=== PATIENT | female | born 1955 | race Caucasian/White ===

== ENCOUNTER 2016-07-09 20:23 | Inpatient (IN) | payer MEDICARE, OTHER ==
[2016-07-09] MEDS ORDERED: methylPREDNISolone SOD SUCCI 125 MG/2 ML VIAL IV STA (21:54)
--- NOTE | 2016-07-09 21:56 | ED ---
SOB HPI - General Chief Complaint: Shortness of Breath Stated Complaint: VOMITING Time Seen by Provider: 07/09/16 21:47 Source: patient, family, RN notes reviewed Mode of arrival: wheelchair - History of Present Illness Initial Comments: This is a 61-year-old female with a history of emphysema who presents with complaints of shortness of breath for the past 5 days she had a cough some lightheadedness dizziness decreased oral intake. No overt chest pain or palpitations. No overt fevers chills or sweats. She has had rhinorrhea. No other complaints at this time MD Complaint: shortness of breath, cough - Related Data Allergies Allergy/AdvReac Type Severity Reaction Status Date / Time No Known Allergies Allergy Verified 07/09/16 20:34 Review of Systems ROS Statement: Those systems with pertinent positive or pertinent negative responses have been documented in the HPI. ROS Other: All systems not noted in ROS Statement are negative. Past Medical History Past Medical History: Cancer, COPD, Diabetes Mellitus Additional Past Medical History / Comment(s): mental retardation, aneurysm, lung CA, lung removed History of Any Multi-Drug Resistant Organisms: None Reported Additional Past Surgical History / Comment(s): lung removed Past Psychological History: No Psychological Hx Reported Smoking Status: Current every day smoker Past Alcohol Use History: None Reported Past Drug Use History: None Reported General Exam - General Exam Comments Initial Comments: This is a well-developed asthenic awake alert oriented 3 female General appearance: alert, anxious, in distress Head exam: Present: atraumatic, normocephalic, normal inspection Eye exam: Present: normal appearance, PERRL, EOMI. Absent: scleral icterus, conjunctival injection, periorbital swelling ENT exam: Present: mucous membranes dry Neck exam: Present: normal inspection. Absent: tenderness, meningismus, lymphadenopathy Respiratory exam: Present: wheezes, accessory muscle use, decreased breath sounds Cardiovascular Exam: Present: regular rate, normal rhythm, normal heart sounds. Absent: systolic murmur, diastolic murmur, rubs, gallop, clicks GI/Abdominal exam: Present: soft, normal bowel sounds. Absent: distended, tenderness, guarding, rebound, rigid Extremities exam: Present: normal inspection, full ROM, normal capillary refill. Absent: tenderness, pedal edema, joint swelling, calf tenderness Back exam: Present: normal inspection Neurological exam: Present: alert, oriented X3, CN II-XII intact Psychiatric exam: Present: normal affect, normal mood Skin exam: Present: warm, dry, intact, normal color. Absent: rash Course Vital Signs 07/09/16 07/09/16 07/10/16 20:34 22:21 00:05 Temperature 98.7 F 99.4 F 98.9 F Pulse Rate 91 86 79 Respiratory 17 18 18 Rate Blood Pressure 142/80 149/72 146/67 O2 Sat by Pulse 93 L 96 96 Oximetry - Reevaluation(s) Reevaluation #1: 07/10/16 00:14I I did reevaluate patient she is feeling somewhat improved so short of breath however. Medical Decision Making - Medical Decision Making I did discuss findings with the patient family patient be admitted I did discuss case with Dr. Tong - Lab Data Result diagrams: 07/09/16 21:53 07/09/16 21:53 Lab Results 07/09/16 07/09/16 07/09/16 Range/Units 21:53 21:53 21:53 WBC 10.1 (3.8-10.6) k/uL RBC 3.98 (3.80-5.40) m/uL Hgb 11.6 (11.4-16.0) gm/dL Hct 33.7 L (34.0-46.0) % MCV 84.6 (80.0-100.0) fL MCH 29.0 (25.0-35.0) pg MCHC 34.3 (31.0-37.0) g/dL RDW 13.5 (11.5-15.5) % Plt Count 378 (150-450) k/uL Neutrophils % 76 % Lymphocytes % 15 % Monocytes % 6 % Eosinophils % 1 % Basophils % 0 % Neutrophils # 7.6 (1.3-7.7) k/uL Lymphocytes # 1.5 (1.0-4.8) k/uL Monocytes # 0.6 (0-1.0) k/uL Eosinophils # 0.1 (0-0.7) k/uL Basophils # 0.0 (0-0.2) k/uL PT (9.0-12.0) sec INR (<1.1) APTT (22.0-30.0) sec Sodium 139 (137-145) mmol/L Potassium 3.8 (3.5-5.1) mmol/L Chloride 99 (98-107) mmol/L Carbon Dioxide 29 (22-30) mmol/L Anion Gap 11 mmol/L BUN 12 (7-17) mg/dL Creatinine 0.50 L (0.52-1.04) mg/dL Est GFR (MDRD) Af Amer >60 (>60 ml/min/1.73 sqM) Est GFR (MDRD) Non-Af >60 (>60 ml/min/1.73 sqM) Glucose 164 H (74-99) mg/dL Calcium 9.1 (8.4-10.2) mg/dL Magnesium 1.6 (1.6-2.3) mg/dL Total Bilirubin 0.3 (0.2-1.3) mg/dL AST 17 (14-36) U/L ALT 28 (9-52) U/L Alkaline Phosphatase 76 (38-126) U/L Total Creatine Kinase 33 (30-135) U/L CK-MB (CK-2) 0.6 (0.0-2.4) ng/mL CK-MB (CK-2) Rel Index 1.8 Troponin I <0.012 (0.000-0.034) ng/mL NT-Pro-B Natriuret Pep pg/mL Total Protein 6.7 (6.3-8.2) g/dL Albumin 3.7 (3.5-5.0) g/dL Influenza Type A RNA (Not Detectd) Influenza Type B (PCR) (Not Detectd) 07/09/16 07/09/16 07/09/16 Range/Units 21:53 21:53 22:20 WBC (3.8-10.6) k/uL RBC (3.80-5.40) m/uL Hgb (11.4-16.0) gm/dL Hct (34.0-46.0) % MCV (80.0-100.0) fL MCH (25.0-35.0) pg MCHC (31.0-37.0) g/dL RDW (11.5-15.5) % Plt Count (150-450) k/uL Neutrophils % % Lymphocytes % % Monocytes % % Eosinophils % % Basophils % % Neutrophils # (1.3-7.7) k/uL Lymphocytes # (1.0-4.8) k/uL Monocytes # (0-1.0) k/uL Eosinophils # (0-0.7) k/uL Basophils # (0-0.2) k/uL PT 9.9 (9.0-12.0) sec INR 1.0 (<1.1) APTT 23.5 (22.0-30.0) sec Sodium (137-145) mmol/L Potassium (3.5-5.1) mmol/L Chloride (98-107) mmol/L Carbon Dioxide (22-30) mmol/L Anion Gap mmol/L BUN (7-17) mg/dL Creatinine (0.52-1.04) mg/dL Est GFR (MDRD) Af Amer (>60 ml/min/1.73 sqM) Est GFR (MDRD) Non-Af (>60 ml/min/1.73 sqM) Glucose (74-99) mg/dL Calcium (8.4-10.2) mg/dL Magnesium (1.6-2.3) mg/dL Total Bilirubin (0.2-1.3) mg/dL AST (14-36) U/L ALT (9-52) U/L Alkaline Phosphatase (38-126) U/L Total Creatine Kinase (30-135) U/L CK-MB (CK-2) (0.0-2.4) ng/mL CK-MB (CK-2) Rel Index Troponin I (0.000-0.034) ng/mL NT-Pro-B Natriuret Pep 312 pg/mL Total Protein (6.3-8.2) g/dL Albumin (3.5-5.0) g/dL Influenza Type A RNA Not Detected (Not Detectd) Influenza Type B (PCR) Not Detected (Not Detectd) - Radiology Data Radiology results: report reviewed, image reviewed Critical Care Time Critical Care Time: Yes Critical Care Time: 31 minutes of critical care time which includes initial presentation with history physical lab and x-rays reevaluation the patient discussed with family members on several occasions discussion with the admitting physician admission orders and documentation the above. Disposition Clinical Impression: Acute exacerbation of chronic obstructive airways disease, Adult respiratory distress syndrome, Pneumonia Disposition: ADMITTED IP TO THIS [facility] Condition: Stable
[2016-07-09 22:14] LABS: Basophils % (A) 0 %; CH 29.6; CHCM 35.1; Eosinophils # (A) 0.1 k/uL (0-0.7); Eosinophils % (A) 1 %; HCT 33.7 % (34.0-46.0); HDW 3.13; HGB 11.6 gm/dL (11.4-16.0); Luc % (Auto) 2; Lymphocytes # (A) 1.5 k/uL (1.0-4.8); Lymphocytes % (A) 15 %; MCHC 34.3 g/dL (31.0-37.0); MCV 84.6 fL (80.0-100.0); Mean Platelet Volume 7.1; Monocytes # (A) 0.6 k/uL (0-1.0); Monocytes % (A) 6 %; Neutrophils # (A) 7.6 k/uL (1.3-7.7); Neutrophils % (A) 76 %; RBC 3.98 m/uL (3.80-5.40); RDW 13.5 % (11.5-15.5); WBC 10.1 k/uL (3.8-10.6)
[2016-07-09 22:23] LABS: ALT 28 U/L (9-52); AST 17 U/L (14-36); Alkaline Phosphatase 76 U/L (38-126); Anion Gap 11 mmol/L; Blood Urea Nitrogen 12 mg/dL (7-17); Calcium 9.1 mg/dL (8.4-10.2); Carbon Dioxide 29 mmol/L (22-30); Chloride 99 mmol/L (98-107); Glucose 164 mg/dL (74-99); Magnesium 1.6 mg/dL (1.6-2.3); Non-African American GFR(MDRD) >60 (>60 ml/min/1.73 sqM); Potassium 3.8 mmol/L (3.5-5.1); Sodium 139 mmol/L (137-145); Total Bilirubin 0.3 mg/dL (0.2-1.3); Total Protein 6.7 g/dL (6.3-8.2)
[2016-07-09 22:27] LABS: Partial Thromboplastin Time 23.5 sec (22.0-30.0); Prothrombin Time 9.9 sec (9.0-12.0)
[2016-07-09 22:35] LABS: Creatine Kinase 33 U/L (30-135)
[2016-07-09 22:49] LABS: Creatine Kinase MB 0.6 ng/mL (0.0-2.4); Troponin I <0.012 ng/mL (0.000-0.034)
--- NOTE | 2016-07-09 22:59 | XR ---
EXAM: XR Chest, 2 Views. CLINICAL HISTORY: Reason: difficulty breathing TECHNIQUE: Frontal and lateral views of the chest. COMPARISON: No relevant prior studies available. FINDINGS: Lungs: Overall increased interstitial markings, nonspecific. Ill- defined opacity in the right lung base with partial obscuration of the lateral wall costophrenic angle on the frontal view. Pleural space: Unremarkable. No pneumothorax. Heart: Cardiovascular silhouette within normal limits. Mediastinum: Unremarkable. Slight prominence of the right hilum which may represent vasculature. Follow-up recommended to exclude underlying lymphadenopathy or mass. Bones/joints: Degenerative changes are seen in the spine. Mild compression deformity of the lower thoracic spine, likely chronic. Vasculature: Mildly tortuous thoracic aorta Upper abdomen: Mild elevation of the right hemidiaphragm. Surgical clips in the visualized right upper quadrant IMPRESSION: 1. Right basilar infiltrate. Follow-up to clearing recommended. 2. Prominent right hilum which may partly reflect vasculature. Follow- up chest x-ray or CT to exclude underlying mass/lymphadenopathy. 3. Mild interstitial edema versus pneumonitis. Recommend clinical correlation.
[2016-07-10] MEDS ORDERED: LEVOFLOXACIN 750MG-D5W PMX 750 MG in DEXTROSE/WATER 1 150ML.BAG IVPB STA (00:16)
[2016-07-10] MEDS ORDERED: PNEUMONIA PROTOCOL UTILIZED 1 EACH MISC PO PRN (00:16)
[2016-07-10] MEDS: SODIUM CHLORIDE 0.9% 1,000 ML IV SCH ×4 (00:32→23:36)
[2016-07-10] MEDS: PIPERACILLIN-TAZOBACTAM 3.375 GM in DEXTROSE/WATER 1 50ML.BAG IVPB SCH ×4 (01:40→23:36)
[2016-07-10] MEDS: IPRATROPIUM-ALBUTEROL 3 ML NEB INHALATION SCH ×6 (04:28→23:31)
[2016-07-10] MEDS: methylPREDNISolone SOD SUCCI 125 MG/2 ML VIAL IV SCH ×4 (06:32→23:36)
[2016-07-10 12:27] LABS: Glucose,Whole Blood 296 mg/dL (75-99)
[2016-07-10] MEDS ORDERED: HYDROcodone/APAP 7.5-325MG 1 EACH TAB PO PRN (12:33)
[2016-07-10] MEDS ORDERED: DIPHENOX-ATROP 2.5-0.025 MG 1 EACH TAB PO PRN (12:33)
[2016-07-10] MEDS ORDERED: ALPRAZolam 0.5 MG TAB PO PRN (12:33)
[2016-07-10] MEDS: INSULIN LISPRO (humaLOG) 300 UNIT/3 ML VIAL SQ SCH ×4 (12:43→21:50)
[2016-07-10 13:23] LABS: Hemoglobin A1C 6.4 % (4.2-6.1)
[2016-07-10] MEDS ORDERED: RX INFO: IV CONTRAST WAS GIVEN 1 EACH MISC MISCELLANE PRN (13:34)
--- NOTE | 2016-07-10 13:45 | P.HPIM ---
History of Present Illness H&P Date: 07/10/16 Chief Complaint: Cough and shortness of breath Patient is a 61-year-old female with known history of COPD, and prolonged history of smoking, poor presented to [facility] due to worsening cough and shortness of breath Chest x-ray revealed evidence of pneumonia also revealed accentuated right hilar area She was started on IV antibiotic and was admitted to medical floor Pulmonary consultation was requested and computed tomography scan of the chest was ordered Past Medical History Past Medical History: Cancer, COPD, Diabetes Mellitus Additional Past Medical History / Comment(s): mental retardation, aneurysm, lung CA, lung removed History of Any Multi-Drug Resistant Organisms: None Reported Past Surgical History: Breast Surgery Additional Past Surgical History / Comment(s): lung removed, left masectomy Past Psychological History: No Psychological Hx Reported Smoking Status: Current every day smoker Past Alcohol Use History: None Reported Past Drug Use History: None Reported - Past Family History Mother Family Medical History: Cancer, Diabetes Mellitus, Liver Disease Additional Family Medical History / Comment(s): liver ca Medications and Allergies Home Medications Medication Instructions Recorded Confirmed Type ALPRAZolam [Xanax] 0.5 mg PO TID PRN 07/10/16 07/10/16 History Albuterol Nebulized [Ventolin 2.5 mg INHALATION RT-TID PRN 07/10/16 07/10/16 History Nebulized] Albuterol Sulfate [Proair Hfa] 2 puff INHALATION RT-Q4H PRN 07/10/16 07/10/16 History Atenolol [Tenormin] 25 mg PO BID 07/10/16 07/10/16 History Captopril [Capoten] 12.5 mg PO AC-BID 07/10/16 07/10/16 History Diphenoxylate HCl/Atropine 1 tab PO QAM PRN 07/10/16 07/10/16 History [Lomotil] FLUoxetine HCL [PROzac] 20 mg PO BID 07/10/16 07/10/16 History Fluticasone/Salmeterol [Advair Hfa 2 puff INHALATION RT-DAILY 07/10/16 07/10/16 History 115-21 Mcg Inhaler] HYDROcodone/APAP 7.5-325MG [[place] 1 tab PO Q6HR PRN 07/10/16 07/10/16 History 7.5-325] Mirtazapine [Remeron] 15 mg PO HS 07/10/16 07/10/16 History Pravastatin Sodium [Pravachol] 40 mg PO DAILY 07/10/16 07/10/16 History Ranitidine HCl [Zantac] 150 mg PO BID 07/10/16 07/10/16 History metFORMIN HCL [Glucophage] 500 mg PO BID 07/10/16 07/10/16 History Allergies Allergy/AdvReac Type Severity Reaction Status Date / Time No Known Allergies Allergy Verified 07/10/16 08:12 Physical Exam Vitals: Vital Signs Temp Pulse Pulse Resp BP Pulse Ox 07/10/16 11:48 88 07/10/16 11:32 84 07/10/16 08:00 16 07/10/16 07:43 80 07/10/16 07:33 80 07/10/16 07:00 97.1 F L 86 16 152/77 91 L 07/10/16 01:30 98.8 F 85 16 111/79 95 Intake and Output 07/09/16 07/10/16 07/10/16 22:59 06:59 14:59 Other: Voiding Method Toilet Toilet Diaper Diaper Incontinent Incontinent # Voids 2 1 In general patient is alert and oriented 3 in no apparent distress HEENT head normocephalic and traumatic patient is very hard of hearing and uses hearing aid Neck is supple no JVD no goiter no lymphadenopathy Chest exam reveals a few scattered crackles no wheezing Cardiac exam reveals regular heart sounds no murmurs Abdomen is soft nontender no organomegaly Extremity exam reveals no edema no cyanosis or clubbing Results CBC & Chem 7: 07/09/16 21:53 07/09/16 21:53 Labs: Abnormal Lab Results - Last 24 Hours (Table) 07/10/16 Range/Units 12:25 POC Glucose (mg/dL) 296 H (75-99) mg/dL Thrombosis Risk Factor Assmnt - Choose All That Apply Any of the Below Risk Factors Present?: Yes Each Factor Represents 1 point: Abnormal pulmonary function (COPD), Age 41-60 years Other Risk Factors: No Other congenital or acquired thrombophilia - If yes, enter type in comment: No Thrombosis Risk Factor Assessment Total Risk Factor Score: 2 Thrombosis Risk Factor Assessment Level: Low Risk Assessment and Plan Plan: #1 right lower lobe pneumonia #2 prominent right hilar area, will check computed tomography scan #3 underlying history of COPD #4 chronic tobacco abuse #5 poor compliance with medical treatment At this time continue was current IV antibiotic continue was current management Await computed tomography scan of the chest with input from pulmonary will follow closely
[2016-07-10] MEDS: ENOXAPARIN 40 MG/0.4 ML SYRINGE SQ SCH (14:12)
[2016-07-10] MEDS: PRAVASTATIN SODIUM 40 MG TAB PO SCH (14:12)
[2016-07-10] MEDS: ATENOLOL 25 MG TAB PO SCH ×2 (14:12→20:40)
--- NOTE | 2016-07-10 17:06 | CT ---
EXAMINATION TYPE: CT chest w con DATE OF EXAM: 07/10/2016 4:57 PM COMPARISON: CT chest December 12, 2012. Chest x-ray from yesterday. HISTORY: Prominent right hilum. History of lung cancer. Abnormal chest x-ray. CT DLP: 132.40 mGycm. Automated Exposure Control for Dose Reduction was Utilized. TECHNIQUE: CT scan of the thorax is performed following with IV Contrast, patient injected with 100 mL of Omnipaque 300. FINDINGS: LUNGS: Mild to moderate underlying emphysematous change is present. There is diffuse groundglass opac ity in the right lower lobe with slightly more suspicious nodular consolidation at 3 levels the poste rior medial right lung base. For reference most medial area measures 1.6 x 1.3 cm on axial image 38. Some patchy areas of groundglass opacity centrally in the left lower lobe are present. No pleural eff usion or pneumothorax is seen bilaterally. MEDIASTINUM: Corresponding to chest x-ray abnormality there is confluent abnormal right hilar lymph n odes difficult to accurately measure. There is prominent subcarinal lymph node measuring 2.3 x 0.7 cm on axial image 23. Surgical clips right hilar level are identified. No cardiomegaly or pericardial e ffusion is seen. Coronary artery calcification is present. OTHER: Left breast is surgically absent. There is new nonspecific fullness to the left adrenal gland. Cholecystectomy clips are noted. There is moderate atherosclerotic change of the thoracic aorta. The re is partial visualization of aneurysm in the mid abdominal aorta on last axial image measuring 4.2 x 3.9 cm transversely with mural thrombus along the anterior and right lateral aspect noted. Moderate multilevel spurring in the spine is seen. There is disc space narrowing with sclerosis involving the anterior T11 and T12 vertebra. IMPRESSION: 1. Prominent suspicious confluent right hilar lymph nodes correlate with recent x-ray. Suspicious are as of nodular consolidation medial right lung base are noted. Recurrent neoplasm cannot be excluded. Consider PET/CT follow-up or bronchoscopy to further evaluate. New fullness to left adrenal gland is seen. 2. Edema and/or infiltrates in bilateral lower lobes, right greater than left suggestive of acute inf ectious process, clinical correlation advised. 3. Partial visualization of aneurysms mid abdominal aorta measuring up to 4.2 cm on this study. Advis e ultrasound of the abdominal aorta to further evaluate.
[2016-07-10 17:18] LABS: Glucose,Whole Blood 268 mg/dL (75-99)
[2016-07-10] MEDS: metFORMIN 500 MG TAB PO SCH ×2 (17:19→18:30)
[2016-07-10] MEDS: CAPTOPRIL 12.5 MG TAB PO SCH (18:30)
[2016-07-10] MEDS: NICOTINE 21MG/24HR PATCH TRANSDERM SCH (20:01)
[2016-07-10] MEDS: FLUoxetine HCL 20 MG CAP PO SCH (20:40)
[2016-07-10] MEDS: MIRTAZAPINE 15 MG TAB PO SCH (20:40)
[2016-07-10] MEDS: FAMOTIDINE 20 MG TAB PO SCH (20:40)
[2016-07-10 20:54] LABS: Glucose,Whole Blood 304 mg/dL (75-99)
[2016-07-10 21:32] LABS: Glucose,Whole Blood 274 mg/dL (75-99)
[2016-07-10] MEDS ORDERED: INSULIN LISPRO (humaLOG) 300 UNIT/3 ML VIAL SQ ONE (21:49)
[2016-07-10] MEDS: LEVOFLOXACIN 750 MG TAB PO SCH (21:50)
[2016-07-11] MEDS: IPRATROPIUM-ALBUTEROL 3 ML NEB INHALATION SCH ×6 (03:17→23:23)
[2016-07-11] MEDS: methylPREDNISolone SOD SUCCI 125 MG/2 ML VIAL IV SCH ×4 (06:00→23:19)
[2016-07-11] MEDS: SYMBICORT 80-4.5 MCG INHALER INHALATION SCH (07:01)
[2016-07-11 07:11] LABS: Glucose,Whole Blood 190 mg/dL (75-99)
[2016-07-11] MEDS: PIPERACILLIN-TAZOBACTAM 3.375 GM in DEXTROSE/WATER 1 50ML.BAG IVPB SCH ×3 (08:21→23:19)
[2016-07-11] MEDS: ENOXAPARIN 40 MG/0.4 ML SYRINGE SQ SCH (08:21)
[2016-07-11] MEDS: FLUoxetine HCL 20 MG CAP PO SCH ×2 (08:21→20:47)
[2016-07-11] MEDS: NICOTINE 21MG/24HR PATCH TRANSDERM SCH (08:21)
[2016-07-11] MEDS: metFORMIN 500 MG TAB PO SCH ×2 (08:22→18:13)
[2016-07-11] MEDS: CAPTOPRIL 12.5 MG TAB PO SCH ×2 (08:22→18:13)
[2016-07-11] MEDS: INSULIN LISPRO (humaLOG) 300 UNIT/3 ML VIAL SQ SCH ×4 (08:23→20:55)
[2016-07-11] MEDS: ATENOLOL 25 MG TAB PO SCH ×2 (08:23→20:47)
[2016-07-11] MEDS: PRAVASTATIN SODIUM 40 MG TAB PO SCH (08:23)
[2016-07-11] MEDS: FAMOTIDINE 20 MG TAB PO SCH ×2 (08:23→20:47)
[2016-07-11 09:58] LABS: Basophils % (A) 0 %; CH 29.6; CHCM 34.7; Eosinophils % (A) 0 %; HCT 33.7 % (34.0-46.0); HDW 3.22; HGB 11.5 gm/dL (11.4-16.0); Luc # (Auto) 0.06; Luc % (Auto) 0; Lymphocytes # (A) 0.8 k/uL (1.0-4.8); Lymphocytes % (A) 6 %; MCH 29.1 pg (25.0-35.0); MCV 85.7 fL (80.0-100.0); Mean Platelet Volume 6.9; Monocytes # (A) 0.4 k/uL (0-1.0); Monocytes % (A) 3 %; Neutrophils # (A) 12.7 k/uL (1.3-7.7); Neutrophils % (A) 91 %; RBC 3.94 m/uL (3.80-5.40); RDW 13.6 % (11.5-15.5); WBC (Perox) 15.08
[2016-07-11 10:15] LABS: ALT 54 U/L (9-52); AST 42 U/L (14-36); Alkaline Phosphatase 77 U/L (38-126); Anion Gap 14 mmol/L; Blood Urea Nitrogen 19 mg/dL (7-17); Calcium 9.2 mg/dL (8.4-10.2); Carbon Dioxide 24 mmol/L (22-30); Chloride 102 mmol/L (98-107); Glucose 249 mg/dL (74-99); Non-African American GFR(MDRD) >60 (>60 ml/min/1.73 sqM); Potassium 4.3 mmol/L (3.5-5.1); Sodium 140 mmol/L (137-145); Total Bilirubin 0.4 mg/dL (0.2-1.3); Total Protein 6.4 g/dL (6.3-8.2)
--- NOTE | 2016-07-11 10:18 | XR ---
EXAMINATION TYPE: XR chest 2V DATE OF EXAM: 07/11/2016 10:13 AM COMPARISON: 07/09/2006 TECHNIQUE: PA and lateral views submitted. HISTORY: Pneumonia FINDINGS: Hyperinflation seen. There is right lower lobe subsegmental consolidation. Heart size stable. Arthrop athy of the shoulders. No pneumothorax or overt failure. Heart size stable. Atherosclerotic change ao rta. Surgical clips right upper quadrant. IMPRESSION: 1. Stable right lower lobe infiltrate
[2016-07-11 12:14] LABS: Glucose,Whole Blood 148 mg/dL (75-99)
--- NOTE | 2016-07-11 13:30 | P.PN ---
Subjective Principal diagnosis: COPD exacerbation Since yesterday patient had some improvement in her cough and her shortness of breath Objective - Vital Signs Vital signs: Vital Signs Temp 97.4 F L 07/11/16 07:00 Pulse 72 07/11/16 11:03 Resp 16 07/11/16 08:00 BP 153/75 07/11/16 07:00 Pulse Ox 95 07/11/16 07:02 Intake & Output 07/10/16 07/11/16 07/11/16 18:59 06:59 18:59 Intake Total 600 250 Balance 600 250 Intake: Oral 600 250 Other: Voiding Method Toilet Toilet Toilet Diaper Diaper Diaper Incontinent Incontinent Incontinent # Voids 3 1 2 - Exam HEENT head normocephalic and atraumatic Neck is supple no JVD no goiter no lymphadenopathy Chest exam reveals a scattered crackles bilaterally no wheezing Cardiac exam reveals regular heart sounds no murmurs Abdomen is soft nontender no organomegaly Extremity exam reveals no edema - Labs CBC & Chem 7: 07/11/16 08:32 07/11/16 08:32 Labs: Abnormal Lab Results - Last 24 Hours (Table) 07/10/16 07/10/16 07/10/16 Range/Units 17:12 20:50 21:31 WBC (3.8-10.6) k/uL Hct (34.0-46.0) % Neutrophils # (1.3-7.7) k/uL Lymphocytes # (1.0-4.8) k/uL BUN (7-17) mg/dL Glucose (74-99) mg/dL POC Glucose (mg/dL) 268 H 304 H 274 H (75-99) mg/dL AST (14-36) U/L ALT (9-52) U/L Albumin (3.5-5.0) g/dL 07/11/16 07/11/16 07/11/16 Range/Units 06:54 08:32 08:32 WBC 14.0 H (3.8-10.6) k/uL Hct 33.7 L (34.0-46.0) % Neutrophils # 12.7 H (1.3-7.7) k/uL Lymphocytes # 0.8 L (1.0-4.8) k/uL BUN 19 H (7-17) mg/dL Glucose 249 H (74-99) mg/dL POC Glucose (mg/dL) 190 H (75-99) mg/dL AST 42 H (14-36) U/L ALT 54 H (9-52) U/L Albumin 3.4 L (3.5-5.0) g/dL 07/11/16 Range/Units 11:49 WBC (3.8-10.6) k/uL Hct (34.0-46.0) % Neutrophils # (1.3-7.7) k/uL Lymphocytes # (1.0-4.8) k/uL BUN (7-17) mg/dL Glucose (74-99) mg/dL POC Glucose (mg/dL) 148 H (75-99) mg/dL AST (14-36) U/L ALT (9-52) U/L Albumin (3.5-5.0) g/dL Microbiology - Last 24 Hours (Table) 07/10/16 11:35 Gram Stain - Preliminary Sputum Assessment and Plan Plan: #1 right lower lobe pneumonia #2 prominent right hilar area, will check computed tomography scan #3 underlying history of COPD #4 chronic tobacco abuse #5 poor compliance with medical treatment At this time continue with current IV antibiotic continue was current management Computed tomography scan of some chest reveals nodular consolidation in the medial right lung base Await further input from pulmonary Patient counseled in length in regards to smoking cessation
--- NOTE | 2016-07-11 14:25 | P.CNPUL ---
History of Present Illness Consult date: 07/11/16 Requesting physician: Alicia Tong Reason for consult: abnormal CXR/CT Chief complaint: Shortness of breath History of present illness: This is a very pleasant 61-year-old female patient who follows with Dr. Tong as her primary care physician. She has a history of diabetes mellitus, mentally challenged, history of noncompliance, left breast cancer status post mastectomy. She also follows with Dr. Kimble in our office for chronic obstructive pulmonary disease and previous history of lung cancer status post lobectomy. Unfortunately, the patient does have chronic and ongoing tobacco dependence. She presented here on 07/09/2016 with complaints of increasing shortness of breath, cough and congestion. Her influenza screen was negative. Her initial chest x-ray revealed evidence of pneumonia with accentuated right hilar area. Subsequently she had undergone a computed tomography scan of the chest which revealed diffuse groundglass opacity in the right lower lobe with slightly more suspicious nodular consolidation in the medial right lung base. There is also noted prominent subcarinal lymph nodes. There is also new fullness in the left adrenal gland. There is also some noted edema/infiltrates of the bilateral lower lobes right greater than left. She's been initiated on Zosyn and Levaquin, bronchodilators, Symbicort, and IV Solu-Medrol. She is seen today 07/11/2016 in consultation on the regular medical floor. She is awake and alert in no acute distress. She is sitting up in the chair at the bedside. She states she is breathing easier today as compared to 2 days ago. She has been afebrile. Minimal leukocytosis. She is maintaining good O2 saturations in the 90s on room air. She's been hemodynamically stable. Sputum culture and blood cultures are pending. Review of Systems 14 point review of systems was conducted. All negative other than as mentioned in HPI. Past Medical History Past Medical History: Cancer, COPD, Diabetes Mellitus Additional Past Medical History / Comment(s): mental retardation, aneurysm, lung CA, lung removed History of Any Multi-Drug Resistant Organisms: None Reported Past Surgical History: Breast Surgery Additional Past Surgical History / Comment(s): lung removed, left masectomy Past Psychological History: No Psychological Hx Reported Smoking Status: Current every day smoker Past Alcohol Use History: None Reported Past Drug Use History: None Reported - Past Family History Mother Family Medical History: Cancer, Diabetes Mellitus, Liver Disease Additional Family Medical History / Comment(s): liver ca Medications and Allergies Home Medications Medication Instructions Recorded Confirmed Type ALPRAZolam [Xanax] 0.5 mg PO TID PRN 07/10/16 07/10/16 History Albuterol Nebulized [Ventolin 2.5 mg INHALATION RT-TID PRN 07/10/16 07/10/16 History Nebulized] Albuterol Sulfate [Proair Hfa] 2 puff INHALATION RT-Q4H PRN 07/10/16 07/10/16 History Atenolol [Tenormin] 25 mg PO BID 07/10/16 07/10/16 History Captopril [Capoten] 12.5 mg PO AC-BID 07/10/16 07/10/16 History Diphenoxylate HCl/Atropine 1 tab PO QAM PRN 07/10/16 07/10/16 History [Lomotil] FLUoxetine HCL [PROzac] 20 mg PO BID 07/10/16 07/10/16 History Fluticasone/Salmeterol [Advair Hfa 2 puff INHALATION RT-DAILY 07/10/16 07/10/16 History 115-21 Mcg Inhaler] HYDROcodone/APAP 7.5-325MG [[place] 1 tab PO Q6HR PRN 07/10/16 07/10/16 History 7.5-325] Mirtazapine [Remeron] 15 mg PO HS 07/10/16 07/10/16 History Pravastatin Sodium [Pravachol] 40 mg PO DAILY 07/10/16 07/10/16 History Ranitidine HCl [Zantac] 150 mg PO BID 07/10/16 07/10/16 History metFORMIN HCL [Glucophage] 500 mg PO BID 07/10/16 07/10/16 History Allergies Allergy/AdvReac Type Severity Reaction Status Date / Time No Known Allergies Allergy Verified 07/10/16 08:12 Physical Exam Vitals: Vital Signs Temp Pulse Pulse Resp BP BP Pulse Ox 07/11/16 11:03 72 07/11/16 10:51 71 07/11/16 08:00 84 16 07/11/16 07:12 68 07/11/16 07:02 68 95 07/11/16 07:00 97.4 F L 84 16 153/75 91 L 07/10/16 23:00 97.5 F L 83 16 159/85 92 L 07/10/16 20:39 94 150/75 07/10/16 20:00 84 07/10/16 19:48 90 07/10/16 16:00 16 07/10/16 15:00 97.6 F 104 H 16 135/68 91 L Intake and Output 07/10/16 07/11/16 07/11/16 22:59 06:59 14:59 Intake Total 250 Balance 250 Intake: Oral 250 Other: Voiding Method Toilet Toilet Diaper Diaper Incontinent Incontinent # Voids 2 1 2 GENERAL EXAM: Alert, active, comfortable in no apparent distress. HEAD: Normocephalic. EYES: Normal reaction of pupils, equal size. NOSE: Clear with pink turbinates. THROAT: No erythema or exudates. NECK: No masses, no JVD. CHEST: No chest wall deformity. LUNGS: Equal air entry with few scattered rhonchi, faint end expiratory wheeze. Diminished.. CVS: S1 and S2 normal with no audible murmurs, regular rhythm. ABDOMEN: No hepatosplenomegaly, normal bowel sounds, no guarding or rigidity. SPINE: No scoliosis or deformity SKIN: No rashes CENTRAL NERVOUS SYSTEM: No focal deficits, tone is normal in all 4 extremities. Extremities: There is no significant peripheral edema. No clubbing, no cyanosis. Peripheral pulses are intact. Results - Laboratory Findings CBC and BMP: 07/11/16 08:32 07/11/16 08:32 PT/INR, D-dimer PT 9.9 sec (9.0-12.0) 07/09/16 21:53 INR 1.0 (<1.1) 07/09/16 21:53 Abnormal lab findings: Abnormal Labs 07/10/16 07/10/16 07/10/16 12:25 17:12 20:50 WBC Hct Neutrophils # Lymphocytes # BUN Glucose POC Glucose (mg/dL) 296 H 268 H 304 H AST ALT Albumin 07/10/16 07/11/16 07/11/16 21:31 06:54 08:32 WBC 14.0 H Hct 33.7 L Neutrophils # 12.7 H Lymphocytes # 0.8 L BUN Glucose POC Glucose (mg/dL) 274 H 190 H AST ALT Albumin 07/11/16 07/11/16 08:32 11:49 WBC Hct Neutrophils # Lymphocytes # BUN 19 H Glucose 249 H POC Glucose (mg/dL) 148 H AST 42 H ALT 54 H Albumin 3.4 L - Diagnostic Findings Chest x-ray: image reviewed CT scan - chest: image reviewed Assessment and Plan Plan: Impression: #1 Acute exacerbation of chronic obstructive pulmonary disease complicated by suspected bibasilar pneumonia, sputum cultures pending. Suspect community- acquired. #2 Chronic and ongoing tobacco dependence. #3 Acute on chronic hypoxic respiratory failure secondary to above. #4 History of lung cancer status post resection. #5 Prominent suspicious confluent right hilar lymph nodes along with suspicious areas of nodular consolidation in the medial right lung base. Recurrent neoplasm is not excluded. #6 Left adrenal gland fullness. #7 Diabetes mellitus. #8 History of breast cancer status post left mastectomy. #9 Mentally challenged. Plan: The patient was seen and evaluated by Dr. Kimble. Her chest x-ray and computed tomography scan were reviewed. There is some suspicious right hilar lymph nodes along with areas of nodular consolidation in the right medial lung base concerning for recurrent/new cancer. She may benefit from a PET scan versus bronchoscopy with biopsy in the outpatient setting. In the interim we' ll continue with her bronchodilators, IV Solu-Medrol, Symbicort, and antibiotics in the form of Zosyn and Levaquin. She remains on Lovenox for DVT prophylaxis and Pepcid for GI prophylaxis. She is again educated regarding the importance of complete smoking cessation. NicoDerm patches in place. We will increase her activity as tolerated. We'll continue to follow. Time with Patient: Greater than 30
[2016-07-11 16:46] LABS: Glucose,Whole Blood 192 mg/dL (75-99)
[2016-07-11] MEDS: SODIUM CHLORIDE 0.9% 1,000 ML IV SCH (18:14)
[2016-07-11] MEDS: MIRTAZAPINE 15 MG TAB PO SCH (20:47)
[2016-07-11] MEDS: LEVOFLOXACIN 750 MG TAB PO SCH (20:47)
[2016-07-11 20:57] LABS: Glucose,Whole Blood 265 mg/dL (75-99)
[2016-07-12] MEDS ORDERED: IPRATROPIUM-ALBUTEROL 3 ML NEB INHALATION PRN (00:59)
[2016-07-12] MEDS: SODIUM CHLORIDE 0.9% 1,000 ML IV SCH ×3 (05:00→21:17)
[2016-07-12] MEDS: methylPREDNISolone SOD SUCCI 125 MG/2 ML VIAL IV SCH ×4 (05:00→23:32)
[2016-07-12] MEDS: INSULIN LISPRO (humaLOG) 300 UNIT/3 ML VIAL SQ SCH ×4 (07:35→21:14)
[2016-07-12] MEDS: metFORMIN 500 MG TAB PO SCH ×2 (07:36→17:00)
[2016-07-12] MEDS: ENOXAPARIN 40 MG/0.4 ML SYRINGE SQ SCH (07:36)
[2016-07-12] MEDS: CAPTOPRIL 12.5 MG TAB PO SCH ×2 (07:36→17:00)
[2016-07-12] MEDS: ATENOLOL 25 MG TAB PO SCH ×2 (07:36→21:15)
[2016-07-12] MEDS: PIPERACILLIN-TAZOBACTAM 3.375 GM in DEXTROSE/WATER 1 50ML.BAG IVPB SCH ×3 (07:36→23:31)
[2016-07-12] MEDS: FAMOTIDINE 20 MG TAB PO SCH ×2 (07:36→21:15)
[2016-07-12] MEDS: PRAVASTATIN SODIUM 40 MG TAB PO SCH (07:36)
[2016-07-12] MEDS: NICOTINE 21MG/24HR PATCH TRANSDERM SCH (07:36)
[2016-07-12] MEDS: FLUoxetine HCL 20 MG CAP PO SCH ×2 (07:36→21:15)
[2016-07-12 07:38] LABS: Glucose,Whole Blood 237 mg/dL (75-99)
[2016-07-12] MEDS: IPRATROPIUM-ALBUTEROL 3 ML NEB INHALATION SCH ×4 (07:53→19:27)
[2016-07-12] MEDS: SYMBICORT 80-4.5 MCG INHALER INHALATION SCH (07:53)
[2016-07-12 09:38] LABS: Basophils % (A) 0 %; CH 28.6; CHCM 32.8; Eosinophils % (A) 0 %; HCT 36.4 % (34.0-46.0); HDW 3.19; Luc # (Auto) 0.09; Luc % (Auto) 1; Lymphocytes # (A) 0.7 k/uL (1.0-4.8); Lymphocytes % (A) 5 %; MCHC 33.1 g/dL (31.0-37.0); MCV 87.7 fL (80.0-100.0); Mean Platelet Volume 6.7; Monocytes # (A) 0.5 k/uL (0-1.0); Monocytes % (A) 3 %; Neutrophils # (A) 13.8 k/uL (1.3-7.7); Neutrophils % (A) 91 %; RBC 4.15 m/uL (3.80-5.40); RDW 13.4 % (11.5-15.5); WBC 15.1 k/uL (3.8-10.6); WBC (Perox) 15.14
[2016-07-12 10:07] LABS: ALT 39 U/L (9-52); AST 25 U/L (14-36); Alkaline Phosphatase 68 U/L (38-126); Anion Gap 18 mmol/L; Blood Urea Nitrogen 22 mg/dL (7-17); Calcium 9.3 mg/dL (8.4-10.2); Carbon Dioxide 17 mmol/L (22-30); Chloride 102 mmol/L (98-107); Glucose 248 mg/dL (74-99); Non-African American GFR(MDRD) >60 (>60 ml/min/1.73 sqM); Sodium 137 mmol/L (137-145); Total Bilirubin 0.4 mg/dL (0.2-1.3); Total Protein 6.5 g/dL (6.3-8.2)
[2016-07-12 12:24] LABS: Glucose,Whole Blood 325 mg/dL (75-99)
[2016-07-12 17:01] LABS: Glucose,Whole Blood 316 mg/dL (75-99)
--- NOTE | 2016-07-12 17:01 | P.PN ---
Subjective Principal diagnosis: COPD exacerbation Since yesterday patient had some improvement in her cough and her shortness of breath Objective - Vital Signs Vital signs: Vital Signs Temp 97.4 F L 07/12/16 15:00 Pulse 74 07/12/16 15:48 Resp 16 07/12/16 15:00 BP 157/75 07/12/16 15:00 Pulse Ox 91 L 07/12/16 15:00 Intake & Output 07/11/16 07/12/16 07/12/16 18:59 06:59 18:59 Intake Total 600 770 Balance 600 770 Weight 55 kg Intake: Oral 600 770 Other: Voiding Method Toilet Toilet Toilet Diaper Diaper Diaper Incontinent Incontinent Incontinent # Voids 2 2 2 # Bowel Movements 1 - Exam HEENT head normocephalic and atraumatic Neck is supple no JVD no goiter no lymphadenopathy Chest exam reveals a scattered crackles bilaterally no wheezing Cardiac exam reveals regular heart sounds no murmurs Abdomen is soft nontender no organomegaly Extremity exam reveals no edema - Labs CBC & Chem 7: 07/12/16 08:59 07/12/16 08:59 Labs: Abnormal Lab Results - Last 24 Hours (Table) 07/11/16 07/12/16 07/12/16 Range/Units 20:51 07:33 08:59 WBC 15.1 H (3.8-10.6) k/uL Neutrophils # 13.8 H (1.3-7.7) k/uL Lymphocytes # 0.7 L (1.0-4.8) k/uL Carbon Dioxide (22-30) mmol/L BUN (7-17) mg/dL Glucose (74-99) mg/dL POC Glucose (mg/dL) 265 H 237 H (75-99) mg/dL Albumin (3.5-5.0) g/dL 07/12/16 07/12/16 Range/Units 08:59 12:22 WBC (3.8-10.6) k/uL Neutrophils # (1.3-7.7) k/uL Lymphocytes # (1.0-4.8) k/uL Carbon Dioxide 17 L (22-30) mmol/L BUN 22 H (7-17) mg/dL Glucose 248 H (74-99) mg/dL POC Glucose (mg/dL) 325 H (75-99) mg/dL Albumin 3.4 L (3.5-5.0) g/dL Microbiology - Last 24 Hours (Table) 07/10/16 11:35 Gram Stain - Preliminary Sputum Sputum Culture - Preliminary Assessment and Plan Plan: #1 right lower lobe pneumonia #2 prominent right hilar area, computed tomography scan of the chest results reviewed #3 underlying history of COPD #4 chronic tobacco abuse #5 poor compliance with medical treatment At this time continue with current IV antibiotic continue was current management Computed tomography scan of some chest reveals nodular consolidation in the medial right lung base Pulmonary following Patient counseled in length in regards to smoking cessation
--- NOTE | 2016-07-12 19:16 | P.PN ---
Subjective This is a very pleasant 61-year-old female patient who follows with Dr. Tong as her primary care physician. She has a history of diabetes mellitus, mentally challenged, history of noncompliance, left breast cancer status post mastectomy. She also follows with Dr. Kimble in our office for chronic obstructive pulmonary disease and previous history of lung cancer status post lobectomy. Unfortunately, the patient does have chronic and ongoing tobacco dependence. She presented here on 07/09/2016 with complaints of increasing shortness of breath, cough and congestion. Her influenza screen was negative. Her initial chest x-ray revealed evidence of pneumonia with accentuated right hilar area. Subsequently she had undergone a computed tomography scan of the chest which revealed diffuse groundglass opacity in the right lower lobe with slightly more suspicious nodular consolidation in the medial right lung base. There is also noted prominent subcarinal lymph nodes. There is also new fullness in the left adrenal gland. There is also some noted edema/infiltrates of the bilateral lower lobes right greater than left. She's been initiated on Zosyn and Levaquin, bronchodilators, Symbicort, and IV Solu-Medrol. She is seen today 07/11/2016 in consultation on the regular medical floor. She is awake and alert in no acute distress. She is sitting up in the chair at the bedside. She states she is breathing easier today as compared to 2 days ago. She has been afebrile. Minimal leukocytosis. She is maintaining good O2 saturations in the 90s on room air. She's been hemodynamically stable. Sputum culture and blood cultures are pending. The patient is seen again today 07/12/2016 on the regular medical floor. She is sitting up in a chair at the bedside. She is awake and alert in no acute distress. She denies any worsening shortness of breath, cough or congestion. Sputum culture and blood cultures are negative thus far. She's been hemodynamically stable. Afebrile. Maintaining O2 saturations in the 90s on room air. Objective - Vital Signs Vital signs: Vital Signs Temp 97.4 F L 07/12/16 15:00 Pulse 74 07/12/16 15:48 Resp 16 07/12/16 15:00 BP 157/75 07/12/16 15:00 Pulse Ox 91 L 07/12/16 15:00 Intake & Output 07/12/16 07/12/16 07/13/16 06:59 18:59 06:59 Intake Total 770 Balance 770 Weight 55 kg Intake: Oral 770 Other: Voiding Method Toilet Toilet Diaper Diaper Incontinent Incontinent # Voids 2 5 # Bowel Movements 1 - Exam GENERAL EXAM: Alert, active, comfortable in no apparent distress. HEAD: Normocephalic. EYES: Normal reaction of pupils, equal size. NOSE: Clear with pink turbinates. THROAT: No erythema or exudates. NECK: No masses, no JVD. CHEST: No chest wall deformity. LUNGS: Equal air entry with few scattered rhonchi, faint end expiratory wheeze. Diminished.. CVS: S1 and S2 normal with no audible murmurs, regular rhythm. ABDOMEN: No hepatosplenomegaly, normal bowel sounds, no guarding or rigidity. SPINE: No scoliosis or deformity SKIN: No rashes CENTRAL NERVOUS SYSTEM: No focal deficits, tone is normal in all 4 extremities. Extremities: There is no significant peripheral edema. No clubbing, no cyanosis. Peripheral pulses are intact. - Labs CBC & Chem 7: 07/12/16 08:59 07/12/16 08:59 Labs: Abnormal Lab Results - Last 24 Hours (Table) 07/11/16 07/12/16 07/12/16 Range/Units 20:51 07:33 08:59 WBC 15.1 H (3.8-10.6) k/uL Neutrophils # 13.8 H (1.3-7.7) k/uL Lymphocytes # 0.7 L (1.0-4.8) k/uL Carbon Dioxide (22-30) mmol/L BUN (7-17) mg/dL Glucose (74-99) mg/dL POC Glucose (mg/dL) 265 H 237 H (75-99) mg/dL Albumin (3.5-5.0) g/dL 07/12/16 07/12/16 07/12/16 Range/Units 08:59 12:22 16:59 WBC (3.8-10.6) k/uL Neutrophils # (1.3-7.7) k/uL Lymphocytes # (1.0-4.8) k/uL Carbon Dioxide 17 L (22-30) mmol/L BUN 22 H (7-17) mg/dL Glucose 248 H (74-99) mg/dL POC Glucose (mg/dL) 325 H 316 H (75-99) mg/dL Albumin 3.4 L (3.5-5.0) g/dL Microbiology - Last 24 Hours (Table) 07/10/16 11:35 Gram Stain - Preliminary Sputum Sputum Culture - Preliminary Assessment and Plan Plan: Impression: #1 Acute exacerbation of chronic obstructive pulmonary disease complicated by suspected right lower lobe pneumonia, sputum cultures pending. Suspect community-acquired. #2 Chronic and ongoing tobacco dependence. #3 Acute on chronic hypoxic respiratory failure secondary to above. #4 History of lung cancer status post resection. #5 Prominent suspicious confluent right hilar lymph nodes along with suspicious areas of nodular consolidation in the medial right lung base. Recurrent neoplasm is not excluded. #6 Left adrenal gland fullness. #7 Diabetes mellitus. #8 History of breast cancer status post left mastectomy. #9 Mentally challenged. Plan: The patient was seen and evaluated by Dr. Kimble. She is stable from the pulmonary standpoint. We'll continue with her current medications. We'll repeat a chest x-ray PA and lateral in the a.m. We'll increase her activity as tolerated. Again, the plan is for possible PET scan versus bronchoscopy with biopsy in the outpatient setting in regards to the prominent suspicious confluent right hilar lymph node. We'll continue to follow.
[2016-07-12 21:15] LABS: Glucose,Whole Blood 358 mg/dL (75-99)
[2016-07-12] MEDS: LEVOFLOXACIN 750 MG TAB PO SCH (21:15)
[2016-07-12] MEDS: MIRTAZAPINE 15 MG TAB PO SCH (21:15)
[2016-07-13] MEDS: methylPREDNISolone SOD SUCCI 125 MG/2 ML VIAL IV SCH ×4 (05:57→23:36)
[2016-07-13 07:23] LABS: Glucose,Whole Blood 222 mg/dL (75-99)
[2016-07-13 08:44] LABS: Basophils % (A) 0 %; CH 29.2; CHCM 34.4; Eosinophils % (A) 0 %; HCT 35.8 % (34.0-46.0); HDW 3.26; HGB 12.1 gm/dL (11.4-16.0); Luc # (Auto) 0.07; Luc % (Auto) 1; Lymphocytes # (A) 0.9 k/uL (1.0-4.8); Lymphocytes % (A) 8 %; MCH 28.8 pg (25.0-35.0); MCHC 33.9 g/dL (31.0-37.0); MCV 85.2 fL (80.0-100.0); Mean Platelet Volume 6.6; Monocytes # (A) 0.5 k/uL (0-1.0); Monocytes % (A) 4 %; Neutrophils # (A) 10.2 k/uL (1.3-7.7); Neutrophils % (A) 87 %; RDW 13.3 % (11.5-15.5); WBC 11.7 k/uL (3.8-10.6); WBC (Perox) 12.04
[2016-07-13] MEDS: PRAVASTATIN SODIUM 40 MG TAB PO SCH (09:04)
[2016-07-13] MEDS: NICOTINE 21MG/24HR PATCH TRANSDERM SCH (09:04)
[2016-07-13] MEDS: INSULIN LISPRO (humaLOG) 300 UNIT/3 ML VIAL SQ SCH ×4 (09:04→21:54)
[2016-07-13] MEDS: ATENOLOL 25 MG TAB PO SCH ×2 (09:04→21:54)
[2016-07-13] MEDS: metFORMIN 500 MG TAB PO SCH ×2 (09:04→17:13)
[2016-07-13] MEDS: ENOXAPARIN 40 MG/0.4 ML SYRINGE SQ SCH (09:04)
[2016-07-13] MEDS: FAMOTIDINE 20 MG TAB PO SCH ×2 (09:04→21:54)
[2016-07-13] MEDS: FLUoxetine HCL 20 MG CAP PO SCH ×2 (09:04→21:54)
[2016-07-13] MEDS: PIPERACILLIN-TAZOBACTAM 3.375 GM in DEXTROSE/WATER 1 50ML.BAG IVPB SCH ×3 (09:05→23:35)
[2016-07-13] MEDS: SODIUM CHLORIDE 0.9% 1,000 ML IV SCH ×2 (09:05→17:09)
[2016-07-13] MEDS: CAPTOPRIL 12.5 MG TAB PO SCH ×2 (09:05→17:09)
[2016-07-13] MEDS: IPRATROPIUM-ALBUTEROL 3 ML NEB INHALATION SCH ×4 (09:08→19:57)
[2016-07-13] MEDS: SYMBICORT 80-4.5 MCG INHALER INHALATION SCH (09:08)
[2016-07-13 09:16] LABS: ALT 41 U/L (9-52); AST 16 U/L (14-36); Alkaline Phosphatase 59 U/L (38-126); Anion Gap 9 mmol/L; Blood Urea Nitrogen 27 mg/dL (7-17); Calcium 9.4 mg/dL (8.4-10.2); Carbon Dioxide 26 mmol/L (22-30); Chloride 102 mmol/L (98-107); Glucose 210 mg/dL (74-99); Non-African American GFR(MDRD) >60 (>60 ml/min/1.73 sqM); Potassium 4.6 mmol/L (3.5-5.1); Sodium 137 mmol/L (137-145); Total Bilirubin 0.4 mg/dL (0.2-1.3)
[2016-07-13 12:10] LABS: Glucose,Whole Blood 320 mg/dL (75-99)
--- NOTE | 2016-07-13 16:18 | P.PN ---
Subjective Principal diagnosis: COPD exacerbation Since yesterday patient had some improvement in her cough and her shortness of breath Objective - Vital Signs Vital signs: Vital Signs Temp 97.1 F L 07/13/16 14:44 Pulse 74 07/13/16 16:01 Resp 20 07/13/16 14:44 BP 182/81 07/13/16 14:44 Pulse Ox 91 L 07/13/16 15:46 Intake & Output 07/12/16 07/13/16 07/13/16 18:59 06:59 18:59 Intake Total 450 Balance 450 Intake: Intake, IV Titration 450 Amount Piperacillin-Tazobactam 3 50 .375 gm In Dextrose/Water 1 50ml.bag @ 12.5 mls/hr IVPB Q8HR [facility] Rx#: [id number] Sodium Chloride 0.9% 1, 400 000 ml @ 100 mls/hr IV . Q10H JENN[facility] Rx#:[id number] Other: Voiding Method Toilet Toilet Toilet Diaper Diaper Diaper Incontinent Incontinent Incontinent # Voids 5 3 2 - Exam HEENT head normocephalic and atraumatic Neck is supple no JVD no goiter no lymphadenopathy Chest exam reveals a scattered crackles bilaterally no wheezing Cardiac exam reveals regular heart sounds no murmurs Abdomen is soft nontender no organomegaly Extremity exam reveals no edema - Labs CBC & Chem 7: 07/13/16 07:48 07/13/16 07:48 Labs: Abnormal Lab Results - Last 24 Hours (Table) 07/12/16 07/12/16 07/13/16 Range/Units 16:59 21:14 07:09 WBC (3.8-10.6) k/uL Neutrophils # (1.3-7.7) k/uL Lymphocytes # (1.0-4.8) k/uL BUN (7-17) mg/dL Glucose (74-99) mg/dL POC Glucose (mg/dL) 316 H 358 H 222 H (75-99) mg/dL Total Protein (6.3-8.2) g/dL Albumin (3.5-5.0) g/dL 07/13/16 07/13/16 07/13/16 Range/Units 07:48 07:48 12:08 WBC 11.7 H (3.8-10.6) k/uL Neutrophils # 10.2 H (1.3-7.7) k/uL Lymphocytes # 0.9 L (1.0-4.8) k/uL BUN 27 H (7-17) mg/dL Glucose 210 H (74-99) mg/dL POC Glucose (mg/dL) 320 H (75-99) mg/dL Total Protein 6.0 L (6.3-8.2) g/dL Albumin 3.3 L (3.5-5.0) g/dL Microbiology - Last 24 Hours (Table) 07/10/16 11:35 Gram Stain - Final Sputum Sputum Culture - Final Assessment and Plan Plan: #1 right lower lobe pneumonia #2 prominent right hilar area, computed tomography scan of the chest results reviewed #3 underlying history of COPD #4 chronic tobacco abuse #5 poor compliance with medical treatment At this time continue with current IV antibiotic continue was current management Computed tomography scan of some chest reveals nodular consolidation in the medial right lung base Pulmonary following Patient counseled in length in regards to smoking cessation Recheck CXR plan for discharge tomorrow
[2016-07-13 16:52] LABS: Glucose,Whole Blood 190 mg/dL (75-99)
--- NOTE | 2016-07-13 17:00 | P.PN ---
Subjective This is a very pleasant 61-year-old female patient who follows with Dr. Tong as her primary care physician. She has a history of diabetes mellitus, mentally challenged, history of noncompliance, left breast cancer status post mastectomy. She also follows with Dr. Kimble in our office for chronic obstructive pulmonary disease and previous history of lung cancer status post lobectomy. Unfortunately, the patient does have chronic and ongoing tobacco dependence. She presented here on 07/09/2016 with complaints of increasing shortness of breath, cough and congestion. Her influenza screen was negative. Her initial chest x-ray revealed evidence of pneumonia with accentuated right hilar area. Subsequently she had undergone a computed tomography scan of the chest which revealed diffuse groundglass opacity in the right lower lobe with slightly more suspicious nodular consolidation in the medial right lung base. There is also noted prominent subcarinal lymph nodes. There is also new fullness in the left adrenal gland. There is also some noted edema/infiltrates of the bilateral lower lobes right greater than left. She's been initiated on Zosyn and Levaquin, bronchodilators, Symbicort, and IV Solu-Medrol. She is seen today 07/11/2016 in consultation on the regular medical floor. She is awake and alert in no acute distress. She is sitting up in the chair at the bedside. She states she is breathing easier today as compared to 2 days ago. She has been afebrile. Minimal leukocytosis. She is maintaining good O2 saturations in the 90s on room air. She's been hemodynamically stable. Sputum culture and blood cultures are pending. The patient is seen again today 07/12/2016 on the regular medical floor. She is sitting up in a chair at the bedside. She is awake and alert in no acute distress. She denies any worsening shortness of breath, cough or congestion. Sputum culture and blood cultures are negative thus far. She's been hemodynamically stable. Afebrile. Maintaining O2 saturations in the 90s on room air. She is seen again today for 2016. She is awake and alert in no acute distress. She is sitting up in the chair at the bedside. She denies any worsening shortness of breath, cough or congestion. She continues to maintain good O2 saturations in the low 90s on room air. She is afebrile. A chest x- ray is pending. Objective - Vital Signs Vital signs: Vital Signs Temp 97.1 F L 07/13/16 14:44 Pulse 74 07/13/16 16:01 Resp 20 07/13/16 14:44 BP 182/81 07/13/16 14:44 Pulse Ox 91 L 07/13/16 15:46 Intake & Output 07/12/16 07/13/16 07/13/16 18:59 06:59 18:59 Intake Total 450 Balance 450 Intake: Intake, IV Titration 450 Amount Piperacillin-Tazobactam 3 50 .375 gm In Dextrose/Water 1 50ml.bag @ 12.5 mls/hr IVPB Q8HR [facility] Rx#: [id number] Sodium Chloride 0.9% 1, 400 000 ml @ 100 mls/hr IV . Q10H [facility] Rx#:[id number] Other: Voiding Method Toilet Toilet Toilet Diaper Diaper Diaper Incontinent Incontinent Incontinent # Voids 5 3 2 - Exam GENERAL EXAM: Alert, active, comfortable in no apparent distress. HEAD: Normocephalic. EYES: Normal reaction of pupils, equal size. NOSE: Clear with pink turbinates. THROAT: No erythema or exudates. NECK: No masses, no JVD. CHEST: No chest wall deformity. LUNGS: Equal air entry with few scattered rhonchi, faint end expiratory wheeze. Diminished.. CVS: S1 and S2 normal with no audible murmurs, regular rhythm. ABDOMEN: No hepatosplenomegaly, normal bowel sounds, no guarding or rigidity. SPINE: No scoliosis or deformity SKIN: No rashes CENTRAL NERVOUS SYSTEM: No focal deficits, tone is normal in all 4 extremities. Extremities: There is no significant peripheral edema. No clubbing, no cyanosis. Peripheral pulses are intact. - Labs CBC & Chem 7: 07/13/16 07:48 07/13/16 07:48 Labs: Abnormal Lab Results - Last 24 Hours (Table) 07/12/16 07/12/16 07/13/16 Range/Units 16:59 21:14 07:09 WBC (3.8-10.6) k/uL Neutrophils # (1.3-7.7) k/uL Lymphocytes # (1.0-4.8) k/uL BUN (7-17) mg/dL Glucose (74-99) mg/dL POC Glucose (mg/dL) 316 H 358 H 222 H (75-99) mg/dL Total Protein (6.3-8.2) g/dL Albumin (3.5-5.0) g/dL 07/13/16 07/13/16 07/13/16 Range/Units 07:48 07:48 12:08 WBC 11.7 H (3.8-10.6) k/uL Neutrophils # 10.2 H (1.3-7.7) k/uL Lymphocytes # 0.9 L (1.0-4.8) k/uL BUN 27 H (7-17) mg/dL Glucose 210 H (74-99) mg/dL POC Glucose (mg/dL) 320 H (75-99) mg/dL Total Protein 6.0 L (6.3-8.2) g/dL Albumin 3.3 L (3.5-5.0) g/dL 07/13/16 Range/Units 16:42 WBC (3.8-10.6) k/uL Neutrophils # (1.3-7.7) k/uL Lymphocytes # (1.0-4.8) k/uL BUN (7-17) mg/dL Glucose (74-99) mg/dL POC Glucose (mg/dL) 190 H (75-99) mg/dL Total Protein (6.3-8.2) g/dL Albumin (3.5-5.0) g/dL Microbiology - Last 24 Hours (Table) 07/10/16 11:35 Gram Stain - Final Sputum Sputum Culture - Final Assessment and Plan Plan: Impression: #1 Acute exacerbation of chronic obstructive pulmonary disease complicated by suspected right lower lobe pneumonia. Suspect community-acquired. #2 Chronic and ongoing tobacco dependence. #3 Acute on chronic hypoxic respiratory failure secondary to above. #4 History of lung cancer status post resection. #5 Prominent suspicious confluent right hilar lymph nodes along with suspicious areas of nodular consolidation in the medial right lung base. Recurrent neoplasm is not excluded. #6 Left adrenal gland fullness. #7 Diabetes mellitus. #8 History of breast cancer status post left mastectomy. #9 Mentally challenged. Plan: The patient was seen and evaluated by Dr. Kimble. She is stable from the pulmonary standpoint. We'll continue with her current medications. We'll repeat a chest x-ray PA and lateral and if no worsening she is cleared for discharge in the a.m. We'll increase her activity as tolerated. Again, the plan is for possible PET scan versus bronchoscopy with biopsy in the outpatient setting in regards to the prominent suspicious confluent right hilar lymph node. We'll continue to follow.
--- NOTE | 2016-07-13 17:26 | XR ---
EXAMINATION TYPE: XR chest 2V DATE OF EXAM: 07/13/2016 5:03 PM COMPARISON: 07/11/2016 HISTORY: Pneumonia. Chest pain. TECHNIQUE: Frontal and lateral views of the chest are obtained. FINDINGS: Heart and mediastinum are normal. There is a mild infiltrate in the right lower lobe. The left lung is clear. There is no heart failure. There are no hilar masses. Bony thorax is intact. IMPRESSION: There is mild diffuse right lower lobe pneumonia that is unchanged compared to last exam . Normal heart.
[2016-07-13 20:59] LABS: Glucose,Whole Blood 420 mg/dL (75-99)
[2016-07-13] MEDS: LEVOFLOXACIN 750 MG TAB PO SCH (21:53)
[2016-07-13] MEDS: MIRTAZAPINE 15 MG TAB PO SCH (21:54)
[2016-07-14] MEDS: SODIUM CHLORIDE 0.9% 1,000 ML IV SCH ×2 (05:20→13:32)
[2016-07-14] MEDS: methylPREDNISolone SOD SUCCI 125 MG/2 ML VIAL IV SCH ×2 (05:38→13:32)
[2016-07-14] MEDS: SYMBICORT 80-4.5 MCG INHALER INHALATION SCH ×2 (07:17→11:02)
[2016-07-14] MEDS: IPRATROPIUM-ALBUTEROL 3 ML NEB INHALATION SCH ×2 (07:17→11:00)
[2016-07-14 07:21] LABS: Glucose,Whole Blood 260 mg/dL (75-99)
[2016-07-14 07:34] VITALS: RESP 16
[2016-07-14] MEDS: NICOTINE 21MG/24HR PATCH TRANSDERM SCH (08:49)
[2016-07-14] MEDS: ENOXAPARIN 40 MG/0.4 ML SYRINGE SQ SCH (08:49)
[2016-07-14] MEDS: PRAVASTATIN SODIUM 40 MG TAB PO SCH (08:50)
[2016-07-14] MEDS: ATENOLOL 25 MG TAB PO SCH (08:50)
[2016-07-14] MEDS: FLUoxetine HCL 20 MG CAP PO SCH (08:50)
[2016-07-14] MEDS: PIPERACILLIN-TAZOBACTAM 3.375 GM in DEXTROSE/WATER 1 50ML.BAG IVPB SCH (08:50)
[2016-07-14] MEDS: CAPTOPRIL 12.5 MG TAB PO SCH (08:50)
[2016-07-14] MEDS: metFORMIN 500 MG TAB PO SCH (08:50)
[2016-07-14] MEDS: INSULIN LISPRO (humaLOG) 300 UNIT/3 ML VIAL SQ SCH ×2 (08:50→13:32)
[2016-07-14] MEDS: FAMOTIDINE 20 MG TAB PO SCH (08:50)
[2016-07-14 12:26] LABS: Glucose,Whole Blood 359 mg/dL (75-99)
--- NOTE | 2016-07-14 13:22 | P.PN ---
Subjective This is a very pleasant 61-year-old female patient who follows with Dr. Tong as her primary care physician. She has a history of diabetes mellitus, mentally challenged, history of noncompliance, left breast cancer status post mastectomy. She also follows with Dr. Kimble in our office for chronic obstructive pulmonary disease and previous history of lung cancer status post lobectomy. Unfortunately, the patient does have chronic and ongoing tobacco dependence. She presented here on 07/09/2016 with complaints of increasing shortness of breath, cough and congestion. Her influenza screen was negative. Her initial chest x-ray revealed evidence of pneumonia with accentuated right hilar area. Subsequently she had undergone a computed tomography scan of the chest which revealed diffuse groundglass opacity in the right lower lobe with slightly more suspicious nodular consolidation in the medial right lung base. There is also noted prominent subcarinal lymph nodes. There is also new fullness in the left adrenal gland. There is also some noted edema/infiltrates of the bilateral lower lobes right greater than left. She's been initiated on Zosyn and Levaquin, bronchodilators, Symbicort, and IV Solu-Medrol. She is seen today 07/11/2016 in consultation on the regular medical floor. She is awake and alert in no acute distress. She is sitting up in the chair at the bedside. She states she is breathing easier today as compared to 2 days ago. She has been afebrile. Minimal leukocytosis. She is maintaining good O2 saturations in the 90s on room air. She's been hemodynamically stable. Sputum culture and blood cultures are pending. The patient is seen again today 07/12/2016 on the regular medical floor. She is sitting up in a chair at the bedside. She is awake and alert in no acute distress. She denies any worsening shortness of breath, cough or congestion. Sputum culture and blood cultures are negative thus far. She's been hemodynamically stable. Afebrile. Maintaining O2 saturations in the 90s on room air. She is seen again today 07/13/2016. She is awake and alert in no acute distress. She is sitting up in the chair at the bedside. She denies any worsening shortness of breath, cough or congestion. She continues to maintain good O2 saturations in the low 90s on room air. She is afebrile. A chest x-ray is pending. The patient is seen again today 07/14/2016 in follow-up on the regular medical floor. She is currently sitting up in a chair at the bedside. She is awake and alert in no acute distress. He is maintaining good O2 saturations in the low 90s on room air. She's been afebrile. She denies any worsening shortness of breath, cough or congestion. Sputum and blood cultures revealed no growth. Her chest x-ray reveals mild diffuse right lower lobe pneumonia that is unchanged compared to previous. Objective - Vital Signs Vital signs: Vital Signs Temp 96.9 F L 07/14/16 07:00 Pulse 72 07/14/16 11:17 Resp 16 07/14/16 08:00 BP 177/81 07/14/16 07:00 Pulse Ox 93 L 07/14/16 07:00 Intake & Output 07/13/16 07/14/16 07/14/16 18:59 06:59 18:59 Intake Total 450 1100 Balance 450 1100 Intake: Intake, IV Titration 450 1100 Amount Piperacillin-Tazobactam 3 50 .375 gm In Dextrose/Water 1 50ml.bag @ 12.5 mls/hr IVPB Q8HR JENNIFER Rx#: [id number] Sodium Chloride 0.9% 1, 400 1100 000 ml @ 100 mls/hr IV . Q10H JENNIFER Rx#:[id number] Other: Voiding Method Toilet Toilet Diaper Diaper Incontinent Incontinent # Voids 2 1 - Exam GENERAL EXAM: Alert, active, comfortable in no apparent distress. HEAD: Normocephalic. EYES: Normal reaction of pupils, equal size. NOSE: Clear with pink turbinates. THROAT: No erythema or exudates. NECK: No masses, no JVD. CHEST: No chest wall deformity. LUNGS: Equal air entry with few scattered rhonchi, faint end expiratory wheeze. Diminished.. CVS: S1 and S2 normal with no audible murmurs, regular rhythm. ABDOMEN: No hepatosplenomegaly, normal bowel sounds, no guarding or rigidity. SPINE: No scoliosis or deformity SKIN: No rashes CENTRAL NERVOUS SYSTEM: No focal deficits, tone is normal in all 4 extremities. Extremities: There is no significant peripheral edema. No clubbing, no cyanosis. Peripheral pulses are intact. - Labs CBC & Chem 7: 07/13/16 07:48 07/13/16 07:48 Labs: Abnormal Lab Results - Last 24 Hours (Table) 07/13/16 07/13/16 07/14/16 Range/Units 16:42 20:55 07:19 POC Glucose (mg/dL) 190 H 420 H 260 H (75-99) mg/dL 07/14/16 Range/Units 12:24 POC Glucose (mg/dL) 359 H (75-99) mg/dL Assessment and Plan Plan: Impression: #1 Acute exacerbation of chronic obstructive pulmonary disease complicated by suspected right lower lobe pneumonia. Suspect community-acquired. #2 Chronic and ongoing tobacco dependence. #3 Acute on chronic hypoxic respiratory failure secondary to above. #4 History of lung cancer status post resection. #5 Prominent suspicious confluent right hilar lymph nodes along with suspicious areas of nodular consolidation in the medial right lung base. Recurrent neoplasm is not excluded. #6 Left adrenal gland fullness. #7 Diabetes mellitus. #8 History of breast cancer status post left mastectomy. #9 Mentally challenged. Plan: The patient was seen and evaluated by Dr. Kimble. Her chest x-ray was reviewed. She is cleared for discharge from the pulmonary standpoint. She could complete her course of antibiotics and a prednisone taper. She is again encouraged regarding the importance of complete smoking cessation. Again, the plan is for possible PET scan versus bronchoscopy with biopsy in the outpatient setting in regards to the prominent suspicious confluent right hilar lymph node. She'll follow-up with Dr. Kimble in our office in 1-2 weeks' time.
--- NOTE | 2016-07-14 13:52 | P.DS ---
Providers Date of admission: 07/10/16 00:19 Expected date of discharge: 07/14/16 Attending physician: Alicia Tong Consults: 07/10/16 13:47 Consult Physician Routine Consulting Provider: Shira Kimble Consult Reason/Comments: copd Do you want consulting provider notified?: Yes Primary care physician: Alicia Tong [facility] Course: Patient is being seen today as uncovered for Dr. Tong. Patient is doing fairly well today. She's been in the hospital and being treated for an underlying pneumonia and COPD exacerbation. She denies any shortness of breath today. Her lungs are clear on auscultation. No cough. Below is a distal for medical problems addressed during this hospitalization. Patient would be discharged with 5 days course prednisone and Levaquin. She will follow-up with her primary care physician next week. #1 Acute exacerbation of chronic obstructive pulmonary disease complicated by suspected right lower lobe pneumonia. Suspect community-acquired. #2 Chronic and ongoing tobacco dependence. #3 Acute on chronic hypoxic respiratory failure secondary to above. #4 History of lung cancer status post resection. #5 Prominent suspicious confluent right hilar lymph nodes along with suspicious areas of nodular consolidation in the medial right lung base. Recurrent neoplasm is not excluded. #6 Left adrenal gland fullness. #7 Diabetes mellitus. #8 History of breast cancer status post left mastectomy. #9 Mentally challenged. Patient Condition at Discharge: Stable Plan - Discharge Summary New Discharge Prescriptions: Levofloxacin [Levaquin] 500 mg PO DAILY #5 tab Nicotine 21Mg/24Hr Patch [Habitrol] 1 patch TRANSDERM DAILY #15 patch predniSONE 40 mg PO DAILY #10 tab Discharge Medication List ALPRAZolam [Xanax] 0.5 mg PO TID PRN 07/10/16 [History] Albuterol Nebulized [Ventolin Nebulized] 2.5 mg INHALATION RT-TID PRN 07/10/16 [ History] Albuterol Sulfate [Proair Hfa] 2 puff INHALATION RT-Q4H PRN 07/10/16 [History] Atenolol [Tenormin] 25 mg PO BID 07/10/16 [History] Captopril [Capoten] 12.5 mg PO AC-BID 07/10/16 [History] Diphenoxylate HCl/Atropine [Lomotil] 1 tab PO QAM PRN 07/10/16 [History] FLUoxetine HCL [PROzac] 20 mg PO BID 07/10/16 [History] Fluticasone/Salmeterol [Advair Hfa 115-21 Mcg Inhaler] 2 puff INHALATION RT- DAILY 07/10/16 [History] HYDROcodone/APAP 7.5-325MG [Sterling 7.5-325] 1 tab PO Q6HR PRN 07/10/16 [History] Mirtazapine [Remeron] 15 mg PO HS 07/10/16 [History] Pravastatin Sodium [Pravachol] 40 mg PO DAILY 07/10/16 [History] Ranitidine HCl [Zantac] 150 mg PO BID 07/10/16 [History] metFORMIN HCL [Glucophage] 500 mg PO BID 07/10/16 [History] Levofloxacin [Levaquin] 500 mg PO DAILY #5 tab 07/14/16 [Rx] Nicotine 21Mg/24Hr Patch [Habitrol] 1 patch TRANSDERM DAILY #15 patch 07/14/16 [ Rx] predniSONE 40 mg PO DAILY #10 tab 07/14/16 [Rx] Follow up Appointment(s)/Referral(s): [facility], [NON-STAFF] - Alicia Tong MD [Primary Care Provider] - 1-2 days Patient Instructions/Handouts: Type 2 Diabetes in Adults (DC) Discharge Disposition: HOME SELF-CARE
[2016-07-14 15:02] VITALS: BP 154/87; PULSE 78; TEMP 97.2
== END 2016-07-14 16:16 | disposition home health service (06) | DRG 190 ==
LOC: EC 20:23 → 4MS4W 07-10 00:19
PROVIDERS: ADMIT Internal Medicine; ATTEND Internal Medicine
DX: J44.0 Chronic obstructive pulmonary disease with (acute) lower respiratory infection (principal); J96.21 Acute and chronic respiratory failure with hypoxia; J18.9 Pneumonia, unspecified organism; E11.9 Type 2 diabetes mellitus without complications; Z90.2 Acquired absence of lung [part of]; D72.829 Elevated white blood cell count, unspecified; J44.1 Chronic obstructive pulmonary disease with (acute) exacerbation; F79 Unspecified intellectual disabilities; R32 Unspecified urinary incontinence; F17.200 Nicotine dependence, unspecified, uncomplicated; R93.8 Abnormal findings on diagnostic imaging of other specified body structures; R91.8 Other nonspecific abnormal finding of lung field; Z90.12 Acquired absence of left breast and nipple; Z80.0 Family history of malignant neoplasm of digestive organs; Z83.3 Family history of diabetes mellitus; Z79.899 Other long term (current) drug therapy; Z91.19 Patient's noncompliance with other medical treatment and regimen; Z85.3 Personal history of malignant neoplasm of breast; Z79.84 Long term (current) use of oral hypoglycemic drugs; Z79.891 Long term (current) use of opiate analgesic; Z79.51 Long term (current) use of inhaled steroids; Z71.6 Tobacco abuse counseling; Z85.118 Personal history of other malignant neoplasm of bronchus and lung; Z86.79 Personal history of other diseases of the circulatory system
CPT/HCPCS: 36415; 71020; 71260; 80053; 82550; 82553; 83036; 83735; 83880; 84484; 85025; 85610; 85730; 87040; 87070; 87205; 87502; 94640; 94760; 96374; 99291

== ENCOUNTER → 2016-08-08 | Outpatient (CLI) | payer MEDICARE, OTHER ==
[2016-08-08 08:22] LABS: Blood Urea Nitrogen 17 mg/dL (7-17); Non-African American GFR(MDRD) >60 (>60 ml/min/1.73 sqM)
--- NOTE | 2016-08-08 11:41 | CT ---
EXAMINATION TYPE: CT chest w con DATE OF EXAM: 08/08/2016 8:45 AM COMPARISON: CT chest July 10, 2016 HISTORY: Enlarged lymph nodes, history of lung cancer. CT DLP: 136.80 mGycm. Automated Exposure Control for Dose Reduction was Utilized. TECHNIQUE: CT scan of the thorax is performed following with IV Contrast, patient injected with 100 ml mL of Omnipaque 300. FINDINGS: LUNGS: Moderate underlying emphysematous change is redemonstrated. Diffuse groundglass opacity right lower lobe is improved versus prior. More nodular consolidation is also improved but not completely r esolved as there is more regular areas of consolidation seen posteriorly and medially still present. There is new irregular consolidation laterally in lung base identified. Patchy groundglass opacity ce ntrally left lung base is resolved. No pleural effusion or pneumothorax is present bilaterally. No ne w concerning parenchymal nodule or mass is identified. Tracheobronchial tree is patent. Surgical clip s right hilar region are redemonstrated. MEDIASTINUM: Somewhat confluent prominent right hilar lymph nodes are felt slightly diminished in siz e. No greater than 1 cm lymph nodes are identified currently. Largest right hilar lymph node measures 1.1 x 0.6 cm on axial image 24 diminished from prior. Subcarinal lymph node measures 1.2 x 0.6 cm on axial image 25 stable from prior. No new greater than 1 cm thoracic lymph nodes are seen.. No card iomegaly or pericardial effusion is seen. Fairly moderate mixed plaque in the thoracic aorta is pres ent. Coronary artery calcification is seen which is noted marker for coronary artery disease. OTHER: Cholecystectomy clips are redemonstrated. Left-sided mastectomy redemonstrated. Slight thicken ing nodularity to left adrenal gland is stable and nonspecific. Ectatic course to the visualized abdo cristian aorta is redemonstrated. Aneurysm with outside field of view. Multilevel disc space narrowing a nd vacuum disc phenomenon in mid to lower thoracic spine is redemonstrated. Sclerosis and spurring an terior T11-T12 level is again seen. IMPRESSION: 1. Predominantly improving and resolving right greater than left bibasilar groundglass opacity and no dular infiltrates. New area of ill-defined consolidation laterally right lung is present, presumed in fectious. No suspicious persistent or new mass or adenopathy is seen to suggest recurrent neoplasm. N onspecific fullness left adrenal gland is stable.
== END | disposition home or self-care (01) ==
LOC: RADCTMAIN 07:45
PROVIDERS: ATTEND Internal Medicine Critical Care Medicine
DX: R91.8 Other nonspecific abnormal finding of lung field (principal); R59.0 Localized enlarged lymph nodes; J98.4 Other disorders of lung
CPT/HCPCS: 82565; 84520; 71260; 36415; Q9967

== ENCOUNTER → 2016-12-26 | Outpatient (CLI) | payer MEDICARE, OTHER ==
[2016-12-26 18:13] LABS: Blood Urea Nitrogen 17 mg/dL (7-17); Non-African American GFR(MDRD) >60 (>60 ml/min/1.73 sqM)
--- NOTE | 2016-12-26 19:57 | CT ---
EXAMINATION TYPE: CT angio abdomen DATE OF EXAM: 12/26/2016 COMPARISON: NONE HISTORY: abdominal aortic aneurysm. Abdominal pain. CT DLP: 1012.00 mGycm CONTRAST: CTA abdominal aorta with 3-D reconstruction is performed and without and with IV Contrast, patient i njected with 100 mL of Omnipaque 350. Contrast CTA of the thoracic and abdominal aorta was performed from the lung apex through the base of the pelvis. 3-D reconstruction imaging obtained at a separate workstation. CONTRAST CT ABDOMEN AND PELVIS ABDOMENAL AORTA: Infrarenal abdominal aortic aneurysm measuring 4.8 cm in AP dimension and approximat rao 9.3 cm in length. Proximal neck is approximately 2.5 cm. Aneurysm extends to the level of the bif urcation. Branch vessels are patent. Suspect at least partially thrombosed right common iliac artery. LIVER/GB-fatty hepatic infiltration. Cholecystectomy clips are in place. PANCREAS- No significant ab normality is seen. SPLEEN- No significant abnormality is seen. ADRENALS- No significant abnormality is seen. KIDNEYS/BLADDER- No significant abnormality is seen. BOWEL- No Significant abnormality GENITAL ORGANS: No gross abnormality seen. LYMPH NODES- No greater than 1cm abdominal or pelvic lymph nodes are appreciated. OSSEOUS STRUCTURES- No significant abnormality is seen. OTHER- No significant abnormality is seen. IMPRESSION- Infrarenal abdominal aortic aneurysm as discussed above. At least partially thrombosed right common iliac artery.
== END | disposition home or self-care (01) ==
LOC: RADCTMAIN 17:29 → EEVIPCON 18:40
PROVIDERS: ATTEND Thoracic Surgery (Cardiothoracic Vascular Surgery)
DX: I71.4 Abdominal aortic aneurysm, without rupture (principal); I74.5 Embolism and thrombosis of iliac artery; E04.2 Nontoxic multinodular goiter
CPT/HCPCS: 82565; 84520; 74175; 36415; Q9967

== ENCOUNTER → 2018-04-29 | Outpatient (CLI) | payer MEDICARE, OTHER ==
--- NOTE | 2018-04-29 08:46 | US ---
EXAMINATION TYPE: US carotid duplex BILAT DATE OF EXAM: 04/29/2018 COMPARISON: NONE CLINICAL HISTORY: 63-year-old female I71.4 Abdominal aortic aneurysm, without rupture. Stenosis, hist ory of right endarterectomy. TECHNIQUE: Carotid duplex ultrasound examination. Indirect Doppler criteria was utilized. FINDINGS: EXAM MEASUREMENTS: RIGHT: Peak Systolic Velocity (PSV) cm/sec ----- Right CCA: 44.2 ----- Right ICA: 111.6 ----- Right ECA: 60.1 ICA/CCA ratio: 2.5 RIGHT: End Diastole cm/sec ----- Right CCA: 11.6 ----- Right ICA: 19.4 ----- Right ECA: 11.7 LEFT: Peak Systolic Velocity (PSV) cm/sec ----- Left CCA: 108.3 ----- Left ICA: 141.8 ----- Left ECA: 111.6 ICA/CCA ratio: 1.3 LEFT: End Diastole cm/sec ----- Left CCA: 27.8 ----- Left ICA: 41.2 ----- Left ECA: 11.1 VERTEBRALS (direction of flow): Right Vertebral: Antegrade Left Vertebral: Antegrade Rhythm: Normal Investigator Claims notes: Bilateral intimal thickening, large amount of plaque bilateral CCA, bulb, proximal ICA and proximal ECA, elevated velocity: left proximal ICA, right ICA/CCA ratio 2.5 IMPRESSION: Prominent atherosclerotic calcifications at the bifurcations with measurements suggesting a moderat e (50-69%) stenosis at the proximal left ICA. Criteria for Assigning % of Stenosis / Diameter reduction (Estimation based on the indirect measurements of the internal carotid artery velocities (ICA PSV). 1. Normal (no stenosis)=ICA PSV < 125 cm/s: ratio < 2.0: ICA EDV<40 cm/s. 2. Less than 50% stenosis=ICA PSV < 125 cm/s: ratio < 2.0: ICA EDV<40 cm/s. 3. 50 to 69% stenosis=ICA PSV of 125 to 230 cm/s: ration 2.0 ? 4.0: ICA EDV 40-100 cm/s. 4. Greater than 70% stenosis to near occlusion= ICA PSV > 230 cm/s: ratio > 4.0: ICA EDV > 100 cm/s. 5. Near occlusion= ICA PSV velocities may be low or undetectable: variable ratio and ICA EDV. 6. Total occlusion=unable to detect flow.
--- NOTE | 2018-04-29 10:53 | US ---
EXAMINATION TYPE: US duplex aorta DATE OF EXAM: 04/29/2018 COMPARISON: 12/26/2016 CT CLINICAL HISTORY: 63-year-old female I71.4 Abdominal aortic aneurysm, without rupture. Infrarenal AAA TECHNIQUE: Multiple sonographic images of the abdominal aorta are obtained. FINDINGS: EXAM MEASUREMENTS: Abdominal Aorta: Proximal: 2.4 x 2.3cm Mid: 2.1 x 2.1cm Distal: 4.9 x 4.8cm, 9.3cm in length Right Iliac: 0.9 x 1.1cm Left Iliac: 1.0 x 1.1cm Infrarenal AAA. IMPRESSION: Infrarenal AAA spanning 9 cm long with a diameter measuring up to 4.9 cm. Overall stable dimensions a s compared to patient's 12/26/2016 CT.
--- NOTE | 2018-04-29 17:00 | ECHOF ---
Referral Reason:I71.4 MEASUREMENTS -------- HEIGHT: 170.2 cm WEIGHT: 63.5 kg BP: IVSd: 1.0 cm (0.6 - 1.1) LVIDd: 3.6 cm (3.9 - 5.3) LVPWd: 1.0 cm (0.6 - 1.1) IVSs: 1.1 cm LVIDs: 2.6 cm LVPWs: 1.1 cm RVIDd: 2.2 cm (< 3.3) LAESV Index (A-L): 8.94 ml/m Ao Diam: 2.6 cm (2.0 - 3.7) LA Diam: 1.9 cm (2.7 - 3.8) AV Cusp: 1.5 cm (1.5 - 2.6) MV E Dung: 0.54 m/s MV DecT: 278 ms MV A Dung: 0.93 m/s MV E/A Ratio: 0.58 RAP: 5.00 mmHg RVSP: 8.64 mmHg FINDINGS -------- Sinus rhythm. This was a technically good study. The left ventricular size is normal. Left ventricular wall thickness is normal. Overall left vent ricular systolic function is low-normal with, an EF between 50 - 55 %. The right ventricle is normal in size and function. Normal LA size by volume 22+/-6 ml/m2. The right atrium is normal in size. Aortic valve is trileaflet and is mildly thickened. There is no evidence of aortic regurgitation. There is no evidence of aortic stenosis. The mitral valve leaflets are mildly thickened. Mild mitral annular calcification present. There is trace to mild mitral regurgitation. Trace tricuspid regurgitation present. Right ventricular systolic pressure is normal at < 35 mmHg. There is no evidence of pulmonary hypertension. The pulmonic valve was not well visualized. The aortic root size is normal. Normal inferior vena cava with normal inspiratory collapse consistent with estimated right atrial pre ssure of 5 mmHg. There is no pericardial effusion. CONCLUSIONS -------- 1. Sinus rhythm. 2. This was a technically good study. 3. The left ventricular size is normal. 4. Left ventricular wall thickness is normal. 5. Overall left ventricular systolic function is low-normal with, an EF between 50 - 55 %. 6. Normal LA size by volume 22+/-6 ml/m2. 7. Aortic valve is trileaflet and is mildly thickened. 8. The mitral valve leaflets are mildly thickened. 9. Mild mitral annular calcification present. 10. There is trace to mild mitral regurgitation. 11. Trace tricuspid regurgitation present. 12. Right ventricular systolic pressure is normal at < 35 mmHg. 13. There is no evidence of pulmonary hypertension. 14. The pulmonic valve was not well visualized. 15. The aortic root size is normal. 16. There is no pericardial effusion. AIR QUALITY INSTRUMENT SPECIALIST: Alban Waters RDCS
== END | disposition home or self-care (01) ==
LOC: RADUSWWP 06:55
PROVIDERS: ATTEND Internal Medicine
DX: I71.4 Abdominal aortic aneurysm, without rupture (principal); I65.23 Occlusion and stenosis of bilateral carotid arteries; I34.0 Nonrheumatic mitral (valve) insufficiency; I10 Essential (primary) hypertension
CPT/HCPCS: 93306; 93880; 93979

== ENCOUNTER → 2018-12-23 | Outpatient (CLI) | payer MEDICARE ==
--- NOTE | 2018-12-23 12:34 | XR ---
EXAMINATION TYPE: XR chest 2V DATE OF EXAM: 12/23/2018 COMPARISON: Prior chest x-ray 07/13/2016 and 07/24/2016 HISTORY: Cough TECHNIQUE: Frontal and lateral views of the chest are obtained. FINDINGS: Postop changes are noted to the right mid lung, right hilar region. Surgical clips are pres ent right upper quadrant. There is persistent elevation of right hemidiaphragm. There is no pleural e ffusion or pneumothorax seen. The cardiac silhouette size is within normal limits. The osseous str uctures are intact. There are dense coronary artery calcifications. IMPRESSION: Postop changes. No acute cardiopulmonary disease is evident. Coronary artery disease.
== END ==
LOC: RADXRMAIN 09:57
PROVIDERS: ATTEND Internal Medicine
DX: I25.10 Atherosclerotic heart disease of native coronary artery without angina pectoris (principal); Z98.890 Other specified postprocedural states
CPT/HCPCS: 71046

== ENCOUNTER 2019-02-04 19:16 | Emergency (ER) | payer MEDICARE ==
[2019-02-04 19:25] VITALS: TEMP 97.8
[2019-02-04] MEDS ORDERED: SODIUM CHLORIDE 0.9% 1,000 ML IV STA (19:36)
[2019-02-04 19:54] LABS: Basophils # (A) 0.1 k/uL (0-0.2); Basophils % (A) 2 %; Eosinophils # (A) 0.2 k/uL (0-0.7); Eosinophils % (A) 3 %; HCT 36.7 % (34.0-46.0); HGB 12.7 gm/dL (11.4-16.0); Lymphocytes # (A) 2.3 k/uL (1.0-4.8); Lymphocytes % (A) 28 %; MCH 28.8 pg (25.0-35.0); MCHC 34.5 g/dL (31.0-37.0); MCV 83.5 fL (80.0-100.0); Mean Platelet Volume 6.5; Monocytes # (A) 0.4 k/uL (0-1.0); Monocytes % (A) 5 %; Neutrophils # (A) 5.1 k/uL (1.3-7.7); Neutrophils % (A) 61 %; Platelet Count 287 k/uL (150-450); RBC 4.39 m/uL (3.80-5.40); RDW 14.1 % (11.5-15.5); WBC 8.5 k/uL (3.8-10.6)
[2019-02-04 20:00] LABS: ALT 18 U/L (9-52); AST 32 U/L (14-36); African American GFR (CKD) >90 (>60 ml/min/1.73 sqM); Albumin 4.7 g/dL (3.5-5.0); Alkaline Phosphatase 58 U/L (38-126); Amylase 79 U/L (30-110); Anion Gap 9 mmol/L; Blood Urea Nitrogen 16 mg/dL (7-17); Calcium 9.7 mg/dL (8.4-10.2); Carbon Dioxide 26 mmol/L (22-30); Chloride 103 mmol/L (98-107); Glucose 104 mg/dL (74-99); Potassium 4.2 mmol/L (3.5-5.1); Sodium 138 mmol/L (137-145); Total Bilirubin 0.3 mg/dL (0.2-1.3); Total Protein 7.7 g/dL (6.3-8.2)
--- NOTE | 2019-02-04 20:40 | ED ---
Abdominal Pain HPI - General Chief Complaint: Abdominal Pain Stated Complaint: Abd issues Time Seen by Provider: 02/04/19 19:31 Source: patient, RN notes reviewed, old records reviewed Mode of arrival: wheelchair Limitations: no limitations - History of Present Illness Initial Comments: His is a 64-year-old female the ER for evaluation. Patient unable to give history but per family was planning of abdominal pain. Patient has occasional abdominal pain. Family states patient has history of AAA that it is a surgical issue or has been nearing surgical issue. Patient is complaining of abdominal pain per family today and brain patient for evaluation of cause of pain MD Complaint: abdominal pain -: days(s) Location: diffuse, epigastric Radiation: epigastric Severity: moderate Severity scale (1-10): 7 Quality: stabbing, aching Consistency: constant Improves With: nothing Worsens With: nothing Associated Symptoms: nausea - Related Data Home Medications Medication Instructions Recorded Confirmed ALPRAZolam [Xanax] 0.5 mg PO TID PRN 07/10/16 02/04/19 Albuterol Sulfate [Proair Hfa] 2 puff INHALATION RT-Q4H PRN 07/10/16 02/04/19 Captopril [Capoten] 12.5 mg PO AC-BID 07/10/16 02/04/19 Diphenoxylate HCl/Atropine 1 tab PO QAM PRN 07/10/16 02/04/19 [Lomotil] FLUoxetine HCL [PROzac] 20 mg PO BID 07/10/16 02/04/19 Fluticasone/Salmeterol [Advair Hfa 2 puff INHALATION RT-DAILY 07/10/16 02/04/19 115-21 Mcg Inhaler] Mirtazapine [Remeron] 15 mg PO HS 07/10/16 02/04/19 Pravastatin Sodium [Pravachol] 40 mg PO DAILY 07/10/16 02/04/19 metFORMIN HCL [Glucophage] 500 mg PO BID 07/10/16 02/04/19 Clopidogrel [Plavix] 75 mg PO DAILY 02/04/19 02/04/19 Isosorbide Mononitrate ER [Imdur] 60 mg PO DAILY 02/04/19 02/04/19 Metoprolol Tartrate 25 mg PO BID 02/04/19 02/04/19 Pantoprazole [Protonix] 40 mg PO DAILY 02/04/19 02/04/19 Zolpidem [Ambien] 10 mg PO HS PRN 02/04/19 02/04/19 Allergies Allergy/AdvReac Type Severity Reaction Status Date / Time No Known Allergies Allergy Verified 02/04/19 21:19 Review of Systems ROS Statement: Those systems with pertinent positive or pertinent negative responses have been documented in the HPI. ROS Other: All systems not noted in ROS Statement are negative. Past Medical History Past Medical History: Cancer, COPD, Diabetes Mellitus Additional Past Medical History / Comment(s): "mental retardation", aneurysm, lung CA, lung removed, History of Any Multi-Drug Resistant Organisms: None Reported Past Surgical History: Breast Surgery Additional Past Surgical History / Comment(s): lung removed, left masectomy Past Psychological History: No Psychological Hx Reported Smoking Status: Current every day smoker Past Alcohol Use History: None Reported Past Drug Use History: None Reported - Past Family History Mother Family Medical History: Cancer, Diabetes Mellitus, Liver Disease Additional Family Medical History / Comment(s): liver ca General Exam Limitations: no limitations General appearance: alert, in no apparent distress Head exam: Present: atraumatic, normocephalic, normal inspection Eye exam: Present: normal appearance, PERRL, EOMI. Absent: scleral icterus, conjunctival injection, periorbital swelling ENT exam: Present: normal exam, mucous membranes moist Neck exam: Present: normal inspection. Absent: tenderness, meningismus, lymphadenopathy Respiratory exam: Present: normal lung sounds bilaterally. Absent: respiratory distress, wheezes, rales, rhonchi, stridor Cardiovascular Exam: Present: regular rate, normal rhythm, normal heart sounds. Absent: systolic murmur, diastolic murmur, rubs, gallop, clicks GI/Abdominal exam: Present: soft, normal bowel sounds. Absent: distended, tend erness, guarding, rebound, rigid Extremities exam: Present: normal inspection, full ROM, normal capillary refill. Absent: tenderness, pedal edema, joint swelling, calf tenderness Back exam: Present: normal inspection Neurological exam: Present: alert, oriented X3, CN II-XII intact Psychiatric exam: Present: normal affect, normal mood Skin exam: Present: warm, dry, intact, normal color. Absent: rash Course Vital Signs 02/04/19 02/04/19 02/04/19 19:18 20:18 21:32 Temperature 97.8 F Pulse Rate 67 69 73 Respiratory 18 16 18 Rate Blood Pressure 130/74 109/90 116/71 O2 Sat by Pulse 95 93 L 93 L Oximetry - Reevaluation(s) Reevaluation #1: 02/04/19 21:24 Medical records reviewed Reevaluation #2: 02/04/19 22:22 Patient's in no acute distress family spoken with regarding results and questions are answered Medical Decision Making - Medical Decision Making 44 female nonspecific abdominal pain CT shows non-change or unchanged abdominal aortic aneurysm. Patient showing no sign of rupture pain is controlled patient can be discharged home - Lab Data Result diagrams: 02/04/19 19:46 02/04/19 19:46 Lab Results 02/04/19 02/04/19 02/04/19 Range/Units 19:46 19:46 19:46 WBC 8.5 (3.8-10.6) k/uL RBC 4.39 (3.80-5.40) m/uL Hgb 12.7 (11.4-16.0) gm/dL Hct 36.7 (34.0-46.0) % MCV 83.5 (80.0-100.0) fL MCH 28.8 (25.0-35.0) pg MCHC 34.5 (31.0-37.0) g/dL RDW 14.1 (11.5-15.5) % Plt Count 287 (150-450) k/uL Neutrophils % 61 % Lymphocytes % 28 % Monocytes % 5 % Eosinophils % 3 % Basophils % 2 % Neutrophils # 5.1 (1.3-7.7) k/uL Lymphocytes # 2.3 (1.0-4.8) k/uL Monocytes # 0.4 (0-1.0) k/uL Eosinophils # 0.2 (0-0.7) k/uL Basophils # 0.1 (0-0.2) k/uL Sodium 138 (137-145) mmol/L Potassium 4.2 (3.5-5.1) mmol/L Chloride 103 (98-107) mmol/L Carbon Dioxide 26 (22-30) mmol/L Anion Gap 9 mmol/L BUN 16 (7-17) mg/dL Creatinine 0.64 (0.52-1.04) mg/dL Est GFR (CKD-EPI)AfAm >90 (>60 ml/min/1.73 sqM) Est GFR (CKD-EPI)NonAf >90 (>60 ml/min/1.73 sqM) Glucose 104 H (74-99) mg/dL Plasma Lactic Acid Rony 1.5 (0.7-2.0) mmol/L Calcium 9.7 (8.4-10.2) mg/dL Total Bilirubin 0.3 (0.2-1.3) mg/dL AST 32 (14-36) U/L ALT 18 (9-52) U/L Alkaline Phosphatase 58 (38-126) U/L Total Protein 7.7 (6.3-8.2) g/dL Albumin 4.7 (3.5-5.0) g/dL Amylase 79 (30-110) U/L Lipase 296 (23-300) U/L - Radiology Data Radiology results: report reviewed (CT abdomen pelvis shows large abdominal aortic aneurysm although no significant changes and no bleeding. Patient will continue to follow-up on outpatient basis for management), image reviewed Disposition Clinical Impression: Abdominal pain, AAA (abdominal aortic aneurysm) Disposition: HOME SELF-CARE Condition: Fair Instructions (If sedation given, give patient instructions): Abdominal Pain (ED), Nonruptured Abdominal Aortic Aneurysm (DC) Is patient prescribed a controlled substance at d/c from ED?: No Referrals: Alicia Tong MD [Primary Care Provider] - 1-2 days
[2019-02-04 21:37] VITALS: PULSE 73; RESP 18
--- NOTE | 2019-02-04 22:02 | CT ---
EXAMINATION TYPE: CT abdomen pelvis w con DATE OF EXAM: 02/04/2019 COMPARISON: 12/26/2016 CT HISTORY: Abdominal pain, hx of aneurysm CT DLP: 824.5 mGycm Automated exposure control for dose reduction was used. TECHNIQUE: Helical acquisition of images was performed from the lung bases through the pelvis. CONTRAST: Performed without Oral Contrast and with IV Contrast, patient injected with 100 mL of Isovu e 300. FINDINGS: LUNG BASES: No acute findings. Left mastectomy change appreciated. LIVER/GB: No significant abnormality is appreciated. PANCREAS: No significant abnormality is seen. SPLEEN: No significant abnormality is seen. ADRENALS: No significant abnormality is seen. KIDNEYS: No significant abnormality is seen. FREE AIR: No free air is visualized. No peritoneal fluid. RETROPERITONEAL ADENOPATHY: None visualized REPRODUCTIVE ORGANS: No significant abnormality is seen URINARY BLADDER: No significant abnormality is seen. Mild urinary bladder distention noted. PELVIC ADENOPATHY: None visualized. OSSEOUS STRUCTURES: No significant abnormality is seen. BOWEL: No significant abnormality is seen. VASCULATURE: No acute vascular process. The abdominal aortic aneurysm measured 5.0 cm AP x 5.5 cm transverse in axial cross section on the pr ior study, and it currently measures 5.5 x 5.5 cm in axial cross section. There is no evidence of ext raluminal aneurysmal leak. IMPRESSION: ABDOMINAL AORTIC ANEURYSM CURRENTLY MEASURES 5.5 X 5.5 CM.
[2019-02-04 22:27] VITALS: BP 109/70
== END 2019-02-04 22:36 | disposition home or self-care (01) ==
LOC: EC 19:16
DX: I71.4 Abdominal aortic aneurysm, without rupture (principal); F79 Unspecified intellectual disabilities; J44.9 Chronic obstructive pulmonary disease, unspecified; E11.9 Type 2 diabetes mellitus without complications; F17.200 Nicotine dependence, unspecified, uncomplicated; Z79.02 Long term (current) use of antithrombotics/antiplatelets; Z79.899 Other long term (current) drug therapy; Z85.118 Personal history of other malignant neoplasm of bronchus and lung; Z90.2 Acquired absence of lung [part of]; Z79.51 Long term (current) use of inhaled steroids; Z79.84 Long term (current) use of oral hypoglycemic drugs
CPT/HCPCS: 36415; 80053; 82150; 83605; 83690; 85025; 74177; 99284; 96360; Q9967

== ENCOUNTER 2019-04-03 15:48 | Inpatient (IN) | payer MEDICARE, OTHER ==
[2019-04-03] MEDS ORDERED: MORPHINE SULFATE 4 MG/ML SYRINGE IV STA (17:12)
[2019-04-03] MEDS ORDERED: SODIUM CHLORIDE 0.9% 1,000 ML IV STA (17:12)
--- NOTE | 2019-04-03 17:22 | ED ---
Abdominal Pain HPI - General Chief Complaint: Abdominal Pain Stated Complaint: aneurysm in stomach Time Seen by Provider: 04/03/19 17:12 Source: family, RN notes reviewed, old records reviewed Mode of arrival: ambulatory Limitations: no limitations, altered mental status, physical limitation - History of Present Illness Initial Comments: This is a [id number] presents today for evaluation of abdominal pain and abdominal bloating increasing abdominal pain. Patient is has history of known AAA pain is just been increasing slowly with decreased bowel movements mold no nausea no vomiting. No fevers. Members concerned regarding her aneurysm and the treatment plan for this aneurysm. Patient has not a follow-up recently for evaluation. Patient presents today for recurrent evaluation regarding AAA scented by family doctor MD Complaint: abdominal pain -: month(s), year(s) Location: periumbilical Radiation: epigastric, suprapubic, bilateral flank Migration to: no migration Severity: mild Severity scale (1-10): 2 Quality: cramping, aching Consistency: constant Improves With: nothing Worsens With: nothing Associated Symptoms: nausea, diarrhea - Related Data Home Medications Medication Instructions Recorded Confirmed ALPRAZolam [Xanax] 0.5 mg PO TID PRN 07/10/16 02/04/19 Albuterol Sulfate [Proair Hfa] 2 puff INHALATION RT-Q4H PRN 07/10/16 02/04/19 Captopril [Capoten] 12.5 mg PO AC-BID 07/10/16 02/04/19 Diphenoxylate HCl/Atropine 1 tab PO QAM PRN 07/10/16 02/04/19 [Lomotil] FLUoxetine HCL [PROzac] 20 mg PO BID 07/10/16 02/04/19 Fluticasone/Salmeterol [Advair Hfa 2 puff INHALATION RT-DAILY 07/10/16 02/04/19 115-21 Mcg Inhaler] Mirtazapine [Remeron] 15 mg PO HS 07/10/16 02/04/19 Pravastatin Sodium [Pravachol] 40 mg PO DAILY 07/10/16 02/04/19 metFORMIN HCL [Glucophage] 500 mg PO BID 07/10/16 02/04/19 Clopidogrel [Plavix] 75 mg PO DAILY 02/04/19 02/04/19 Isosorbide Mononitrate ER [Imdur] 60 mg PO DAILY 02/04/19 02/04/19 Metoprolol Tartrate 25 mg PO BID 02/04/19 02/04/19 Pantoprazole [Protonix] 40 mg PO DAILY 02/04/19 02/04/19 Zolpidem [Ambien] 10 mg PO HS PRN 02/04/19 02/04/19 Allergies Allergy/AdvReac Type Severity Reaction Status Date / Time No Known Allergies Allergy Verified 02/04/19 21:19 Review of Systems ROS Statement: Those systems with pertinent positive or pertinent negative responses have been documented in the HPI. ROS Other: All systems not noted in ROS Statement are negative. Past Medical History Past Medical History: Cancer, COPD, Diabetes Mellitus Additional Past Medical History / Comment(s): "mental retardation", aneurysm, lung CA, lung removed, History of Any Multi-Drug Resistant Organisms: None Reported Past Surgical History: Breast Surgery Additional Past Surgical History / Comment(s): lung removed, left masectomy Past Psychological History: No Psychological Hx Reported Smoking Status: Current every day smoker Past Alcohol Use History: None Reported Past Drug Use History: None Reported - Past Family History Mother Family Medical History: Cancer, Diabetes Mellitus, Liver Disease Additional Family Medical History / Comment(s): liver ca General Exam General appearance: alert, in no apparent distress Head exam: Present: atraumatic, normocephalic, normal inspection Eye exam: Present: normal appearance, PERRL, EOMI. Absent: scleral icterus, conjunctival injection, periorbital swelling ENT exam: Present: normal exam, mucous membranes moist Neck exam: Present: normal inspection. Absent: tenderness, meningismus, lymphadenopathy Respiratory exam: Present: normal lung sounds bilaterally. Absent: respiratory distress, wheezes, rales, rhonchi, stridor Cardiovascular Exam: Present: regular rate, normal rhythm, normal heart sounds. Absent: systolic murmur, diastolic murmur, rubs, gallop, clicks GI/Abdominal exam: Present: soft, normal bowel sounds. Absent: distended, ten derness, guarding, rebound, rigid Extremities exam: Present: normal inspection, full ROM, normal capillary refill. Absent: tenderness, pedal edema, joint swelling, calf tenderness Back exam: Present: normal inspection Neurological exam: Present: alert, oriented X3, CN II-XII intact Psychiatric exam: Present: normal affect, normal mood Skin exam: Present: warm, dry, intact, normal color. Absent: rash Course Vital Signs 04/03/19 04/03/19 04/03/19 16:58 19:18 20:46 Temperature 99.0 F 99.0 F Pulse Rate 95 85 89 Respiratory 17 18 18 Rate Blood Pressure 191/93 157/90 194/84 O2 Sat by Pulse 95 99 99 Oximetry - Reevaluation(s) Reevaluation #1: 04/03/19 20:53 Medical history reviewed Reevaluation #2: 04/03/19 20:54 Patient given pain control as well as blood pressure control here in the ER - Consultations Consultation #1: Spoke with Dr. arana to agreeable for admission with vascular surgery consult Medical Decision Making - Medical Decision Making 64 female ER. A history of AAA coming in for increased abdominal pain. Patient be admitted for aggressive surgical Related to Size of AAA - Lab Data Result diagrams: 04/03/19 17:30 04/03/19 17:30 Lab Results 04/03/19 04/03/19 04/03/19 Range/Units 17:30 17:30 17:30 WBC 8.6 (3.8-10.6) k/uL RBC 4.59 (3.80-5.40) m/uL Hgb 12.7 (11.4-16.0) gm/dL Hct 37.4 (34.0-46.0) % MCV 81.5 (80.0-100.0) fL MCH 27.7 (25.0-35.0) pg MCHC 33.9 (31.0-37.0) g/dL RDW 13.8 (11.5-15.5) % Plt Count 303 (150-450) k/uL Neutrophils % 71 % Lymphocytes % 19 % Monocytes % 6 % Eosinophils % 1 % Basophils % 1 % Neutrophils # 6.1 (1.3-7.7) k/uL Lymphocytes # 1.6 (1.0-4.8) k/uL Monocytes # 0.5 (0-1.0) k/uL Eosinophils # 0.1 (0-0.7) k/uL Basophils # 0.1 (0-0.2) k/uL Sodium 138 (137-145) mmol/L Potassium 4.4 (3.5-5.1) mmol/L Chloride 101 (98-107) mmol/L Carbon Dioxide 28 (22-30) mmol/L Anion Gap 9 mmol/L BUN 14 (7-17) mg/dL Creatinine 0.59 (0.52-1.04) mg/dL Est GFR (CKD-EPI)AfAm >90 (>60 ml/min/1.73 sqM) Est GFR (CKD-EPI)NonAf >90 (>60 ml/min/1.73 sqM) Glucose 121 H (74-99) mg/dL Plasma Lactic Acid Rony 2.1 H* (0.7-2.0) mmol/L Calcium 10.2 (8.4-10.2) mg/dL Total Bilirubin 0.4 (0.2-1.3) mg/dL AST 24 (14-36) U/L ALT 15 (4-34) U/L Alkaline Phosphatase 64 (38-126) U/L Total Protein 7.5 (6.3-8.2) g/dL Albumin 4.6 (3.5-5.0) g/dL Amylase 57 (30-110) U/L Lipase 175 (23-300) U/L Urine Color Urine Appearance (Clear) Urine pH (5.0-8.0) Ur Specific [place] (1.001-1.035) Urine Protein (Negative) Urine Glucose (UA) (Negative) Urine Ketones (Negative) Urine Blood (Negative) Urine Nitrite (Negative) Urine Bilirubin (Negative) Urine Urobilinogen (<2.0) mg/dL Ur Leukocyte Esterase (Negative) 04/03/19 Range/Units 17:30 WBC (3.8-10.6) k/uL RBC (3.80-5.40) m/uL Hgb (11.4-16.0) gm/dL Hct (34.0-46.0) % MCV (80.0-100.0) fL MCH (25.0-35.0) pg MCHC (31.0-37.0) g/dL RDW (11.5-15.5) % Plt Count (150-450) k/uL Neutrophils % % Lymphocytes % % Monocytes % % Eosinophils % % Basophils % % Neutrophils # (1.3-7.7) k/uL Lymphocytes # (1.0-4.8) k/uL Monocytes # (0-1.0) k/uL Eosinophils # (0-0.7) k/uL Basophils # (0-0.2) k/uL Sodium (137-145) mmol/L Potassium (3.5-5.1) mmol/L Chloride (98-107) mmol/L Carbon Dioxide (22-30) mmol/L Anion Gap mmol/L BUN (7-17) mg/dL Creatinine (0.52-1.04) mg/dL Est GFR (CKD-EPI)AfAm (>60 ml/min/1.73 sqM) Est GFR (CKD-EPI)NonAf (>60 ml/min/1.73 sqM) Glucose (74-99) mg/dL Plasma Lactic Acid Rony (0.7-2.0) mmol/L Calcium (8.4-10.2) mg/dL Total Bilirubin (0.2-1.3) mg/dL AST (14-36) U/L ALT (4-34) U/L Alkaline Phosphatase (38-126) U/L Total Protein (6.3-8.2) g/dL Albumin (3.5-5.0) g/dL Amylase (30-110) U/L Lipase (23-300) U/L Urine Color Light Yellow Urine Appearance Clear (Clear) Urine pH 5.5 (5.0-8.0) Ur Specific [place] 1.005 (1.001-1.035) Urine Protein Negative (Negative) Urine Glucose (UA) Negative (Negative) Urine Ketones Negative (Negative) Urine Blood Negative (Negative) Urine Nitrite Negative (Negative) Urine Bilirubin Negative (Negative) Urine Urobilinogen <2.0 (<2.0) mg/dL Ur Leukocyte Esterase Negative (Negative) - Radiology Data Radiology results: report reviewed (CT abdPelvis is positive for AAA), image reviewed Disposition Clinical Impression: AAA (abdominal aortic aneurysm), Abdominal pain Disposition: ADMITTED IP TO THIS [facility] Condition: Serious Is patient prescribed a controlled substance at d/c from ED?: No Referrals: Alicia Tong MD [Primary Care Provider] - 1-2 days
[2019-04-03 17:46] LABS: Appearance,Urine Clear (Clear); Bilirubin,Urine Negative (Negative); Blood,Urine Negative (Negative); Color,Urine Light Yellow; Glucose,Urine (UA) Negative (Negative); Ketones,Urine Negative (Negative); Leukocyte Esterase,Urine Negative (Negative); Nitrite,Urine Negative (Negative); PH, Urine 5.5 (5.0-8.0); Protein,Urine Negative (Negative); Specific Gravity,Urine 1.005 (1.001-1.035); Urobilinogen,Urine <2.0 mg/dL (<2.0)
[2019-04-03 17:49] LABS: Basophils # (A) 0.1 k/uL (0-0.2); Basophils % (A) 1 %; Eosinophils # (A) 0.1 k/uL (0-0.7); Eosinophils % (A) 1 %; HCT 37.4 % (34.0-46.0); HGB 12.7 gm/dL (11.4-16.0); Lymphocytes # (A) 1.6 k/uL (1.0-4.8); Lymphocytes % (A) 19 %; MCH 27.7 pg (25.0-35.0); MCHC 33.9 g/dL (31.0-37.0); MCV 81.5 fL (80.0-100.0); Mean Platelet Volume 6.9; Monocytes # (A) 0.5 k/uL (0-1.0); Monocytes % (A) 6 %; Neutrophils # (A) 6.1 k/uL (1.3-7.7); Neutrophils % (A) 71 %; Platelet Count 303 k/uL (150-450); RBC 4.59 m/uL (3.80-5.40); RDW 13.8 % (11.5-15.5); WBC 8.6 k/uL (3.8-10.6)
[2019-04-03 17:55] LABS: ALT 15 U/L (4-34); AST 24 U/L (14-36); African American GFR (CKD) >90 (>60 ml/min/1.73 sqM); Albumin 4.6 g/dL (3.5-5.0); Alkaline Phosphatase 64 U/L (38-126); Amylase 57 U/L (30-110); Anion Gap 9 mmol/L; Blood Urea Nitrogen 14 mg/dL (7-17); Calcium 10.2 mg/dL (8.4-10.2); Carbon Dioxide 28 mmol/L (22-30); Chloride 101 mmol/L (98-107); Glucose 121 mg/dL (74-99); Non-African American GFR(CKD) >90 (>60 ml/min/1.73 sqM); Potassium 4.4 mmol/L (3.5-5.1); Sodium 138 mmol/L (137-145); Total Bilirubin 0.4 mg/dL (0.2-1.3); Total Protein 7.5 g/dL (6.3-8.2)
--- NOTE | 2019-04-03 18:54 | CT ---
EXAMINATION TYPE: CT abdomen pelvis w con DATE OF EXAM: 04/03/2019 COMPARISON: 02/04/2019 HISTORY: ABDOMINAL PAIN AND DIARRHEA CT DLP: 757.8 mGycm Automated exposure control for dose reduction was used. CONTRAST: Performed with IV Contrast, patient injected with 100 mL of Isovue 300. Lung bases are clear. There is no pleural effusion. There are clips from cholecystectomy. spleen stom ach pancreas appear normal. Bile ducts are not dilated. Liver is borderline enlarged and measures 20 cm. There is no adrenal mass. Kidneys show satisfactory contrast opacification. There is no hydronephrosi s. Ureters are not dilated. Bladder distends smoothly. There is no inguinal hernia. There is no free fluid in the pelvis. There is hysterectomy. There is no mesenteric edema. There is no ascites or free air. There is no retroperitoneal adenopathy . There is 5.2 cm aneurysm of the lower abdominal aorta. This extends from the renal arteries to the ao rtic bifurcation. There is thrombus on the anterior wall that measures up to almost 3 cm. There is no evidence of leakage. There is no sign of a bowel obstruction. There is some spurring in the lumbar spine. There is no sign ificant compression deformity. There is a few millimeter subluxation of L5 anterior to S1. The bony p luda is intact. There is some subcutaneous edema inferior to the left and right ischium. Unchanged. IMPRESSION: 5.2 cm aneurysm of the lower abdominal aorta unchanged. Hepatomegaly unchanged.
[2019-04-03] MEDS ORDERED: SODIUM CHLORIDE 0.9% 1,000 ML IV ONE (20:41)
[2019-04-03] MEDS ORDERED: MORPHINE SULFATE 4 MG/ML SYRINGE IVP PRN (20:42)
[2019-04-03] MEDS: METOPROLOL TARTRATE 25 MG TAB PO SCH (23:57)
[2019-04-03] MEDS: MIRTAZAPINE 15 MG TAB PO SCH (23:57)
[2019-04-03] MEDS: metFORMIN 500 MG TAB PO SCH (23:58)
[2019-04-03] MEDS: ALPRAZolam 0.5 MG TAB PO PRN (23:58)
[2019-04-03] MEDS: FLUoxetine HCL 20 MG CAP PO SCH (23:58)
[2019-04-04] MEDS ORDERED: ZOLPIDEM 5 MG TAB PO PRN
[2019-04-04] MEDS: SYMBICORT 160-4.5 MCG INHALER INHALATION SCH ×2 (07:27→20:24)
[2019-04-04] MEDS: ALBUTEROL NEBULIZED 2.5 MG/3 ML INHALATION PRN ×3 (07:27→20:23)
[2019-04-04 07:36] LABS: Glucose,Whole Blood 117 mg/dL (75-99)
[2019-04-04] MEDS: ISOSORBIDE MONONITRATE ER 60 MG TAB.ER.24H PO SCH (08:41)
[2019-04-04] MEDS: PANTOPRAZOLE 40 MG TABLET PO SCH (08:41)
[2019-04-04] MEDS: metFORMIN 500 MG TAB PO SCH ×2 (08:41→20:41)
[2019-04-04] MEDS: METOPROLOL TARTRATE 25 MG TAB PO SCH ×2 (08:41→20:41)
[2019-04-04] MEDS: FLUoxetine HCL 20 MG CAP PO SCH ×2 (08:41→20:41)
[2019-04-04] MEDS: INSULIN ASPART (NovoLOG) 100 UNIT/ML VIAL SQ SCH ×4 (08:43→20:44)
[2019-04-04] MEDS ORDERED: DIPHENOX-ATROP 2.5-0.025 MG 1 EACH TAB PO PRN (09:00)
[2019-04-04 10:03] LABS: ALT 15 U/L (4-34); AST 23 U/L (14-36); African American GFR (CKD) >90 (>60 ml/min/1.73 sqM); Albumin 3.9 g/dL (3.5-5.0); Alkaline Phosphatase 53 U/L (38-126); Anion Gap 11 mmol/L; Blood Urea Nitrogen 12 mg/dL (7-17); Calcium 9.4 mg/dL (8.4-10.2); Carbon Dioxide 26 mmol/L (22-30); Chloride 103 mmol/L (98-107); Glucose 195 mg/dL (74-99); Non-African American GFR(CKD) >90 (>60 ml/min/1.73 sqM); Potassium 3.7 mmol/L (3.5-5.1); Sodium 140 mmol/L (137-145); Total Bilirubin 0.4 mg/dL (0.2-1.3); Total Protein 6.6 g/dL (6.3-8.2)
--- NOTE | 2019-04-04 10:52 | P.HPIM ---
History of Present Illness H&P Date: 04/04/19 Chief Complaint: Abdominal pain This is a 64-year-old female patient who presented to the hospital with complaints of abdominal pain with nausea and diarrhea. Patient has a known past medical history of AAA, lung cancer, COPD, mentally challenged and diabetes mellitus. CT of abdomen and pelvis completed showing a 5.2 cm aneurysm of the lower abdominal aorta unchanged. Patient did have elevated lactic acid 2.1. Repeat lactic 1.4. Patient also smokes 2 pack per day. Does have increased cough. Will order chest x-ray to rule out pneumonia. In regards to diarrhea, Will order C. diff stool culture to rule out infection etiology. Amylase and lipase within normal limits. At this time patient reports that her abdominal pain is improved. Patient denies any chest pain or shortness breath. Patient denies nausea vomiting or diarrhea. Patient denies any urinary burning or frequency Review of Systems Please refer to HPI otherwise unremarkable Past Medical History Past Medical History: Cancer, COPD, Diabetes Mellitus Additional Past Medical History / Comment(s): "mental retardation", aneurysm, lung CA, lung removed, History of Any Multi-Drug Resistant Organisms: None Reported Past Surgical History: Breast Surgery Additional Past Surgical History / Comment(s): lung removed, left masectomy Past Psychological History: No Psychological Hx Reported Smoking Status: Current every day smoker Past Alcohol Use History: None Reported Past Drug Use History: None Reported - Past Family History Mother Family Medical History: Cancer, Diabetes Mellitus, Liver Disease Additional Family Medical History / Comment(s): liver ca Medications and Allergies Home Medications Medication Instructions Recorded Confirmed Type ALPRAZolam [Xanax] 0.5 mg PO Q8H PRN 07/10/16 04/03/19 History Albuterol Sulfate [Proair Hfa] 2 puff INHALATION RT-Q4H PRN 07/10/16 04/03/19 History Captopril [Capoten] 12.5 mg PO AC-BID 07/10/16 04/03/19 History Diphenoxylate HCl/Atropine 1 tab PO QAM PRN 07/10/16 04/03/19 History [Lomotil] FLUoxetine HCL [PROzac] 20 mg PO BID 07/10/16 04/03/19 History Fluticasone/Salmeterol [Advair Hfa 1 puff INHALATION RT-BID 07/10/16 04/03/19 H istory 115-21 Mcg Inhaler] Mirtazapine [Remeron] 15 mg PO HS 07/10/16 04/03/19 History Pravastatin Sodium [Pravachol] 40 mg PO AC-SUPPER 07/10/16 04/03/19 History metFORMIN HCL [Glucophage] 500 mg PO BID 07/10/16 04/03/19 History Clopidogrel [Plavix] 75 mg PO DAILY 02/04/19 04/03/19 History Isosorbide Mononitrate ER [Imdur] 60 mg PO DAILY 02/04/19 04/03/19 History Metoprolol Tartrate 25 mg PO BID 02/04/19 04/03/19 History Pantoprazole [Protonix] 40 mg PO DAILY 02/04/19 04/03/19 History Zolpidem [Ambien] 10 mg PO HS PRN 02/04/19 04/03/19 History Allergies Allergy/AdvReac Type Severity Reaction Status Date / Time No Known Allergies Allergy Verified 04/03/19 21:30 Physical Exam Vitals: Vital Signs Temp Pulse Pulse Resp BP BP Pulse Ox 04/04/19 07:48 98.0 F 68 18 167/85 94 L 04/04/19 07:39 88 04/04/19 07:28 88 04/03/19 23:45 98.7 F 89 20 181/77 91 L 04/03/19 21:29 98.1 F 80 18 179/87 100 04/03/19 21:09 83 18 183/92 100 04/03/19 20:46 99.0 F 89 18 194/84 99 04/03/19 19:18 85 18 157/90 99 04/03/19 16:58 99.0 F 95 17 191/93 95 Intake and Output 04/03/19 04/04/19 04/04/19 22:59 06:59 14:59 Other: Voiding Method Bedside Commode # Voids 1 1 Weight 59.92 kg Head normocephalic Neck supple Lungs increased cough diminished breath sounds Heart regular rate and rhythm S1-S2, no rub or gallop Abdomen is soft nontender nondistended positive bowel sounds no hepatosplenomegaly Extremities no edema Neuro alert and orientated to 3 Results CBC & Chem 7: 04/03/19 17:30 04/04/19 09:30 Labs: Abnormal Lab Results - Last 24 Hours (Table) 04/03/19 04/03/19 04/04/19 Range/Units 17:30 17:30 07:33 Glucose 121 H (74-99) mg/dL POC Glucose (mg/dL) 117 H (75-99) mg/dL Plasma Lactic Acid Rony 2.1 H* (0.7-2.0) mmol/L 04/04/19 Range/Units 09:30 Glucose 195 H (74-99) mg/dL POC Glucose (mg/dL) (75-99) mg/dL Plasma Lactic Acid Rony (0.7-2.0) mmol/L Thrombosis Risk Factor Assmnt - Choose All That Apply Any of the Below Risk Factors Present?: Yes Each Factor Represents 1 point: Abnormal pulmonary function (COPD) Other Risk Factors: Yes Each Risk Factor Represents 2 Points: Age 61-74 years Other congenital or acquired thrombophilia - If yes, enter type in comment: No Thrombosis Risk Factor Assessment Total Risk Factor Score: 3 Thrombosis Risk Factor Assessment Level: Moderate Risk Assessment and Plan Assessment: 1. Abdominal pain with nausea and diarrhea. Amylase and lipase within normal limits. CT of abdomen and pelvis completed showing a 5.2 cm aneurysm of the lower abdominal aorta unchanged. Dr. Noriega has been consulted for vascular surgery Plavix currently on hold. 2. Elevated lactic acid at 2.1. Will order chest x-ray to rule out pneumonia due to increased cough. Stool for C. diff and stool culture ordered for diarrhea. Repeat lactic acid 1.4 3. History of COPD 4. Nicotine dependence. Patient educated greater than 3 minutes on smoking cessation. Nicotine patch has been ordered 5. History of lung cancer status post resection 6. History of diabetes mellitus type 2. Home meds resumed sliding scale insulin ordered 7. Mentally challenged 8. History of breast cancer status post left mastectomy DVT prophylaxis SCDs until evaluated by vascular surgery. GI prophylaxis Pepcid Dr. Kunz has been consulted for vascular surgery Chest x-ray, stool for C. diff and stool culture ordered Time with Patient: Greater than 30 (Greater than 60% of the total time spent in counseling and coordination of care. I performed an examination of the patient and discussed their management with the Nurse Practitioner. I have reviewed the Nurse Practitioner's notes and agree with the documented findings and plan of care)
[2019-04-04 12:21] LABS: Glucose,Whole Blood 108 mg/dL (75-99)
--- NOTE | 2019-04-04 15:04 | XR ---
EXAMINATION TYPE: XR chest 2V DATE OF EXAM: 04/04/2019 COMPARISON: Chest x-ray 12/23/2018 HISTORY: Cough TECHNIQUE: Frontal and lateral views of the chest are obtained. FINDINGS: Postop changes again noted to the prominent right hilum, patient is rotated. There is volu me loss in the right hemithorax. No evident pneumothorax or pleural effusion. Right hemidiaphragm is elevated. Surgical clips present in the right upper quadrant. Heart size is stable and within normal limits. There is bronchial wall thickening. IMPRESSION: Correlate for bronchitis. Increased prominence in the appearance of the right hilum like ly to be due to rotation, consider chest CT as indicated.
[2019-04-04] MEDS: CAPTOPRIL 25 MG TAB PO SCH ×2 (16:01→17:25)
[2019-04-04 17:09] LABS: Glucose,Whole Blood 126 mg/dL (75-99)
[2019-04-04] MEDS: PRAVASTATIN SODIUM 40 MG TAB PO SCH (17:25)
--- NOTE | 2019-04-04 18:46 | P.CON ---
Consult Note - . Consult date: 04/04/19 Assessment/Plan:: Patient is a 64-year-old female who was evaluated today with in reference to a known abdominal aortic aneurysm with a history of intermittent abdominal pain. The patient and her family indicate the pain has been ongoing intermittently for the past 3-4 weeks or maybe longer. Occasionally the patient's pain will be socially with nausea and 1 episode of emesis did occur. There is no history of back pain. She has a known 5.2 cm abdominal aortic aneurysm as being evaluated in this regard by Dr. Willson. My evaluation revealed the patient be afebrile vital signs are stable. Heart was regular. Lungs clear. Abdomen is soft and otherwise benign. Aneurysm is palpable and nontender to palpation. I did review the CT films. There is no evidence of rupture or periaortic inflammatory changes suggesting impending rupture. Allograft thank you very much for allowing me to pedis pain in the care of your patient. I trust this consultation is useful to you.
[2019-04-04 20:23] LABS: Glucose,Whole Blood 256 mg/dL (75-99)
[2019-04-04] MEDS: MIRTAZAPINE 15 MG TAB PO SCH (20:41)
[2019-04-04] MEDS: ALPRAZolam 0.5 MG TAB PO PRN (22:03)
[2019-04-05 06:59] LABS: Glucose,Whole Blood 121 mg/dL (75-99)
[2019-04-05] MEDS: INSULIN ASPART (NovoLOG) 100 UNIT/ML VIAL SQ SCH ×3 (07:11→17:42)
[2019-04-05] MEDS: ISOSORBIDE MONONITRATE ER 60 MG TAB.ER.24H PO SCH (07:58)
[2019-04-05] MEDS: FLUoxetine HCL 20 MG CAP PO SCH (07:58)
[2019-04-05] MEDS: METOPROLOL TARTRATE 25 MG TAB PO SCH (07:58)
[2019-04-05] MEDS: metFORMIN 500 MG TAB PO SCH (07:58)
[2019-04-05] MEDS: PANTOPRAZOLE 40 MG TABLET PO SCH (07:59)
[2019-04-05] MEDS: CAPTOPRIL 25 MG TAB PO SCH ×2 (07:59→17:04)
[2019-04-05 08:04] LABS: Basophils # (A) 0.1 k/uL (0-0.2); Basophils % (A) 1 %; Eosinophils # (A) 0.2 k/uL (0-0.7); Eosinophils % (A) 3 %; HCT 34.8 % (34.0-46.0); HGB 11.8 gm/dL (11.4-16.0); Lymphocytes # (A) 1.8 k/uL (1.0-4.8); Lymphocytes % (A) 28 %; MCH 28.3 pg (25.0-35.0); MCHC 33.8 g/dL (31.0-37.0); MCV 83.5 fL (80.0-100.0); Monocytes # (A) 0.4 k/uL (0-1.0); Monocytes % (A) 7 %; Neutrophils # (A) 3.8 k/uL (1.3-7.7); Neutrophils % (A) 60 %; Platelet Count 289 k/uL (150-450); RBC 4.17 m/uL (3.80-5.40); RDW 13.9 % (11.5-15.5); WBC 6.4 k/uL (3.8-10.6)
[2019-04-05] MEDS: SYMBICORT 160-4.5 MCG INHALER INHALATION SCH (08:22)
[2019-04-05 08:24] LABS: ALT 16 U/L (4-34); AST 23 U/L (14-36); African American GFR (CKD) >90 (>60 ml/min/1.73 sqM); Albumin 3.9 g/dL (3.5-5.0); Alkaline Phosphatase 50 U/L (38-126); Anion Gap 8 mmol/L; Blood Urea Nitrogen 14 mg/dL (7-17); Calcium 9.5 mg/dL (8.4-10.2); Carbon Dioxide 28 mmol/L (22-30); Chloride 104 mmol/L (98-107); Glucose 116 mg/dL (74-99); Non-African American GFR(CKD) >90 (>60 ml/min/1.73 sqM); Potassium 3.9 mmol/L (3.5-5.1); Sodium 140 mmol/L (137-145); Total Bilirubin 0.6 mg/dL (0.2-1.3); Total Protein 6.5 g/dL (6.3-8.2)
[2019-04-05 08:47] LABS: Basophils % (A) 0 %; Eosinophils # (A) 0.2 k/uL (0-0.7); Eosinophils % (A) 2 %; HCT 36.2 % (34.0-46.0); HGB 12.2 gm/dL (11.4-16.0); Lymphocytes # (A) 1.8 k/uL (1.0-4.8); Lymphocytes % (A) 25 %; MCH 28.5 pg (25.0-35.0); MCHC 33.7 g/dL (31.0-37.0); MCV 84.4 fL (80.0-100.0); Monocytes # (A) 0.5 k/uL (0-1.0); Monocytes % (A) 7 %; Neutrophils # (A) 4.6 k/uL (1.3-7.7); Neutrophils % (A) 64 %; Platelet Count 268 k/uL (150-450); RBC 4.29 m/uL (3.80-5.40); RDW 13.8 % (11.5-15.5); WBC 7.3 k/uL (3.8-10.6)
[2019-04-05] MEDS ORDERED: NICOTINE 14MG/24HR PATCH TRANSDERM SCH (09:00)
[2019-04-05] MEDS ORDERED: FAMOTIDINE 20 MG TAB PO SCH (09:00)
[2019-04-05] MEDS: ALBUTEROL NEBULIZED 2.5 MG/3 ML INHALATION PRN (11:20)
[2019-04-05 11:42] LABS: Glucose,Whole Blood 269 mg/dL (75-99)
[2019-04-05 12:48] VITALS: BP 153/75; PULSE 62; TEMP 97
--- NOTE | 2019-04-05 16:18 | P.DS ---
Providers Date of admission: 04/05/19 12:01 Attending physician: Alicia Tong Consults: 04/03/19 20:41 Consult Physician Routine Consulting Provider: Nicolás Kunz Consult Reason/Comments: aaa Do you want consulting provider notified?: Yes 04/04/19 13:55 Consult Physician Routine Consulting Provider: Liudmila Lopez Consult Reason/Comments: AAA Do you want consulting provider notified?: Yes Primary care physician: Alicia Alycia [place] [facility] Course: Diagnoses on discharge: 1. Abdominal pain with nausea and diarrhea. Amylase and lipase within normal limits. CT of abdomen and pelvis completed showing a 5.2 cm aneurysm of the lower abdominal aorta unchanged. Dr. Noriega has been consulted for vascular surgery Plavix currently on hold. 2. Elevated lactic acid at 2.1. Will order chest x-ray to rule out pneumonia due to increased cough. Stool for C. diff and stool culture ordered for diarrhea. Repeat lactic acid 1.4 3. History of COPD 4. Nicotine dependence. Patient educated greater than 3 minutes on smoking cessation. Nicotine patch has been ordered 5. History of lung cancer status post resection 6. History of diabetes mellitus type 2. Home meds resumed sliding scale insulin ordered 7. Mentally challenged 8. History of breast cancer status post left mastectomy Hospital course: This is a 64-year-old female patient who presented to the hospital with complaints of abdominal pain with nausea and diarrhea. Patient has a known past medical history of AAA, lung cancer, COPD, mentally challenged and diabetes mellitus. CT of abdomen and pelvis completed showing a 5.2 cm aneurysm of the lower abdominal aorta unchanged. Patient did have elevated lactic acid 2.1. Repeat lactic 1.4. Patient also smokes 2 pack per day. Does have increased cough. Will order chest x-ray to rule out pneumonia. In regards to diarrhea, Will order C. diff stool culture to rule out infection etiology. Amylase and lipase within normal limits. At this time patient reports that her abdominal pain is improved. Patient denies any chest pain or shortness breath. Patient denies nausea vomiting or diarrhea. Patient denies any urinary burning or frequency. On 04/05/2019 patient was seen and examined on the medical floor she is alert and oriented 3 in no apparent distress abdominal pain has resolved and diarrhea has resolved, computed tomography scan results reviewed input from vascular surgery reviewed and discussed was patient. At this time no need for any further intervention at this time patient was counseled in length in regard to smoking cessation and she seems to understand counseling, counseling more than 5 minutes today, at this time patient will be discharged home she would follow up with her vascular surgeon Dr. Kunz. She will follow-up in our office in one week or as needed. Patient Condition at Discharge: Serious Plan - Discharge Summary Discharge Rx Participant: No New Discharge Prescriptions: Continue Fluticasone/Salmeterol [Advair Hfa 115-21 Mcg Inhaler] 1 puff INHALATION RT- BID Diphenoxylate HCl/Atropine [Lomotil] 1 tab PO QAM PRN PRN Reason: Loose Stool Pravastatin Sodium [Pravachol] 40 mg PO AC-SUPPER Captopril [Capoten] 12.5 mg PO AC-BID ALPRAZolam [Xanax] 0.5 mg PO Q8H PRN PRN Reason: Anxiety metFORMIN HCL [Glucophage] 500 mg PO BID Mirtazapine [Remeron] 15 mg PO HS FLUoxetine HCL [PROzac] 20 mg PO BID Albuterol Sulfate [Proair Hfa] 2 puff INHALATION RT-Q4H PRN PRN Reason: Shortness Of Breath Metoprolol Tartrate 25 mg PO BID Isosorbide Mononitrate ER [Imdur] 60 mg PO DAILY Zolpidem [Ambien] 10 mg PO HS PRN PRN Reason: Insomnia Clopidogrel [Plavix] 75 mg PO DAILY Pantoprazole [Protonix] 40 mg PO DAILY Discharge Medication List ALPRAZolam [Xanax] 0.5 mg PO Q8H PRN 07/10/16 [History] Albuterol Sulfate [Proair Hfa] 2 puff INHALATION RT-Q4H PRN 07/10/16 [History] Captopril [Capoten] 12.5 mg PO AC-BID 07/10/16 [History] Diphenoxylate HCl/Atropine [Lomotil] 1 tab PO QAM PRN 07/10/16 [History] FLUoxetine HCL [PROzac] 20 mg PO BID 07/10/16 [History] Fluticasone/Salmeterol [Advair Hfa 115-21 Mcg Inhaler] 1 puff INHALATION RT-BID 07/10/16 [History] Mirtazapine [Remeron] 15 mg PO HS 07/10/16 [History] Pravastatin Sodium [Pravachol] 40 mg PO AC-SUPPER 07/10/16 [History] metFORMIN HCL [Glucophage] 500 mg PO BID 07/10/16 [History] Clopidogrel [Plavix] 75 mg PO DAILY 02/04/19 [History] Isosorbide Mononitrate ER [Imdur] 60 mg PO DAILY 02/04/19 [History] Metoprolol Tartrate 25 mg PO BID 02/04/19 [History] Pantoprazole [Protonix] 40 mg PO DAILY 02/04/19 [History] Zolpidem [Ambien] 10 mg PO HS PRN 02/04/19 [History] Follow up Appointment(s)/Referral(s): Alicia Tong MD [Primary Care Provider] - 1-2 days
[2019-04-05 16:31] VITALS: RESP 16
[2019-04-05] MEDS: PRAVASTATIN SODIUM 40 MG TAB PO SCH (17:04)
[2019-04-05 17:17] LABS: Glucose,Whole Blood 147 mg/dL (75-99)
== END 2019-04-05 18:31 | disposition home or self-care (01) | DRG 392 ==
LOC: EC 15:48 → 6NMEDSUR 20:41 → OBSVTOIN 04-05 12:01
PROVIDERS: ADMIT Internal Medicine; ATTEND Internal Medicine
DX: R10.9 Unspecified abdominal pain (principal); R19.7 Diarrhea, unspecified; E11.9 Type 2 diabetes mellitus without complications; F17.210 Nicotine dependence, cigarettes, uncomplicated; F79 Unspecified intellectual disabilities; I71.4 Abdominal aortic aneurysm, without rupture; J44.9 Chronic obstructive pulmonary disease, unspecified; R11.2 Nausea with vomiting, unspecified; R79.89 Other specified abnormal findings of blood chemistry; Z79.02 Long term (current) use of antithrombotics/antiplatelets; Z79.51 Long term (current) use of inhaled steroids; Z79.84 Long term (current) use of oral hypoglycemic drugs; Z79.899 Other long term (current) drug therapy; Z90.12 Acquired absence of left breast and nipple; Z85.3 Personal history of malignant neoplasm of breast; Z85.118 Personal history of other malignant neoplasm of bronchus and lung; Z71.6 Tobacco abuse counseling; Z90.2 Acquired absence of lung [part of]; Z80.0 Family history of malignant neoplasm of digestive organs; Z83.3 Family history of diabetes mellitus
CPT/HCPCS: 36415; 71046; 74177; 80053; 81003; 82150; 83605; 83690; 85025; 87045; 87046; 94640; 96361; 96374; 99285

== ENCOUNTER 2020-08-30 18:31 | Emergency (ER) | payer MEDICARE, OTHER ==
[2020-08-30 18:56] VITALS: RESP 18; TEMP 98
--- NOTE | 2020-08-30 19:37 | ED ---
General Adult HPI - General Chief complaint: Fall Stated complaint: fall Time Seen by Provider: 08/30/20 19:12 Source: patient, family, RN notes reviewed Mode of arrival: wheelchair Limitations: no limitations - History of Present Illness Initial comments: Patient is a pleasant 6 he 5-year-old female presenting to the emergency department family following fall. Patient does have unsteady gait and does fall occasionally. Patient tripped. A powers did strike her head on a cabinet. No loss of consciousness. Patient has only mild discomfort in this area. No other area of injury or concern. Patient does take Plavix. - Related Data Home Medications Medication Instructions Recorded Confirmed ALPRAZolam [Xanax] 0.5 mg PO Q8H PRN 07/10/16 04/03/19 Albuterol Sulfate [Proair Hfa] 2 puff INHALATION RT-Q4H PRN 07/10/16 04/03/19 Diphenoxylate HCl/Atropine 1 tab PO QAM PRN 07/10/16 04/03/19 [Lomotil] FLUoxetine HCL [PROzac] 20 mg PO BID 07/10/16 04/03/19 Fluticasone/Salmeterol [Advair Hfa 1 puff INHALATION RT-BID 07/10/16 04/03/19 115-21 Mcg Inhaler] Mirtazapine [Remeron] 15 mg PO HS 07/10/16 04/03/19 Pravastatin Sodium [Pravachol] 40 mg PO AC-SUPPER 07/10/16 04/03/19 captopriL [Capoten] 12.5 mg PO AC-BID 07/10/16 04/03/19 metFORMIN HCL [Glucophage] 500 mg PO BID 07/10/16 04/03/19 Clopidogrel [Plavix] 75 mg PO DAILY 02/04/19 04/03/19 Isosorbide Mononitrate ER [Imdur] 60 mg PO DAILY 02/04/19 04/03/19 Metoprolol Tartrate 25 mg PO BID 02/04/19 04/03/19 Pantoprazole [Protonix] 40 mg PO DAILY 02/04/19 04/03/19 Zolpidem [Ambien] 10 mg PO HS PRN 02/04/19 04/03/19 Allergies Allergy/AdvReac Type Severity Reaction Status Date / Time No Known Allergies Allergy Verified 08/30/20 18:55 Review of Systems ROS Statement: Those systems with pertinent positive or pertinent negative responses have been documented in the HPI. ROS Other: All systems not noted in ROS Statement are negative. Constitutional: Denies: fever Eyes: Denies: eye pain ENT: Denies: ear pain Respiratory: Denies: cough Cardiovascular: Denies: chest pain Endocrine: Denies: fatigue Genitourinary: Denies: dysuria Musculoskeletal: Denies: back pain Skin: Denies: rash Neurological: Denies: weakness, confusion Past Medical History Past Medical History: Cancer, COPD, Diabetes Mellitus Additional Past Medical History / Comment(s): "mental retardation", aneurysm, lung CA, lung removed, History of Any Multi-Drug Resistant Organisms: None Reported Past Surgical History: Breast Surgery Additional Past Surgical History / Comment(s): lung removed, left masectomy Past Psychological History: Anxiety, Bipolar, Depression Smoking Status: Former smoker Past Alcohol Use History: None Reported Past Drug Use History: None Reported - Past Family History Mother Family Medical History: Cancer, Diabetes Mellitus, Liver Disease Additional Family Medical History / Comment(s): liver ca General Exam Limitations: no limitations General appearance: alert, in no apparent distress Head exam: Present: other (Right posterior parietal soft tissue swelling with laceration/abrasion) Eye exam: Present: normal appearance, PERRL ENT exam: Present: normal oropharynx Neck exam: Present: normal inspection. Absent: tenderness Respiratory exam: Present: normal lung sounds bilaterally Cardiovascular Exam: Present: regular rate, normal rhythm GI/Abdominal exam: Present: soft. Absent: tenderness Extremities exam: Present: normal inspection Neurological exam: Present: alert, CN II-XII intact. Absent: motor sensory deficit Expanded Neurological exam: Present: protecting the airway Speech: Present: fluid speech Cranial nerves: EOM's Intact: Normal Motor strength exam: RUE: 5, LUE: 5, RLE: 5, LLE: 5 Eye Response: (4) open spontaneously Motor Response: (6) obeys commands Verbal Response: (5) oriented Psychiatric exam: Present: normal affect, normal mood Skin exam: Present: normal color Course Vital Signs 08/30/20 18:51 Temperature 98.0 F Pulse Rate 81 Respiratory 18 Rate Blood Pressure 125/79 O2 Sat by Pulse 93 L Oximetry Procedures - Laceration Laceration #1 Consent Obtained: verbal consent Indication: laceration Site: scalp Size (cm): 4 Description: linear Depth: simple, single layer Pre-repair: wound explored, irrigated extensively Type of Sutures: other (Staple) Number of Sutures: 6 Technique: simple, interrupted Patient Tolerated Procedure: well, no complications Medical Decision Making - Medical Decision Making Patient family updated on results and need for follow-up. Family states unclear last tetanus immunization and is okay to give her. Disposition Clinical Impression: Laceration of scalp Disposition: HOME SELF-CARE Condition: Stable Instructions (If sedation given, give patient instructions): Fall Prevention for Older Adults (ED), Head Injury (ED), Laceration (ED) Additional Instructions: Please follow-up with primary care physician in the next day or 2 for recheck. Hold Plavix for the next 2 days. Staple removal in 8-10 days. Return for weakness, change in mental status, persistent vomiting, worsening symptoms or other concerns. Is patient prescribed a controlled substance at d/c from ED?: No Referrals: Alicia Tong MD [Primary Care Provider] - 1-2 days Time of Disposition: 20:40
--- NOTE | 2020-08-30 19:50 | CT ---
EXAMINATION TYPE: CT brain wo con DATE OF EXAM: 08/30/2020 COMPARISON: 01/14/2010 HISTORY: Trauma, fall, bleeding back side head CT DLP: 1158.4 mGycm Automated exposure control for dose reduction was used. Ventricles have normal size. There is no mass effect nor midline shift. There is no sign of intracran ial hemorrhage. The calvarium is intact. There is mild right frontal scalp soft tissue swelling. Ther e is very little pneumatization of the mastoid sinuses. Occipital bone is intact. IMPRESSION: Negative CT scan of the brain. No adverse change.
[2020-08-30] MEDS ORDERED: DIPH,PERTUS(ACELL)TETVAC-LF 0.5 ML VIAL IM ONE (20:21)
[2020-08-30 20:53] VITALS: BP 129/77; PULSE 80
== END 2020-08-30 20:52 | disposition home or self-care (01) ==
LOC: EC 18:31
DX: S01.01XA Laceration without foreign body of scalp, initial encounter (principal); R26.81 Unsteadiness on feet; E11.9 Type 2 diabetes mellitus without complications; F41.9 Anxiety disorder, unspecified; F79 Unspecified intellectual disabilities; F32.9 Major depressive disorder, single episode, unspecified; J44.9 Chronic obstructive pulmonary disease, unspecified; Z79.02 Long term (current) use of antithrombotics/antiplatelets; Z79.51 Long term (current) use of inhaled steroids; Z79.84 Long term (current) use of oral hypoglycemic drugs; Z87.891 Personal history of nicotine dependence; Z85.118 Personal history of other malignant neoplasm of bronchus and lung; W01.190A Fall on same level from slipping, tripping and stumbling with subsequent striking against furniture, initial encounter
CPT/HCPCS: 12002; 70450; 90471; 90715; 99284

== ENCOUNTER → 2021-03-08 | Outpatient (CLI) | payer MEDICARE, OTHER ==
--- NOTE | 2021-03-08 23:19 | BD ---
EXAMINATION TYPE: Axial Bone Density DATE OF EXAM: 03/08/2021 COMPARISON: NONE CLINICAL HISTORY: Height: 62 Weight: 139.0 FRAX RISK QUESTIONS: Alcohol (3 or more units per day): no Family History (Parent hip fracture): no Glucocorticoids (More than 3mos): no (Ex: prednisone, prednisolone, methylprednisolone, dexamethasone, and hydrocortisone). History of Fracture in Adulthood: no Secondary Osteoporosis: 1. Type 1 Diabetes: no 2. Hyperthyroidism: no 3. Menopause before 45: no 4. Malnutrition: no 5. Chronic liver disease: no Rheumatoid Arthritis: no Current Tobacco Use: no RISK FACTORS HISTORY OF: Surgery to Spine/Hip(right/left)/Wrist (right/left): no Active: no Diet low in dairy products/other sources of calcium: no Postmenopausal woman: no Poor Health: yes MEDICATIONS: diabetic meds Additional History: pt is a poor historian EXAM MEASUREMENTS: Bone mineral densitometry was performed using the [employer] System. Bone mineral density as measured about the Lumbar spine is: ----- L1-L4(G/cm2): 1.316 T Score Values are as follows: ----- L2: 0.3 ----- L3: 2.1 ----- L4: 1.6 ----- L1-L4: 1.1 Bone mineral density has: increased 1.1 % since study of: 01.14.2014 Bone mineral density about the R hip (g/cm2): 0.935 Bone mineral density about the L hip (g/cm2): 0.904 T Score values are as follows: -----R Neck: -0.7 -----L Neck: -1.0 -----R Total: 0.2 -----L Total: -0.1 Bone mineral density has: decreased -2.3 % since study of: 01.14.2014 IMPRESSION: Normal (Values between +1 and -1 indicate normal bone mass). Consider repeating this study in 5 year s or sooner if there is some new clinical indication. NOTE: T-SCORE=SD OF THE YOUNG ADULT MEAN.
--- NOTE | 2021-03-10 11:44 | MM ---
Reason for exam: screening (asymptomatic). Last mammogram was performed 6 years and 8 months ago. History: Patient has history of breast cancer at age 40, history of endometrial cancer, and history of other cancer. Mastectomy of the left breast, 1995. Physical Findings: A clinical breast exam by your physician is recommended on an annual basis and results should be correlated with mammographic findings. MG Screen Bruce Unilateral W/Cad CC and MLO view(s) were taken of the right breast. Prior study comparison: July 20, 2014, right breast MG diagnostic mammo RT w CAD. January 14, 2014, right breast MG diagnostic mammo RT w CAD. There are scattered fibroglandular densities. No significant changes when compared with prior studies. ASSESSMENT: Benign, BI-RAD 2 RECOMMENDATION: Routine screening mammogram of the right breast in 1 year.
== END | disposition home or self-care (01) ==
LOC: RADBDWWP 14:23
PROVIDERS: ATTEND Internal Medicine
DX: Z12.31 Encounter for screening mammogram for malignant neoplasm of breast (principal); N95.1 Menopausal and female climacteric states
CPT/HCPCS: 77067; 77080

== ENCOUNTER → 2021-05-19 | Outpatient (CLI) | payer MEDICARE, OTHER ==
[2021-05-19 11:40] LABS: African American GFR (CKD) >90 (>60 ml/min/1.73 sqM); Blood Urea Nitrogen 12 mg/dL (7-17); Non-African American GFR(CKD) 86 (>60 ml/min/1.73 sqM)
--- NOTE | 2021-05-19 13:35 | CT ---
EXAMINATION TYPE: CT angio abdomen pelvis DATE OF EXAM: 05/19/2021 HISTORY: AAA. CT DLP: 1515mGycm Automated Exposure Control for Dose Reduction was Utilized. CONTRAST: CTA scan of the abdomen and pelvis is performed without and with IV Contrast, patient injected with 1 00 mL of Isovue 370. Three-D reconstructed images were created on an independent workstation and revi ewed COMPARISON: Prior CT April 03, 2019 FINDINGS: VASCULAR: Reflux of contrast into IVC and hepatic veins consistent with right heart failure incidenta lly noted. There is a patent celiac artery and SMA without significant stenosis. There is moderate to severe peripheral rim calcified plaque in the abdominal aorta redemonstrated. Long segment aneurysm extending just below renal arteries up to the iliac bifurcation measuring approximately 10 to 11 cm i n length is redemonstrated. Aneurysm measures up to 5.7 x 6.2 cm transversely axial image 41. There i s significant intramural noncalcified plaque with hyperdense component probable calcified plaque. Ane urysm increased in size from 5.2 x 5.7 cm prior study axial image 43. There are bilateral common carla c stent graft redemonstrated with complete occlusion on the right again seen. There is some reconstit ution on the right near the iliac bifurcation presumably from collateral vessel. No significant steno sis distal to this into the femoral branches. Mild to moderate bilateral peripheral calcified plaque is present. LUNG BASES: No significant abnormality is appreciated. LIVER/GB: Hepatomegaly redemonstrated. Liver is heterogeneously hypodense consistent with diffuse fat ty infiltration. Cholecystectomy clips are redemonstrated. No new biliary dilatation. PANCREAS: No significant abnormality is seen. SPLEEN: No significant abnormality is seen. ADRENALS: No significant abnormality is seen. KIDNEYS: Persistent cortical volume loss posterior aspect right kidney midpole level axial image 44. BOWEL: No significant abnormality is seen. UTERUS/ADNEXA: Uterus surgically absent. LYMPH NODES: No greater than 1cm abdominal or pelvic lymph nodes are appreciated. OSSEOUS STRUCTURES: Grade 1 anterolisthesis L5 on S1 redemonstrated. Persistent severe disc space raj rowing with endplate sclerosis and anterior T11-T12 level. OTHER: No significant additional abnormality is seen. IMPRESSION: 1. Further enlargement of long segment AAA up to 6.2 cm on current study. Persistent stent grafts in the bilateral common iliac arteries with complete occlusion on the right redemonstrated. Advise endov ascular surgical referral.
== END | disposition home or self-care (01) ==
LOC: RADCTMAIN 10:54
PROVIDERS: ATTEND Internal Medicine
DX: I71.4 Abdominal aortic aneurysm, without rupture (principal); I70.203 Unspecified atherosclerosis of native arteries of extremities, bilateral legs; T82.856A Stenosis of peripheral vascular stent, initial encounter; Y71.2 Prosthetic and other implants, materials and accessory cardiovascular devices associated with adverse incidents
CPT/HCPCS: 82565; 84520; 36415; 74174; Q9967

== ENCOUNTER → 2021-09-12 | Outpatient (CLI) | payer MEDICARE, OTHER ==
[2021-09-12 17:42] LABS: Basophils # (A) 0.04 X 10*3/uL (0.00-0.10); Basophils % (A) 0.6 %; Eosinophils # (A) 0.28 X 10*3/uL (0.04-0.35); Eosinophils % (A) 4.2 %; HCT 35.9 % (37.2-46.3); HGB 11.5 g/dL (12.0-15.0); Immature Grans, Automated 0.8 %; Lymphocytes # (A) 1.63 X 10*3/uL (0.90-5.00); Lymphocytes % (A) 24.7 %; MCH 28.8 pg (27.0-32.0); MCV 89.8 fL (80.0-97.0); Mean Platelet Volume 9.6 fL (9.5-12.2); Monocytes # (A) 0.55 X 10*3/uL (0.20-1.00); Monocytes % (A) 8.3 %; NRBC Per 100 WBC 0 /100 WBCS (0.0-0.0); Neutrophils # (A) 4.04 X 10*3/uL (1.80-7.70); Neutrophils % (A) 61.4 %; Platelet Count 217 X 10*3/uL (140-440); RDW 13.9 % (11.5-14.5); WBC 6.59 X 10*3/uL (4.50-10.00)
[2021-09-12 18:17] LABS: African American GFR (CKD) 84.8 (60.0-200.0); Anion Gap 9.9 mmol/L (10.00-18.00); Blood Urea Nitrogen 18.1 mg/dL (9.0-27.0); Carbon Dioxide 27.1 mmol/L (20.0-27.5); Non-African American GFR(CKD) 73.2 (60.0-200.0); Potassium 4.9 mmol/L (3.5-5.5)
== END | disposition home or self-care (01) ==
LOC: LABWHC1 12:07
PROVIDERS: ATTEND Surgery
DX: Z01.812 Encounter for preprocedural laboratory examination (principal); I71.4 Abdominal aortic aneurysm, without rupture
CPT/HCPCS: 36415; 80051; 82565; 84520; 85025

== ENCOUNTER 2021-09-19 07:30 | Inpatient (IN) | payer MEDICARE, OTHER ==
[2021-10-03] MEDS ORDERED: ALPRAZolam 0.25 MG TAB PO PRN (05:46)
[2021-10-03] MEDS ORDERED: LIDOCAINE 1% (10MG/ML) FOR IV START INTRADERMA PRN (05:46)
[2021-10-03] MEDS ORDERED: ONDANSETRON 4 MG/2 ML VIAL IVP ONE (05:46)
[2021-10-03] MEDS ORDERED: DEXAMETHASONE SOD PHOSPHATE 4 MG/ML 1 ML VIAL IV ONE (05:46)
[2021-10-03] MEDS ORDERED: SODIUM CHLORIDE 0.9% 1,000 ML in EMPTY BAG 1 BAG IV ONE (05:46)
[2021-10-03] MEDS ORDERED: ceFAZolin 1,000 MG in SODIUM CHLORIDE 0.9% IRRIG BTL 250 ML IRRIGATION PRN (07:00)
[2021-10-03] MEDS ORDERED: SODIUM CHLORIDE 0.9% 1,000 ML IV ONE (10:07)
[2021-10-03] MEDS ORDERED: INSULIN ASPART (NovoLOG) 100 UNIT/ML VIAL SQ ONE (10:23)
[2021-10-03 10:26] LABS: Glucose,Whole Blood 205 mg/dL (70-110)
[2021-10-03] MEDS ORDERED: METOPROLOL TARTRATE 5 MG/5 ML VIAL IVP ONE (12:36)
[2021-10-03] MEDS ORDERED: NITROGLYCERIN-D5W PMX 50 MG/250 ML BOTTLE IV ONE (12:36)
[2021-10-03] MEDS ORDERED: MIDAZOLAM 2 MG/2 ML VIAL ONE (12:36)
[2021-10-03] MEDS ORDERED: ONDANSETRON 4 MG/2 ML VIAL ONE (12:36)
[2021-10-03] MEDS ORDERED: HEPARIN SODIUM,PORCINE 5,000 UNIT/ML 1 ML VIAL ONE (12:36)
[2021-10-03] MEDS ORDERED: GLYCOPYRROLATE 0.2 MG/ML 2 ML VIAL ONE (12:36)
[2021-10-03] MEDS ORDERED: fentaNYL (PF) 50 MCG/ML 2 ML AMP ONE (12:36)
[2021-10-03] MEDS ORDERED: PROPOFOL 10 MG/ML 20 ML VIAL IV ONE (12:36)
[2021-10-03] MEDS ORDERED: DEXAMETHASONE SOD PHOSPHATE 10 MG/ML 1 ML VIAL ONE (12:36)
[2021-10-03] MEDS ORDERED: NEOSTIGMINE 1 MG/ML 10 ML VIAL ONE (12:36)
[2021-10-03] MEDS ORDERED: ROCURONIUM 10 MG/ML (5 ML VIAL) IV ONE (12:36)
[2021-10-03] MEDS ORDERED: SUCCINYLCHOLINE CHLORIDE 100 MG/5 ML SYR IV ONE (12:36)
[2021-10-03] MEDS ORDERED: LIDOCAINE 2% INJ 20 MG/ML (2 ML VIAL) ONE (12:36)
[2021-10-03] MEDS ORDERED: PROTAMINE SULFATE 10 MG/ML 5 ML VIAL IV ONE (12:36)
[2021-10-03] MEDS ORDERED: LACTATED RINGERS 1,000 ML IV ONE (15:00)
[2021-10-03] MEDS ORDERED: NITROGLYCERIN-D5W PMX 50 MG in DEXTROSE/WATER 1 250ML.BAG IV ONE (15:40)
[2021-10-03] MEDS ORDERED: ALBUTEROL NEBULIZED 2.5 MG/3 ML INHALATION PRN (15:53)
--- NOTE | 2021-10-03 16:19 | P.OP ---
Date of Procedure: 10/03/21 Preoperative Diagnosis: #1:6.2 infrarenal abdominal aortic aneurysm. 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 Procedure(s) Performed: #1: Ultrasound-guided cannulation femoral artery bilaterally. #2: Ultrasound-guided cannulation left brachial artery. #3: Percutaneous cannulation and closure left femoral artery. #4: Placement of aorta uni-iliac endograft Implants: Aorta uni-iliac stent graft Anesthesia: GETA Surgeon: Landon Null Estimated Blood Loss (ml): 150 Pathology: none sent Condition: stable Disposition: PACU Indications for Procedure: Patient is a 66-year-old female with a long history of multiple medical problems who presented with a 6.2 cm infrarenal abdominal aortic aneurysm. 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 It was hoped that we could traverse the right common iliac artery occlusion and perform aortobiiliac endograft however understanding that if we are not able to cross this lesion the patient would benefit from an aorto uni-iliac endograft. The procedure, risk and benefits were discussed with the patient and her family. Patient and family wished to proceed. Consent form was signed. Description of Procedure: Patient brought to the cardiac Flour Tester and placed in the supine position. She was administered general endotracheal anesthesia delivered by the department anesthesiology. Lopez catheter is placed to gravity drainage. The patient received intravenously administered prophylactic antibiotics in the perioperative phase. Utilizing ultrasound the right femoral artery was identified. A multipurpose needle was utilized to cannulate the artery and once cannulated Softip guidewire was advanced into the artery. The needle was withdrawn and a 6-Mauritanian sheath was placed. Right iliac angiogram was performed. The occlusion was reidentified and in spite of multiple attempts with multiple catheter and guidewire combinations we were unable to cross this lesion. On the left utilizing ultrasound the femoral artery was identified. Multipurpose needle was utilized to cannulate the artery. Once cannulated Softip guidewire was advanced into the iliac artery. The needle was withdrawn and an 6-Mauritanian sheath was placed. The guidewire was withdrawn. A glide catheter was then selected and advanced into the supra renal aortic segment. 2 Perclose devices were then deployed in the 10/for orientation and 2/8 orientation. An 8-Mauritanian sheath was then placed. It was thought appropriate to place a pigtail from the left brachial artery approach. As such utilizing ultrasound left brachial artery was cannulated and a 5-Mauritanian sheath was placed. Guidewire and catheter were advanced over were not able to be advanced into the descending thoracic aorta. Angiogram demonstrated occlusion of the origin of the left subclavian artery. Glidewire and glide catheter combination were advanced from the left femoral sheath. Once the catheter was advanced into the suprarenal aortic segment the Glidewire was withdrawn and a Lunderquist wire was advanced and positioned at the level of the aortic knob. Utilizing the "kingston system "a Glidewire and pigtail catheter were combination were utilized to position the pigtail at the L1 interspace. The patient was systemically heparinized and ACT is were drawn. An Endurate 2 area of the iliac device was selected measuring 23 x 14 x 102 mm. The left femoral sheath was removed and the stent graft system was advanced over the Lunderquist wire. Angiogram was performed demonstrating location of the renal arteries. The stent graft was then deployed. A Endurate limb measuring 16 x 13 x 156 mm was selected and the sheath for the first stent graft segment was removed and replaced with a 16-Mauritanian sheath. The extension limb was deployed properly. Utilizing a noncompliant balloon the stent graft was dilated proximally, at the bifurcation and distally. It appeared that the stent graft was somewhat narrowed at the aortic bifurcation and a 10 mm x 40 mm balloon/catheter system was utilized to dilate this area. Pigtail catheter was then readvanced to the L1 level and angiogram was performed. This demonstrated both renal arteries to be patent and no endoleak was identified. With the above findings noted the sheath at the right femoral and left brachial positions were removed. The sheath at the left femoral position was removed and the Perclose devices were utilized to attain closure. Pressure was held at the left femoral site to assure hemostasis. The patient did receive 25 mg protamine to reverse the heparin effect. Patient tolerated procedure well, awoke without apparent complication and was transferred to the recovery area satisfactory and stable condition. Total fluoroscopy time: 26.6 minutes. Total contrast volume: 65 ML's of Isovue 250.
--- NOTE | 2021-10-03 16:58 | IR ---
EXAMINATION TYPE: IR endorepair dscnd thor aorta DATE OF EXAM: 10/03/2021 COMPARISON: NONE HISTORY: Fluoroscopy time. Fluoroscopy was provided to the referring clinician.
[2021-10-03] MEDS: HYDROmorphone 0.5 MG/0.5 ML SYRINGE IVP PRN ×3 (17:10→22:18)
[2021-10-03] MEDS: ALPRAZolam 0.5 MG TAB PO SCH ×2 (19:09→23:21)
[2021-10-03] MEDS: CLOPIDOGREL 75 MG TAB PO SCH (19:09)
[2021-10-03] MEDS: LINAGLIPTIN 5 MG TABLET PO SCH (19:09)
[2021-10-03] MEDS: ISOSORBIDE MONONITRATE ER 60 MG TAB.ER.24H PO SCH (19:09)
[2021-10-03] MEDS: PRAVASTATIN SODIUM 40 MG TAB PO SCH (19:09)
[2021-10-03] MEDS: LACTATED RINGERS 1,000 ML IV SCH ×3 (19:14→22:09)
[2021-10-03] MEDS: SYMBICORT 160-4.5 MCG INHALER INHALATION SCH (19:42)
[2021-10-03 20:43] LABS: Glucose,Whole Blood 253 mg/dL (70-110)
[2021-10-03] MEDS: DIPHENOX-ATROP 2.5-0.025 MG 1 EACH TAB PO SCH (22:06)
[2021-10-03] MEDS: METOPROLOL TARTRATE 25 MG TAB PO SCH (22:07)
[2021-10-03] MEDS: FLUoxetine HCL 20 MG CAP PO SCH (22:08)
[2021-10-04] MEDS: HYDROmorphone 0.5 MG/0.5 ML SYRINGE IVP PRN (03:05)
[2021-10-04 06:09] LABS: Glucose,Whole Blood 201 mg/dL (70-110)
[2021-10-04] MEDS: LACTATED RINGERS 1,000 ML IV SCH ×2 (06:21→16:35)
[2021-10-04] MEDS: SYMBICORT 160-4.5 MCG INHALER INHALATION SCH ×2 (07:49→20:23)
[2021-10-04] MEDS: LINAGLIPTIN 5 MG TABLET PO SCH (08:49)
[2021-10-04] MEDS: ISOSORBIDE MONONITRATE ER 60 MG TAB.ER.24H PO SCH (08:49)
[2021-10-04] MEDS: FLUoxetine HCL 20 MG CAP PO SCH ×2 (08:49→20:57)
[2021-10-04] MEDS: CLOPIDOGREL 75 MG TAB PO SCH (08:49)
[2021-10-04] MEDS: METOPROLOL TARTRATE 25 MG TAB PO SCH ×2 (08:50→20:57)
[2021-10-04] MEDS: DIPHENOX-ATROP 2.5-0.025 MG 1 EACH TAB PO SCH ×2 (08:50→20:57)
[2021-10-04] MEDS: PANTOPRAZOLE 40 MG TABLET PO SCH (08:50)
[2021-10-04] MEDS: ALPRAZolam 0.5 MG TAB PO SCH ×3 (08:50→21:55)
[2021-10-04 10:10] LABS: HCT 29.9 % (34.0-46.0); HGB 10.2 gm/dL (11.4-16.0); MCH 30.6 pg (25.0-35.0); MCV 89.9 fL (80.0-100.0); Platelet Count 208 k/uL (150-450); RBC 3.32 m/uL (3.80-5.40); RDW 14.1 % (11.5-15.5); WBC 12.2 k/uL (3.8-10.6)
[2021-10-04] MEDS ORDERED: ARTIFICIAL TEARS-HYPROMELLOSE DROPS 15 ML BTL BOTH EYES PRN (10:11)
[2021-10-04 10:16] LABS: Calcium 8.5 mg/dL (8.4-10.2); Potassium 4.3 mmol/L (3.5-5.1)
--- NOTE | 2021-10-04 11:06 | P.DS ---
Providers Date of admission: 10/03/21 09:34 Attending physician: Landon Null DO Consults: 10/03/21 05:46 Consult to Anesthesia Routine Consulting Provider: Anesthesia,Services Consult Reason/Comments: General anesthesia for Aortic Stent procedure 10/03/21 18:42 Consult Physician Routine Consulting Provider: Alicia Tong Consult Reason/Comments: Medical Management Do you want consulting provider notified?: Already Contacted Primary care physician: Alicia Alycia [facility] Course: Pleasant 66-year-old mentally delayed female with multiple comorbidities with a 6.2 cm infrarenal abdominal aortic aneurysm as well as chronic occlusion of the right common iliac artery. 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 Patient is postop day #1 for ultrasound-guided cannulation of the femoral artery bilaterally, and left brachial artery. Patient also underwent percutaneous cannulation and closure left femoral artery and placement of aorta uni-iliac endograft. Apparently after the procedure the patient had some bleeding at the left groin and a FemoStop was applied and then pressure dressing. She was stable throughout the night. She is seen and examined today with her guardian at the bedside. She did state that she had some pain in the left groin. She has a Lopez catheter present and had not been up yet. She did have a small amount of her breakfast. No complaints of shortness of breath, chest pain, abdominal pain, nausea or vomiting. WBC 12.2 hemoglobin 10.2 platelet count 208,000, sodium 137 potassium 4.3P 116 creatinine 0.95 glucose 183 General appearance: The patient is alert, oriented, appears in no acute distress. HET: Head is normocephalic and atraumatic. Pupils are equal and reactive. Neck: Supple without lymphadenopathy. Trachea midline. No audible carotid bruit. Heart: S1 S2. Regular rate and rhythm. Lungs: Clear to auscultation bilaterally. Abdomen: Soft, nontender, nondistended. Extremities: Left groin access site with ecchymosis, no active bleeding noted, no hematoma noted. Right groin access site with dressing clean dry and intact. Good capillary refill. Neurological: No focal deficits. Strength and sensation are grossly intact. Plan: 1. Discontinue Lopez catheter 2. Encourage ambulation 3. Physical therapy consulted 4. Will add [place] for pain 5. Discharge instructions reviewed with patient and guardian 6. Plan for discharge today or tomorrow depending if patient is able to void, tolerating diet and able to ambulate. The impression and plan of care has been dictated as directed. Dr. Fung I performed a history and examination of this patient, discussed the same with the dictator. I agree with the dictator's note ,documented as a scribe. Any additional findings or plans will be noted. Procedures: #1: Ultrasound-guided cannulation femoral artery bilaterally. #2: Ultrasound-guided cannulation left brachial artery. #3: Percutaneous cannulation and closure left femoral artery. #4: Placement of aorta uni-iliac endograft Patient Condition at Discharge: Stable Plan - Discharge Summary Discharge Rx Participant: Yes New Discharge Prescriptions: Continue Fluticasone Propion/Salmeterol [Advair Hfa 115-21 Mcg Inhaler] 1 puff INHALATION RT-BID Diphenoxylate HCl/Atropine [Lomotil] 1 tab PO BID Pravastatin Sodium [Pravachol] 40 mg PO AC-SUPPER captopriL [Capoten] 12.5 mg PO AC-BID ALPRAZolam [Xanax] 0.5 mg PO TID metFORMIN HCL [Glucophage] 500 mg PO HS Mirtazapine [Remeron] 15 mg PO HS FLUoxetine HCL [PROzac] 20 mg PO BID Albuterol Sulfate [Proair Hfa] 2 puff INHALATION RT-Q4H PRN PRN Reason: Shortness Of Breath Metoprolol Tartrate 25 mg PO BID Isosorbide Mononitrate ER [Imdur] 60 mg PO DAILY Zolpidem [Ambien] 10 mg PO HS PRN PRN Reason: Insomnia Clopidogrel [Plavix] 75 mg PO DAILY Pantoprazole [Protonix] 40 mg PO DAILY Linagliptin [Tradjenta] 5 mg PO DAILY Gnp Vitamin 1 tab PO DAILY Discharge Medication List ALPRAZolam [Xanax] 0.5 mg PO TID 07/10/16 [History] Albuterol Sulfate [Proair Hfa] 2 puff INHALATION RT-Q4H PRN 07/10/16 [History] Diphenoxylate HCl/Atropine [Lomotil] 1 tab PO BID 07/10/16 [History] FLUoxetine HCL [PROzac] 20 mg PO BID 07/10/16 [History] Fluticasone Propion/Salmeterol [Advair Hfa 115-21 Mcg Inhaler] 1 puff INHALATION RT-BID 07/10/16 [History] Mirtazapine [Remeron] 15 mg PO HS 07/10/16 [History] Pravastatin Sodium [Pravachol] 40 mg PO AC-SUPPER 07/10/16 [History] captopriL [Capoten] 12.5 mg PO AC-BID 07/10/16 [History] metFORMIN HCL [Glucophage] 500 mg PO HS 07/10/16 [History] Clopidogrel [Plavix] 75 mg PO DAILY 02/04/19 [History] Isosorbide Mononitrate ER [Imdur] 60 mg PO DAILY 02/04/19 [History] Metoprolol Tartrate 25 mg PO BID 02/04/19 [History] Pantoprazole [Protonix] 40 mg PO DAILY 02/04/19 [History] Zolpidem [Ambien] 10 mg PO HS PRN 02/04/19 [History] Gnp Vitamin 1 tab PO DAILY 09/30/21 [History] Linagliptin [Tradjenta] 5 mg PO DAILY 09/30/21 [History] Follow up Appointment(s)/Referral(s): Landon Null DO [Doctor of Osteopathic Medicine] - 1 Week Alicia Tong MD [Primary Care Provider] - 1 Week Patient Instructions/Handouts: Endovascular Aneurysm Repair of Abdominal Aorta (DC) Activity/Diet/Wound Care/Special Instructions: No strenuous activity or heavy lifting greater than 5-10 pounds until cleared by vascular surgeon May shower starting tomorrow 10/05/21. no soaking or tub baths You may remove dressings prior to showering Do not drive for 24-48 hours
[2021-10-04 11:24] VITALS: BMI 22.9
[2021-10-04 11:49] LABS: Glucose,Whole Blood 188 mg/dL (70-110)
[2021-10-04] MEDS: HYDROcodone/APAP 5-325MG 1 EACH TAB PO PRN ×2 (12:22→20:56)
[2021-10-04] MEDS: NITROGLYCERIN SL TABS 0.4 MG TAB SUBLINGUAL PRN ×3 (13:13→13:24)
--- NOTE | 2021-10-04 13:30 | P.CRDCN ---
History of Present Illness Consult date: 10/04/21 History of present illness: History of Present Illness: The patient is a 66-year-old female with a history of diabetes, hypertension, COPD and prior lung and breast cancer who presented with enlargement of an abdominal aortic aneurysm and underwent stenting yesterday with placement of aorto uni iliac endograft. She has been complaining of abdominal and chest discomfort. She continues to have some discomfort at this time and is complaining of dyspnea. She was seen by Dr. Downing prior to her intervention and according to the family has underwent a stress test that was unremarkable and was stable to proceed with surgery. She has chronic dyspnea on exertion, no significant PND, orthopnea or peripheral edema. She has no recent dizziness or syncope. She has stopped smoking about 3 years ago, she has a history of hypertension, hyperlipidemia and diabetes mellitus. Medications: Plavix 75 mg daily metformin, captopril 12-1/2 mg twice a day, pravastatin 40 mg daily, metoprolol 25 mg twice a day, isosorbide mononitrate 60 mg daily, per tonics Review of Systems: Respiratory: The patient has a history of chronic dyspnea on exertion and chronic obstructive lung disease. GI: No nausea or vomiting . No history of peptic ulcer disease. No recent GI bleed. : No hematuria or dysuria. Nervous System: No stroke or seizure. Physical Examination: 66-year-old female alert, oriented appears older than stated age, status post mastectomy ,Blood pressure 117/65, Heart rate 85 Head: Normocephalic. Eyes: Sclerae nonicteric. Neck: Good carotid upstroke, no bruit, no jugular venous distention. Lungs: Decreased breath sounds bilaterally, no wheezes Heart: Regular rate and rhythm, S1-S2, no S3, no rub. Systolic ejection murmur. Abdomen: Soft nontender, positive bowel sounds no organomegaly, midline scar well-healed. Extremities: No edema, decrease distal pulses. Labs: Hemoglobin 10.2, white blood cells 12.2 EKG: Pending Impression: 1. Chest discomfort of unclear etiology post abdominal aortic aneurysm endovascular repair 2. History of peripheral vascular disease 3. History of hypertension 4. History of diabetes 5. COPD and a prior history of lung cancer 6. Status post mastectomy Plan: 1. Obtain an EKG 2. Obtain serial enzymes 3. Continue medical therapy 4. I will review her recent cardiac workup 5. Depending on the results of the testing further recommendations will be made. Thank you for this consult we will follow with you. Past Medical History Past Medical History: Cancer, COPD, Diabetes Mellitus, GI Bleed Additional Past Medical History / Comment(s): PATIENT IS IMPAIRED CAN NOT READ OR WRITE , AORTIC aneurysm, lung CA, lung removed, History of Any Multi-Drug Resistant Organisms: None Reported Past Surgical History: Breast Surgery, Hysterectomy Additional Past Surgical History / Comment(s): RIGHT lung removed, left masectomy, STENT IN LEG , BILATERAL CATARACT SURGERY, Past Anesthesia/Blood Transfusion Reactions: Previous Problems w/ Anesthesia, Postoperative Nausea & Vomiting (PONV) Additional Past Anesthesia/Blood Transfusion Reaction / Comment(s): POST OP NAUSEA FOR SISTER. SISTER STATES IT TOOK LONGER FOR FÉLIX TO WAKE UP WITH LUNG SURGERY Smoking Status: Former smoker - Past Family History Mother Family Medical History: Cancer, Diabetes Mellitus, Liver Disease Additional Family Medical History / Comment(s): liver ca Father Family Medical History: Cancer Additional Family Medical History / Comment(s): COLON CANCER Medications and Allergies Home Medications Medication Instructions Recorded Confirmed Type ALPRAZolam [Xanax] 0.5 mg PO TID 07/10/16 09/30/21 History Albuterol Sulfate [Proair Hfa] 2 puff INHALATION RT-Q4H PRN 07/10/16 09/30/21 History Diphenoxylate HCl/Atropine 1 tab PO BID 07/10/16 10/03/21 History [Lomotil] FLUoxetine HCL [PROzac] 20 mg PO BID 07/10/16 10/03/21 History Fluticasone Propion/Salmeterol 1 puff INHALATION RT-BID 07/10/16 09/30/21 History [Advair Hfa 115-21 Mcg Inhaler] Mirtazapine [Remeron] 15 mg PO HS 07/10/16 10/03/21 History Pravastatin Sodium [Pravachol] 40 mg PO AC-SUPPER 07/10/16 10/03/21 History captopriL [Capoten] 12.5 mg PO AC-BID 07/10/16 10/03/21 History metFORMIN HCL [Glucophage] 500 mg PO HS 07/10/16 10/03/21 History Clopidogrel [Plavix] 75 mg PO DAILY 02/04/19 10/03/21 History Isosorbide Mononitrate ER [Imdur] 60 mg PO DAILY 02/04/19 10/03/21 History Metoprolol Tartrate 25 mg PO BID 02/04/19 10/03/21 History Pantoprazole [Protonix] 40 mg PO DAILY 02/04/19 10/03/21 History Zolpidem [Ambien] 10 mg PO HS PRN 02/04/19 09/30/21 History Gnp Vitamin 1 tab PO DAILY 09/30/21 History Linagliptin [Tradjenta] 5 mg PO DAILY 09/30/21 10/03/21 History Allergies Allergy/AdvReac Type Severity Reaction Status Date / Time No Known Allergies Allergy Verified 09/30/21 08:40 Physical Exam Vitals: Vital Signs Temp Pulse Resp BP BP BP Pulse Ox 10/04/21 11:45 85 18 117/65 92 L 10/04/21 08:29 98.3 F 75 22 133/73 93 L 10/04/21 08:00 75 10/04/21 03:03 97.9 F 83 16 134/60 95 10/04/21 02:05 68 16 10/03/21 23:02 98.2 F 68 16 136/66 93 L 10/03/21 22:25 72 16 10/03/21 20:35 97.5 F L 68 16 149/71 98 10/03/21 18:38 98.2 F 53 H 126/70 93 L 10/03/21 17:45 59 L 20 121/70 97 10/03/21 17:30 60 18 129/77 94 L 10/03/21 17:10 58 L 20 157/78 98 10/03/21 16:55 62 18 156/72 97 10/03/21 16:40 59 L 20 136/69 96 10/03/21 16:25 62 22 129/73 93 L 10/03/21 16:10 59 L 23 149/72 93 L 10/03/21 15:55 68 22 179/89 163/82 97 10/03/21 15:40 97.6 F 56 L 14 152/60 97 Intake and Output 10/03/21 10/04/21 10/04/21 22:59 06:59 14:59 Intake Total 500 270 Output Total 100 350 Balance 500 -100 -80 Intake: IV 500 Oral 270 Output: Urine 100 350 Other: Voiding Method Bedpan Bedpan Bedpan Weight 67.54 kg 67.54 kg Results 10/04/21 09:38 10/04/21 09:38 CBC 10/04/21 Range/Units 09:38 WBC 12.2 H (3.8-10.6) k/uL RBC 3.32 L (3.80-5.40) m/uL Hgb 10.2 L (11.4-16.0) gm/dL Hct 29.9 L (34.0-46.0) % Plt Count 208 (150-450) k/uL Comprehensive Metabolic Panel 10/04/21 Range/Units 09:38 Sodium 137 (137-145) mmol/L Potassium 4.3 (3.5-5.1) mmol/L Chloride 101 (98-107) mmol/L Carbon Dioxide 28 (22-30) mmol/L BUN 16 (7-17) mg/dL Creatinine 0.95 (0.52-1.04) mg/dL Glucose 183 H (74-99) mg/dL Calcium 8.5 (8.4-10.2) mg/dL Current Medications Generic Name Dose Route Start Last Admin Trade Name Freq PRN Reason Stop Dose Admin Hydrocodone Bitart/Acetaminophen 1 each 10/04/21 12:18 10/04/21 12:22 Hydrocodone/Apap 5-325mg 1 Each Tab PO 1 each Q6HR PRN Administration Pain Albuterol Sulfate 2.5 mg 10/03/21 15:53 Albuterol Nebulized 2.5 Mg/3 Ml INHALATION RT-Q4H PRN Shortness Of Breath Alprazolam 0.5 mg 10/03/21 16:00 10/04/21 08:50 Alprazolam 0.5 Mg Tab PO 0.5 mg TID JENNIFER Administration Artificial Tears 1 drops 10/04/21 10:11 10/04/21 10:30 Artificial Tears-Hypromellose Drops 15 Ml Btl BOTH EYES 1 drops Q1HR PRN Administration Dry Eye(s) Budesonide/Formoterol Fumarate 2 puff 10/03/21 20:00 10/04/21 07:49 Symbicort 160-4.5 Mcg Inhaler INHALATION 2 puff RT-BID JENNIFER Administration Captopril 12.5 mg 10/03/21 17:30 10/04/21 06:43 Captopril 25 Mg Tab PO 12.5 mg AC-BID JENNIFER Administration Clopidogrel Bisulfate 75 mg 10/03/21 16:00 10/04/21 08:49 Clopidogrel 75 Mg Tab PO 75 mg DAILY JENNIFER Administration Diphenoxylate HCl/Atropine 1 each 10/03/21 21:00 10/04/21 08:50 Diphenox-Atrop 2.5-0.025 Mg 1 Each Tab PO 1 each BID JENNIFER Administration Fluoxetine HCl 20 mg 10/03/21 21:00 10/04/21 08:49 Fluoxetine Hcl 20 Mg Cap PO 20 mg BID JENNIFER Administration Lactated Ringer's 1,000 mls @ 20 mls/hr 10/03/21 05:46 10/03/21 22:05 Lactated Ringers IV 20 mls/hr .Q24H JENNIFER Administration Lactated Ringer's 1,000 mls @ 75 mls/hr 10/03/21 16:15 10/04/21 06:21 Lactated Ringers IV Not Given .[id number] JENNIFER Isosorbide Mononitrate 60 mg 10/03/21 16:00 10/04/21 08:49 Isosorbide Mononitrate Er 60 Mg Tab.Er.24h PO 60 mg DAILY JENNIFER Administration Lidocaine HCl 0.1 ml 10/03/21 05:46 Lidocaine 1% (10mg/Ml) For Iv Start INTRADERMA PER PROTOCOL PRN IV Start Linagliptin 5 mg 10/03/21 16:00 10/04/21 08:49 Linagliptin 5 Mg Tablet PO 5 mg DAILY JENNIFER Administration Metoprolol Tartrate 25 mg 10/03/21 21:00 10/04/21 08:50 Metoprolol Tartrate 25 Mg Tab PO 25 mg BID JENNIFER Administration Mirtazapine 15 mg 10/04/21 21:00 Mirtazapine 15 Mg Tab PO HS JENNIFER Nitroglycerin 0.4 mg 10/04/21 12:59 10/04/21 13:18 Nitroglycerin Sl Tabs 0.4 Mg Tab SUBLINGUAL 0.4 mg Q5M PRN Administration Chest Pain Pantoprazole Sodium 40 mg 10/04/21 09:00 10/04/21 08:50 Pantoprazole 40 Mg Tablet PO 40 mg DAILY JENNIFER Administration Pravastatin Sodium 40 mg 10/03/21 17:30 10/03/21 19:09 Pravastatin Sodium 40 Mg Tab PO 40 mg AC-SUPPER JENNIFER Administration Zolpidem Tartrate 10 mg 10/03/21 15:53 Zolpidem 5 Mg Tab PO HS PRN Insomnia Intake and Output 10/03/21 10/04/21 10/04/21 22:59 06:59 14:59 Intake Total 500 270 Output Total 100 350 Balance 500 -100 -80 Intake: IV 500 Oral 270 Output: Urine 100 350 Other: Voiding Method Bedpan Bedpan Bedpan Weight 67.54 kg 67.54 kg Patient Weight 10/05/21 06:59 Weight 67.54 kg 10/04/21 09:38 10/04/21 09:38
--- NOTE | 2021-10-04 14:26 | XR ---
EXAMINATION TYPE: XR KUB DATE OF EXAM: 10/04/2021 COMPARISON: NONE HISTORY: Pain TECHNIQUE: One view abdominal series FINDINGS: The osseous structures are intact. The bowel gas pattern is nonspecific. There appears been aortic s tent graft. Calcifications of the [place] aorta appear to measure 6.8 cm. Stent graft does make a curv e towards the T12 level extends below the expected region of the renal arteries. Stable from previous x-ray of 10/03/2021. Surgical clips in the gallbladder fossa. Hypertrophic changes in the acetabulum. Right upper quadrant not entirely excluded but there are changes of previous cholecystectomy. Report called to the patients nurse 2:23 PM 10/04/2021. IMPRESSION: 1. Nonspecific abdomen. 2. Large abdominal aortic aneurysm measuring approximately 6.8 cm. Correlate with preprocedural measu rement appeared to be 5.8 cm. Not excluded interval increase in size of the [place] sac. Aortic stent graft noted in similar position to the x-ray procedure performed 10/03/2021.
--- NOTE | 2021-10-04 16:09 | CT ---
EXAMINATION TYPE: CT angio thor/abd pel aorta DATE OF EXAM: 10/04/2021 INDICATION: Abdominal aortic aneurysm, chest and back pain, recent repair CT DLP: 1762.5 mGy.cm Automated Exposure Control for Dose Reduction was Utilized. TECHNIQUE AND CONTRAST: CT scan of the chest, abdomen and pelvis is performed without and with IV Contrast, patient injected with 100 mL of Isovue 370. MIP and 3-D reconstruction images were generated on an independent worksta tion and reviewed. COMPARISON: CT dated 05/19/2021 FINDINGS: Status post repair of infrarenal abdominal aortic aneurysm. Please correlate with operative report. E xtensive arterial atherosclerotic calcifications and atherosclerotic plaques. No evidence of thoracic aortic dissection, aneurysm, occlusion or severe stenosis. Almost complete occlusion of the proximal portion of the left subclavian artery yet patent distally. Air is seen within the abdominal aortic aneurysmal sac, possibly related to acute postoperative pearson es, underlying infection cannot be excluded. The aneurysmal sac also contains linear hypodensities, u nchanged between the noncontrast and postcontrast images. No convincing evidence of endovascular leak . The aneurysmal sac measures up to 6.5 cm. The endovascular stent is patent. Stenosis of the origin of the superior mesenteric artery yet patent distally. Stenosis of the origin of the inferior mesenteri c artery. Apparently opacified renal arteries. Newly seen reduced enhancement of the inferior pole an d to a lesser extent the upper pole of the left kidney, suggestive of an acute infarction. Cortical defect is seen at the posterior aspect of the right lower renal pole, stable and likely repr esenting sequela of chronic infarct/infection at that location. Complete occlusion of the right commo n iliac artery. Opacified bilateral internal and external iliac arteries as well as visualized femora l arteries demonstrating atherosclerotic changes. The pulmonary trunk measures 3 cm. No gross cardiomegaly. Coronary and arterial calcifications. Subce ntimeter hilar and mediastinal lymph nodes, nonspecific. COPD changes. 7 mm pleural-based left lower lobe nodule, slightly more prominent compared to the previous CT scan. Precautionary follow up CT sca n in 3 months is advised. No pleural or pericardial effusion. Severe hepatic steatosis with hepatic enlargement. Previous cholecystectomy. Contrast and gas seen wi thin the urinary bladder, please correlate with history of recent catheterization. Bilateral inguinal skin thickening, subcutaneous fat stranding and fluid, possibly related to postoperative changes. Gr merlene 1 anterolisthesis of L5 over S1. Marked degenerative changes at T11-12 level. IMPRESSION: Acute post operative changes as detailed above, please correlate with operative report. Newly seen focal reduced enhancement at the lower pole of the left kidney and to a lesser extent at t he upper pole of the left kidney which may suggest acute infarcts rather than pyelonephritis/infectio n, please correlate clinically. Other findings as detailed above.
[2021-10-04 17:10] LABS: Glucose,Whole Blood 287 mg/dL (70-110)
--- NOTE | 2021-10-04 17:37 | P.CONS ---
History of Present Illness - Reason for Consult Consult date: 10/04/21 - History of Present Illness Félix Perea, he is a 66-year-old female well known to my practice who was admitted to [facility] by Dr. Leon, and underwent a placement of a wart uni-iliac endograft, patient had a known diagnosis of a 6.2 cm infrarenal abdominal aortic aneurysm. She was admitted to telemetry floor postprocedure, medical consultation was requested for management while hospitalized. Patient has a known history of hypertension, diabetes, COPD, lung cancer, breast cancer, study of peripheral vascular disease and abdominal aortic aneurysm she has a prolonged history of smoking she quit 3 years ago. On review of systems patient is alert and oriented 3 in no apparent distress, at this time she is complaining of low back pain otherwise she denies any complaints, there is no fever or chills no headache or dizziness no chest pain no shortness of breath no cough no nausea or vomiting no abdominal pain no diarrhea no burning with urination no frequency or urgency and no hematuria. Past Medical History Past Medical History: Cancer, COPD, Diabetes Mellitus, GI Bleed Additional Past Medical History / Comment(s): PATIENT IS IMPAIRED CAN NOT READ OR WRITE , AORTIC aneurysm, lung CA, lung removed, History of Any Multi-Drug Resistant Organisms: None Reported Past Surgical History: Breast Surgery, Hysterectomy Additional Past Surgical History / Comment(s): RIGHT lung removed, left masectomy, STENT IN LEG , BILATERAL CATARACT SURGERY, Past Anesthesia/Blood Transfusion Reactions: Previous Problems w/ Anesthesia, P ostoperative Nausea & Vomiting (PONV) Additional Past Anesthesia/Blood Transfusion Reaction / Comm: POST OP NAUSEA FOR SISTER. SISTER STATES IT TOOK LONGER FOR FÉLIX TO WAKE UP WITH LUNG SURGERY Smoking Status: Former smoker - Past Family History Mother Family Medical History: Cancer, Diabetes Mellitus, Liver Disease Additional Family Medical History / Comment(s): liver ca Father Family Medical History: Cancer Additional Family Medical History / Comment(s): COLON CANCER Medications and Allergies Home Medications Medication Instructions Recorded Confirmed Type ALPRAZolam [Xanax] 0.5 mg PO TID 07/10/16 09/30/21 History Albuterol Sulfate [Proair Hfa] 2 puff INHALATION RT-Q4H PRN 07/10/16 09/30/21 History Diphenoxylate HCl/Atropine 1 tab PO BID 07/10/16 10/03/21 History [Lomotil] FLUoxetine HCL [PROzac] 20 mg PO BID 07/10/16 10/03/21 History Fluticasone Propion/Salmeterol 1 puff INHALATION RT-BID 07/10/16 09/30/21 History [Advair Hfa 115-21 Mcg Inhaler] Mirtazapine [Remeron] 15 mg PO HS 07/10/16 10/03/21 History Pravastatin Sodium [Pravachol] 40 mg PO AC-SUPPER 07/10/16 10/03/21 History captopriL [Capoten] 12.5 mg PO AC-BID 07/10/16 10/03/21 History metFORMIN HCL [Glucophage] 500 mg PO HS 07/10/16 10/03/21 History Clopidogrel [Plavix] 75 mg PO DAILY 02/04/19 10/03/21 History Isosorbide Mononitrate ER [Imdur] 60 mg PO DAILY 02/04/19 10/03/21 History Metoprolol Tartrate 25 mg PO BID 02/04/19 10/03/21 History Pantoprazole [Protonix] 40 mg PO DAILY 02/04/19 10/03/21 History Zolpidem [Ambien] 10 mg PO HS PRN 02/04/19 09/30/21 History Gnp Vitamin 1 tab PO DAILY 09/30/21 History Linagliptin [Tradjenta] 5 mg PO DAILY 09/30/21 10/03/21 History Allergies Allergy/AdvReac Type Severity Reaction Status Date / Time No Known Allergies Allergy Verified 09/30/21 08:40 Physical Exam Vitals: Vital Signs Temp Pulse Resp BP BP BP Pulse Ox 10/04/21 08:29 98.3 F 75 22 133/73 93 L 10/04/21 08:00 75 10/04/21 03:03 97.9 F 83 16 134/60 95 10/04/21 02:05 68 16 10/03/21 23:02 98.2 F 68 16 136/66 93 L 10/03/21 22:25 72 16 10/03/21 20:35 97.5 F L 68 16 149/71 98 10/03/21 18:38 98.2 F 53 H 126/70 93 L 10/03/21 17:45 59 L 20 121/70 97 10/03/21 17:30 60 18 129/77 94 L 10/03/21 17:10 58 L 20 157/78 98 10/03/21 16:55 62 18 156/72 97 10/03/21 16:40 59 L 20 136/69 96 10/03/21 16:25 62 22 129/73 93 L 10/03/21 16:10 59 L 23 149/72 93 L 10/03/21 15:55 68 22 179/89 163/82 97 10/03/21 15:40 97.6 F 56 L 14 152/60 97 Intake and Output 10/03/21 10/04/21 10/04/21 22:59 06:59 14:59 Intake Total 500 270 Output Total 100 350 Balance 500 -100 -80 Intake: IV 500 Oral 270 Output: Urine 100 350 Other: Voiding Method Bedpan Bedpan Bedpan Weight 67.54 kg In general patient is alert and oriented x 3 in no distress HEENT head normocephalic and atraumatic Neck is supple no JVD no goiter no lymphadenopathy no carotid bruit Chest examination reveals a scattered crackles bilaterally no wheezing Cardiac exam reveals regular heart sounds S1 and S2 no gallops no murmurs Abdomen is soft nontender no organomegaly with normal bowel sounds Extremity exam reveals no edema no cyanosis or clubbing Neurological examination reveals no gross focal deficits Results CBC & Chem 7: 10/04/21 09:38 10/04/21 09:38 Labs: Abnormal Lab Results - Last 24 Hours (Table) 10/03/21 10/04/21 10/04/21 Range/Units 20:41 06:05 09:38 WBC 12.2 H (3.8-10.6) k/uL RBC 3.32 L (3.80-5.40) m/uL Hgb 10.2 L (11.4-16.0) gm/dL Hct 29.9 L (34.0-46.0) % Glucose (74-99) mg/dL POC Glucose (mg/dL) 253 H 201 H (70-110) mg/dL 10/04/21 Range/Units 09:38 WBC (3.8-10.6) k/uL RBC (3.80-5.40) m/uL Hgb (11.4-16.0) gm/dL Hct (34.0-46.0) % Glucose 183 H (74-99) mg/dL POC Glucose (mg/dL) (70-110) mg/dL Assessment and Plan Plan: Abdominal aortic aneurysm status post endovascular graft placement Underlying history of hypertension Underlying history of peripheral vascular disease Underlying history of diabetes mellitus Underlying history of COPD Previous history of breast cancer Previous history of lung cancer Previous history of smoking At this time patient seen and examined on the medical floor Home medications reviewed and reordered. Patient is medically stable at this time Will follow closely during this hospitalization
[2021-10-04] MEDS: PRAVASTATIN SODIUM 40 MG TAB PO SCH (17:38)
[2021-10-04 20:41] LABS: Glucose,Whole Blood 208 mg/dL (70-110)
[2021-10-04] MEDS: MIRTAZAPINE 15 MG TAB PO SCH (20:57)
[2021-10-04] MEDS: ZOLPIDEM 5 MG TAB PO PRN (21:56)
[2021-10-05] MEDS: LACTATED RINGERS 1,000 ML IV SCH ×2 (05:53→10:07)
[2021-10-05 06:26] LABS: Glucose,Whole Blood 221 mg/dL (70-110)
[2021-10-05] MEDS ORDERED: INSULIN ASPART (NovoLOG) 100 UNIT/ML VIAL SQ SCH (07:30)
[2021-10-05] MEDS: SYMBICORT 160-4.5 MCG INHALER INHALATION SCH ×2 (07:51→20:29)
[2021-10-05] MEDS: ALPRAZolam 0.5 MG TAB PO SCH ×3 (09:25→21:04)
[2021-10-05] MEDS: FLUoxetine HCL 20 MG CAP PO SCH ×2 (09:25→21:05)
[2021-10-05] MEDS: ISOSORBIDE MONONITRATE ER 60 MG TAB.ER.24H PO SCH (09:26)
[2021-10-05] MEDS: PANTOPRAZOLE 40 MG TABLET PO SCH (09:26)
[2021-10-05] MEDS: CLOPIDOGREL 75 MG TAB PO SCH (09:26)
[2021-10-05] MEDS: LINAGLIPTIN 5 MG TABLET PO SCH (09:26)
[2021-10-05] MEDS: METOPROLOL TARTRATE 25 MG TAB PO SCH ×2 (09:26→21:04)
[2021-10-05 09:41] LABS: HCT 28.3 % (34.0-46.0); HGB 9.8 gm/dL (11.4-16.0); MCH 30.4 pg (25.0-35.0); MCHC 34.7 g/dL (31.0-37.0); MCV 87.5 fL (80.0-100.0); Mean Platelet Volume 7.4; Platelet Count 167 k/uL (150-450); RBC 3.23 m/uL (3.80-5.40); RDW 14.1 % (11.5-15.5)
[2021-10-05 09:56] LABS: African American GFR (CKD) >90 (>60 ml/min/1.73 sqM); Anion Gap 4 mmol/L; Blood Urea Nitrogen 11 mg/dL (7-17); Calcium 8.8 mg/dL (8.4-10.2); Carbon Dioxide 33 mmol/L (22-30); Chloride 95 mmol/L (98-107); Glucose 210 mg/dL (74-99); Non-African American GFR(CKD) 79 (>60 ml/min/1.73 sqM); Potassium 3.9 mmol/L (3.5-5.1); Sodium 132 mmol/L (137-145)
[2021-10-05 11:12] LABS: ALT 43 U/L (4-34); AST 61 U/L (14-36); Albumin 3.7 g/dL (3.5-5.0); Alkaline Phosphatase 46 U/L (38-126); Total Bilirubin 0.5 mg/dL (0.2-1.3); Total Protein 6.2 g/dL (6.3-8.2)
[2021-10-05] MEDS: DIPHENOX-ATROP 2.5-0.025 MG 1 EACH TAB PO SCH ×2 (12:01→21:04)
[2021-10-05 12:03] LABS: Glucose,Whole Blood 286 mg/dL (70-110)
--- NOTE | 2021-10-05 13:41 | P.PN ---
Subjective This is a 66 year old female with a past medical history of hypertension, diabetes, aortic aneurysm, peripheral vascular disease, COPD, lung and breast cancer. She follows in the office with Dr. Downing. We have been asked to see in consultation for chest pain. Patient underwent recent Lexiscan stress test in the office for cardiac clearance prior to surgery on 08/10/2021, which revealed no evidence of reversible ischemia. She presents to the hospital for planned Surgery. She underwent percutaneous cannulation and closure left femoral artery and placement of aorta uni-iliac endograft on 10/03/2021. Patient had an episode of chest pain yesterday, no further occurrence. She denies any chest pain, shortness of breath, lightheadedness, dizziness, palpitations. She does have some abdominal discomfort/tenderness. EKG obtained which revealed sinus rhythm, heart rate 82, right bundle-branch block, left anterior fasicular block, no acute ST-T wave abnormalities to suggest ischemia. Repeat EKG this morning with similar findings, no acute changes. Troponin negative x 3. GENERAL: Well-appearing, well-nourished and in no acute distress. NECK: Supple without JVD or thyromegaly. LUNGS: Breath sounds clear to auscultation bilaterally. Respiration equal and unlabored. No wheezes, rales or rhonchi. HEART: Regular rate and rhythm systolic ejection murmur noted, no rubs or gallops. S1 and S2 heard. EXTREMITIES: Normal range of motion, no edema. No clubbing or cyanosis. Peripheral pulses intact. ASSESSMENT Chest discomfort of unclear etiology, resolved, acute coronary syndrome has ruled out Status post abdominal aortic aneurysm endovascular repair History of peripheral vascular disease History of hypertension History of diabetes COPD and a prior history of lung cancer Status post mastectomy PLAN No further inpatient workup from a cardiology perspective, please reach out with any further questions or concerns. Rest of management per vascular. Follow up outpatient with Dr. Downing. Nurse Practitioner note has been reviewed, I agree with a documented findings and plan of care. Patient was seen and examined. Objective - Vital Signs Vital signs: Vital Signs Temp 98.3 F 10/04/21 08:29 Pulse 85 10/04/21 11:45 Resp 18 10/04/21 11:45 BP 117/65 10/04/21 11:45 Pulse Ox 92 L 10/04/21 11:45 FiO2 Intake & Output 10/03/21 10/04/21 10/04/21 18:59 06:59 18:59 Intake Total 1500 270 Output Total 100 350 Balance 1500 -100 -80 Weight 67.54 kg 67.54 kg Intake: IV 1500 Oral 270 Output: Urine 100 350 Other: Voiding Method Bedpan Bedpan - Labs CBC & Chem 7: 10/05/21 08:24 10/05/21 08:24 Labs: Abnormal Lab Results - Last 24 Hours (Table) 10/03/21 10/04/21 10/04/21 Range/Units 20:41 06:05 09:38 WBC 12.2 H (3.8-10.6) k/uL RBC 3.32 L (3.80-5.40) m/uL Hgb 10.2 L (11.4-16.0) gm/dL Hct 29.9 L (34.0-46.0) % Glucose (74-99) mg/dL POC Glucose (mg/dL) 253 H 201 H (70-110) mg/dL 10/04/21 10/04/21 Range/Units 09:38 11:48 WBC (3.8-10.6) k/uL RBC (3.80-5.40) m/uL Hgb (11.4-16.0) gm/dL Hct (34.0-46.0) % Glucose 183 H (74-99) mg/dL POC Glucose (mg/dL) 188 H (70-110) mg/dL
[2021-10-05] MEDS: HYDROcodone/APAP 5-325MG 1 EACH TAB PO PRN (14:52)
[2021-10-05 16:44] LABS: Glucose,Whole Blood 247 mg/dL (70-110)
--- NOTE | 2021-10-05 17:13 | P.PN ---
Subjective Progress Note Date: 10/05/21 Meredith Perea, he is a 66-year-old female well known to my practice who was admitted to [facility] by Dr. Leon, and underwent a placement of a wart uni-iliac endograft, patient had a known diagnosis of a 6.2 cm infrarenal abdominal aortic aneurysm. She was admitted to telemetry floor postprocedure, medical consultation was requested for management while hospitalized. Patient has a known history of hypertension, diabetes, COPD, lung cancer, breast cancer, study of peripheral vascular disease and abdominal aortic aneurysm she has a prolonged history of smoking she quit 3 years ago. On review of systems patient is alert and oriented 3 in no apparent distress, at this time she is complaining of low back pain otherwise she denies any complaints, there is no fever or chills no headache or dizziness no chest pain no shortness of breath no cough no nausea or vomiting no abdominal pain no diarrhea no burning with urination no frequency or urgency and no hematuria. On 10/05/2021 patient was seen and examined on the medical floor she is alert and oriented 3 in no apparent distress, she is complaining of back pain otherwise she denies any complaints there is no fever or chills no headache or dizziness no chest pain no shortness of breath no cough no nausea or vomiting no abdominal pain no diarrhea and no urinary symptoms. Yesterday patient had episode of chest pain, EKG and serial troponin were done patient was seen by cardiology no intervention recommended at this time. Objective - Vital Signs Vital signs: Vital Signs Temp 97.7 F 10/05/21 08:00 Pulse 95 10/05/21 08:00 Resp 18 10/05/21 08:00 BP 166/80 10/05/21 08:00 Pulse Ox 97 10/05/21 08:00 FiO2 Intake & Output 10/04/21 10/05/21 10/05/21 18:59 06:59 18:59 Intake Total 370 240 Output Total 350 Balance 20 240 Weight 67.54 kg Intake: Oral 370 240 Output: Urine 350 Other: Voiding Method Bedpan Toilet # Voids 1 1 - Exam In general patient is alert and oriented x 3 in no distress HEENT head normocephalic and atraumatic Neck is supple no JVD no goiter no lymphadenopathy no carotid bruit Chest examination reveals a scattered crackles bilaterally no wheezing Cardiac exam reveals regular heart sounds S1 and S2 no gallops no murmurs Abdomen is soft nontender no organomegaly with normal bowel sounds Extremity exam reveals no edema no cyanosis or clubbing Neurological examination reveals no gross focal deficits - Labs CBC & Chem 7: 10/05/21 08:24 10/05/21 08:24 Labs: Abnormal Lab Results - Last 24 Hours (Table) 10/04/21 10/04/21 10/04/21 Range/Units 09:38 09:38 11:48 WBC 12.2 H (3.8-10.6) k/uL RBC 3.32 L (3.80-5.40) m/uL Hgb 10.2 L (11.4-16.0) gm/dL Hct 29.9 L (34.0-46.0) % Sodium (137-145) mmol/L Chloride (98-107) mmol/L Carbon Dioxide (22-30) mmol/L Glucose 183 H (74-99) mg/dL POC Glucose (mg/dL) 188 H (70-110) mg/dL 10/04/21 10/04/21 10/05/21 Range/Units 17:08 20:39 06:24 WBC (3.8-10.6) k/uL RBC (3.80-5.40) m/uL Hgb (11.4-16.0) gm/dL Hct (34.0-46.0) % Sodium (137-145) mmol/L Chloride (98-107) mmol/L Carbon Dioxide (22-30) mmol/L Glucose (74-99) mg/dL POC Glucose (mg/dL) 287 H 208 H 221 H (70-110) mg/dL 10/05/21 10/05/21 Range/Units 08:24 08:24 WBC 11.0 H (3.8-10.6) k/uL RBC 3.23 L (3.80-5.40) m/uL Hgb 9.8 L (11.4-16.0) gm/dL Hct 28.3 L (34.0-46.0) % Sodium 132 L (137-145) mmol/L Chloride 95 L (98-107) mmol/L Carbon Dioxide 33 H (22-30) mmol/L Glucose 210 H (74-99) mg/dL POC Glucose (mg/dL) (70-110) mg/dL Assessment and Plan Plan: Abdominal aortic aneurysm status post endovascular graft placement Underlying history of hypertension Underlying history of peripheral vascular disease Underlying history of diabetes mellitus Underlying history of COPD Previous history of breast cancer Previous history of lung cancer Previous history of smoking At this time patient seen and examined on the medical floor Home medications reviewed and reordered. Patient is medically stable at this time Will follow closely during this hospitalization
[2021-10-05] MEDS: SODIUM CHLORIDE 0.9% 1,000 ML IV SCH ×2 (17:51→23:44)
[2021-10-05] MEDS: PRAVASTATIN SODIUM 40 MG TAB PO SCH (17:54)
[2021-10-05 20:06] LABS: Glucose,Whole Blood 309 mg/dL (70-110)
[2021-10-05] MEDS: MIRTAZAPINE 15 MG TAB PO SCH (21:04)
[2021-10-05] MEDS: ZOLPIDEM 5 MG TAB PO PRN (21:04)
[2021-10-05] MEDS: INSULIN ASPART (NovoLOG) 100 UNIT/ML VIAL SQ SCH (21:05)
[2021-10-06] MEDS: LACTATED RINGERS 1,000 ML IV SCH (02:43)
[2021-10-06 05:55] LABS: Glucose,Whole Blood 207 mg/dL (70-110)
[2021-10-06] MEDS: INSULIN ASPART (NovoLOG) 100 UNIT/ML VIAL SQ SCH ×2 (06:35→12:43)
[2021-10-06] MEDS: SYMBICORT 160-4.5 MCG INHALER INHALATION SCH (07:32)
[2021-10-06] MEDS: METOPROLOL TARTRATE 25 MG TAB PO SCH (09:50)
[2021-10-06] MEDS: FLUoxetine HCL 20 MG CAP PO SCH (09:50)
[2021-10-06] MEDS: PANTOPRAZOLE 40 MG TABLET PO SCH (09:50)
[2021-10-06] MEDS: CLOPIDOGREL 75 MG TAB PO SCH (09:50)
[2021-10-06] MEDS: DIPHENOX-ATROP 2.5-0.025 MG 1 EACH TAB PO SCH (09:50)
[2021-10-06] MEDS: ISOSORBIDE MONONITRATE ER 60 MG TAB.ER.24H PO SCH (09:50)
[2021-10-06] MEDS: LINAGLIPTIN 5 MG TABLET PO SCH (09:50)
[2021-10-06] MEDS: ALPRAZolam 0.5 MG TAB PO SCH ×2 (12:07→15:57)
[2021-10-06 12:17] LABS: Glucose,Whole Blood 204 mg/dL (70-110)
--- NOTE | 2021-10-06 13:02 | P.PN ---
Subjective Progress Note Date: 10/06/21 Principal diagnosis: Abdominal aortic aneurysm status post endovascular aortic repair Pleasant 66-year-old mentally delayed female with multiple comorbidities with a 6.2 cm infrarenal abdominal aortic aneurysm as well as chronic occlusion of the right common iliac artery. 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 Patient is postop day #1 for ultrasound-guided cannulation of the femoral artery bilaterally, and left brac hial artery. Patient also underwent percutaneous cannulation and closure left femoral artery and placement of aorta uni-iliac endograft. Apparently after the procedure the patient had some bleeding at the left groin and a FemoStop was applied and then pressure dressing. Patient had no further bleeding. During this stay she had complaints of chest pain and was given nitro with improvement as well as cardiology consulted on case. Cardiology was unclear of etiology of chest pain but it has resolved on they have signed off the case. Patient was also complaining of abdominal pain, A thoracic aorta abdomen and pelvis CT angiogram was ordered and reviewed by Dr. Lopez. She states that there is no change in the size of the aneurysm. Possible acute infarct seen to the lower pole of the left kidney which may have been causing the patient some of her pain. This is to be expected. Plan is for discharge yesterday with home care however patient was concerned with inability to care for herself and be home alone. PT and OT evaluated patient and recommended subacute rehab which the patient's guardian was agreeable to. Apparently last night she was up throughout the night she was very restless she was hitting staff and needed a sitter. This morning she was quite sleepy due to being up all night and had been given Xanax. Otherwise she is without any complaints and no acute. Patient is been afebrile. Voiding without difficulty. Objective - Vital Signs Vital signs: Vital Signs Temp 98.2 F 10/06/21 08:00 Pulse 69 10/06/21 08:00 Resp 22 10/06/21 08:00 BP 115/68 10/06/21 08:00 Pulse Ox 98 10/06/21 08:00 FiO2 Intake & Output 10/05/21 10/06/21 10/06/21 18:59 06:59 18:59 Intake Total 600 0 Balance 600 0 Intake: Oral 600 0 Other: Voiding Method Toilet Toilet Toilet # Voids 2 2 - Exam General appearance: The patient is alert, oriented, appears in no acute distress. HET: Head is normocephalic and atraumatic. Pupils are equal and reactive. Neck: Supple without lymphadenopathy. Trachea midline. No audible carotid bruit. Heart: S1 S2. Regular rate and rhythm. Lungs: Clear to auscultation bilaterally. Abdomen: Soft, nontender, nondistended. Extremities: Left groin access site with ecchymosis, no active bleeding noted, no hematoma noted. Right groin access site with dressing clean dry and intact. Good capillary refill. Left brachial site with ecchymosis no hematoma. Neurological: No focal deficits. Strength and sensation are grossly intact. - Labs CBC & Chem 7: 10/05/21 08:24 10/05/21 08:24 Labs: Abnormal Lab Results - Last 24 Hours (Table) 10/05/21 10/05/21 10/05/21 Range/Units 11:43 16:42 20:04 POC Glucose (mg/dL) 286 H 247 H 309 H (70-110) mg/dL 10/06/21 Range/Units 05:54 POC Glucose (mg/dL) 207 H (70-110) mg/dL Assessment and Plan Assessment: 1. Abdominal aortic aneurysm status post aorta uni-iliac endograft 2. Cannulation of left brachial artery, cannulation and closure of left femoral artery 3. Chest pain, resolved 4. Diabetes mellitus 5. Former smoker 6. Mentally delayed Plan: 1. Continue PT/OT 2. Plan is for discharge to subacute rehab today, case management working on placement with [facility] 3. Continue current medication 4. Patient is cleared for discharge from vascular surgery, orders are placed The impression and plan of care has been dictated as directed. I performed a history and examination of this patient, discussed the same with the dictator. I agree with the dictator's note ,documented as a scribe. Any additional findings or plans will be noted.
[2021-10-06 16:09] VITALS: BP 105/53; PULSE 80; RESP 18; TEMP 98.2
== END 2021-10-06 17:00 | DRG 269 ==
LOC: 2ORMAIN 10-03 09:34 → 3SCARD 10-03 17:28
PROVIDERS: ADMIT Surgery; ATTEND Surgery
PROC: 04V03FZ Restriction of Abdominal Aorta with Branched or Fenestrated Intraluminal Device, Three or More Arteries, Percutaneous Approach (ICD-10-PCS; principal; 2021-10-03 12:15)
DX: I71.4 Abdominal aortic aneurysm, without rupture (principal); I74.5 Embolism and thrombosis of iliac artery; I45.2 Bifascicular block; E11.51 Type 2 diabetes mellitus with diabetic peripheral angiopathy without gangrene; J44.9 Chronic obstructive pulmonary disease, unspecified; I77.1 Stricture of artery; Z20.822 Contact with and (suspected) exposure to COVID-19; Z28.310 Unvaccinated for COVID-19; R07.89 Other chest pain; I10 Essential (primary) hypertension; E78.5 Hyperlipidemia, unspecified; K21.9 Gastro-esophageal reflux disease without esophagitis; F32.A Depression, unspecified; E55.9 Vitamin D deficiency, unspecified; F41.1 Generalized anxiety disorder; H91.90 Unspecified hearing loss, unspecified ear; Z79.02 Long term (current) use of antithrombotics/antiplatelets; Z79.51 Long term (current) use of inhaled steroids; Z79.84 Long term (current) use of oral hypoglycemic drugs; Z79.899 Other long term (current) drug therapy; Z87.891 Personal history of nicotine dependence; Z85.118 Personal history of other malignant neoplasm of bronchus and lung; Z85.3 Personal history of malignant neoplasm of breast; Z95.828 Presence of other vascular implants and grafts; Z60.2 Problems related to living alone; Z83.3 Family history of diabetes mellitus
CPT/HCPCS: 34705; 71275; 74018; 74174; 80048; 80053; 84484; 85027; 86850; 86900; 86901; 87635; 94640

== ENCOUNTER 2021-10-17 19:13 | Emergency (ER) | payer MEDICARE, OTHER ==
[2021-10-17] MEDS ORDERED: NITROGLYCERIN OINT 1 INCH/GM PACKET TOPICAL STA (19:20)
[2021-10-17] MEDS ORDERED: ASPIRIN 81 MG PO STA (19:20)
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
[2021-10-17 19:28] VITALS: TEMP 99
[2021-10-17 20:46] LABS: INR 0.9 (<1.2); Partial Thromboplastin Time 22.2 sec (22.0-30.0); Prothrombin Time 10.3 sec (9.0-12.0)
--- NOTE | 2021-10-17 20:57 | XR ---
EXAMINATION TYPE: XR chest 2V DATE OF EXAM: 10/17/2021 8:39 PM COMPARISON: Chest radiographs from TECHNIQUE: XR chest 2V Portable AP radiograph of the chest. CLINICAL INDICATION:Female, 66 years old with history of Chest Pain; FINDINGS: Lungs/Pleura: Persistent postsurgical changes with volume loss within the right lung. This prominent right pulmonary and similar prior. The right diaphragm is elevated. Surgical clips are again seen in the right upper quadrant. There is no evidence of pleural effusion, focal consolidation, or pneumotho rax. Pulmonary vascularity: Unremarkable. Heart/mediastinum: Heart size is not significantly changed Musculoskeletal: No acute osseous pathology. IMPRESSION: No acute cardiopulmonary disease/process.
[2021-10-17 21:09] LABS: Albumin 4.2 g/dL (3.5-5.0); Calcium 9.4 mg/dL (8.4-10.2); Magnesium 1.8 mg/dL (1.6-2.3); Potassium 4.1 mmol/L (3.5-5.1); Total Bilirubin 0.3 mg/dL (0.2-1.3); Total Protein 7.3 g/dL (6.3-8.2)
[2021-10-17 21:42] LABS: Basophils % (A) 0 %; Eosinophils # (A) 0.2 k/uL (0-0.7); Eosinophils % (A) 2 %; HCT 32.7 % (34.0-46.0); HGB 10.8 gm/dL (11.4-16.0); Lymphocytes # (A) 1.4 k/uL (1.0-4.8); Lymphocytes % (A) 15 %; MCH 29.2 pg (25.0-35.0); MCHC 33.1 g/dL (31.0-37.0); MCV 88.3 fL (80.0-100.0); Mean Platelet Volume 6.9; Monocytes # (A) 0.5 k/uL (0-1.0); Monocytes % (A) 5 %; Neutrophils # (A) 6.9 k/uL (1.3-7.7); Neutrophils % (A) 75 %; Poikilocytosis Slight; RBC 3.71 m/uL (3.80-5.40); RDW 14.4 % (11.5-15.5); WBC 9.1 k/uL (3.8-10.6)
[2021-10-17 21:53] LABS: Platelet Count 458 k/uL (150-450)
[2021-10-18 01:38] VITALS: BP 152/87; PULSE 77; RESP 16
== END 2021-10-18 01:38 | disposition home or self-care (01) ==
LOC: EC 19:13
DX: R07.89 Other chest pain (principal); E11.9 Type 2 diabetes mellitus without complications; Z87.891 Personal history of nicotine dependence
CPT/HCPCS: 36415; 71046; 80053; 83735; 84484; 85025; 85610; 85730; 93005; 99285

== ENCOUNTER → 2021-11-07 | Outpatient (CLI) | payer MEDICARE, OTHER | END | disposition home or self-care (01) | LOC: RADCTMAIN 13:35 | PROVIDERS: ATTEND Surgery | DX: I71.4 Abdominal aortic aneurysm, without rupture (principal) | CPT/HCPCS: 82565; 84520 ==

== ENCOUNTER 2021-12-01 09:28 | Emergency (ER) | payer MEDICARE, OTHER ==
[2021-12-01] MEDS ORDERED: hydrALAZINE HCL 20 MG/ML 1 ML VIAL IVP STA (09:38)
[2021-12-01 09:59] LABS: Basophils # (A) 0.1 k/uL (0-0.2); Basophils % (A) 1 %; Eosinophils # (A) 0.3 k/uL (0-0.7); Eosinophils % (A) 5 %; HCT 37.4 % (34.0-46.0); HGB 12.2 gm/dL (11.4-16.0); Lymphocytes # (A) 1.4 k/uL (1.0-4.8); Lymphocytes % (A) 20 %; MCH 27.3 pg (25.0-35.0); MCHC 32.6 g/dL (31.0-37.0); MCV 83.8 fL (80.0-100.0); Monocytes # (A) 0.4 k/uL (0-1.0); Monocytes % (A) 5 %; Neutrophils # (A) 4.7 k/uL (1.3-7.7); Neutrophils % (A) 68 %; Platelet Count 284 k/uL (150-450); RBC 4.47 m/uL (3.80-5.40); RDW 14.4 % (11.5-15.5); WBC 6.9 k/uL (3.8-10.6)
[2021-12-01 10:13] LABS: Albumin 4.3 g/dL (3.5-5.0); Calcium 9.7 mg/dL (8.4-10.2); Magnesium 1.5 mg/dL (1.6-2.3); Potassium 4.6 mmol/L (3.5-5.1); Total Bilirubin 0.1 mg/dL (0.2-1.3); Total Protein 7.3 g/dL (6.3-8.2)
[2021-12-01 10:20] LABS: INR 0.9 (<1.2)
--- NOTE | 2021-12-01 10:27 | ED ---
General Adult HPI - General Chief complaint: Recheck/Abnormal Lab/Rx Stated complaint: Hypertension Time Seen by Provider: 12/01/21 09:40 Source: patient, EMS, RN notes reviewed, old records reviewed Mode of arrival: EMS Limitations: no limitations, altered mental status (Patient at baseline Daryl kang is developmentally delayed she does have a guardian.) - History of Present Illness Initial comments: This is a 66-year-old female presents emergency Department because her blood pressure was elevated. Patient states she's not having any symptoms but has been elevated. Few days so when her nurse came to her house and it was elevated again she decided to send the patient in the emergency department. Patient denies any headache patient denies blurred vision. Patient denies any numbness weakness. Patient denies chest pain palpitations difficulty breathing shortest breath. Patient denies any abdominal pain patient denies nausea vomiting diarrh ea. Patient states she has no complaint whatsoever. - Related Data Home Medications Medication Instructions Recorded Confirmed Albuterol Sulfate [Proair Hfa] 2 puff INHALATION RT-QID 07/10/16 12/01/21 FLUoxetine HCL [PROzac] 20 mg PO BID@0800,2100 07/10/16 12/01/21 Fluticasone Propion/Salmeterol 1 puff INHALATION RT-BID@1000,1400 07/10/16 12/01/21 [Advair Hfa 115-21 Mcg Inhaler] Mirtazapine [Remeron] 15 mg PO HS@2100 07/10/16 12/01/21 Pravastatin Sodium [Pravachol] 40 mg PO DAILY@1700 07/10/16 12/01/21 captopriL [Capoten] 12.5 mg PO BID@0800,1700 07/10/16 12/01/21 metFORMIN HCL [Glucophage] 500 mg PO HS@2100 07/10/16 12/01/21 Clopidogrel [Plavix] 75 mg PO DAILY@0800 02/04/19 12/01/21 Isosorbide Mononitrate ER [Imdur] 60 mg PO DAILY@0800 02/04/19 12/01/21 Metoprolol Tartrate 25 mg PO BID@0800,1700 02/04/19 12/01/21 Pantoprazole [Protonix] 40 mg PO DAILY@0600 02/04/19 12/01/21 Linagliptin [Tradjenta] 5 mg PO DAILY@0800 09/30/21 12/01/21 ALPRAZolam [Xanax] 0.5 mg PO TID@0600,1400,2200 10/17/21 12/01/21 Diphenox-Atrop 2.5-0.025 mg 1 tab PO DAILY 10/17/21 12/01/21 [Lomotil] glipiZIDE [Glucotrol] 5 mg PO TID@0700,1100,1630 10/17/21 12/01/21 Previous Rx's Medication Instructions Recorded Zolpidem [Ambien] 10 mg PO HS PRN #3 tab 10/06/21 Allergies Allergy/AdvReac Type Severity Reaction Status Date / Time No Known Allergies Allergy Verified 12/01/21 10:50 Review of Systems ROS Statement: Those systems with pertinent positive or pertinent negative responses have been documented in the HPI. ROS Other: All systems not noted in ROS Statement are negative. Past Medical History Past Medical History: Cancer, COPD, Diabetes Mellitus, GI Bleed Additional Past Medical History / Comment(s): PATIENT IS IMPAIRED CAN NOT READ OR WRITE , AORTIC aneurysm, lung CA, lung removed, History of Any Multi-Drug Resistant Organisms: None Reported Past Surgical History: Breast Surgery, Hysterectomy Additional Past Surgical History / Comment(s): RIGHT lung removed, left masectomy, STENT IN LEG , BILATERAL CATARACT SURGERY, Past Anesthesia/Blood Transfusion Reactions: Previous Problems w/ Anesthesia, Postoperative Nausea & Vomiting (PONV) Additional Past Anesthesia/Blood Transfusion Reaction / Comment(s): POST OP NAUSEA FOR SISTER. SISTER STATES IT TOOK LONGER FOR FÉLIX TO WAKE UP WITH L CONG SURGERY Past Psychological History: Anxiety, Bipolar, Depression Smoking Status: Former smoker Past Alcohol Use History: None Reported Past Drug Use History: None Reported - Past Family History Mother Family Medical History: Cancer, Diabetes Mellitus, Liver Disease Additional Family Medical History / Comment(s): liver ca Father Family Medical History: Cancer Additional Family Medical History / Comment(s): COLON CANCER General Exam - General Exam Comments Initial Comments: GENERAL: Patient is well-developed and well-nourished. Patient is nontoxic and well- hydrated and is in no acute distress. ENT: Neck is soft and supple. No significant lymphadenopathy is noted. Oropharynx is clear. Moist mucous membranes. Neck has full range of motion without eliciting any pain. There is no thyroid enlargement and no masses were felt. EYES: The sclera were anicteric and conjunctiva were pink and moist. Extraocular movements were intact and pupils were equal round and reactive to light. Eyelids were unremarkable. PULMONARY: Unlabored respirations. Good breath sounds bilaterally. No audible rales rhonchi or wheezing was noted. CARDIOVASCULAR: There is a regular rate and rhythm without any murmurs gallops or rubs. Femoral pulses are equal bilaterally ABDOMEN: Soft and nontender with normal bowel sounds. No palpable organomegaly was noted. There is no palpable pulsatile mass. SKIN: Skin is clear with no lesions or rashes and otherwise unremarkable. NEUROLOGIC: Patient is alert and oriented x3. Cranial nerves II through XII are grossly intact. Motor and sensory are also intact. Normal speech, volume and content. Symmetrical smile. Cerebellar exam grossly intact. MUSCULOSKELETAL: Normal extremities with adequate strength and full range of motion. No lower e xtremity swelling or edema. No calf tenderness. LYMPHATICS: No significant lymphadenopathy is noted PSYCHIATRIC: Normal psychiatric evaluation. Normal interpersonal interactions appears functionally intact in deals appropriately with others. No signs of depression. No signs of anxiety. No delusions. No hallucinations. Limitations: no limitations Course Vital Signs 12/01/21 12/01/21 12/01/21 09:35 09:44 10:45 Temperature 98.6 F 98 F Pulse Rate 82 80 90 Respiratory 18 18 16 Rate Blood Pressure 195/106 195/106 179/87 O2 Sat by Pulse 94 L 94 L 96 Oximetry Medical Decision Making - Medical Decision Making EKG shows sinus rhythm at 74 bpm OH interval 176 dresses on a 35 QT interval 390 QTC is 425. Patient's EKG shows no ST segment elevation or depression Chest x-ray shows no acute abnormality. Patient remained without complaints throughout her ED stay. Patient received hydralazine 20 mg labetalol 10 mg and about her blood pressure down nicely. I spoke with Dr. Tong he wants the patient to increase her metoprolol from 25 twice a day to [address] Tong says he'll follow-up with her tomorrow Patient received 1 g of magnesium sulfate for the hypomagnesemia. Patient be discharged home to follow-up with Dr. Tong tomorrow - Lab Data Result diagrams: 12/01/21 09:52 12/01/21 09:52 Lab Results 12/01/21 12/01/21 12/01/21 Range/Units 09:52 09:52 09:52 WBC 6.9 (3.8-10.6) k/uL RBC 4.47 (3.80-5.40) m/uL Hgb 12.2 (11.4-16.0) gm/dL Hct 37.4 (34.0-46.0) % MCV 83.8 (80.0-100.0) fL MCH 27.3 (25.0-35.0) pg MCHC 32.6 (31.0-37.0) g/dL RDW 14.4 (11.5-15.5) % Plt Count 284 (150-450) k/uL MPV 7.0 Neutrophils % 68 % Lymphocytes % 20 % Monocytes % 5 % Eosinophils % 5 % Basophils % 1 % Neutrophils # 4.7 (1.3-7.7) k/uL Lymphocytes # 1.4 (1.0-4.8) k/uL Monocytes # 0.4 (0-1.0) k/uL Eosinophils # 0.3 (0-0.7) k/uL Basophils # 0.1 (0-0.2) k/uL PT 10.0 (9.0-12.0) sec INR 0.9 (<1.2) APTT 20.7 L (22.0-30.0) sec Sodium 138 (137-145) mmol/L Potassium 4.6 (3.5-5.1) mmol/L Chloride 102 (98-107) mmol/L Carbon Dioxide 24 (22-30) mmol/L Anion Gap 12 mmol/L BUN 19 H (7-17) mg/dL Creatinine 0.91 (0.52-1.04) mg/dL Est GFR (CKD-EPI)AfAm 76 (>60 ml/min/1.73 sqM) Est GFR (CKD-EPI)NonAf 66 (>60 ml/min/1.73 sqM) Glucose 193 H (74-99) mg/dL Calcium 9.7 (8.4-10.2) mg/dL Magnesium 1.5 L (1.6-2.3) mg/dL Total Bilirubin 0.1 L (0.2-1.3) mg/dL AST 22 (14-36) U/L ALT 22 (4-34) U/L Alkaline Phosphatase 56 (38-126) U/L Troponin I (0.000-0.034) ng/mL Total Protein 7.3 (6.3-8.2) g/dL Albumin 4.3 (3.5-5.0) g/dL 12/01/21 Range/Units 09:52 WBC (3.8-10.6) k/uL RBC (3.80-5.40) m/uL Hgb (11.4-16.0) gm/dL Hct (34.0-46.0) % MCV (80.0-100.0) fL MCH (25.0-35.0) pg MCHC (31.0-37.0) g/dL RDW (11.5-15.5) % Plt Count (150-450) k/uL MPV Neutrophils % % Lymphocytes % % Monocytes % % Eosinophils % % Basophils % % Neutrophils # (1.3-7.7) k/uL Lymphocytes # (1.0-4.8) k/uL Monocytes # (0-1.0) k/uL Eosinophils # (0-0.7) k/uL Basophils # (0-0.2) k/uL PT (9.0-12.0) sec INR (<1.2) APTT (22.0-30.0) sec Sodium (137-145) mmol/L Potassium (3.5-5.1) mmol/L Chloride (98-107) mmol/L Carbon Dioxide (22-30) mmol/L Anion Gap mmol/L BUN (7-17) mg/dL Creatinine (0.52-1.04) mg/dL Est GFR (CKD-EPI)AfAm (>60 ml/min/1.73 sqM) Est GFR (CKD-EPI)NonAf (>60 ml/min/1.73 sqM) Glucose (74-99) mg/dL Calcium (8.4-10.2) mg/dL Magnesium (1.6-2.3) mg/dL Total Bilirubin (0.2-1.3) mg/dL AST (14-36) U/L ALT (4-34) U/L Alkaline Phosphatase (38-126) U/L Troponin I <0.012 (0.000-0.034) ng/mL Total Protein (6.3-8.2) g/dL Albumin (3.5-5.0) g/dL Disposition Clinical Impression: Hypertensive urgency, Hypomagnesemia Disposition: HOME SELF-CARE Condition: Good Instructions (If sedation given, give patient instructions): Hypertension (ED) Additional Instructions: Metoprolol take 50 mg twice a day Is patient prescribed a controlled substance at d/c from ED?: No Referrals: Nicole Chaudhry MD [Primary Care Provider] - 1-2 days Time of Disposition: 10:58
[2021-12-01 10:33] LABS: Partial Thromboplastin Time 20.7 sec (22.0-30.0)
--- NOTE | 2021-12-01 10:37 | XR ---
EXAMINATION TYPE: XR chest 2V DATE OF EXAM: 12/01/2021 10:29 AM COMPARISON: Chest radiographs from 10/17/2021 TECHNIQUE: XR chest 2V Frontal and lateral views of the chest. CLINICAL INDICATION:Female, 66 years old with history of Chest Pain; FINDINGS: Lungs/Pleura: There is no evidence of pleural effusion, focal consolidation, or pneumothorax. Stable elevation the right hemidiaphragm. Pulmonary vascularity: Unremarkable. Heart/mediastinum: Cardiomediastinal silhouette is unremarkable. Atherosclerotic calcifications are seen in the aorta. Musculoskeletal: No acute osseous pathology. Other: Partial visualization of aortic stent graft in the upper abdomen with surgical clips. IMPRESSION: No acute cardiopulmonary disease/process. No significant change from prior examination.
[2021-12-01] MEDS ORDERED: MAGNESIUM SULFATE-D5W PMX 1 GM in DEXTROSE/WATER 1 100ML.BAG IVPB ONE (10:41)
[2021-12-01] MEDS ORDERED: LABETALOL SYRINGE 5 MG/ML IVP STA (10:41)
[2021-12-01 10:50] VITALS: RESP 16; TEMP 98
[2021-12-01 12:20] VITALS: BP 163/78; PULSE 88
== END 2021-12-01 12:38 | disposition home or self-care (01) ==
LOC: EC 09:28
DX: I16.0 Hypertensive urgency (principal); E83.42 Hypomagnesemia; E11.9 Type 2 diabetes mellitus without complications; J44.9 Chronic obstructive pulmonary disease, unspecified; Z87.891 Personal history of nicotine dependence
CPT/HCPCS: 36415; 93005; 80053; 83735; 84484; 85025; 85610; 85730; 71046; 99284; 96365; 96375; J0360; J3475

== ENCOUNTER → 2022-05-04 | Outpatient (CLI) | payer MEDICARE, OTHER ==
--- NOTE | 2022-05-04 14:11 | CT ---
EXAMINATION TYPE: CT angio abdomen pelvis DATE OF EXAM: 05/04/2022 COMPARISON: 2421 HISTORY: HX of aorta uit eval stent CT DLP: 2100 mGycm CONTRAST: CTA thoracic and abdominal aorta with 3-D reconstruction is performed without Oral Contrast and witho ut and with IV Contrast, patient injected with 100 ml mL of Isovue 370. Contrast CTA of the abdominal aorta was performed from the lung base through the base of the pelvis. 3-D reconstruction imaging obtained at a separate workstation. CONTRAST CT ABDOMEN AND PELVIS ABDOMINAL AORTA: Aortoiliac stent graft is noted to be in place. [place] aneurysm measures 5.9 cm in t ransverse dimension by 5.1 cm AP dimension by approximately 8.7 cm in length. Previous transverse arjun surement of 5.8 cm. There is evidence of endoleak unchanged from prior study. Right stent component r emains occluded. The left stent component is patent at this time. LIVER/GB-hepatic steatosis. PANCREAS- No significant abnormality is seen. SPLEEN- No significant abnormality is seen. ADRENALS- No significant abnormality is seen. KIDNEYS/BLADDER- the kidneys enhance symmetrically. No significant abnormality is seen. BOWEL- No Significant abnormality GENITAL ORGANS: No gross abnormality seen. LYMPH NODES- No greater than 1cm abdominal or pelvic lymph nodes are appreciated. OSSEOUS STRUCTURES- No significant abnormality is seen. OTHER- No significant abnormality is seen. IMPRESSION- 1. Essentially stable aortic stent graft and chilkat aneurysm without endoleak. Occluded right common iliac artery.
== END | disposition home or self-care (01) ==
LOC: RADCTMAIN 10:28
PROVIDERS: ATTEND Surgery
DX: I74.5 Embolism and thrombosis of iliac artery (principal); E11.9 Type 2 diabetes mellitus without complications; E78.2 Mixed hyperlipidemia; E55.9 Vitamin D deficiency, unspecified; Z92.82 Status post administration of tPA (rtPA) in a different facility within the last 24 hours prior to admission to current facility
CPT/HCPCS: 36415; 74174; Q9967; 80053; 80061; 82306; 83036; 84443; 85027

== ENCOUNTER → 2023-07-02 | Outpatient (CLI) | payer MEDICARE, OTHER ==
--- NOTE | 2023-07-02 11:00 | XR ---
EXAMINATION TYPE: XR chest 2V DATE OF EXAM: 07/02/2023 COMPARISON: 12/01/2021 TECHNIQUE: PA and lateral views submitted. HISTORY: Cough FINDINGS: Interstitial patterns increased. Limited inspiration. Surgical change in the abdomen. Atherosclerotic changes of aorta no pneumothorax. Underlying COPD suspected. Osseous structures demonstrate hypertro phic and degenerative changes of the spine. AC joint arthropathy. IMPRESSION: 1. Interval mild increase in the interstitium correlate for early venous congestion, bronchitis or in terstitial pneumonitis
== END | disposition home or self-care (01) ==
LOC: RADXRMAIN 10:36
PROVIDERS: ATTEND Internal Medicine
DX: J98.4 Other disorders of lung (principal)
CPT/HCPCS: 71046

== ENCOUNTER 2023-09-16 20:11 | Inpatient (IN) | payer MEDICARE, OTHER ==
[2023-09-16 21:09] LABS: Basophils # (A) 0.1 k/uL (0-0.2); Basophils % (A) 1 %; Eosinophils # (A) 0.2 k/uL (0-0.7); Eosinophils % (A) 3 %; HCT 41.2 % (34.0-46.0); HGB 14.6 gm/dL (11.4-16.0); Lymphocytes # (A) 2.5 k/uL (1.0-4.8); Lymphocytes % (A) 31 %; MCH 30.7 pg (25.0-35.0); MCHC 35.3 g/dL (31.0-37.0); Mean Platelet Volume 7.7; Monocytes # (A) 0.5 k/uL (0-1.0); Monocytes % (A) 5 %; Neutrophils # (A) 4.8 k/uL (1.3-7.7); Neutrophils % (A) 59 %; Platelet Count 237 k/uL (150-450); RBC 4.74 m/uL (3.80-5.40); RDW 14.3 % (11.5-15.5); WBC 8.2 k/uL (3.8-10.6)
[2023-09-16 21:24] LABS: Appearance,Urine Clear (Clear); Bacteria,Urine Rare /hpf; Bilirubin,Urine Negative (Negative); Blood,Urine Negative (Negative); Color,Urine Colorless; Glucose,Urine (UA) 4+ (Negative); Ketones,Urine Negative (Negative); Leukocyte Esterase,Urine Small (Negative); Mucus,Urine Rare /hpf; Nitrite,Urine Negative (Negative); Protein,Urine Negative (Negative); RBC,Urine 1 /hpf (0-5); Specific Gravity,Urine 1.004 (1.001-1.035); Squamous Epithelial Cell,Urine 1 /hpf (0-4); Urobilinogen,Urine <2.0 mg/dL (<2.0); WBC,Urine 3 /hpf (0-5)
[2023-09-16] MEDS: METOPROLOL TARTRATE 25 MG TAB PO STA (21:52)
[2023-09-16 21:54] LABS: ALT 17 U/L (4-34); African American GFR (CKD) 84 (>60 ml/min/1.73 sqM); Anion Gap 7 mmol/L; Blood Urea Nitrogen 21 mg/dL (7-17); Calcium 9.6 mg/dL (8.4-10.2); Carbon Dioxide 23 mmol/L (22-30); Chloride 106 mmol/L (98-107); Glucose 108 mg/dL (74-99); Non-African American GFR(CKD) 73 (>60 ml/min/1.73 sqM); Sodium 136 mmol/L (137-145); Total Bilirubin 0.7 mg/dL (0.2-1.3)
--- NOTE | 2023-09-16 22:16 | XR ---
EXAMINATION TYPE: XR humerus LT DATE OF EXAM: 09/16/2023 CLINICAL HISTORY: Fall with pain TECHNIQUE: Two views of the left humerus are obtained. COMPARISON: None. FINDINGS: There is no acute fracture or dislocation seen in the left humerus. The left shoulder and elbow joints appear within normal limits. Overlying clothing or blanket material is present. IMPRESSION: No acute fracture or dislocation is evident in the left humerus.
[2023-09-16 22:17] LABS: AST 32 U/L (14-36); Albumin 4.6 g/dL (3.5-5.0); Alkaline Phosphatase 50 U/L (38-126); Magnesium 1.6 mg/dL (1.6-2.3); Potassium 4.9 mmol/L (3.5-5.1); Total Protein 7.5 g/dL (6.3-8.2)
--- NOTE | 2023-09-16 22:24 | XR ---
EXAMINATION TYPE: XR forearm LT DATE OF EXAM: 09/16/2023 CLINICAL HISTORY: Fall injury with pain TECHNIQUE: Two views of the left forearm are obtained. COMPARISON: None. FINDINGS: There is no acute fracture or dislocation seen in the left radius or ulna. The left elbow and wrist joints appear within normal limits. The overlying soft tissue appears within normal limit s. IMPRESSION: There is no acute fracture or dislocation seen in the left radius or ulna.
--- NOTE | 2023-09-16 22:52 | CT ---
EXAMINATION TYPE: CT brain cspine wo con DATE OF EXAM: 09/16/2023 COMPARISON: Prior CT brain August 30, 2020 HISTORY: pt with dementia c/o left arm pain abdomen pain. pt confused falling at home. Fall CT DLP: 1374.5 mGycm. Automated Exposure Control for Dose Reduction was Utilized. TECHNIQUE: CT scan of the head and cervical spine are performed without contrast. FINDINGS: There is no acute intracranial hemorrhage, mass effect, or midline shift identified. The ventricles and sulci are within normal limits in size. Mild low attenuation in periventricular white matter. Calvarium is intact. The globes are intact and the visualized sinuses are clear. Cervical spine is visualized in its entirety from C1 through upper thoracic levels and demonstrates g rade 1 retrolisthesis C3 on C4 and C4 on C5 without evidence of acute fracture or dislocation. Preve rtebral soft tissue appears within normal limits. The C1-C2 articulation is within normal limits on the coronal images. Vertebral body heights are maintained. [id number]-[id number] disc space narrowing C3- C4 through C5-C6 levels. Moderate to severe calcified plaque left carotid bulb level is seen. Moderat e calcified plaque right carotid bulb level. Lung apices show emphysematous change without pneumothor ax. Heterogeneous normal-sized thyroid gland is seen. IMPRESSION: 1. There is no acute fracture or dislocation evident in the cervical spine. 2. No acute intracranial hemorrhage or midline shift is seen.
--- NOTE | 2023-09-16 23:18 | CT ---
EXAMINATION TYPE: CT angio thor/abd pel aorta DATE OF EXAM: 09/16/2023 COMPARISON: Prior CTA of abdomen and pelvis May 04, 2022 HISTORY: pt with dementia c/o left arm pain abdomen pain. pt confused falling at home. History of AA A with abdominal pain. CT DLP: 1150.1 mGycm. Automated Exposure Control for Dose Reduction was Utilized. CONTRAST: CTA scan of the thorax, abdomen and pelvis is performed without and with IV Contrast, patient injecte d with 100 mL of Isovue 370. Three-D reconstructed images are created on an independent workstation a nd reviewed. FINDINGS: VASCULAR: Noncontrast images show no suspicious hyperdense material to suggest intramural hematoma. P rominent pulmonary arteries raising concern for underlying pulmonary hypertension. Moderate calcified plaque in the thoracic aorta is seen. There is short segment complete occlusion of the left subclavi an artery over a 1.6 cm segment coronal image 59. This was present on CTA chest 06/06/2021. Reconstitu tion distal to this is seen. Persistent [place] infrarenal AAA measuring 5.3 x 4.2 cm axial image 174. Length of the aneurysm 8.5 cm coronal image 59. Aortoiliac stent graft is redemonstrated. There is c omplete occlusion of the right common iliac artery portion similar to prior. Reconstitution has its l evel is seen. Patent celiac artery and SMA with some significant narrowing at their origin is redemon strated. Patent bilateral single renal arteries. Patent bilateral femoral vessels with moderate perip heral plaque redemonstrated. LUNGS: Suboptimal study due to respiratory motion degradation. This limits evaluation particularly fo r subcentimeter nodules. Mild emphysematous change in the upper lungs are seen. No pleural effusion o r pneumothorax.. MEDIASTINUM: There are no greater than 1 cm hilar or mediastinal lymph nodes. No cardiomegaly or pe ricardial effusion is seen. LIVER/GB: Gallbladder is surgically absent. PANCREAS: No significant abnormality is seen. SPLEEN: No significant abnormality is seen. ADRENALS: No significant abnormality is seen. KIDNEYS: Some areas of cortical volume loss in the right kidney as seen. BOWEL: No significant abnormality is seen. GENITAL ORGANS: Uterus is surgically absent. LYMPH NODES: No greater than 1cm abdominal or pelvic lymph nodes are appreciated. OSSEOUS STRUCTURES: Multilevel disc space narrowing and spurring in the thoracic spine. Disc space na rrowing and vacuum disc phenomenon at the lumbosacral junction. Facet arthropathy in the lower lumbar spine redemonstrated. OTHER: No significant additional abnormality is seen. IMPRESSION: Stable infrarenal AAA with stent graft that has completely occluded right common iliac ar terial portion. 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 No suspicious retroperitoneal fluid collection to suggest leak or rupture. No suspicious new or acute findings clearly identified
[2023-09-16] MEDS ORDERED: IPRATROPIUM-ALBUTEROL 3 ML NEB INHALATION PRN (23:46)
[2023-09-16] MEDS ORDERED: ACETAMINOPHEN TAB 325 MG TAB PO PRN (23:55)
[2023-09-16] MEDS ORDERED: NALOXONE 0.4 MG/ML 1 ML VIAL IV PRN (23:55)
--- NOTE | 2023-09-16 23:59 | ED ---
Fall HPI - General Chief Complaint: Fall Stated Complaint: Abdominal Pain, Left arm pain Time Seen by Provider: 09/16/23 20:28 Source: patient, family Mode of arrival: wheelchair - History of Present Illness Initial Comments: 68-year-old female with history of dementia, COPD, diabetes presenting with chief complaint of recurrent falls. The patient is brought in by her sister. Her sister states that she lives in the apartment right next to her and she falls multiple times a day. The patient is complaining of left arm pain. She does have some bruises to the arm. She has also been intermittently complaining of some abdominal pain. She has history of of AAA that was repaired by Dr. Leon. No fevers. No vomiting. No chest pain or difficulty breathing. - Related Data Home Medications Medication Instructions Recorded Confirmed Albuterol Sulfate [Proair Hfa] 2 puff INHALATION RT-QID 07/10/16 12/01/21 FLUoxetine HCL [PROzac] 20 mg PO BID@0800,2100 07/10/16 12/01/21 Fluticasone Propion/Salmeterol 1 puff INHALATION RT-BID@1000,1400 07/10/16 12/01/21 [Advair Hfa 115-21 Mcg Inhaler] Mirtazapine [Remeron] 15 mg PO HS@209907/10/16 12/01/21 Pravastatin Sodium [Pravachol] 40 mg PO DAILY@1700 07/10/16 12/01/21 captopriL [Capoten] 12.5 mg PO BID@0800,1700 07/10/16 12/01/21 metFORMIN HCL [Glucophage] 500 mg PO HS@2100 07/10/16 12/01/21 Clopidogrel [Plavix] 75 mg PO DAILY@0800 02/04/19 12/01/21 Isosorbide Mononitrate ER [Imdur] 60 mg PO DAILY@0800 02/04/19 12/01/21 Metoprolol Tartrate 25 mg PO BID@0800,1700 02/04/19 12/01/21 Pantoprazole [Protonix] 40 mg PO DAILY@0600 02/04/19 12/01/21 Linagliptin [Tradjenta] 5 mg PO DAILY@0800 09/30/21 12/01/21 ALPRAZolam [Xanax] 0.5 mg PO TID@0600,1400,2200 10/17/21 12/01/21 Diphenox-Atrop 2.5-0.025 mg 1 tab PO DAILY 10/17/21 12/01/21 [Lomotil] glipiZIDE [Glucotrol] 5 mg PO TID@0700,1100,1630 10/17/21 12/01/21 Ipratropium-Albuterol Nebulize 3 ml INHALATION RT-QID 12/01/21 12/01/21 [Duoneb 0.5 mg-3 mg/3 ml Soln] Nitroglycerin Sl Tabs [Nitrostat] 0.4 mg SUBLINGUAL Q5M PRN 12/01/21 12/01/21 Previous Rx's Medication Instructions Recorded Zolpidem [Ambien] 10 mg PO HS PRN #3 tab 10/06/21 Allergies Allergy/AdvReac Type Severity Reaction Status Date / Time No Known Allergies Allergy Verified 12/01/21 10:50 Review of Systems ROS Statement: Those systems with pertinent positive or pertinent negative responses have been documented in the HPI. ROS Other: All systems not noted in ROS Statement are negative. Past Medical History Past Medical History: Cancer, COPD, Diabetes Mellitus, GI Bleed, Myocardial Infarction ([place]) Additional Past Medical History / Comment(s): PATIENT IS IMPAIRED CAN NOT READ OR WRITE , AORTIC aneurysm, lung CA, lung removed, History of Any Multi-Drug Resistant Organisms: None Reported Past Surgical History: Breast Surgery, Heart Catheterization With Stent, Hysterectomy Additional Past Surgical History / Comment(s): RIGHT lung removed, left masectomy, STENT IN LEG , BILATERAL CATARACT SURGERY, Past Anesthesia/Blood Transfusion Reactions: Previous Problems w/ Anesthesia, Postoperative Nausea & Vomiting (PONV) Additional Past Anesthesia/Blood Transfusion Reaction / Comment(s): POST OP NAUSEA FOR SISTER. SISTER STATES IT TOOK LONGER FOR FÉLIX TO WAKE UP WITH LUNG SURGERY Past Psychological History: Anxiety, Bipolar, Depression Smoking Status: Former smoker Past Alcohol Use History: None Reported Past Drug Use History: None Reported - Past Family History Mother Family Medical History: Cancer, Diabetes Mellitus, Liver Disease Additional Family Medical History / Comment(s): liver ca Father Family Medical History: Cancer Additional Family Medical History / Comment(s): COLON CANCER General Exam Limitations: no limitations General appearance: alert, in no apparent distress Head exam: Present: atraumatic, normocephalic Eye exam: Present: normal appearance, EOMI Neck exam: Present: normal inspection. Absent: meningismus Respiratory exam: Present: normal lung sounds bilaterally. Absent: respiratory distress, wheezes, rales, rhonchi, stridor Cardiovascular Exam: Present: regular rate, normal rhythm, normal heart sounds. Absent: systolic murmur, diastolic murmur, rubs, gallop, clicks GI/Abdominal exam: Present: soft. Absent: distended, tenderness, guarding, rebound, rigid Neurological exam: Present: alert, altered (Dementia) Skin exam: Present: normal color Course Vital Signs 09/16/23 09/16/23 09/16/23 20:15 20:42 21:51 Temperature 97.5 F L Pulse Rate 79 65 Respiratory 20 18 Rate Blood Pressure 200/92 161/82 167/84 O2 Sat by Pulse 97 94 L Oximetry 09/16/23 09/17/23 23:45 01:14 Temperature Pulse Rate 69 74 Respiratory 18 18 Rate Blood Pressure 190/83 180/73 O2 Sat by Pulse 93 L 95 Oximetry Medical Decision Making - Medical Decision Making Was pt. sent in by a medical professional or institution (, PA, CAREER CONSULTANT, urgent care, hospital, or intermediate...) When possible be specific @ -No Did you speak to anyone other than the patient for history (EMS, parent, family, police, friend...)? What history was obtained from this source @ -History obtained from patient's sister Did you review nursing and triage notes (agree or disagree)? Why? @ -I reviewed and agree with nursing and triage notes Were old charts reviewed (outside hosp., previous admission, EMS record, old EKG, old radiological studies, urgent care reports/EKG's, intermediate records)? Report findings @ -No old charts were reviewed Differential Diagnosis (chest pain, altered mental status, abdominal pain women, abdominal pain men, vaginal bleeding, weakness, fever, dyspnea, syncope, headache, dizziness, GI bleed, back pain, seizure, CVA, palpatations, mental health, musculoskeletal)? @ -MDM Differential Abdominal Pain Women: Appendicitis, Cholecystitis, diverticulosis, ischemic bowel, pancreatitis, hepat itis, UTI, gastroenteritis, AAA, incarcerated hernia, bowel obstruction, constipation, inflammatory bowel, hepatitis, peptic ulcer disease, splenic infarction, perforated viscus, vulvitis, ovarian torsion, PID, kidney stone, placenta abruption... This is not meant to be an all-inclusive list EKG interpreted by me (3pts min.). @ -EKG shows sinus rhythm ventricular rate 74. VT interval 182. QRS 142. QT 411. QTc 438. X-rays interpreted by me (1pt min.). @ -X-ray of the left humerus and forearm show no fracture or dislocation CT interpreted by me (1pt min.). @ -CT of the brain and cervical spine shows no acute fracture or malalignment of the cervical spine and no acute intracranial hemorrhage or midline shift CT shows stable infrarenal AAA with stent graft that has completely occluded right common iliac arterial portion. 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 No suspicious retroperitoneal fluid collection to suggest leak or rupture. No suspicious new or acute findings clearly identified U/S interpreted by me (1pt. min.). @ -None done What testing was considered but not performed or refused? (CT, X-rays, U/S, labs)? Why? @ -None What meds were considered but not given or refused? Why? @ -None Did you discuss the management of the patient with other professionals (professionals i.e. , PA, CAREER CONSULTANT, lab, RT, psych nurse, child protective services social worker, practical nursing instructor, teacher, hospital security officer, case coordinator)? Give summary @ -I spoke with Dr. Tong who accepted admission Was smoking cessation discussed for >3mins.? @ -No Was critical care preformed (if so, how long)? @ -No Were there social determinants of health that impacted care today? How? (Homelessness, low income, unemployed, alcoholism, drug addiction, transportation, low edu. Level, literacy, decrease access to med. care, group home, rehab)? @ -No Was there de-escalation of care discussed even if they declined (Discuss DNR or withdrawal of care, Hospice)? DNR status @ -No What co-morbidities impacted this encounter? (DM, HTN, Smoking, COPD, CAD, Cancer, CVA, ARF, Chemo, Hep., AIDS, mental health diagnosis, sleep apnea, morbid obesity)? @ -None Was patient admitted / discharged? Hospital course, mention meds given and route, prescriptions, significant lab abnormalities, going to OR and other pertinent info. @ -68-year-old female brought in by her sister for chief complaint of recurrent falls. Patient was also complaining of some left arm pain and abdominal pain. History and physical exam are conducted. Negative x-rays and CT of the aorta and brain and cervical spine. Lab work requires no action. Her sister is concerned for her recurrent falls and increased difficulty taking care of the patient. Requesting admission for placement to intermediate. I spoke with the patient's PCP Dr. Tong who accepted admission. Family agreeable. I discussed this case with my attending Dr. Mota Undiagnosed new problem with uncertain prognosis? @ -No Drug Therapy requiring intensive monitoring for toxicity (Heparin, Nitro, Insulin, Cardizem)? @ -No Were any procedures done? @ -No Diagnosis/symptom? @ -Recurrent falls Acute, or Chronic, or Acute on Chronic? @ -Acute Uncomplicated (without systemic symptoms) or Complicated (systemic symptoms)? @ -Complicated Side effects of treatment? @ -No Exacerbation, Progression, or Severe Exacerbation? @ -No Poses a threat to life or bodily function? How? (Chest pain, [place], [place], pneumonia, PE, COPD, DKA, ARF, appy, cholecystitis, CVA, Diverticulitis, Homicidal, Suicidal, threat to staff... and all critical care pts) @ -Yes Diagnosis/symptom? @Dementia Acute, or Chronic, or Acute on Chronic? @Acute on chronic Uncomplicated (without systemic symptoms) or Complicated (systemic symptoms)? @Complicated Side effects of treatment? @None Exacerbation, Progression, or Severe Exacerbation] @No Poses a threat to life or bodily function? @intermodal dispatcher yes - Lab Data Result diagrams: 09/16/23 20:59 09/16/23 21:28 Lab Results 09/16/23 09/16/23 09/16/23 Range/Units 20:59 20:59 20:59 WBC 8.2 (3.8-10.6) k/uL RBC 4.74 (3.80-5.40) m/uL Hgb 14.6 (11.4-16.0) gm/dL Hct 41.2 (34.0-46.0) % MCV 87.0 (80.0-100.0) fL MCH 30.7 (25.0-35.0) pg MCHC 35.3 (31.0-37.0) g/dL RDW 14.3 (11.5-15.5) % Plt Count 237 (150-450) k/uL MPV 7.7 Neutrophils % 59 % Lymphocytes % 31 % Monocytes % 5 % Eosinophils % 3 % Basophils % 1 % Neutrophils # 4.8 (1.3-7.7) k/uL Lymphocytes # 2.5 (1.0-4.8) k/uL Monocytes # 0.5 (0-1.0) k/uL Eosinophils # 0.2 (0-0.7) k/uL Basophils # 0.1 (0-0.2) k/uL Sodium (137-145) mmol/L Potassium (3.5-5.1) mmol/L Chloride (98-107) mmol/L Carbon Dioxide (22-30) mmol/L Anion Gap mmol/L BUN (7-17) mg/dL Creatinine (0.52-1.04) mg/dL Est GFR (CKD-EPI)AfAm (>60 ml/min/1.73 sqM) Est GFR (CKD-EPI)NonAf (>60 ml/min/1.73 sqM) Glucose (74-99) mg/dL Plasma Lactic Acid Rony 1.6 (0.7-2.0) mmol/L Calcium (8.4-10.2) mg/dL Magnesium (1.6-2.3) mg/dL Total Bilirubin (0.2-1.3) mg/dL AST (14-36) U/L ALT (4-34) U/L Alkaline Phosphatase (38-126) U/L Total Protein (6.3-8.2) g/dL Albumin (3.5-5.0) g/dL Urine Color Urine Appearance (Clear) Urine pH (5.0-8.0) Ur Specific [place] (1.001-1.035) Urine Protein (Negative) Urine Glucose (UA) (Negative) Urine Ketones (Negative) Urine Blood (Negative) Urine Nitrite (Negative) Urine Bilirubin (Negative) Urine Urobilinogen (<2.0) mg/dL Ur Leukocyte Esterase (Negative) Urine RBC (0-5) /hpf Urine WBC (0-5) /hpf Ur Squamous Epith Cells (0-4) /hpf Urine Bacteria (None) /hpf Urine Mucus (None) /hpf Influenza Type A (PCR) Not Detected (Not Detectd) Influenza Type B (PCR) Not Detected (Not Detectd) RSV (PCR) Not Detected (Not Detectd) SARS-CoV-2 (PCR) Not Detected (Not Detectd) 09/16/23 09/16/23 Range/Units 21:13 21:28 WBC (3.8-10.6) k/uL RBC (3.80-5.40) m/uL Hgb (11.4-16.0) gm/dL Hct (34.0-46.0) % MCV (80.0-100.0) fL MCH (25.0-35.0) pg MCHC (31.0-37.0) g/dL RDW (11.5-15.5) % Plt Count (150-450) k/uL MPV Neutrophils % % Lymphocytes % % Monocytes % % Eosinophils % % Basophils % % Neutrophils # (1.3-7.7) k/uL Lymphocytes # (1.0-4.8) k/uL Monocytes # (0-1.0) k/uL Eosinophils # (0-0.7) k/uL Basophils # (0-0.2) k/uL Sodium 136 L (137-145) mmol/L Potassium 4.9 (3.5-5.1) mmol/L Chloride 106 (98-107) mmol/L Carbon Dioxide 23 (22-30) mmol/L Anion Gap 7 mmol/L BUN 21 H (7-17) mg/dL Creatinine 0.83 (0.52-1.04) mg/dL Est GFR (CKD-EPI)AfAm 84 (>60 ml/min/1.73 sqM) Est GFR (CKD-EPI)NonAf 73 (>60 ml/min/1.73 sqM) Glucose 108 H (74-99) mg/dL Plasma Lactic Acid Rony (0.7-2.0) mmol/L Calcium 9.6 (8.4-10.2) mg/dL Magnesium 1.6 (1.6-2.3) mg/dL Total Bilirubin 0.7 (0.2-1.3) mg/dL AST 32 (14-36) U/L ALT 17 (4-34) U/L Alkaline Phosphatase 50 (38-126) U/L Total Protein 7.5 (6.3-8.2) g/dL Albumin 4.6 (3.5-5.0) g/dL Urine Color Colorless Urine Appearance Clear (Clear) Urine pH 5.0 (5.0-8.0) Ur Specific [place] 1.004 (1.001-1.035) Urine Protein Negative (Negative) Urine Glucose (UA) 4+ H (Negative) Urine Ketones Negative (Negative) Urine Blood Negative (Negative) Urine Nitrite Negative (Negative) Urine Bilirubin Negative (Negative) Urine Urobilinogen <2.0 (<2.0) mg/dL Ur Leukocyte Esterase Small H (Negative) Urine RBC 1 (0-5) /hpf Urine WBC 3 (0-5) /hpf Ur Squamous Epith Cells 1 (0-4) /hpf Urine Bacteria Rare H (None) /hpf Urine Mucus Rare H (None) /hpf Influenza Type A (PCR) (Not Detectd) Influenza Type B (PCR) (Not Detectd) RSV (PCR) (Not Detectd) SARS-CoV-2 (PCR) (Not Detectd) Disposition Clinical Impression: Recurrent falls Disposition: ADMITTED IP TO THIS [facility] Condition: Fair Time of Disposition: 23:58
[2023-09-17] MEDS: hydrALAZINE HCL 20 MG/ML 1 ML VIAL IVP STA (00:06)
[2023-09-17] MEDS: ALPRAZolam 0.5 MG TAB PO STA (01:15)
[2023-09-17] MEDS: PANTOPRAZOLE 40 MG/10 ML VIAL IVP STA (01:20)
[2023-09-17] MEDS: IPRATROPIUM-ALBUTEROL 3 ML NEB INHALATION SCH (08:35)
[2023-09-17] MEDS ORDERED: DEXTROSE 50% SYRINGE 50 ML IVP PRN ×2 (10:59)
[2023-09-17] MEDS ORDERED: ALBUTEROL HFA INHALER INHALATION SCH (12:00)
[2023-09-17 12:18] LABS: Glucose,Whole Blood 176 mg/dL (70-110)
[2023-09-17] MEDS: INSULIN ASPART (NovoLOG) 100 UNIT/ML VIAL SQ SCH (12:35)
[2023-09-17] MEDS: CLOPIDOGREL 75 MG TAB PO SCH (12:35)
--- NOTE | 2023-09-17 12:48 | P.GSCN ---
History of Present Illness Consult date: 09/17/23 Reason for Consult: Abnormal CT angiogram Requesting physician: Alicia Tong History of present illness: This is a pleasant 68-year-old female who was brought in to the emergency department with complaints of frequent multiple falls and reported abdominal pain. 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 Patient has learning disability and lives in her own apartment across from her sister. Patient states her granddaughter also comes and cares for her but overall she is unable to take care of herself and states has been falling a lot. States that she has lower extremity weakness which is causing her to fall. When asked if she injured herself and hit anything when falling she just laughed and said would deny hip. She is currently getting a breathing treatment, she denies any chest pain,, no lower extremity pain. She does as have some upper abdominal pain, no loss of appetitie, nausea or vomiting. Review of Systems A 14 point review systems was completed all pertinent positives and negatives as stated in the HPI. Past Medical History Past Medical History: Cancer, COPD, Diabetes Mellitus, GI Bleed, Myocardial In farction ([place]) Additional Past Medical History / Comment(s): PATIENT IS IMPAIRED CAN NOT READ OR WRITE , AORTIC aneurysm, lung CA, lung removed, History of Any Multi-Drug Resistant Organisms: None Reported Past Surgical History: Breast Surgery, Heart Catheterization With Stent, Hysterectomy Additional Past Surgical History / Comment(s): RIGHT lung removed, left masectomy, STENT IN LEG , BILATERAL CATARACT SURGERY, Past Anesthesia/Blood Transfusion Reactions: Previous Problems w/ Anesthesia, Postoperative Nausea & Vomiting (PONV) Additional Past Anesthesia/Blood Transfusion Reaction / Comm: POST OP NAUSEA FOR SISTER. SISTER STATES IT TOOK LONGER FOR FÉLIX TO WAKE UP WITH LUNG SURGERY Past Psychological History: Anxiety, Bipolar, Depression Smoking Status: Former smoker Past Alcohol Use History: None Reported Past Drug Use History: None Reported - Past Family History Mother Family Medical History: Cancer, Diabetes Mellitus, Liver Disease Additional Family Medical History / Comment(s): liver ca Father Family Medical History: Cancer Additional Family Medical History / Comment(s): COLON CANCER Medications and Allergies Home Medications Medication Instructions Recorded Confirmed Type Albuterol Sulfate [Proair Hfa] 2 puff INHALATION RT-QID 07/10/16 09/17/23 History FLUoxetine HCL [PROzac] 20 mg PO BID 07/10/16 09/17/23 History Mirtazapine [Remeron] 15 mg PO HS 07/10/16 09/17/23 History Pravastatin Sodium [Pravachol] 40 mg PO HS 07/10/16 09/17/23 History captopriL [Capoten] 12.5 mg PO BID 07/10/16 09/17/23 History Clopidogrel [Plavix] 75 mg PO DAILY 02/04/19 09/17/23 History Isosorbide Mononitrate ER [Imdur] 60 mg PO DAILY 02/04/19 09/17/23 History Metoprolol Tartrate 25 mg PO BID 02/04/19 09/17/23 History Pantoprazole [Protonix] 40 mg PO DAILY 02/04/19 09/17/23 History ALPRAZolam [Xanax] 0.5 mg PO Q8H PRN 10/17/21 09/17/23 History Diphenox-Atrop 2.5-0.025 mg 1 tab PO DAILY 10/17/21 09/17/23 History [Lomotil] Acetaminophen Tab [Tylenol Tab] 500 mg PO Q6H PRN 09/17/23 09/17/23 History Cholecalciferol [Vitamin D3 (25 50 mcg PO DAILY 09/17/23 09/17/23 History Mcg = 1000 Iu)] Ferrous Sulfate [Feosol] 325 mg PO DAILY 09/17/23 09/17/23 History Melatonin 10 mg PO HS 09/17/23 09/17/23 History Synjardy (Unknown Dose) 1 dose PO DAILY 09/17/23 History amLODIPine [Norvasc] 5 mg PO DAILY 09/17/23 09/17/23 History traMADol HCl [Ultram] 50 mg PO Q6H PRN 09/17/23 09/17/23 History Allergies Allergy/AdvReac Type Severity Reaction Status Date / Time No Known Allergies Allergy Verified 09/17/23 10:40 Surgical - Exam Vital Signs Temp Pulse Resp BP Pulse Ox 97.5 F L 79 20 200/92 97 09/16/23 20:15 09/16/23 20:15 09/16/23 20:15 09/16/23 20:15 09/16/23 20:15 General appearance: The patient is alert, oriented, appears in no acute distress. HET: Head is normocephalic and atraumatic. Neck: Supple. Heart: Regular. Lungs: Equal expansion, normal respiratory effort. Abdomen: Soft, upper abdominal tenderness, nondistended. Extremities: Normal skin color and turgor. Bilateral lower extremities warm to the touch, sensorimotor intact and good capillary refill. Palpable left DP pulse. Neurological: No focal deficits. Strength and sensation are grossly intact. Results - Labs 09/16/23 20:59 09/16/23 21:28 Abnormal Lab Results - Last 24 Hours (Table) 09/16/23 09/16/23 Range/Units 21:13 21:28 Sodium 136 L (137-145) mmol/L BUN 21 H (7-17) mg/dL Glucose 108 H (74-99) mg/dL Urine Glucose (UA) 4+ H (Negative) Ur Leukocyte Esterase Small H (Negative) Urine Bacteria Rare H (None) /hpf Urine Mucus Rare H (None) /hpf Diabetes panel 09/16/23 Range/Units 21:28 Sodium 136 L (137-145) mmol/L Potassium 4.9 (3.5-5.1) mmol/L Chloride 106 (98-107) mmol/L Carbon Dioxide 23 (22-30) mmol/L BUN 21 H (7-17) mg/dL Creatinine 0.83 (0.52-1.04) mg/dL Glucose 108 H (74-99) mg/dL Calcium 9.6 (8.4-10.2) mg/dL AST 32 (14-36) U/L ALT 17 (4-34) U/L Alkaline Phosphatase 50 (38-126) U/L Total Protein 7.5 (6.3-8.2) g/dL Albumin 4.6 (3.5-5.0) g/dL Calcium panel 09/16/23 Range/Units 21:28 Calcium 9.6 (8.4-10.2) mg/dL Albumin 4.6 (3.5-5.0) g/dL Pituitary panel 09/16/23 Range/Units 21:28 Sodium 136 L (137-145) mmol/L Potassium 4.9 (3.5-5.1) mmol/L Chloride 106 (98-107) mmol/L Carbon Dioxide 23 (22-30) mmol/L BUN 21 H (7-17) mg/dL Creatinine 0.83 (0.52-1.04) mg/dL Glucose 108 H (74-99) mg/dL Calcium 9.6 (8.4-10.2) mg/dL Adrenal panel 09/16/23 Range/Units 21:28 Sodium 136 L (137-145) mmol/L Potassium 4.9 (3.5-5.1) mmol/L Chloride 106 (98-107) mmol/L Carbon Dioxide 23 (22-30) mmol/L BUN 21 H (7-17) mg/dL Creatinine 0.83 (0.52-1.04) mg/dL Glucose 108 H (74-99) mg/dL Calcium 9.6 (8.4-10.2) mg/dL Total Bilirubin 0.7 (0.2-1.3) mg/dL AST 32 (14-36) U/L ALT 17 (4-34) U/L Alkaline Phosphatase 50 (38-126) U/L Total Protein 7.5 (6.3-8.2) g/dL Albumin 4.6 (3.5-5.0) g/dL - Imaging Comments: CT angiogram thoracic abdomen pelvis and aorta reports stable infrarenal abdominal aortic aneurysm with stent graft that he has completely occluded right common iliac artery arterial portion. 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 No suspicious retrop eritoneal fluid collection to suggest leak or rupture. No suspicious new or acute findings clearly identified. Assessment and Plan Assessment: 1. History of infrarenal abdominal aortic aneurysm status post aorta uni-iliac endograft 2. Known chronic occluded right common iliac artery 3. No chronic occluded left subclavian artery 4. Frequent falls 5. Abdominal pain, chronic Plan: CT angiogram reviewed, findings are all consistent with previous history and known chronic occluded right common iliac artery and occluded left subclavian artery. These findings are not likely the cause of patient's falling or chronic abdominal pain. Will order arterial ultrasound of lower extremities. There is no indication for any vascular surgical intervention at this time. Rest of medical management per primary medical team. Thank you for this consultation, we will continue to follow. The impression and plan of care has been dictated as directed. I performed a history and examination of this patient, discussed the same with the dictator. I agree with the dictator's note ,documented as a scribe. Any additional findings or plans will be noted.
--- NOTE | 2023-09-17 15:49 | US ---
EXAMINATION TYPE: US arterial LE multi level DATE OF EXAM: 09/17/2023 12:20 PM Exam done portable CLINICAL INDICATION: Female, 68 years old with history of hx of occluded right common iliac artery; History of: Smoker: Current Hypertension: Yes Diabetic: No Hyperlipidemia: No Previous Vascular Surgery: Yes - aorta uni-iliac stent graft Doppler Waveforms: Right: Multiphasic Left: Multiphasic Right Brachial Pressure: 151 Left Brachial Pressure: 122 Ankle-Brachial Indices: Right: 0.70 Left: 1.09 (Vessel hardening > 1.4; Normal 0.9 - 1.4, Moderate 0.7 - 0.9, Severe 0.5-0.7) IMPRESSION: 1. Abnormal right ankle-brachial index consistent with moderate peripheral arterial disease. 2. Normal left ankle-brachial index.
--- NOTE | 2023-09-17 17:03 | P.HPIM ---
History of Present Illness H&P Date: 09/17/23 Félix Perea, is a 68-year-old female who presented to [facility] emergency room with a chief complaint of abdominal pain, and generalized weakness with fall She was evaluated in the emergency room vital examination on presentation revealed a temperature of 97.5 pulse 79 respiration 20 blood pressure 200/92 pulse ox 97% on room air Laboratory data revealed a white blood count of 8.2 hemoglobin 14.6 platelet count 237 sodium 136 potassium 4.9 chloride 106 CO2 23 BUN 21 creatinine 0.83 urine analysis was positive for small leukocyte esterase Testing in the emergency room revealed CT scan of the brain and the cervical spine revealed no acute fracture or dislocation in the cervical spine no acute intracranial hemorrhage or midline shift, thoracic CT angiogram revealed stable infrarenal AAA with stent graft that has completely occluded right femoral common iliac arterial portion. X-ray of the left forearm and the left humerus reveals no acute fracture. Patient was admitted to medical floor for further evaluation and treatment Past medical history is significant for history of hypertension, history of hyperlipidemia, history of diabetes mellitus, history of COPD, history of peripheral vascular disease, previous history of breast cancer, previous history of lung cancer, underlying history of abdominal aortic aneurysm with previous stenting On review of systems alert and oriented x 3 in no apparent distress there is no fever or chills no headache or dizziness no chest pain no shortness of breath no cough no nausea or vomiting no abdominal pain no diarrhea no blood in the stools no burning with urination no frequency or urgency and no hematuria Past Medical History Past Medical History: Cancer, COPD, Diabetes Mellitus, GI Bleed, Myocardial Infarction ([place]) Additional Past Medical History / Comment(s): PATIENT IS IMPAIRED CAN NOT READ OR WRITE , AORTIC aneurysm, lung CA, lung removed, History of Any Multi-Drug Resistant Organisms: None Reported Past Surgical History: Breast Surgery, Heart Catheterization With Stent, Hysterectomy Additional Past Surgical History / Comment(s): RIGHT lung removed, left masectomy, STENT IN LEG , BILATERAL CATARACT SURGERY, Past Anesthesia/Blood Transfusion Reactions: Previous Problems w/ Anesthesia, Postoperative Nausea & Vomiting (PONV) Additional Past Anesthesia/Blood Transfusion Reaction / Comment(s): POST OP NAUSEA FOR SISTER. SISTER STATES IT TOOK LONGER FOR FÉLIX TO WAKE UP WITH LUNG SURGERY Past Psychological History: Anxiety, Bipolar, Depression Smoking Status: Former smoker Past Alcohol Use History: None Reported Past Drug Use History: None Reported - Past Family History Mother Family Medical History: Cancer, Diabetes Mellitus, Liver Disease Additional Family Medical History / Comment(s): liver ca Father Family Medical History: Cancer Additional Family Medical History / Comment(s): COLON CANCER Medications and Allergies Home Medications Medication Instructions Recorded Confirmed Type Albuterol Sulfate [Proair Hfa] 2 puff INHALATION RT-QID 07/10/16 09/17/23 History FLUoxetine HCL [PROzac] 20 mg PO BID 07/10/16 09/17/23 History Mirtazapine [Remeron] 15 mg PO HS 07/10/16 09/17/23 History Pravastatin Sodium [Pravachol] 40 mg PO HS 07/10/16 09/17/23 History captopriL [Capoten] 12.5 mg PO BID 07/10/16 09/17/23 History Clopidogrel [Plavix] 75 mg PO DAILY 02/04/19 09/17/23 History Isosorbide Mononitrate ER [Imdur] 60 mg PO DAILY 02/04/19 09/17/23 History Metoprolol Tartrate 25 mg PO BID 02/04/19 09/17/23 History Pantoprazole [Protonix] 40 mg PO DAILY 02/04/19 09/17/23 History ALPRAZolam [Xanax] 0.5 mg PO Q8H PRN 10/17/21 09/17/23 History Diphenox-Atrop 2.5-0.025 mg 1 tab PO DAILY 10/17/21 09/17/23 History [Lomotil] Acetaminophen Tab [Tylenol Tab] 500 mg PO Q6H PRN 09/17/23 09/17/23 History Cholecalciferol [Vitamin D3 (25 50 mcg PO DAILY 09/17/23 09/17/23 History Mcg = 1000 Iu)] Empagliflozin/Metformin HCl 1 tab PO DAILY 09/17/23 09/17/23 History [Synjardy Xr 25-1,000 mg Tablet] Ferrous Sulfate [Feosol] 325 mg PO DAILY 09/17/23 09/17/23 History Melatonin 10 mg PO HS 09/17/23 09/17/23 History amLODIPine [Norvasc] 5 mg PO DAILY 09/17/23 09/17/23 History traMADol HCl [Ultram] 50 mg PO Q6H PRN 09/17/23 09/17/23 History Allergies Allergy/AdvReac Type Severity Reaction Status Date / Time No Known Allergies Allergy Verified 09/17/23 10:40 Physical Exam Vitals: Vital Signs Temp Pulse Pulse Resp BP BP Pulse Ox 09/17/23 09:22 75 16 09/17/23 08:43 77 16 09/17/23 08:35 74 16 09/17/23 08:00 97.9 F 75 18 151/88 90 L 09/17/23 06:14 71 18 138/79 94 L 09/17/23 01:14 74 18 180/73 95 09/16/23 23:45 69 18 190/83 93 L 09/16/23 21:51 65 18 167/84 94 L 09/16/23 20:42 161/82 09/16/23 20:15 97.5 F L 79 20 200/92 97 Intake and Output 09/16/23 09/17/23 09/17/23 22:59 06:59 14:59 Other: Weight 63.503 kg In general patient is alert and oriented x 3 in no distress HEENT head normocephalic and atraumatic Neck is supple no JVD no goiter no lymphadenopathy no carotid bruit Chest examination is clear to auscultation no crackles no wheezing Cardiac exam reveals regular heart sounds S1 and S2 no gallops no murmurs Abdomen is soft nontender no organomegaly with normal bowel sounds Extremity exam reveals no edema no cyanosis or clubbing Neurological examination reveals no gross focal deficits Results CBC & Chem 7: 09/16/23 20:59 09/16/23 21:28 Labs: Abnormal Lab Results - Last 24 Hours (Table) 09/16/23 09/16/23 Range/Units 21:13 21:28 Sodium 136 L (137-145) mmol/L BUN 21 H (7-17) mg/dL Glucose 108 H (74-99) mg/dL Urine Glucose (UA) 4+ H (Negative) Ur Leukocyte Esterase Small H (Negative) Urine Bacteria Rare H (None) /hpf Urine Mucus Rare H (None) /hpf Assessment and Plan Plan: Fall with injury without any evidence of bone fracture Hypertensive emergency on presentation Evidence of urinary tract infection Acute on chronic abdominal pain Underlying history of hypertension Underlying history of hyperlipidemia Underlying history of COPD Underlying history of diabetes mellitus Previous history of lung cancer Previous history of breast cancer At this time patient was seen and examined Home medications reviewed and reordered Will check urine culture cover with IV Rocephin Adjust blood pressure medications Check abdomen ultrasound Consult vascular surgery Physical therapy and Occupational Therapy Will follow closely
[2023-09-17] MEDS ORDERED: hydrALAZINE HCL 20 MG/ML 1 ML VIAL IVP PRN (17:04)
[2023-09-17 17:29] LABS: Glucose,Whole Blood 141 mg/dL (70-110)
[2023-09-17] MEDS: ENOXAPARIN 40 MG/0.4 ML SYRINGE SQ SCH (17:49)
[2023-09-17] MEDS: ALPRAZolam 0.5 MG TAB PO PRN (18:55)
[2023-09-17 20:15] LABS: Glucose,Whole Blood 207 mg/dL (70-110)
[2023-09-17] MEDS: METOPROLOL TARTRATE 25 MG TAB PO SCH (20:34)
[2023-09-17] MEDS: MIRTAZAPINE 15 MG TAB PO SCH (20:34)
[2023-09-17] MEDS: MELATONIN 5 MG TABLET PO SCH (20:35)
[2023-09-17] MEDS: FLUoxetine HCL 20 MG CAP PO SCH (20:35)
[2023-09-17] MEDS: PRAVASTATIN SODIUM 40 MG TAB PO SCH (20:35)
--- NOTE | 2023-09-18 07:35 | US ---
EXAMINATION TYPE: US abdomen complete DATE OF EXAM: 09/18/2023 COMPARISON: CT 09/16/2023 CLINICAL INDICATION: Female, 68 years old with history of Abdominal pain; Unable to obtain proper his tory; Patient is unsure if gallbladder is present - CT report states surgically absent TECHNIQUE: Multiple sonographic images of the abdomen are obtained. FINDINGS: EXAM MEASUREMENTS: Liver Length: 17.0 cm Gallbladder Wall: NA cm CBD: 0.7 cm Spleen: 9.1 cm Right Kidney: 11.7 x 3.9 x 4.0 cm Left Kidney: 8.5 x 4.3 x 4.7 cm PANELBEATER NOTES: Limitations in PACS notes Pancreas: Obscured by bowel gas Liver: Increased attenuation as visualized Gallbladder: Surgically absent; fluid within gallbladder fossa Evidence for sonographic Garcia's sign: ? CBD: wnl Spleen: wnl Right Kidney: wnl Left Kidney: Limited visualization, WNL as visualized Upper IVC: wnl intrahepatically Abd Aorta: Mid/Distal AAA with stent noted. IMPRESSION: 1. Gallbladder is not seen with certainty but there does appear to be small amount of fluid in the ga llbladder fossa which is nonspecific. Correlate with surgical history. Common bile duct slightly prom inent measuring 7 mm. 2. Increased echo pattern of liver nonspecific hepatic steatosis or underlying hepatocellular disease . 3. Abdominal aortic aneurysm partially obscured by the stent. More accurately assessed with CT scan.
--- NOTE | 2023-09-18 07:56 | P.PN ---
Subjective Progress Note Date: 09/18/23 Principal diagnosis: Frequent falls, abdominal pain Patient is seen and examined today as a follow-up. She is resting comfortably in bed. She denies any pain in her lower extremities. She is currently awaiting abdominal ultrasound. No acute changes through the night. No other complaints at this time. Objective - Vital Signs Vital signs: Vital Signs Temp 98 F 09/18/23 02:00 Pulse 70 09/18/23 02:00 Resp 16 09/18/23 02:00 BP 123/79 09/18/23 02:00 Pulse Ox 90 L 09/18/23 02:00 FiO2 Intake & Output 09/17/23 09/18/23 09/18/23 18:59 06:59 18:59 Intake Total 50 Balance 50 Weight 63.503 kg Intake: Intake, IV Titration 50 Amount cefTRIAXone 1 gm In 50 Sodium Chloride 0.9% 50 ml @ 100 mls/hr IVPB Q24HR [facility] Rx#:[id number] Other: # Voids 3 2 # Bowel Movements 1 2 - Exam General appearance: The patient is alert, oriented, appears in no acute distress. HET: Head is normocephalic and atraumatic. Neck: Supple. Heart: Regular. Lungs: Equal expansion, normal respiratory effort. Abdomen: Soft, nondistended. Extremities: Normal skin color and turgor. Warm to the touch, sensorimotor intact. Good capillary refill. Neurological: Alert. Developmental delay. - Labs CBC & Chem 7: 09/16/23 20:59 09/16/23 21:28 Labs: Abnormal Lab Results - Last 24 Hours (Table) 09/17/23 09/17/23 09/17/23 Range/Units 12:17 17:21 20:14 POC Glucose (mg/dL) 176 H 141 H 207 H (70-110) mg/dL Assessment and Plan Assessment: 1. History of infrarenal abdominal aortic aneurysm status post aorta uni-iliac endograft 2. Known chronic occluded right common iliac artery 3. No chronic occluded left subclavian artery 4. Frequent falls 5. Abdominal pain, chronic Plan: CT angiogram reviewed, findings are all consistent with previous history and known chronic occluded right common iliac artery and occluded left subclavian artery. These findings are not likely the cause of patient's falling or chronic abdominal pain. Arterial duplex of the lower extremities reviewed, MISAEL right 0.64 and left 1.09. There is no indication for any vascular surgical intervention at this time. Recommend patient follow-up with vascular surgery on discharge, in 2 to 4 weeks. Rest of medical management per primary medical team. Thank you for this consultation, we will sign off at this time. The impression and plan of care has been dictated as directed. Dr. Fung I performed a history and examination of this patient, discussed the same with the dictator. I agree with the dictator's note ,documented as a scribe. Any additional findings or plans will be noted.
[2023-09-18 07:59] LABS: Glucose,Whole Blood 180 mg/dL (70-110)
[2023-09-18] MEDS: PANTOPRAZOLE 40 MG TABLET PO SCH (08:45)
[2023-09-18] MEDS: FERROUS SULFATE 325 MG TAB PO SCH (08:45)
[2023-09-18] MEDS: amLODIPine 5 MG TAB PO SCH (08:45)
[2023-09-18] MEDS: CHOLECALCIFEROL 25 MCG (1000 IU) TABLET PO SCH (08:45)
[2023-09-18] MEDS: ISOSORBIDE MONONITRATE ER 60 MG TAB.ER.24H PO SCH (08:45)
[2023-09-18] MEDS: DIPHENOX-ATROP 2.5-0.025 MG 1 EACH TAB PO SCH (08:45)
[2023-09-18 09:03] LABS: Basophils # (A) 0.05 X 10*3/uL (0.00-0.10); Basophils % (A) 0.6 %; Eosinophils # (A) 0.12 X 10*3/uL (0.04-0.35); Eosinophils % (A) 1.5 %; HCT 43.2 % (37.2-46.3); HGB 14.7 g/dL (12.0-15.0); Lymphocytes # (A) 2.35 X 10*3/uL (0.90-5.00); Lymphocytes % (A) 28.9 %; MCH 29.8 pg (27.0-32.0); MCV 87.4 FL (80.0-97.0); Mean Platelet Volume 9.1 FL (9.5-12.2); Monocytes # (A) 0.83 X 10*3/uL (0.20-1.00); Monocytes % (A) 10.2 %; NRBC Per 100 WBC 0 X 10*3/uL (0.00-0.01); Neutrophils # (A) 4.73 X 10*3/uL (1.80-7.70); Neutrophils % (A) 58.1 %; Platelet Count 296 X 10*3/uL (140-440); RBC 4.94 X 10*6/uL (4.10-5.20); RDW 13.8 % (11.5-14.5); WBC 8.14 X 10*3/uL (4.50-10.00)
[2023-09-18 09:05] LABS: ALT 14 U/L (8-44); AST 15 U/L (13-35); Albumin 4.4 g/dL (3.8-4.9); Albumin/Globulin Ratio 1.63 Ratio (1.60-3.17); Alkaline Phosphatase 55 U/L (41-126); Blood Urea Nitrogen 23.5 mg/dL (9.0-27.0); Calcium 9.9 mg/dL (8.7-10.3); Carbon Dioxide 27.1 mmol/L (21.6-31.8); Chloride 100 mmol/L (96-109); Globulin 2.7 g/dL (1.6-3.3); Glucose 177 mg/dL (70-110); Potassium 4.1 mmol/L (3.5-5.5); Sodium 141 mmol/L (135-145); Total Bilirubin <0.2 mg/dL (0.3-1.2); Total Protein 7.1 g/dL (6.2-8.2)
[2023-09-18] MEDS: traMADol 50 MG TAB PO PRN (10:25)
--- NOTE | 2023-09-18 10:30 | P.PN ---
Subjective Progress Note Date: 09/18/23 Meredith Perea, is a 68-year-old female who presented to [facility] emergency room with a chief complaint of abdominal pain, and generalized weakness with fall She was evaluated in the emergency room vital examination on presentation revealed a temperature of 97.5 pulse 79 respiration 20 blood pressure 200/92 pulse ox 97% on room air Laboratory data revealed a white blood count of 8.2 hemoglobin 14.6 platelet count 237 sodium 136 potassium 4.9 chloride 106 CO2 23 BUN 21 creatinine 0.83 urine analysis was positive for small leukocyte esterase Testing in the emergency room revealed CT scan of the brain and the cervical spine revealed no acute fracture or dislocation in the cervical spine no acute intracranial hemorrhage or midline shift, thoracic CT angiogram revealed stable infrarenal AAA with stent graft that has completely occluded right femoral common iliac arterial portion. X-ray of the left forearm and the left humerus reveals no acute fracture. Patient was admitted to medical floor for further evaluation and treatment Past medical history is significant for history of hypertension, history of hyperlipidemia, history of diabetes mellitus, history of COPD, history of peripheral vascular disease, previous history of breast cancer, previous history of lung cancer, underlying history of abdominal aortic aneurysm with previous stenting On review of systems alert and oriented x 3 in no apparent distress there is no fever or chills no headache or dizziness no chest pain no shortness of breath no cough no nausea or vomiting no abdominal pain no diarrhea no blood in the stools no burning with urination no frequency or urgency and no hematuria On 09/18/2023 patient is alert and oriented 3. Patient currently sitting up in chair. Patient was evaluated by vascular surgeon no plans for surgical intervention at this time. Patient remains on IV Rocephin for UTI. Patient denies chest pain or shortness of breath. Patient denies nausea vomiting or diarrhea. Patient denies any urinary burning or frequency Objective - Vital Signs Vital signs: Vital Signs Temp 97.9 F 09/18/23 07:55 Pulse 74 09/18/23 08:18 Resp 16 09/18/23 07:55 BP 79/54 09/18/23 07:55 Pulse Ox 92 L 09/18/23 08:41 FiO2 Intake & Output 09/17/23 09/18/23 09/18/23 18:59 06:59 18:59 Intake Total 50 Balance 50 Weight 63.503 kg Intake: Intake, IV Titration 50 Amount cefTRIAXone 1 gm In 50 Sodium Chloride 0.9% 50 ml @ 100 mls/hr IVPB Q24HR [facility] Rx#:[id number] Other: # Voids 3 2 # Bowel Movements 1 2 - Exam In general patient is alert and oriented x 3 in no distress HEENT head normocephalic and atraumatic Neck is supple no JVD no goiter no lymphadenopathy no carotid bruit Chest examination is clear to auscultation no crackles no wheezing Cardiac exam reveals regular heart sounds S1 and S2 no gallops no murmurs Abdomen is soft nontender no organomegaly with normal bowel sounds Extremity exam reveals no edema no cyanosis or clubbing Neurological examination reveals no gross focal deficits - Labs CBC & Chem 7: 09/18/23 05:07 09/18/23 05:07 Labs: Abnormal Lab Results - Last 24 Hours (Table) 09/17/23 09/17/23 09/17/23 Range/Units 12:17 17:21 20:14 MPV (9.5-12.2) FL Immature Gran # (0.00-0.04) X 10*3/uL Anion Gap (4.00-12.00) mmol/L BUN/Creatinine Ratio (12.00-20.00) Ratio Glucose (70-110) mg/dL POC Glucose (mg/dL) 176 H 141 H 207 H (70-110) mg/dL Total Bilirubin (0.3-1.2) mg/dL 09/18/23 09/18/23 09/18/23 Range/Units 05:07 05:07 07:58 MPV 9.1 L (9.5-12.2) FL Immature Gran # 0.06 H (0.00-0.04) X 10*3/uL Anion Gap 13.90 H (4.00-12.00) mmol/L BUN/Creatinine Ratio 23.50 H (12.00-20.00) Ratio Glucose 177 H (70-110) mg/dL POC Glucose (mg/dL) 180 H (70-110) mg/dL Total Bilirubin <0.2 L (0.3-1.2) mg/dL Assessment and Plan Plan: Fall with injury without any evidence of bone fracture Hypertensive emergency on presentation Evidence of urinary tract infection Acute on chronic abdominal pain Underlying history of hypertension Underlying history of hyperlipidemia Underlying history of COPD Underlying history of diabetes mellitus Previous history of lung cancer Previous history of breast cancer At this time patient was seen and examined Home medications reviewed and reordered Will check urine culture cover with IV Rocephin Adjust blood pressure medications Check abdomen ultrasound Consult vascular surgery Physical therapy and Occupational Therapy Will follow closely
[2023-09-18 12:06] LABS: Glucose,Whole Blood 202 mg/dL (70-110)
[2023-09-18 17:14] LABS: Glucose,Whole Blood 237 mg/dL (70-110)
[2023-09-18] MEDS: ONDANSETRON 4 MG/2 ML VIAL IVP PRN (17:18)
[2023-09-18 20:36] LABS: Glucose,Whole Blood 153 mg/dL (70-110)
[2023-09-19 07:37] LABS: Glucose,Whole Blood 159 mg/dL (70-110)
[2023-09-19 08:41] LABS: Basophils # (A) 0.06 X 10*3/uL (0.00-0.10); Basophils % (A) 0.8 %; Eosinophils % (A) 1.3 %; HCT 41.5 % (37.2-46.3); Lymphocytes % (A) 28.4 %; MCH 29.8 pg (27.0-32.0); MCHC 33.7 g/dL (32.0-37.0); MCV 88.3 FL (80.0-97.0); Mean Platelet Volume 9.4 FL (9.5-12.2); Monocytes # (A) 0.62 X 10*3/uL (0.20-1.00); NRBC Per 100 WBC 0 X 10*3/uL (0.00-0.01); Neutrophils # (A) 4.72 X 10*3/uL (1.80-7.70); Platelet Count 258 X 10*3/uL (140-440); RDW 13.7 % (11.5-14.5); WBC 7.74 X 10*3/uL (4.50-10.00)
[2023-09-19 09:14] LABS: ALT 10 U/L (8-44); AST 17 U/L (13-35); Albumin 4.3 g/dL (3.8-4.9); Albumin/Globulin Ratio 1.72 Ratio (1.60-3.17); Alkaline Phosphatase 49 U/L (41-126); Blood Urea Nitrogen 23.6 mg/dL (9.0-27.0); Calcium 9.6 mg/dL (8.7-10.3); Carbon Dioxide 21.7 mmol/L (21.6-31.8); Chloride 100 mmol/L (96-109); Globulin 2.5 g/dL (1.6-3.3); Glucose 138 mg/dL (70-110); Potassium 3.8 mmol/L (3.5-5.5); Sodium 136 mmol/L (135-145); Total Bilirubin 0.3 mg/dL (0.3-1.2); Total Protein 6.8 g/dL (6.2-8.2)
[2023-09-19 12:55] LABS: Glucose,Whole Blood 184 mg/dL (70-110)
--- NOTE | 2023-09-19 14:05 | P.PN ---
Subjective Progress Note Date: 09/19/23 Meredith Perea, is a 68-year-old female who presented to [facility] emergency room with a chief complaint of abdominal pain, and generalized weakness with fall She was evaluated in the emergency room vital examination on presentation revealed a temperature of 97.5 pulse 79 respiration 20 blood pressure 200/92 pulse ox 97% on room air Laboratory data revealed a white blood count of 8.2 hemoglobin 14.6 platelet count 237 sodium 136 potassium 4.9 chloride 106 CO2 23 BUN 21 creatinine 0.83 urine analysis was positive for small leukocyte esterase Testing in the emergency room revealed CT scan of the brain and the cervical spine revealed no acute fracture or dislocation in the cervical spine no acute intracranial hemorrhage or midline shift, thoracic CT angiogram revealed stable infrarenal AAA with stent graft that has completely occluded right femoral common iliac arterial portion. X-ray of the left forearm and the left humerus reveals no acute fracture. Patient was admitted to medical floor for further evaluation and treatment Past medical history is significant for history of hypertension, history of hyperlipidemia, history of diabetes mellitus, history of COPD, history of peripheral vascular disease, previous history of breast cancer, previous history of lung cancer, underlying history of abdominal aortic aneurysm with previous stenting On review of systems alert and oriented x 3 in no apparent distress there is no fever or chills no headache or dizziness no chest pain no shortness of breath no cough no nausea or vomiting no abdominal pain no diarrhea no blood in the stools no burning with urination no frequency or urgency and no hematuria On 09/18/2023 patient is alert and oriented 3. Patient currently sitting up in chair. Patient was evaluated by vascular surgeon no plans for surgical intervention at this time. Patient remains on IV Rocephin for UTI. Patient denies chest pain or shortness of breath. Patient denies nausea vomiting or diarrhea. Patient denies any urinary burning or frequency On 09/18/2024 for patient's alert and oriented 3 currently sitting up in chair. Patient remains onIV Rocephin for UTI urine culture currently growing gram- negative bacilli. Discharge planning to [facility]. Anticipate probable discharge tomorrow 09/20/2023. Patient denies chest pain or shortness of breath. Patient denies nausea vomiting or diarrhea. Patient denies any urinary burning or frequency Objective - Vital Signs Vital signs: Vital Signs Temp 98 F 09/19/23 12:53 Pulse 73 09/19/23 12:53 Resp 16 09/19/23 12:53 BP 124/72 09/19/23 12:53 Pulse Ox 91 L 09/19/23 12:53 FiO2 Intake & Output 09/18/23 09/19/23 09/19/23 18:59 06:59 18:59 Other: # Voids 2 3 # Bowel Movements 1 - Exam In general patient is alert and oriented x 3 in no distress HEENT head normocephalic and atraumatic Neck is supple no JVD no goiter no lymphadenopathy no carotid bruit Chest examination is clear to auscultation no crackles no wheezing Cardiac exam reveals regular heart sounds S1 and S2 no gallops no murmurs Abdomen is soft nontender no organomegaly with normal bowel sounds Extremity exam reveals no edema no cyanosis or clubbing Neurological examination reveals no gross focal deficits - Labs CBC & Chem 7: 09/19/23 04:55 09/19/23 04:55 Labs: Abnormal Lab Results - Last 24 Hours (Table) 09/18/23 09/18/23 09/19/23 Range/Units 17:13 20:34 04:55 MPV 9.4 L (9.5-12.2) FL Anion Gap (4.00-12.00) mmol/L BUN/Creatinine Ratio (12.00-20.00) Ratio Glucose (70-110) mg/dL POC Glucose (mg/dL) 237 H 153 H (70-110) mg/dL 09/19/23 09/19/23 09/19/23 Range/Units 04:55 07:36 12:54 MPV (9.5-12.2) FL Anion Gap 14.30 H (4.00-12.00) mmol/L BUN/Creatinine Ratio 23.60 H (12.00-20.00) Ratio Glucose 138 H (70-110) mg/dL POC Glucose (mg/dL) 159 H 184 H (70-110) mg/dL Microbiology - Last 24 Hours (Table) 09/16/23 21:13 Urine Culture - Preliminary Urine,Voided Gram Neg Bacilli Assessment and Plan Plan: Fall with injury without any evidence of bone fracture Hypertensive emergency on presentation Evidence of urinary tract infection Acute on chronic abdominal pain Underlying history of hypertension Underlying history of hyperlipidemia Underlying history of COPD Underlying history of diabetes mellitus Previous history of lung cancer Previous history of breast cancer At this time patient was seen and examined Home medications reviewed and reordered Will check urine culture cover with IV Rocephin Adjust blood pressure medications Check abdomen ultrasound Consult vascular surgery Physical therapy and Occupational Therapy Will follow closely
[2023-09-19 17:14] LABS: Glucose,Whole Blood 216 mg/dL (70-110)
[2023-09-19 20:29] LABS: Glucose,Whole Blood 173 mg/dL (70-110)
[2023-09-20 07:35] LABS: Glucose,Whole Blood 181 mg/dL (70-110)
[2023-09-20] MEDS: ACETAMINOPHEN TAB 500 MG TAB PO PRN (09:56)
[2023-09-20 11:46] LABS: Glucose,Whole Blood 176 mg/dL (70-110)
--- NOTE | 2023-09-20 12:21 | P.PN ---
Subjective Progress Note Date: 09/20/23 Meredith Perea, is a 68-year-old female who presented to [facility] emergency room with a chief complaint of abdominal pain, and generalized weakness with fall She was evaluated in the emergency room vital examination on presentation revealed a temperature of 97.5 pulse 79 respiration 20 blood pressure 200/92 pulse ox 97% on room air Laboratory data revealed a white blood count of 8.2 hemoglobin 14.6 platelet count 237 sodium 136 potassium 4.9 chloride 106 CO2 23 BUN 21 creatinine 0.83 urine analysis was positive for small leukocyte esterase Testing in the emergency room revealed CT scan of the brain and the cervical spine revealed no acute fracture or dislocation in the cervical spine no acute intracranial hemorrhage or midline shift, thoracic CT angiogram revealed stable infrarenal AAA with stent graft that has completely occluded right femoral common iliac arterial portion. X-ray of the left forearm and the left humerus reveals no acute fracture. Patient was admitted to medical floor for further evaluation and treatment Past medical history is significant for history of hypertension, history of hyperlipidemia, history of diabetes mellitus, history of COPD, history of peripheral vascular disease, previous history of breast cancer, previous history of lung cancer, underlying history of abdominal aortic aneurysm with previous stenting On review of systems alert and oriented x 3 in no apparent distress there is no fever or chills no headache or dizziness no chest pain no shortness of breath no cough no nausea or vomiting no abdominal pain no diarrhea no blood in the stools no burning with urination no frequency or urgency and no hematuria On 09/18/2023 patient is alert and oriented 3. Patient currently sitting up in chair. Patient was evaluated by vascular surgeon no plans for surgical intervention at this time. Patient remains on IV Rocephin for UTI. Patient denies chest pain or shortness of breath. Patient denies nausea vomiting or diarrhea. Patient denies any urinary burning or frequency On 09/18/2024 for patient's alert and oriented 3 currently sitting up in chair. Patient remains onIV Rocephin for UTI urine culture currently growing gram- negative bacilli. Discharge planning to [facility]. Anticipate probable discharge tomorrow 09/20/2023. Patient denies chest pain or shortness of breath. Patient denies nausea vomiting or diarrhea. Patient denies any urinary burning or frequency. On 09/20/2023 patient was seen and examined on the medical floor, she is alert and oriented x 3 in no apparent distress, no fever or chills no headache or dizziness no chest pain no shortness of breath no cough no nausea or vomiting no abdominal pain no diarrhea no urinary symptoms, patient is stable, continue with current management, plan is for transfer to [facility] tomorrow. Objective - Vital Signs Vital signs: Vital Signs Temp 97.8 F 09/20/23 11:41 Pulse 66 09/20/23 11:41 Resp 16 09/20/23 11:41 BP 105/56 09/20/23 11:41 Pulse Ox 92 L 09/20/23 11:41 FiO2 Intake & Output 09/19/23 09/20/23 09/20/23 18:59 06:59 18:59 Other: Voiding Method Diaper Incontinent # Voids 1 1 - Exam In general patient is alert and oriented x 3 in no distress HEENT head normocephalic and atraumatic Neck is supple no JVD no goiter no lymphadenopathy no carotid bruit Chest examination is clear to auscultation no crackles no wheezing Cardiac exam reveals regular heart sounds S1 and S2 no gallops no murmurs Abdomen is soft nontender no organomegaly with normal bowel sounds Extremity exam reveals no edema no cyanosis or clubbing Neurological examination reveals no gross focal deficits - Labs CBC & Chem 7: 09/19/23 04:55 09/19/23 04:55 Labs: Abnormal Lab Results - Last 24 Hours (Table) 09/19/23 09/19/23 09/19/23 Range/Units 12:54 17:13 20:28 POC Glucose (mg/dL) 184 H 216 H 173 H (70-110) mg/dL 09/20/23 09/20/23 Range/Units 07:34 11:45 POC Glucose (mg/dL) 181 H 176 H (70-110) mg/dL Microbiology - Last 24 Hours (Table) 09/16/23 21:13 Urine Culture - Final Urine,Voided Klebsiella oxytoca Assessment and Plan Plan: Fall with injury without any evidence of bone fracture Hypertensive emergency on presentation Evidence of urinary tract infection Acute on chronic abdominal pain Underlying history of hypertension Underlying history of hyperlipidemia Underlying history of COPD Underlying history of diabetes mellitus Previous history of lung cancer Previous history of breast cancer At this time patient was seen and examined Home medications reviewed and reordered Will check urine culture cover with IV Rocephin Adjust blood pressure medications Check abdomen ultrasound Consult vascular surgery Physical therapy and Occupational Therapy Will follow closely
[2023-09-20 16:51] LABS: Glucose,Whole Blood 221 mg/dL (70-110)
[2023-09-20 20:40] LABS: Glucose,Whole Blood 300 mg/dL (70-110)
[2023-09-21 07:10] LABS: Glucose,Whole Blood 193 mg/dL (70-110)
[2023-09-21 08:37] LABS: Basophils # (A) 0.05 X 10*3/uL (0.00-0.10); Basophils % (A) 0.7 %; Eosinophils # (A) 0.22 X 10*3/uL (0.04-0.35); Eosinophils % (A) 3.3 %; HCT 41.8 % (37.2-46.3); Lymphocytes # (A) 2.34 X 10*3/uL (0.90-5.00); Lymphocytes % (A) 34.9 %; MCH 29.5 pg (27.0-32.0); MCHC 33.5 g/dL (32.0-37.0); Mean Platelet Volume 8.9 FL (9.5-12.2); Monocytes # (A) 0.65 X 10*3/uL (0.20-1.00); Monocytes % (A) 9.7 %; NRBC Per 100 WBC 0 X 10*3/uL (0.00-0.01); Neutrophils # (A) 3.41 X 10*3/uL (1.80-7.70); Neutrophils % (A) 50.8 %; Platelet Count 253 X 10*3/uL (140-440); RBC 4.75 X 10*6/uL (4.10-5.20); RDW 13.6 % (11.5-14.5); WBC 6.71 X 10*3/uL (4.50-10.00)
[2023-09-21 09:20] LABS: Blood Urea Nitrogen 20.3 mg/dL (9.0-27.0); Chloride 100 mmol/L (96-109); Glucose 152 mg/dL (70-110); Sodium 138 mmol/L (135-145)
[2023-09-21 09:21] LABS: ALT 14 U/L (8-44); AST 13 U/L (13-35); Albumin 4.3 g/dL (3.8-4.9); Albumin/Globulin Ratio 1.79 Ratio (1.60-3.17); Alkaline Phosphatase 49 U/L (41-126); Calcium 9.7 mg/dL (8.7-10.3); Carbon Dioxide 24.8 mmol/L (21.6-31.8); Globulin 2.4 g/dL (1.6-3.3); Total Bilirubin 0.3 mg/dL (0.3-1.2); Total Protein 6.7 g/dL (6.2-8.2)
--- NOTE | 2023-09-21 11:13 | P.DS ---
Providers Date of admission: 09/18/23 06:42 Expected date of discharge: 09/21/23 Attending physician: Alicia Tong Primary care physician: Alicia Tong [facility] Course: Discharge diagnosis Fall with injury without any evidence of bone fracture Hypertensive emergency on presentation Evidence of urinary tract infection Acute on chronic abdominal pain Underlying history of hypertension Underlying history of hyperlipidemia Underlying history of COPD Underlying history of diabetes mellitus Previous history of lung cancer Previous history of breast cancer Hospital course Meredith Perea, is a 68-year-old female who presented to [facility] emergency room with a chief complaint of abdominal pain, and generalized weakness with fall She was evaluated in the emergency room vital examination on presentation revealed a temperature of 97.5 pulse 79 respiration 20 blood pressure 200/92 pulse ox 97% on room air Laboratory data revealed a white blood count of 8.2 hemoglobin 14.6 platelet count 237 sodium 136 potassium 4.9 chloride 106 CO2 23 BUN 21 creatinine 0.83 urine analysis was positive for small leukocyte esterase Testing in the emergency room revealed CT scan of the brain and the cervical spine revealed no acute fracture or dislocation in the cervical spine no acute intracranial hemorrhage or midline shift, thoracic CT angiogram revealed stable infrarenal AAA with stent graft that has completely occluded right femoral common iliac arterial portion. X-ray of the left forearm and the left humerus reveals no acute fracture. Patient was admitted to medical floor for further evaluation and treatment Past medical history is significant for history of hypertension, history of hyperlipidemia, history of diabetes mellitus, history of COPD, history of peripheral vascular disease, previous history of breast cancer, previous history of lung cancer, underlying history of abdominal aortic aneurysm with previous stenting On review of systems alert and oriented x 3 in no apparent distress there is no fever or chills no headache or dizziness no chest pain no shortness of breath no cough no nausea or vomiting no abdominal pain no diarrhea no blood in the stools no burning with urination no frequency or urgency and no hematuria On 09/18/2023 patient is alert and oriented 3. Patient currently sitting up in chair. Patient was evaluated by vascular surgeon no plans for surgical intervention at this time. Patient remains on IV Rocephin for UTI. Patient denies chest pain or shortness of breath. Patient denies nausea vomiting or diarrhea. Patient denies any urinary burning or frequency On 09/18/2024 for patient's alert and oriented 3 currently sitting up in chair. Patient remains onIV Rocephin for UTI urine culture currently growing gram-nega tive bacilli. Discharge planning to [facility]. Anticipate probable discharge tomorrow 09/20/2023. Patient denies chest pain or shortness of breath. Patient denies nausea vomiting or diarrhea. Patient denies any urinary burning or frequency On 09/20/2022 for patient's alert and oriented times to [facility] today. Patient will continue course ofAntibiotic on discharge. Patient denies chest pain or shortness breath. Patient denies nausea vomiting or diarrhea. Patient denies any urinary burning or frequency Patient Condition at Discharge: Stable Plan - Discharge Summary New Discharge Prescriptions: New cefUROXime axetiL [Ceftin] 500 mg PO BID 5 Days #10 tab Ipratropium-Albuterol Nebulize [Duoneb 0.5 mg-3 mg/3 ml Soln] 3 ml INHALATION RT-QID #0 each Continue Pravastatin Sodium [Pravachol] 40 mg PO HS captopriL [Capoten] 12.5 mg PO BID Mirtazapine [Remeron] 15 mg PO HS FLUoxetine HCL [PROzac] 20 mg PO BID Albuterol Sulfate [Proair Hfa] 2 puff INHALATION RT-QID Metoprolol Tartrate 25 mg PO BID Isosorbide Mononitrate ER [Imdur] 60 mg PO DAILY Clopidogrel [Plavix] 75 mg PO DAILY Pantoprazole [Protonix] 40 mg PO DAILY Diphenox-Atrop 2.5-0.025 mg [Lomotil] 1 tab PO DAILY Cholecalciferol [Vitamin D3 (25 Mcg = 1000 Iu)] 50 mcg PO DAILY traMADol HCl [Ultram] 50 mg PO Q6H PRN PRN Reason: Pain amLODIPine [Norvasc] 5 mg PO DAILY ALPRAZolam [Xanax] 0.5 mg PO Q8H PRN PRN Reason: Anxiety Acetaminophen Tab [Tylenol] 500 mg PO Q6H PRN PRN Reason: Pain Or Fever > 100.5 Ferrous Sulfate [Iron (65 MG Elemental)] 325 mg PO DAILY Melatonin 10 mg PO HS Empagliflozin/Metformin HCl [Synjardy Xr 25-1,000 mg Tablet] 1 tab PO DAILY Discharge Medication List Albuterol Sulfate [Proair Hfa] 2 puff INHALATION RT-QID 07/10/16 [History] FLUoxetine HCL [PROzac] 20 mg PO BID 07/10/16 [History] Mirtazapine [Remeron] 15 mg PO HS 07/10/16 [History] Pravastatin Sodium [Pravachol] 40 mg PO HS 07/10/16 [History] captopriL [Capoten] 12.5 mg PO BID 07/10/16 [History] Clopidogrel [Plavix] 75 mg PO DAILY 02/04/19 [History] Isosorbide Mononitrate ER [Imdur] 60 mg PO DAILY 02/04/19 [History] Metoprolol Tartrate 25 mg PO BID 02/04/19 [History] Pantoprazole [Protonix] 40 mg PO DAILY 02/04/19 [History] ALPRAZolam [Xanax] 0.5 mg PO Q8H PRN 10/17/21 [History] Diphenox-Atrop 2.5-0.025 mg [Lomotil] 1 tab PO DAILY 10/17/21 [History] Acetaminophen Tab [Tylenol] 500 mg PO Q6H PRN 09/17/23 [History] Cholecalciferol [Vitamin D3 (25 Mcg = 1000 Iu)] 50 mcg PO DAILY 09/17/23 [History] Empagliflozin/Metformin HCl [Synjardy Xr 25-1,000 mg Tablet] 1 tab PO DAILY 09/17/23 [History] Ferrous Sulfate [Iron (65 MG Elemental)] 325 mg PO DAILY 09/17/23 [History] Melatonin 10 mg PO HS 09/17/23 [History] amLODIPine [Norvasc] 5 mg PO DAILY 09/17/23 [History] traMADol HCl [Ultram] 50 mg PO Q6H PRN 09/17/23 [History] Ipratropium-Albuterol Nebulize [Duoneb 0.5 mg-3 mg/3 ml Soln] 3 ml INHALATION RT-QID #0 each 09/20/23 [Rx] cefUROXime axetiL [Ceftin] 500 mg PO BID 5 Days #10 tab 09/20/23 [Rx] Follow up Appointment(s)/Referral(s): Landon Null DO [Doctor of Osteopathic Medicine] - As Needed (As previously scheduled) Alicia Tong MD [Primary Care Provider] - 1-2 days Discharge Disposition: TRANSFER TO [facility]
[2023-09-21 12:03] LABS: Glucose,Whole Blood 217 mg/dL (70-110)
[2023-09-21 13:05] VITALS: BP 116/61; PULSE 73; RESP 18; TEMP 97.6
== END 2023-09-21 14:11 | DRG 392 ==
LOC: EC 20:11 → 5NMEDONC 23:58 → OBSVTOIN 09-18 06:42
PROVIDERS: ADMIT Internal Medicine; ATTEND Internal Medicine
DX: R10.9 Unspecified abdominal pain (principal); I16.1 Hypertensive emergency; F03.94 Unspecified dementia, unspecified severity, with anxiety; I82.521 Chronic embolism and thrombosis of right iliac vein; N39.0 Urinary tract infection, site not specified; N17.9 Acute kidney failure, unspecified; W19.XXXA Unspecified fall, initial encounter; Z87.19 Personal history of other diseases of the digestive system; J44.9 Chronic obstructive pulmonary disease, unspecified; E11.51 Type 2 diabetes mellitus with diabetic peripheral angiopathy without gangrene; E78.5 Hyperlipidemia, unspecified; G89.29 Other chronic pain; F31.9 Bipolar disorder, unspecified; F81.9 Developmental disorder of scholastic skills, unspecified; I10 Essential (primary) hypertension; I25.10 Atherosclerotic heart disease of native coronary artery without angina pectoris; I25.2 Old myocardial infarction; I77.1 Stricture of artery; R29.6 Repeated falls; S40.029A Contusion of unspecified upper arm, initial encounter; Z79.02 Long term (current) use of antithrombotics/antiplatelets; Z79.84 Long term (current) use of oral hypoglycemic drugs; Z79.899 Other long term (current) drug therapy; Z86.79 Personal history of other diseases of the circulatory system; Z85.3 Personal history of malignant neoplasm of breast; Z90.710 Acquired absence of both cervix and uterus; Z95.5 Presence of coronary angioplasty implant and graft; Z98.42 Cataract extraction status, left eye; Z98.41 Cataract extraction status, right eye; Z85.118 Personal history of other malignant neoplasm of bronchus and lung
CPT/HCPCS: 36415; 70450; 71275; 72125; 74174; 76700; 80053; 81001; 83605; 83735; 85025; 87077; 87086; 87186; 87636; 93005; 93923; 94640; 96374; 96375; 99285

== ENCOUNTER 2023-12-06 09:26 | Emergency (ER) | payer MEDICARE, OTHER ==
[2023-12-06 09:34] VITALS: PULSE 72; RESP 18; TEMP 98
--- NOTE | 2023-12-06 10:23 | CT ---
EXAMINATION TYPE: CT brain freddie locke DATE OF EXAM: 12/06/2023 COMPARISON: HISTORY: fall CT DLP: 1260.2 mGycm Automated exposure control for dose reduction was used. TECHNIQUE: CT scan of the head and cervical spine are performed without contrast. FINDINGS: There is a large left frontal subcutaneous soft tissue hematoma measuring 3.8 cm. Calvari um intact. Moderate generalized degenerative change of the greater central component. No midline shift or mass e ffect. No acute intracranial hemorrhage. Craniocervical junction maintained. Chronic right mastoiditi s. Minimal changes of chronic sinusitis. Assessment spinal canal limited due to artifact resolution. There is multilevel hypertrophic and dege nerative disc disease with uncovertebral joint hypertrophy and posterior spondylosis most marked at l evels C3-C6. Multilevel foraminal encroachment. Could not exclude canal stenosis at levels C3-C6. Rec ommend follow-up MRI. No acute fracture. Odontoid intact. Changes of chronic right mastoiditis. Apical pleural-based thickening with changes of COPD. Atherosclerotic change of the carotid arteries. Multinodular thyroid changes. IMPRESSION: 1. There is no acute fracture or dislocation evident in the cervical spine. 2. No acute intracranial hemorrhage, mass effect, or midline shift is seen. Large soft tissue hematom a overlying the left frontal bone. No acute fracture. 3. Degenerative change of the greater central component which could be associated with normal pressur e hydrocephalus correlate clinically.
--- NOTE | 2023-12-06 10:30 | ED ---
Head Injury HPI - General Chief complaint: Head Injury Stated complaint: fall on thinners/head injury Time Seen by Provider: 12/06/23 09:45 Source: patient, EMS Mode of arrival: EMS - History of Present Illness Initial comments: 68-year-old female presents emergency department with head injury. Patient is coming from [facility]. She had a fall where she hit the right side of her head. She has an obvious hematoma to the right forehead. Patient has baseline mental status of ANO x 2. She is at her baseline. She takes Plavix. No reported loss of consciousness. She denies any pain. No neck or back pain. - Related Data Home Medications Medication Instructions Recorded Confirmed Albuterol Sulfate [Proair Hfa] 2 puff INHALATION RT-QID 07/10/16 09/17/23 FLUoxetine HCL [PROzac] 20 mg PO BID 07/10/16 09/17/23 Mirtazapine [Remeron] 15 mg PO HS 07/10/16 09/17/23 Pravastatin Sodium [Pravachol] 40 mg PO HS 07/10/16 09/17/23 captopriL [Capoten] 12.5 mg PO BID 07/10/16 09/17/23 Clopidogrel [Plavix] 75 mg PO DAILY 02/04/19 09/17/23 Isosorbide Mononitrate ER [Imdur] 60 mg PO DAILY 02/04/19 09/17/23 Metoprolol Tartrate 25 mg PO BID 02/04/19 09/17/23 Pantoprazole [Protonix] 40 mg PO DAILY 02/04/19 09/17/23 ALPRAZolam [Xanax] 0.5 mg PO Q8H PRN 10/17/21 09/17/23 Diphenox-Atrop 2.5-0.025 mg 1 tab PO DAILY 10/17/21 09/17/23 [Lomotil] Acetaminophen Tab [Tylenol] 500 mg PO Q6H PRN 09/17/23 09/17/23 Cholecalciferol [Vitamin D3 (25 50 mcg PO DAILY 09/17/23 09/17/23 Mcg = 1000 Iu)] Empagliflozin/Metformin HCl 1 tab PO DAILY 09/17/23 09/17/23 [Synjardy Xr 25-1,000 mg Tablet] Ferrous Sulfate [Iron (65 MG 325 mg PO DAILY 09/17/23 09/17/23 Elemental)] Melatonin 10 mg PO HS 09/17/23 09/17/23 amLODIPine [Norvasc] 5 mg PO DAILY 09/17/23 09/17/23 traMADol HCl [Ultram] 50 mg PO Q6H PRN 09/17/23 09/17/23 Previous Rx's Medication Instructions Recorded Ipratropium-Albuterol Nebulize 3 ml INHALATION RT-QID #0 each 09/20/23 [Duoneb 0.5 mg-3 mg/3 ml Soln] cefUROXime axetiL [Ceftin] 500 mg PO BID 5 Days #10 tab 09/20/23 Allergies/Adverse reactions: Allergies Allergy/AdvReac Type Severity Reaction Status Date / Time No Known Allergies Allergy Verified 12/06/23 09:34 Review of Systems ROS Statement: Those systems with pertinent positive or pertinent negative responses have been documented in the HPI. ROS Other: All systems not noted in ROS Statement are negative. Past Medical History Past Medical History: Cancer, COPD, Diabetes Mellitus, GI Bleed, Myocardial Infarction ([place]) Additional Past Medical History / Comment(s): PATIENT IS IMPAIRED CAN NOT READ OR WRITE , AORTIC aneurysm, lung CA, lung removed, Last Myocardial Infarction Date:: unknown History of Any Multi-Drug Resistant Organisms: None Reported Past Surgical History: Breast Surgery, Heart Catheterization With Stent, H ysterectomy Additional Past Surgical History / Comment(s): RIGHT lung removed, left masectomy, STENT IN LEG , BILATERAL CATARACT SURGERY, Past Anesthesia/Blood Transfusion Reactions: Previous Problems w/ Anesthesia, Postoperative Nausea & Vomiting (PONV) Additional Past Anesthesia/Blood Transfusion Reaction / Comment(s): POST OP NAUSEA FOR SISTER. SISTER STATES IT TOOK LONGER FOR FÉLIX TO WAKE UP WITH LUNG SURGERY Date of Last Stent Placement:: 10/03/2021 Past Psychological History: Anxiety, Bipolar, Depression Smoking Status: Former smoker Past Alcohol Use History: None Reported Past Drug Use History: None Reported - Past Family History Mother Family Medical History: Cancer, Diabetes Mellitus, Liver Disease Additional Family Medical History / Comment(s): liver ca Father Family Medical History: Cancer Additional Family Medical History / Comment(s): COLON CANCER General Exam General appearance: alert, in no apparent distress Head exam: Present: normocephalic, other (Hematoma to the right forehead measuring 3 cm. No laceration) Eye exam: Present: normal appearance, PERRL, EOMI. Absent: scleral icterus, conjunctival injection, periorbital swelling ENT exam: Present: normal exam, mucous membranes moist Neck exam: Present: normal inspection. Absent: tenderness, meningismus, lymphadenopathy Respiratory exam: Present: normal lung sounds bilaterally. Absent: respiratory distress, wheezes, rales, rhonchi, stridor Cardiovascular Exam: Present: regular rate, normal rhythm, normal heart sounds. Absent: systolic murmur, diastolic murmur, rubs, gallop, clicks GI/Abdominal exam: Present: soft, normal bowel sounds. Absent: distended, tenderness, guarding, rebound, rigid Extremities exam: Present: normal inspection, full ROM, normal capillary refill. Absent: tenderness, pedal edema, joint swelling, calf tenderness Back exam: Present: normal inspection Neurological exam: Present: alert, CN II-XII intact Psychiatric exam: Present: normal affect, normal mood Skin exam: Present: warm, dry, intact, normal color. Absent: rash Course Vital Signs 12/06/23 12/06/23 09:29 11:09 Temperature 98 F Pulse Rate 72 72 Respiratory 18 18 Rate Blood Pressure 123/83 105/69 O2 Sat by Pulse 96 94 L Oximetry Medical Decision Making - Medical Decision Making Was pt. sent in by a medical professional or institution (FREDDY Jackson, [employer], urgent care, hospital, or fdc...) When possible be specific @ -Patient sent in from [facility] Did you speak to anyone other than the patient for history (EMS, parent, family, police, friend...)? What history was obtained from this source @ -Spoke with EMS for history Did you review nursing and triage notes (agree or disagree)? Why? @ -I reviewed and agree with nursing and triage notes Were old charts reviewed (outside hosp., previous admission, EMS record, old EKG, old radiological studies, urgent care reports/EKG's, fdc records)? Report findings @ -No old charts were reviewed Differential Diagnosis (chest pain, altered mental status, abdominal pain women, abdominal pain men, vaginal bleeding, weakness, fever, dyspnea, syncope, headache, dizziness, GI bleed, back pain, seizure, CVA, palpatations, mental health, musculoskeletal)? @ -Subarachnoid, subdural, intracranial hemorrhage, neck fracture, concussion EKG interpreted by me (3pts min.). @ -Not done X-rays interpreted by me (1pt min.). @ -None done CT interpreted by me (1pt min.). @ -Yes and demonstrates no acute intracranial process. No cervical fractures U/S interpreted by me (1pt. min.). @ -None done What testing was considered but not performed or refused? (CT, X-rays, U/S, labs)? Why? @ -None What meds were considered but not given or refused? Why? @ -None Did you discuss the management of the patient with other professionals (professionals i.e. Dr., PA, [employer], lab, RT, psych nurse, social work coordinator, sliver lap machine tender, teacher, probation and parole officer, case briefer)? Give summary @ -No Was smoking cessation discussed for >3mins.? @ -No Was critical care preformed (if so, how long)? @ -No Were there social determinants of health that impacted care today? How? (Homelessness, low income, unemployed, alcoholism, drug addiction, transportation, low edu. Level, literacy, decrease access to med. care, [facility], rehab)? @ -Patient resides in rehab Was there de-escalation of care discussed even if they declined (Discuss DNR or withdrawal of care, Hospice)? DNR status @ -No What co-morbidities impacted this encounter? (DM, HTN, Smoking, COPD, CAD, Cancer, CVA, ARF, Chemo, Hep., AIDS, mental health diagnosis, sleep apnea, morbid obesity)? @ -Dementia Was patient admitted / discharged? Hospital course, mention meds given and route, prescriptions, significant lab abnormalities, going to OR and other pertinent info. @ -Upon arrival patient seen and evaluated in room 16. Thorough history and physical exam are was performed. CT performed which demonstrates no acute intracranial injuries. Patient is stable to go back to her rehab facility Undiagnosed new problem with uncertain prognosis? @ -No Drug Therapy requiring intensive monitoring for toxicity (Heparin, Nitro, Insulin, Cardizem)? @ -No Were any procedures done? @ -No Diagnosis/symptom? @ -Acute fall, blunt head injury, Plavix coagulopathy, right forehead hematoma Acute, or Chronic, or Acute on Chronic? @ -Acute Uncomplicated (without systemic symptoms) or Complicated (systemic symptoms)? @ -Complicated Side effects of treatment? @ -No Exacerbation, Progression, or Severe Exacerbation? @ -No Poses a threat to life or bodily function? How? (Chest pain, [place], [place], pneumonia, PE, COPD, DKA, ARF, appy, cholecystitis, CVA, Diverticulitis, Homicidal, Suicidal, threat to staff... and all critical care pts) @ -No Disposition Clinical Impression: Head injury, Traumatic hematoma of forehead Disposition: HOME SELF-CARE Condition: Stable Instructions (If sedation given, give patient instructions): Head Injury (ED) Is patient prescribed a controlled substance at d/c from ED?: No Referrals: Alicia Tong MD [Primary Care Provider] - 1-2 days Time of Disposition: 10:30
[2023-12-06 11:11] VITALS: BP 105/69
== END 2023-12-06 11:11 | disposition home or self-care (01) ==
LOC: EC 09:26
CPT/HCPCS: 70450; 72125; 99284

== ENCOUNTER 2023-12-19 08:00 | Emergency (ER) | payer MEDICARE, OTHER ==
[2023-12-19 08:16] VITALS: TEMP 97.8
--- NOTE | 2023-12-19 08:40 | ED ---
General Adult HPI - General Chief complaint: Fall Stated complaint: Fall/on thinners Time Seen by Provider: 12/19/23 08:05 Source: patient, EMS, RN notes reviewed Mode of arrival: EMS - History of Present Illness Initial comments: Dictation was produced using [employer] dictation software. please excuse any grammatical, word or spelling errors. Chief Complaint: 68-year-old female with mental disability and hard of hearing presents to the ER after fall History of Present Illness: Patient 68-year-old female she was found at home sitting next to the bed. Patient found to have an laceration to the left face. Brought to the ER. Patient does take anticoagulation medications. Patient is a poor historian due to chronic mental debility and EMS there is concern that patient hit her head getting up from bed Unable to obtain ROS secondary to mental status - Related Data Home Medications Medication Instructions Recorded Confirmed Albuterol Sulfate [Proair Hfa] 2 puff INHALATION RT-QID 07/10/16 12/19/23 FLUoxetine HCL [PROzac] 20 mg PO Q12HR@0800,2100 07/10/16 12/19/23 Mirtazapine [Remeron] 15 mg PO HS 07/10/16 12/19/23 Pravastatin Sodium [Pravachol] 40 mg PO HS 07/10/16 12/19/23 captopriL [Capoten] 12.5 mg PO BID@0800,1700 07/10/16 12/19/23 Clopidogrel [Plavix] 75 mg PO DAILY@0800 02/04/19 12/19/23 Isosorbide Mononitrate ER [Imdur] 60 mg PO DAILY@0800 02/04/19 12/19/23 Metoprolol Tartrate 25 mg PO BID@0800,1700 02/04/19 12/19/23 Pantoprazole [Protonix] 40 mg PO DAILY@0600 02/04/19 12/19/23 ALPRAZolam [Xanax] 0.5 mg PO Q8HR@0600,1400,2200 10/17/21 12/19/23 Diphenox-Atrop 2.5-0.025 mg 1 tab PO DAILY@0800 10/17/21 12/19/23 [Lomotil] Acetaminophen Tab [Tylenol] 500 mg PO Q6H PRN 09/17/23 12/19/23 Cholecalciferol [Vitamin D3 (25 50 mcg PO DAILY@0800 09/17/23 12/19/23 Mcg = 1000 Iu)] Empagliflozin/Metformin HCl 1 tab PO DAILY@0800 09/17/23 12/19/23 [Synjardy Xr 25-1,000 mg Tablet] Ferrous Sulfate [Iron (65 MG 325 mg PO DAILY@0800 09/17/23 12/19/23 Elemental)] Melatonin 10 mg PO HS 09/17/23 12/19/23 amLODIPine [Norvasc] 5 mg PO DAILY@0800 09/17/23 12/19/23 traMADol HCl [Ultram] 50 mg PO Q6H PRN 09/17/23 12/19/23 INSULIN ASPART (NovoLOG) [NovoLOG See Protocol SQ ACHS 12/19/23 12/19/23 (formulary)] Insulin Glargine [Lantus Vial] 10 unit SQ DAILY@0700 12/19/23 12/19/23 Ipratropium-Albuterol Nebulize 3 ml INHALATION RT-Q6H 12/19/23 12/19/23 [Duoneb 0.5 mg-3 mg/3 ml Soln] Maalox Plus 200-080-54fm/5ml 30 ml PO Q6H PRN 12/19/23 12/19/23 Magnesium Hydroxide [Milk of 7,200 mg PO DIRECTED PRN 12/19/23 12/19/23 Magnesia Concentrate] Na Phos,M-B/Na Phos,Di-Ba [Fleet 133 ml RECTAL DAILY PRN 12/19/23 12/19/23 Adult] Sodium Chloride 5% Ophth Soln 1 drop BOTH EYES TID@0800,1400,2100 12/19/23 12/19/23 [Traci 128] bisacodyL [Dulcolax] 10 mg RECTAL DAILY PRN 12/19/23 12/19/23 Allergies Allergy/AdvReac Type Severity Reaction Status Date / Time No Known Allergies Allergy Verified 12/19/23 10:03 Review of Systems ROS Statement: Those systems with pertinent positive or pertinent negative responses have been documented in the HPI. ROS Other: All systems not noted in ROS Statement are negative. Past Medical History Past Medical History: Cancer, COPD, Diabetes Mellitus, GI Bleed, Myocardial Infarction ([place]) Additional Past Medical History / Comment(s): PATIENT IS IMPAIRED CAN NOT READ OR WRITE , AORTIC aneurysm, lung CA, lung removed, Last Myocardial Infarction Date:: unknown History of Any Multi-Drug Resistant Organisms: None Reported Past Surgical History: Breast Surgery, Heart Catheterization With Stent, Hysterectomy Additional Past Surgical History / Comment(s): RIGHT lung removed, left masectomy, STENT IN LEG , BILATERAL CATARACT SURGERY, Past Anesthesia/Blood Transfusion Reactions: Previous Problems w/ Anesthesia, Postoperative Nausea & Vomiting (PONV) Additional Past Anesthesia/Blood Transfusion Reaction / Comment(s): POST OP NAUSEA FOR SISTER. SISTER STATES IT TOOK LONGER FOR FÉLIX TO WAKE UP WITH LUNG SURGERY Date of Last Stent Placement:: 10/03/2021 Past Psychological History: Anxiety, Bipolar, Depression Smoking Status: Former smoker Past Alcohol Use History: None Reported Past Drug Use History: None Reported - Past Family History Mother Family Medical History: Cancer, Diabetes Mellitus, Liver Disease Additional Family Medical History / Comment(s): liver ca Father Family Medical History: Cancer Additional Family Medical History / Comment(s): COLON CANCER General Exam - General Exam Comments Initial Comments: PHYSICAL EXAM: General Impression: Alert and oriented, extremely hard of hearing, not in acute distress HEENT: Ecchymoses over the left periorbital tissue, small laceration to the left periorbit, extra-ocular movements intact, pupils equal and reactive to light bilaterally, mucous membranes moist. Cardiovascular: Heart regular rate and rhythm Chest: no retractions, no tachypnea Abdomen: abdomen soft, non-tender, non-distended, no organomegaly Musculoskeletal: Pulses present and equal in all extremities, no peripheral edema Motor: no focal deficits noted Neurological: CN II-XII grossly intact, no focal motor or sensory deficits noted Skin: Intact with no visualized rashes Psych: Normal affect and mood Course Vital Signs 12/19/23 08:05 Temperature 97.8 F Pulse Rate 67 Respiratory 18 Rate Blood Pressure 167/80 O2 Sat by Pulse 92 L Oximetry EKG Findings - EKG Comments: EKG Findings:: My EKG interpretation: Ventricular rate 60, sinus rhythm, right bundle branch block,. 199, QRS 141, QTc 447. No [place] prolongation, no QTC prolongation, no ST or T-wave changes noted. EKG compared to September 16, 2023 showing no changes. Overall, this EKG is unremarkable Procedures - Laceration Laceration #1 Consent Obtained: verbal consent, emergent situation Indication: laceration Site: face Description: linear Depth: simple, single layer Type of Sutures: other (dermabond) Size of Sutures: other (dermabond) Technique: other Patient Tolerated Procedure: well, other Medical Decision Making - Medical Decision Making Was pt. sent in by a medical professional or institution (, PA, [employer]LING TRUCK DRIVER, urgent care, hospital, or senior care...) When possible be specific @ -No Did you speak to anyone other than the patient for history (EMS, parent, family, police, friend...)? What history was obtained from this source @ -No Did you review nursing and triage notes (agree or disagree)? Why? @ -I reviewed and agree with nursing and triage notes Were old charts reviewed (outside hosp., previous admission, EMS record, old EKG, old radiological studies, urgent care reports/EKG's, senior care records)? Report findings @ -Echocardiogram from 2019 is reviewed showing no evidence of heart failure or cardiomyopathy Differential Diagnosis (chest pain, altered mental status, abdominal pain women, abdominal pain men, vaginal bleeding, musculoskeletal, weakness, fever, dyspnea, syncope, headache, dizziness, GI bleed, back pain, seizure, CVA, palpatations, mental health)? @ -Skull fracture, arrhythmia, intracranial bleed EKG interpreted by me (3pts min.). @ -See above X-rays interpreted by me (1pt min.). @ -Chest x-ray and pelvis x-ray unremarkable CT interpreted by me (1pt min.). @ -CT brain and C-spine shows no acute processes U/S interpreted by me (1pt. min.). @ -None done What testing was considered but not performed or refused? (CT, X-rays, U/S, labs)? Why? @ -None What meds were considered but not given or refused? Why? @ -None Was smoking cessation discussed for >3mins.? @ -No Were there social determinants of health that impacted care today? How? (Homelessness, low income, unemployed, alcoholism, drug addiction, transportation, low edu. Level, literacy, decrease access to med. care, penitentiary, rehab)? @ -No Was there de-escalation of care discussed even if they declined (Discuss DNR or withdrawal of care, Hospice)? DNR status @ -No What co-morbidities impacted this encounter? (DM, HTN, Smoking, COPD, CAD, Canc er, CVA, ARF, Chemo, Hep., AIDS, mental health diagnosis, sleep apnea, morbid obesity)? @ -None Was patient admitted / discharged? Hospital course, mention meds given and route, prescriptions, significant lab abnormalities, going to OR and other pertinent info. @ -68-year-old debilitated female from senior care presents to the ER after falling. Vital signs upon arrival are within acceptable limits. Laboratory evaluation is unremarkable. CT scan of the head and C-spine is negative. Chest x-ray nonacute. Laceration repaired using Dermabond. Patient will be discharged back to the senior care Did you discuss the management of the patient with other professionals (professionals i.e. , PA, SPRINKLING TRUCK DRIVER, lab, RT, psych nurse, social research assistant, butt welder, teacher, loans officer, counseling case manager)? Give summary @ -No Was critical care preformed (if so, how long)? @ -No Undiagnosed new problem with uncertain prognosis? @ -No Drug Therapy requiring intensive monitoring for toxicity (Heparin, Nitro, Insulin, Cardizem)? @ -No Were any procedures done? @ -No Diagnosis/symptom? Acute, or Chronic, or Acute on Chronic? Uncomplicated (without systemic symptoms) or Complicated (systemic symptoms)? @ -Fall, facial laceration Side effects of treatment? @ -No Exacerbation, Progression, or Severe Exacerbation? @ -No Poses a threat to life or bodily function? How? (Chest pain, [place], [place], pneumonia, PE, COPD, DKA, ARF, appy, cholecystitis, CVA, Diverticulitis, Homicidal, Suicidal, threat to staff... and all critical care pts) @ -No - Lab Data Result diagrams: 12/19/23 08:45 12/19/23 08:45 Lab Results 12/19/23 12/19/23 12/19/23 Range/Units 08:45 08:45 08:45 WBC 6.6 (3.8-10.6) k/uL RBC 4.63 (3.80-5.40) m/uL Hgb 14.0 (11.4-16.0) gm/dL Hct 40.6 (34.0-46.0) % MCV 87.6 (80.0-100.0) fL MCH 30.2 (25.0-35.0) pg MCHC 34.5 (31.0-37.0) g/dL RDW 14.4 (11.5-15.5) % Plt Count 250 (150-450) k/uL MPV 7.7 Neutrophils % 65 % Lymphocytes % 23 % Monocytes % 6 % Eosinophils % 4 % Basophils % 1 % Neutrophils # 4.3 (1.3-7.7) k/uL Lymphocytes # 1.5 (1.0-4.8) k/uL Monocytes # 0.4 (0-1.0) k/uL Eosinophils # 0.2 (0-0.7) k/uL Basophils # 0.0 (0-0.2) k/uL PT 10.2 (10.0-12.5) sec INR 0.9 (<1.2) APTT 23.3 (22.0-30.0) sec Sodium 136 L (137-145) mmol/L Potassium 4.1 (3.5-5.1) mmol/L Chloride 98 (98-107) mmol/L Carbon Dioxide 29 (22-30) mmol/L Anion Gap 9 mmol/L BUN 19 H (7-17) mg/dL Creatinine 0.75 (0.52-1.04) mg/dL Est GFR (CKD-EPI)AfAm >90 (>60 ml/min/1.73 sqM) Est GFR (CKD-EPI)NonAf 82 (>60 ml/min/1.73 sqM) Glucose 144 H (74-99) mg/dL Calcium 9.8 (8.4-10.2) mg/dL Disposition Clinical Impression: Fall, Facial laceration Disposition: HOME SELF-CARE Condition: Good Instructions (If sedation given, give patient instructions): Fall Prevention for Older Adults (ED) Is patient prescribed a controlled substance at d/c from ED?: No Referrals: Alicia Tong MD [Primary Care Provider] - 1-2 days Time of Disposition: 10:44
[2023-12-19 08:54] LABS: Basophils % (A) 1 %; Eosinophils # (A) 0.2 k/uL (0-0.7); Eosinophils % (A) 4 %; HCT 40.6 % (34.0-46.0); Lymphocytes # (A) 1.5 k/uL (1.0-4.8); Lymphocytes % (A) 23 %; MCH 30.2 pg (25.0-35.0); MCHC 34.5 g/dL (31.0-37.0); MCV 87.6 fL (80.0-100.0); Mean Platelet Volume 7.7; Monocytes # (A) 0.4 k/uL (0-1.0); Monocytes % (A) 6 %; Neutrophils # (A) 4.3 k/uL (1.3-7.7); Neutrophils % (A) 65 %; Platelet Count 250 k/uL (150-450); RBC 4.63 m/uL (3.80-5.40); RDW 14.4 % (11.5-15.5); WBC 6.6 k/uL (3.8-10.6)
[2023-12-19 09:02] LABS: INR 0.9 (<1.2); Partial Thromboplastin Time 23.3 sec (22.0-30.0); Prothrombin Time 10.2 sec (10.0-12.5)
--- NOTE | 2023-12-19 09:15 | CT ---
EXAMINATION TYPE: CT brain freddie quinn con DATE OF EXAM: 12/19/2023 COMPARISON: 12/06/2023 HISTORY: pain after fall CT DLP: [address] of the brain was performed. The ventricles, basal cisterns and sulci overlying the cerebral convexities demonstrate mild enlargem ent. There is no evidence for intracranial hemorrhage or sulcal effacement. There is decreased attenuatio n about the periventricular white matter and deep white matter of both cerebral hemispheres, compatib le with chronic small vessel ischemia. No mass effects are seen. If symptoms persist consider MRI. Osseous calvarium is intact. Left frontal scalp hematoma small in size. IMPRESSION: 1. Age related atrophic and chronic small vessel ischemic change without acute intracranial process seen at this time. CT Cervical Spine: Unenhanced CT of the cervical spine was performed with bone and soft tissue window settings submitted . Coronal and sagittal reconstruction is obtained. There is normal alignment and prevertebral soft tissues. No evidence for acute cervical fracture . Scattered degenerative disc disease and spondylosis. Biapical scarring. IMPRESSION: 1. No evidence for acute fracture or subluxation of the cervical spine.
[2023-12-19 09:23] LABS: African American GFR (CKD) >90 (>60 ml/min/1.73 sqM); Anion Gap 9 mmol/L; Blood Urea Nitrogen 19 mg/dL (7-17); Calcium 9.8 mg/dL (8.4-10.2); Carbon Dioxide 29 mmol/L (22-30); Chloride 98 mmol/L (98-107); Glucose 144 mg/dL (74-99); Non-African American GFR(CKD) 82 (>60 ml/min/1.73 sqM); Potassium 4.1 mmol/L (3.5-5.1); Sodium 136 mmol/L (137-145)
[2023-12-19] MEDS: TOPICAL SKIN ADHESIVE 1 EACH AMP TOPICAL ONE (09:49)
--- NOTE | 2023-12-19 10:01 | XR ---
EXAMINATION TYPE: XR chest 2V, XR pelvis AP view DATE OF EXAM: 12/19/2023 COMPARISON: 07/02/2023 HISTORY: 68-year-old female with pain after fall TECHNIQUE: AP and lateral views FINDINGS: Chest: The heart is borderline in size. Slight asymmetric right hilar prominence may be projectional. There are some surgical changes noted at the right hilum. Mild interstitial prominence is unchanged. No con solidation or pleural effusion. Cholecystectomy clips and an abdominal aortic endovascular stent tiffanie t noted on the lateral view. Pelvis: Abdominal aortobiiliac endovascular stent graft. Mild degenerative spurring of both hips. Pubic symp hysis is intact. No acute fracture, subluxation, dislocation. IMPRESSION: 1. Chest: Chronic changes with previous surgery to the right hilum. However, there is some asymmetric right hilar prominence noted now favored to be projectional. Recommend short interval follow-up such as in 4-6 weeks to reassess. No definite acute process. 2. Pelvis: No acute osseous abnormality seen. Mild degenerative spurring at the hips.
[2023-12-19 11:46] VITALS: BP 167/83; PULSE 68; RESP 20
== END 2023-12-19 11:30 | disposition home or self-care (01) ==
LOC: EC 08:00
CPT/HCPCS: 12011; 36415; 70450; 71046; 72125; 72170; 80048; 85025; 85610; 85730; 93005; 99283

== ENCOUNTER 2024-06-27 23:37 | Inpatient (IN) | payer MEDICARE, OTHER ==
[2024-06-27 23:45] LABS: Glucose,Whole Blood 143 mg/dL (70-110)
--- NOTE | 2024-06-28 00:26 | ED ---
Altered Mental Status HPI - General Chief Complaint: Altered Mental Status Stated Complaint: Altered Mental Time Seen by Provider: 06/27/24 23:41 Source: EMS, RN notes reviewed Mode of arrival: EMS Limitations: altered mental status - History of Present Illness Initial Comments: This is a 69-year-old female with history of CVA, DM, AMI and COPD presenting from [facility] via EMS for altered level of consciousness. [facility] notes patient having wet cough, lethargy and hypoxia (86-90% on 2 L O2). Also note patient tested positive for influenza A. Patient unresponsive at time of physical exam with occasional wet cough noted. MD Complaint: altered mental status Onset/Timin -: days(s) - Related Data Home Medications Medication Instructions Recorded Confirmed Albuterol Sulfate [Proair Hfa] 2 puff INHALATION RT-QID 07/10/16 06/28/24 FLUoxetine HCL [PROzac] 20 mg PO Q12HR@0800,2100 07/10/16 06/28/24 Mirtazapine [Remeron] 15 mg PO HS 07/10/16 06/28/24 Pravastatin Sodium [Pravachol] 40 mg PO HS 07/10/16 06/28/24 captopriL [Capoten] 12.5 mg PO BID@0800,1700 07/10/16 06/28/24 Clopidogrel [Plavix] 75 mg PO DAILY@0800 02/04/19 06/28/24 Isosorbide Mononitrate ER [Imdur] 60 mg PO DAILY@0800 02/04/19 06/28/24 Metoprolol Tartrate 25 mg PO BID@0800,1700 02/04/19 06/28/24 Pantoprazole [Protonix] 40 mg PO DAILY@0800 02/04/19 06/28/24 Diphenox-Atrop 2.5-0.025 mg 1 tab PO DAILY@0800 10/17/21 06/28/24 [Lomotil] Acetaminophen Tab [Tylenol] 500 mg PO Q6H PRN 09/17/23 06/28/24 Cholecalciferol [Vitamin D3 (25 50 mcg PO DAILY@0800 09/17/23 06/28/24 Mcg = 1000 Iu)] Empagliflozin/Metformin HCl 1 tab PO DAILY@0800 09/17/23 06/28/24 [Synjardy Xr 25-1,000 mg Tablet] Ferrous Sulfate [Iron (65 MG 325 mg PO DAILY@0800 09/17/23 06/28/24 Elemental)] Melatonin 10 mg PO HS 09/17/23 06/28/24 amLODIPine [Norvasc] 5 mg PO DAILY@0800 09/17/23 06/28/24 traMADol HCl [Ultram] 50 mg PO Q6H PRN 09/17/23 06/28/24 INSULIN ASPART (NovoLOG) [NovoLOG See Protocol SQ ACHS 12/19/23 06/28/24 (formulary)] Insulin Glargine (Lantus) [Lantus 10 unit SQ DAILY@0700 12/19/23 06/28/24 Vial] Ipratropium-Albuterol Nebulize 3 ml INHALATION RT-Q6H 12/19/23 06/28/24 [Duoneb 0.5 mg-3 mg/3 ml Soln] Magnesium Hydroxide [Milk of 7,200 mg PO Q48H PRN 12/19/23 06/28/24 Magnesia Concentrate] Na Phos,M-B/Na Phos,Di-Ba [Fleet 133 ml RECTAL DAILY PRN 12/19/23 06/28/24 Adult] Sodium Chloride 5% Ophth Soln 1 drop BOTH EYES TID@0800,1400,2100 12/19/23 06/28/24 [Traci 128] bisacodyL [Dulcolax] 10 mg RECTAL DAILY PRN 12/19/23 06/28/24 Loperamide [Imodium] 2 mg PO QID PRN 06/28/24 06/28/24 Mag Hydrox/Al Hydrox/Simeth 15 ml PO QID PRN 06/28/24 06/28/24 [Maalox] Nystatin 100,000Unit/gm Cream 1 applic TOPICAL BID 06/28/24 06/28/24 [Mycostatin Cream] Triamcinolone 0.5% Cream [Kenalog 1 applic TOPICAL BID 06/28/24 06/28/24 0.5% Cream] Previous Rx's Medication Instructions Recorded ALPRAZolam [Xanax] 0.5 mg PO TID@0800,1400,1999 0607/01/24 Days #9 tab Oseltamivir [Tamiflu] 30 mg PO Q12HR 2 Days #3 cap 07/01/24 cefuroxime axetiL [Ceftin] 500 mg PO BID 5 Days #10 tab 07/01/24 Allergies Allergy/AdvReac Type Severity Reaction Status Date / Time No Known Allergies Allergy Verified 06/28/24 09:19 Review of Systems ROS Statement: Those systems with pertinent positive or pertinent negative responses have been documented in the HPI. ROS Other: All systems not noted in ROS Statement are negative. Past Medical History Past Medical History: Cancer, COPD, Diabetes Mellitus, GI Bleed, Myocardial Infarction ([place]) Additional Past Medical History / Comment(s): PATIENT IS IMPAIRED CAN NOT READ OR WRITE , AORTIC aneurysm, lung CA, lung removed, Last Myocardial Infarction Date:: unknown History of Any Multi-Drug Resistant Organisms: None Reported Past Surgical History: Breast Surgery, Heart Catheterization With Stent, Hysterectomy Additional Past Surgical History / Comment(s): RIGHT lung removed, left masectomy, STENT IN LEG , BILATERAL CATARACT SURGERY, Past Anesthesia/Blood Transfusion Reactions: Previous Problems w/ Anesthesia, Postoperative Nausea & Vomiting (PONV) Additional Past Anesthesia/Blood Transfusion Reaction / Comment(s): POST OP NAUSEA FOR SISTER. SISTER STATES IT TOOK LONGER FOR FÉLIX TO WAKE UP WITH LUNG SURGERY Date of Last Stent Placement:: 10/03/2021 Past Psychological History: Anxiety, Bipolar, Depression Smoking Status: Former smoker Past Alcohol Use History: None Reported Past Drug Use History: None Reported - Past Family History Mother Family Medical History: Cancer, Diabetes Mellitus, Liver Disease Additional Family Medical History / Comment(s): liver ca Father Family Medical History: Cancer Additional Family Medical History / Comment(s): COLON CANCER General Exam Limitations: altered mental status General appearance: in no apparent distress, lethargic, obtunded Head exam: Present: atraumatic, normocephalic, normal inspection Eye exam: Present: normal appearance, PERRL, EOMI. Absent: scleral icterus, conjunctival injection, periorbital swelling ENT exam: Present: mucous membranes dry Neck exam: Present: normal inspection. Absent: tenderness, meningismus, lymphadenopathy Respiratory exam: Present: decreased breath sounds, prolonged expiratory. Absent: respiratory distress, wheezes, rales, rhonchi, stridor, accessory muscle use Cardiovascular Exam: Present: regular rate, normal rhythm, normal heart sounds. Absent: systolic murmur, diastolic murmur, rubs, gallop, clicks GI/Abdominal exam: Present: soft, normal bowel sounds. Absent: distended, tenderness, guarding, rebound, rigid Extremities exam: Present: normal inspection, full ROM, normal capillary refill. Absent: tenderness, pedal edema, joint swelling, calf tenderness Back exam: Present: normal inspection Neurological exam: Present: altered Psychiatric exam: Present: other (Patient not alert) Skin exam: Present: warm, dry, intact, normal color. Absent: rash Course Vital Signs 06/27/24 06/28/24 06/28/24 23:39 01:35 03:34 Temperature 101.5 F H 99.9 F H Pulse Rate 112 H 81 78 Respiratory 22 22 Rate Blood Pressure 140/75 100/66 O2 Sat by Pulse 95 96 Oximetry 06/28/24 06/28/24 06/28/24 03:46 03:55 05:05 Temperature Pulse Rate 75 76 92 Respiratory 20 18 Rate Blood Pressure 99/53 124/64 O2 Sat by Pulse 97 95 Oximetry 06/28/24 07:36 Temperature 98.0 F Pulse Rate 89 Respiratory 15 Rate Blood Pressure 116/59 O2 Sat by Pulse 94 L Oximetry Medical Decision Making - Medical Decision Making Was pt. sent in by a medical professional or institution (, PA, WASTE WATER OR WATER PLANT OPERATOR, urgent care, hospital, or usp...) When possible be specific @ -[facility] Did you speak to anyone other than the patient for history (EMS, parent, family, police, friend...)? What history was obtained from this source @ -No Did you review nursing and triage notes (agree or disagree)? Why? @ -I reviewed and agree with nursing and triage notes Were old charts reviewed (outside hosp., previous admission, EMS record, old EKG, old radiological studies, urgent care reports/EKG's, usp records)? Report findings @ -No old charts were reviewed Differential Diagnosis (chest pain, altered mental status, abdominal pain women, abdominal pain men, vaginal bleeding, weakness, fever, dyspnea, syncope, headache, dizziness, GI bleed, back pain, seizure, CVA, palpatations, mental health, musculoskeletal)? @ -Differential Altered Mental Status: Hypoglycemia, DKA, hypercapnia, ETOH, overdose, CO poisoning, trauma, myxedema coma, HTN encephalopathy, infection, encephalitis, psychosis, intercranial hemorrhage, hepatic encephalopathy, meningitis, CVA, this is not meant to be an all-inclusive list EKG interpreted by me (3pts min.). @ -Sinus rhythm with first-degree AV block, LAD, RBBB and left anterior fascicular block. No ST deviation or T wave inversion. Ventricular rate 95 bpm, NELI 215 ms, QRS 133 ms, QTc 435 ms. X-rays interpreted by me (1pt min.). @ -CXR shows bilateral patchy airspace opacity suggesting pneumonia. CT interpreted by me (1pt min.). @ -None done U/S interpreted by me (1pt. min.). @ -None done What testing was considered but not performed or refused? (CT, X-rays, U/S, labs)? Why? @ -None What meds were considered but not given or refused? Why? @ -None Did you discuss the management of the patient with other professionals (professionals i.e. , PA, WASTE WATER OR WATER PLANT OPERATOR, lab, RT, psych nurse, social work job titles, pebble mill operator, teacher, child support officer, case resolution specialist)? Give summary @ - Spoke to Dr. Tong for patient admission, who advised IV Solu-Medrol and PO Tamiflu. Was smoking cessation discussed for >3mins.? @ -No Was critical care preformed (if so, how long)? @ -No Were there social determinants of health that impacted care today? How? (Homelessness, low income, unemployed, alcoholism, drug addiction, transporta tion, low edu. Level, literacy, decrease access to med. care, shelter, rehab)? @ -No Was there de-escalation of care discussed even if they declined (Discuss DNR or withdrawal of care, Hospice)? DNR status @ -Full code What co-morbidities impacted this encounter? (DM, HTN, Smoking, COPD, CAD, Cancer, CVA, ARF, Chemo, Hep., AIDS, mental health diagnosis, sleep apnea, morbid obesity)? @ -None Was patient admitted / discharged? Hospital course, mention meds given and route, prescriptions, significant lab abnormalities, going to OR and other pertinent info. @ -Lab work shows some CHRISTINA and hyperglycemia 152. Procalcitonin, troponin and lactic acid unremarkable. Cepheid test positive for influenza A. CXR shows bilateral patchy airspace opacity suggesting pneumonia. Patient initially pr ovided IV normal saline and IV Tylenol. DuoNeb treatment provided and Lopez catheter initiated along with IV piggyback Diflucan after RN noted likely yeast infection. Spoke to Dr. Tong for patient admission, who advised IV Solu- Medrol and PO Tamiflu. Discussed patient with Dr. Stratton. Undiagnosed new problem with uncertain prognosis? @ -No Drug Therapy requiring intensive monitoring for toxicity (Heparin, Nitro, Insulin, Cardizem)? @ -No Were any procedures done? @ -No Diagnosis/symptom? @ -Altered level of consciousness, influenza A, pneumonia, vulvovaginal candidiasis Acute, or Chronic, or Acute on Chronic? @ -Acute Uncomplicated (without systemic symptoms) or Complicated (systemic symptoms)? @ -Complicated Side effects of treatment? @ -No Exacerbation, Progression, or Severe Exacerbation? @ -No Poses a threat to life or bodily function? How? (Chest pain, [place], [place], pneumonia, PE, COPD, DKA, ARF, appy, cholecystitis, CVA, Diverticulitis, Homicidal, Suicidal, threat to staff... and all critical care pts) @ -No - Lab Data Result diagrams: 06/30/24 02:23 06/30/24 02:23 Lab Results 06/27/24 06/28/24 06/28/24 Range/Units 23:44 00:35 00:35 WBC 9.8 (3.8-10.6) k/uL RBC 4.94 (3.80-5.40) m/uL Hgb 13.4 (11.4-16.0) gm/dL Hct 41.4 (34.0-46.0) % MCV 83.7 (80.0-100.0) fL MCH 27.1 (25.0-35.0) pg MCHC 32.4 (31.0-37.0) g/dL RDW 14.8 (11.5-15.5) % Plt Count 260 (150-450) k/uL MPV 7.2 Immature Gran % (Auto) % Absolute Nucleated RBC % Neutrophils % 86 % Lymphocytes % 5 % Monocytes % 7 % Eosinophils % 0 % Basophils % 0 % Immature Gran # (0.00-0.04) X 10*3/uL Neutrophils # 8.4 H (1.3-7.7) k/uL Lymphocytes # 0.5 L (1.0-4.8) k/uL Monocytes # 0.6 (0-1.0) k/uL Eosinophils # 0.0 (0-0.7) k/uL Basophils # 0.0 (0-0.2) k/uL NRBC/100 WBC Diff (0.00-0.01) X 10*3/uL PT 11.4 (10.0-12.5) sec INR 1.0 (<1.2) APTT 23.7 (22.0-30.0) sec Sodium (137-145) mmol/L Potassium (3.5-5.1) mmol/L Chloride (98-107) mmol/L Carbon Dioxide (22-30) mmol/L Anion Gap mmol/L BUN (7-17) mg/dL Creatinine (0.52-1.04) mg/dL Est GFR (CKD-EPI) (>=60) Est GFR (CKD-EPI)AfAm (>60 ml/min/1.73 sqM) Est GFR (CKD-EPI)NonAf (>60 ml/min/1.73 sqM) BUN/Creatinine Ratio (12.00-20.00) Ratio Glucose (74-99) mg/dL POC Glucose (mg/dL) 143 H (70-110) mg/dL POC Glu Resident Advisor ID Kaylin Gavino Plasma Lactic Acid Rony (0.7-2.0) mmol/L Calcium (8.4-10.2) mg/dL Magnesium (1.6-2.3) mg/dL Total Bilirubin (0.2-1.3) mg/dL AST (14-36) U/L ALT (4-34) U/L Alkaline Phosphatase (38-126) U/L Troponin I (0.000-0.034) ng/mL Total Protein (6.3-8.2) g/dL Albumin (3.5-5.0) g/dL Globulin (1.6-3.3) g/dL Albumin/Globulin Ratio (1.60-3.17) Ratio Procalcitonin (0.02-0.50) ng/mL Urine Color Urine Appearance (Clear) Urine pH (5.0-8.0) Ur Specific Sims (1.001-1.035) Urine Protein (Negative) Urine Glucose (UA) (Negative) Urine Ketones (Negative) Urine Blood (Negative) Urine Nitrite (Negative) Urine Bilirubin (Negative) Urine Urobilinogen (<2.0) mg/dL Ur Leukocyte Esterase (Negative) Urine RBC (0-5) /hpf Urine WBC (0-5) /hpf Urine WBC Clumps (None) /hpf Ur Squamous Epith Cells (0-4) /hpf Urine Bacteria (None) /hpf Hyaline Casts (0-2) /lpf Urine Mucus (None) /hpf Influenza Type A (PCR) (Not Detectd) Influenza Type B (PCR) (Not Detectd) RSV (PCR) (Not Detectd) SARS-CoV-2 (PCR) (Not Detectd) 06/28/24 06/28/24 06/28/24 Range/Units 00:35 00:35 00:35 WBC (3.8-10.6) k/uL RBC (3.80-5.40) m/uL Hgb (11.4-16.0) gm/dL Hct (34.0-46.0) % MCV (80.0-100.0) fL MCH (25.0-35.0) pg MCHC (31.0-37.0) g/dL RDW (11.5-15.5) % Plt Count (150-450) k/uL MPV Immature Gran % (Auto) % Absolute Nucleated RBC % Neutrophils % % Lymphocytes % % Monocytes % % Eosinophils % % Basophils % % Immature Gran # (0.00-0.04) X 10*3/uL Neutrophils # (1.3-7.7) k/uL Lymphocytes # (1.0-4.8) k/uL Monocytes # (0-1.0) k/uL Eosinophils # (0-0.7) k/uL Basophils # (0-0.2) k/uL NRBC/100 WBC Diff (0.00-0.01) X 10*3/uL PT (10.0-12.5) sec INR (<1.2) APTT (22.0-30.0) sec Sodium 135 L (137-145) mmol/L Potassium 4.7 (3.5-5.1) mmol/L Chloride 98 (98-107) mmol/L Carbon Dioxide 27 (22-30) mmol/L Anion Gap 10 mmol/L BUN 21 H (7-17) mg/dL Creatinine 1.12 H (0.52-1.04) mg/dL Est GFR (CKD-EPI) (>=60) Est GFR (CKD-EPI)AfAm 58 (>60 ml/min/1.73 sqM) Est GFR (CKD-EPI)NonAf 50 (>60 ml/min/1.73 sqM) BUN/Creatinine Ratio (12.00-20.00) Ratio Glucose 152 H (74-99) mg/dL POC Glucose (mg/dL) (70-110) mg/dL POC Glu Resident Advisor ID Plasma Lactic Acid Rony 1.4 (0.7-2.0) mmol/L Calcium 9.5 (8.4-10.2) mg/dL Magnesium 1.7 (1.6-2.3) mg/dL Total Bilirubin 0.5 (0.2-1.3) mg/dL AST 20 (14-36) U/L ALT 18 (4-34) U/L Alkaline Phosphatase 56 (38-126) U/L Troponin I 0.013 (0.000-0.034) ng/mL Total Protein 7.3 (6.3-8.2) g/dL Albumin 4.3 (3.5-5.0) g/dL Globulin (1.6-3.3) g/dL Albumin/Globulin Ratio (1.60-3.17) Ratio Procalcitonin (0.02-0.50) ng/mL Urine Color Urine Appearance (Clear) Urine pH (5.0-8.0) Ur Specific Sims (1.001-1.035) Urine Protein (Negative) Urine Glucose (UA) (Negative) Urine Ketones (Negative) Urine Blood (Negative) Urine Nitrite (Negative) Urine Bilirubin (Negative) Urine Urobilinogen (<2.0) mg/dL Ur Leukocyte Esterase (Negative) Urine RBC (0-5) /hpf Urine WBC (0-5) /hpf Urine WBC Clumps (None) /hpf Ur Squamous Epith Cells (0-4) /hpf Urine Bacteria (None) /hpf Hyaline Casts (0-2) /lpf Urine Mucus (None) /hpf Influenza Type A (PCR) (Not Detectd) Influenza Type B (PCR) (Not Detectd) RSV (PCR) (Not Detectd) SARS-CoV-2 (PCR) (Not Detectd) 06/28/24 06/28/24 06/28/24 Range/Units 00:35 00:35 01:44 WBC (3.8-10.6) k/uL RBC (3.80-5.40) m/uL Hgb (11.4-16.0) gm/dL Hct (34.0-46.0) % MCV (80.0-100.0) fL MCH (25.0-35.0) pg MCHC (31.0-37.0) g/dL RDW (11.5-15.5) % Plt Count (150-450) k/uL MPV Immature Gran % (Auto) % Absolute Nucleated RBC % Neutrophils % % Lymphocytes % % Monocytes % % Eosinophils % % Basophils % % Immature Gran # (0.00-0.04) X 10*3/uL Neutrophils # (1.3-7.7) k/uL Lymphocytes # (1.0-4.8) k/uL Monocytes # (0-1.0) k/uL Eosinophils # (0-0.7) k/uL Basophils # (0-0.2) k/uL NRBC/100 WBC Diff (0.00-0.01) X 10*3/uL PT (10.0-12.5) sec INR (<1.2) APTT (22.0-30.0) sec Sodium (137-145) mmol/L Potassium (3.5-5.1) mmol/L Chloride (98-107) mmol/L Carbon Dioxide (22-30) mmol/L Anion Gap mmol/L BUN (7-17) mg/dL Creatinine (0.52-1.04) mg/dL Est GFR (CKD-EPI) (>=60) Est GFR (CKD-EPI)AfAm (>60 ml/min/1.73 sqM) Est GFR (CKD-EPI)NonAf (>60 ml/min/1.73 sqM) BUN/Creatinine Ratio (12.00-20.00) Ratio Glucose (74-99) mg/dL POC Glucose (mg/dL) 142 H (70-110) mg/dL POC Glu Resident Advisor ID Brenda Velásquez Plasma Lactic Acid Rony (0.7-2.0) mmol/L Calcium (8.4-10.2) mg/dL Magnesium (1.6-2.3) mg/dL Total Bilirubin (0.2-1.3) mg/dL AST (14-36) U/L ALT (4-34) U/L Alkaline Phosphatase (38-126) U/L Troponin I (0.000-0.034) ng/mL Total Protein (6.3-8.2) g/dL Albumin (3.5-5.0) g/dL Globulin (1.6-3.3) g/dL Albumin/Globulin Ratio (1.60-3.17) Ratio Procalcitonin 0.21 (0.02-0.50) ng/mL Urine Color Urine Appearance (Clear) Urine pH (5.0-8.0) Ur Specific Sims (1.001-1.035) Urine Protein (Negative) Urine Glucose (UA) (Negative) Urine Ketones (Negative) Urine Blood (Negative) Urine Nitrite (Negative) Urine Bilirubin (Negative) Urine Urobilinogen (<2.0) mg/dL Ur Leukocyte Esterase (Negative) Urine RBC (0-5) /hpf Urine WBC (0-5) /hpf Urine WBC Clumps (None) /hpf Ur Squamous Epith Cells (0-4) /hpf Urine Bacteria (None) /hpf Hyaline Casts (0-2) /lpf Urine Mucus (None) /hpf Influenza Type A (PCR) Detected A (Not Detectd) Influenza Type B (PCR) Not Detected (Not Detectd) RSV (PCR) Not Detected (Not Detectd) SARS-CoV-2 (PCR) Not Detected (Not Detectd) 06/28/24 06/28/24 06/28/24 Range/Units 03:00 06:05 16:35 WBC (3.8-10.6) k/uL RBC (3.80-5.40) m/uL Hgb (11.4-16.0) gm/dL Hct (34.0-46.0) % MCV (80.0-100.0) fL MCH (25.0-35.0) pg MCHC (31.0-37.0) g/dL RDW (11.5-15.5) % Plt Count (150-450) k/uL MPV Immature Gran % (Auto) % Absolute Nucleated RBC % Neutrophils % % Lymphocytes % % Monocytes % % Eosinophils % % Basophils % % Immature Gran # (0.00-0.04) X 10*3/uL Neutrophils # (1.3-7.7) k/uL Lymphocytes # (1.0-4.8) k/uL Monocytes # (0-1.0) k/uL Eosinophils # (0-0.7) k/uL Basophils # (0-0.2) k/uL NRBC/100 WBC Diff (0.00-0.01) X 10*3/uL PT (10.0-12.5) sec INR (<1.2) APTT (22.0-30.0) sec Sodium (137-145) mmol/L Potassium (3.5-5.1) mmol/L Chloride (98-107) mmol/L Carbon Dioxide (22-30) mmol/L Anion Gap mmol/L BUN (7-17) mg/dL Creatinine (0.52-1.04) mg/dL Est GFR (CKD-EPI) (>=60) Est GFR (CKD-EPI)AfAm (>60 ml/min/1.73 sqM) Est GFR (CKD-EPI)NonAf (>60 ml/min/1.73 sqM) BUN/Creatinine Ratio (12.00-20.00) Ratio Glucose (74-99) mg/dL POC Glucose (mg/dL) 122 H 169 H (70-110) mg/dL POC Glu Resident Advisor ID Genaro CORONADO Plasma Lactic Acid Rony (0.7-2.0) mmol/L Calcium (8.4-10.2) mg/dL Magnesium (1.6-2.3) mg/dL Total Bilirubin (0.2-1.3) mg/dL AST (14-36) U/L ALT (4-34) U/L Alkaline Phosphatase (38-126) U/L Troponin I (0.000-0.034) ng/mL Total Protein (6.3-8.2) g/dL Albumin (3.5-5.0) g/dL Globulin (1.6-3.3) g/dL Albumin/Globulin Ratio (1.60-3.17) Ratio Procalcitonin (0.02-0.50) ng/mL Urine Color Light Yellow Urine Appearance Cloudy H (Clear) Urine pH 5.0 (5.0-8.0) Ur Specific Sims 1.020 (1.001-1.035) Urine Protein Trace H (Negative) Urine Glucose (UA) 4+ H (Negative) Urine Ketones Negative (Negative) Urine Blood Trace H (Negative) Urine Nitrite Negative (Negative) Urine Bilirubin Negative (Negative) Urine Urobilinogen <2.0 (<2.0) mg/dL Ur Leukocyte Esterase Negative (Negative) Urine RBC 4 (0-5) /hpf Urine WBC 12 H (0-5) /hpf Urine WBC Clumps Rare H (None) /hpf Ur Squamous Epith Cells 4 (0-4) /hpf Urine Bacteria Occasional H (None) /hpf Hyaline Casts 10 H (0-2) /lpf Urine Mucus Rare H (None) /hpf Influenza Type A (PCR) (Not Detectd) Influenza Type B (PCR) (Not Detectd) RSV (PCR) (Not Detectd) SARS-CoV-2 (PCR) (Not Detectd) 06/28/24 06/29/24 06/29/24 Range/Units 20:12 02:23 02:23 WBC 8.16 (3.8-10.6) k/uL RBC 5.22 H (3.80-5.40) m/uL Hgb 14.7 (11.4-16.0) gm/dL Hct 45.3 (34.0-46.0) % MCV 86.8 (80.0-100.0) fL MCH 28.2 (25.0-35.0) pg MCHC 32.5 (31.0-37.0) g/dL RDW 14.7 H (11.5-15.5) % Plt Count 242 (150-450) k/uL MPV 9.5 Immature Gran % (Auto) 0.90 % Absolute Nucleated RBC 0 % Neutrophils % 71.4 % Lymphocytes % 14.5 % Monocytes % 13.0 % Eosinophils % 0 % Basophils % 0.2 % Immature Gran # 0.07 H (0.00-0.04) X 10*3/uL Neutrophils # 5.83 (1.3-7.7) k/uL Lymphocytes # 1.18 (1.0-4.8) k/uL Monocytes # 1.06 H (0-1.0) k/uL Eosinophils # 0 L (0-0.7) k/uL Basophils # 0.02 (0-0.2) k/uL NRBC/100 WBC Diff 0 (0.00-0.01) X 10*3/uL PT (10.0-12.5) sec INR (<1.2) APTT (22.0-30.0) sec Sodium 138 (137-145) mmol/L Potassium 4.5 (3.5-5.1) mmol/L Chloride 98 (98-107) mmol/L Carbon Dioxide 24.5 (22-30) mmol/L Anion Gap 15.50 H mmol/L BUN 23.1 (7-17) mg/dL Creatinine 1.0 (0.52-1.04) mg/dL Est GFR (CKD-EPI) 61 (>=60) Est GFR (CKD-EPI)AfAm (>60 ml/min/1.73 sqM) Est GFR (CKD-EPI)NonAf (>60 ml/min/1.73 sqM) BUN/Creatinine Ratio 23.10 H (12.00-20.00) Ratio Glucose 138 H (74-99) mg/dL POC Glucose (mg/dL) 174 H (70-110) mg/dL POC Glu Resident Advisor ID [facility] Plasma Lactic Acid Rony (0.7-2.0) mmol/L Calcium 9.6 (8.4-10.2) mg/dL Magnesium (1.6-2.3) mg/dL Total Bilirubin 0.3 (0.2-1.3) mg/dL AST 30 (14-36) U/L ALT 20 (4-34) U/L Alkaline Phosphatase 53 (38-126) U/L Troponin I (0.000-0.034) ng/mL Total Protein 7.1 (6.3-8.2) g/dL Albumin 4.2 (3.5-5.0) g/dL Globulin 2.9 (1.6-3.3) g/dL Albumin/Globulin Ratio 1.45 L (1.60-3.17) Ratio Procalcitonin (0.02-0.50) ng/mL Urine Color Urine Appearance (Clear) Urine pH (5.0-8.0) Ur Specific Sims (1.001-1.035) Urine Protein (Negative) Urine Glucose (UA) (Negative) Urine Ketones (Negative) Urine Blood (Negative) Urine Nitrite (Negative) Urine Bilirubin (Negative) Urine Urobilinogen (<2.0) mg/dL Ur Leukocyte Esterase (Negative) Urine RBC (0-5) /hpf Urine WBC (0-5) /hpf Urine WBC Clumps (None) /hpf Ur Squamous Epith Cells (0-4) /hpf Urine Bacteria (None) /hpf Hyaline Casts (0-2) /lpf Urine Mucus (None) /hpf Influenza Type A (PCR) (Not Detectd) Influenza Type B (PCR) (Not Detectd) RSV (PCR) (Not Detectd) SARS-CoV-2 (PCR) (Not Detectd) 06/29/24 06/29/24 06/29/24 Range/Units 06:08 11:24 16:49 WBC (3.8-10.6) k/uL RBC (3.80-5.40) m/uL Hgb (11.4-16.0) gm/dL Hct (34.0-46.0) % MCV (80.0-100.0) fL MCH (25.0-35.0) pg MCHC (31.0-37.0) g/dL RDW (11.5-15.5) % Plt Count (150-450) k/uL MPV Immature Gran % (Auto) % Absolute Nucleated RBC % Neutrophils % % Lymphocytes % % Monocytes % % Eosinophils % % Basophils % % Immature Gran # (0.00-0.04) X 10*3/uL Neutrophils # (1.3-7.7) k/uL Lymphocytes # (1.0-4.8) k/uL Monocytes # (0-1.0) k/uL Eosinophils # (0-0.7) k/uL Basophils # (0-0.2) k/uL NRBC/100 WBC Diff (0.00-0.01) X 10*3/uL PT (10.0-12.5) sec INR (<1.2) APTT (22.0-30.0) sec Sodium (137-145) mmol/L Potassium (3.5-5.1) mmol/L Chloride (98-107) mmol/L Carbon Dioxide (22-30) mmol/L Anion Gap mmol/L BUN (7-17) mg/dL Creatinine (0.52-1.04) mg/dL Est GFR (CKD-EPI) (>=60) Est GFR (CKD-EPI)AfAm (>60 ml/min/1.73 sqM) Est GFR (CKD-EPI)NonAf (>60 ml/min/1.73 sqM) BUN/Creatinine Ratio (12.00-20.00) Ratio Glucose (74-99) mg/dL POC Glucose (mg/dL) 125 H 115 H 104 (70-110) mg/dL POC Glu Resident Advisor ID Anderson BONE Plasma Lactic Acid Rony (0.7-2.0) mmol/L Calcium (8.4-10.2) mg/dL Magnesium (1.6-2.3) mg/dL Total Bilirubin (0.2-1.3) mg/dL AST (14-36) U/L ALT (4-34) U/L Alkaline Phosphatase (38-126) U/L Troponin I (0.000-0.034) ng/mL Total Protein (6.3-8.2) g/dL Albumin (3.5-5.0) g/dL Globulin (1.6-3.3) g/dL Albumin/Globulin Ratio (1.60-3.17) Ratio Procalcitonin (0.02-0.50) ng/mL Urine Color Urine Appearance (Clear) Urine pH (5.0-8.0) Ur Specific Sims (1.001-1.035) Urine Protein (Negative) Urine Glucose (UA) (Negative) Urine Ketones (Negative) Urine Blood (Negative) Urine Nitrite (Negative) Urine Bilirubin (Negative) Urine Urobilinogen (<2.0) mg/dL Ur Leukocyte Esterase (Negative) Urine RBC (0-5) /hpf Urine WBC (0-5) /hpf Urine WBC Clumps (None) /hpf Ur Squamous Epith Cells (0-4) /hpf Urine Bacteria (None) /hpf Hyaline Casts (0-2) /lpf Urine Mucus (None) /hpf Influenza Type A (PCR) (Not Detectd) Influenza Type B (PCR) (Not Detectd) RSV (PCR) (Not Detectd) SARS-CoV-2 (PCR) (Not Detectd) 06/30/24 06/30/24 06/30/24 Range/Units 02:23 02:23 06:36 WBC 9.07 (3.8-10.6) k/uL RBC 5.57 H (3.80-5.40) m/uL Hgb 15.7 H (11.4-16.0) gm/dL Hct 47.9 H (34.0-46.0) % MCV 86.0 (80.0-100.0) fL MCH 28.2 (25.0-35.0) pg MCHC 32.8 (31.0-37.0) g/dL RDW 14.6 H (11.5-15.5) % Plt Count 280 (150-450) k/uL MPV 9.1 L Immature Gran % (Auto) 0.40 % Absolute Nucleated RBC 0 % Neutrophils % 73.0 % Lymphocytes % 15.5 % Monocytes % 10.9 % Eosinophils % 0 % Basophils % 0.2 % Immature Gran # 0.04 (0.00-0.04) X 10*3/uL Neutrophils # 6.61 (1.3-7.7) k/uL Lymphocytes # 1.41 (1.0-4.8) k/uL Monocytes # 0.99 (0-1.0) k/uL Eosinophils # 0 L (0-0.7) k/uL Basophils # 0.02 (0-0.2) k/uL NRBC/100 WBC Diff 0 (0.00-0.01) X 10*3/uL PT (10.0-12.5) sec INR (<1.2) APTT (22.0-30.0) sec Sodium 135 (137-145) mmol/L Potassium 4.4 (3.5-5.1) mmol/L Chloride 96 (98-107) mmol/L Carbon Dioxide 25.4 (22-30) mmol/L Anion Gap 13.60 H mmol/L BUN 23.6 (7-17) mg/dL Creatinine 0.8 (0.52-1.04) mg/dL Est GFR (CKD-EPI) 80 (>=60) Est GFR (CKD-EPI)AfAm (>60 ml/min/1.73 sqM) Est GFR (CKD-EPI)NonAf (>60 ml/min/1.73 sqM) BUN/Creatinine Ratio 29.50 H (12.00-20.00) Ratio Glucose 110 (74-99) mg/dL POC Glucose (mg/dL) 113 H (70-110) mg/dL POC Glu Resident Advisor ID LILIAN PIRDE Plasma Lactic Acid Rony (0.7-2.0) mmol/L Calcium 9.8 (8.4-10.2) mg/dL Magnesium (1.6-2.3) mg/dL Total Bilirubin 0.3 (0.2-1.3) mg/dL AST 34 (14-36) U/L ALT 22 (4-34) U/L Alkaline Phosphatase 50 (38-126) U/L Troponin I (0.000-0.034) ng/mL Total Protein 7.3 (6.3-8.2) g/dL Albumin 4.2 (3.5-5.0) g/dL Globulin 3.1 (1.6-3.3) g/dL Albumin/Globulin Ratio 1.35 L (1.60-3.17) Ratio Procalcitonin (0.02-0.50) ng/mL Urine Color Urine Appearance (Clear) Urine pH (5.0-8.0) Ur Specific Sims (1.001-1.035) Urine Protein (Negative) Urine Glucose (UA) (Negative) Urine Ketones (Negative) Urine Blood (Negative) Urine Nitrite (Negative) Urine Bilirubin (Negative) Urine Urobilinogen (<2.0) mg/dL Ur Leukocyte Esterase (Negative) Urine RBC (0-5) /hpf Urine WBC (0-5) /hpf Urine WBC Clumps (None) /hpf Ur Squamous Epith Cells (0-4) /hpf Urine Bacteria (None) /hpf Hyaline Casts (0-2) /lpf Urine Mucus (None) /hpf Influenza Type A (PCR) (Not Detectd) Influenza Type B (PCR) (Not Detectd) RSV (PCR) (Not Detectd) SARS-CoV-2 (PCR) (Not Detectd) 06/30/24 06/30/24 07/01/24 Range/Units 11:08 16:22 07:26 WBC (3.8-10.6) k/uL RBC (3.80-5.40) m/uL Hgb (11.4-16.0) gm/dL Hct (34.0-46.0) % MCV (80.0-100.0) fL MCH (25.0-35.0) pg MCHC (31.0-37.0) g/dL RDW (11.5-15.5) % Plt Count (150-450) k/uL MPV Immature Gran % (Auto) % Absolute Nucleated RBC % Neutrophils % % Lymphocytes % % Monocytes % % Eosinophils % % Basophils % % Immature Gran # (0.00-0.04) X 10*3/uL Neutrophils # (1.3-7.7) k/uL Lymphocytes # (1.0-4.8) k/uL Monocytes # (0-1.0) k/uL Eosinophils # (0-0.7) k/uL Basophils # (0-0.2) k/uL NRBC/100 WBC Diff (0.00-0.01) X 10*3/uL PT (10.0-12.5) sec INR (<1.2) APTT (22.0-30.0) sec Sodium (137-145) mmol/L Potassium (3.5-5.1) mmol/L Chloride (98-107) mmol/L Carbon Dioxide (22-30) mmol/L Anion Gap mmol/L BUN (7-17) mg/dL Creatinine (0.52-1.04) mg/dL Est GFR (CKD-EPI) (>=60) Est GFR (CKD-EPI)AfAm (>60 ml/min/1.73 sqM) Est GFR (CKD-EPI)NonAf (>60 ml/min/1.73 sqM) BUN/Creatinine Ratio (12.00-20.00) Ratio Glucose (74-99) mg/dL POC Glucose (mg/dL) 155 H 122 H 115 H (70-110) mg/dL POC Glu Resident Advisor ID [facility] Plasma Lactic Acid Rony (0.7-2.0) mmol/L Calcium (8.4-10.2) mg/dL Magnesium (1.6-2.3) mg/dL Total Bilirubin (0.2-1.3) mg/dL AST (14-36) U/L ALT (4-34) U/L Alkaline Phosphatase (38-126) U/L Troponin I (0.000-0.034) ng/mL Total Protein (6.3-8.2) g/dL Albumin (3.5-5.0) g/dL Globulin (1.6-3.3) g/dL Albumin/Globulin Ratio (1.60-3.17) Ratio Procalcitonin (0.02-0.50) ng/mL Urine Color Urine Appearance (Clear) Urine pH (5.0-8.0) Ur Specific Sims (1.001-1.035) Urine Protein (Negative) Urine Glucose (UA) (Negative) Urine Ketones (Negative) Urine Blood (Negative) Urine Nitrite (Negative) Urine Bilirubin (Negative) Urine Urobilinogen (<2.0) mg/dL Ur Leukocyte Esterase (Negative) Urine RBC (0-5) /hpf Urine WBC (0-5) /hpf Urine WBC Clumps (None) /hpf Ur Squamous Epith Cells (0-4) /hpf Urine Bacteria (None) /hpf Hyaline Casts (0-2) /lpf Urine Mucus (None) /hpf Influenza Type A (PCR) (Not Detectd) Influenza Type B (PCR) (Not Detectd) RSV (PCR) (Not Detectd) SARS-CoV-2 (PCR) (Not Detectd) Disposition Clinical Impression: Altered level of consciousness, Influenza A, Vulvovaginal candidiasis, Pneumonia Disposition: ADMITTED IP TO THIS HOSP Condition: Stable Is patient prescribed a controlled substance at d/c from ED?: No Time of Disposition: 03:40 Decision Date: 06/28/24 Decision Time: 03:40
[2024-06-28] MEDS: ACETAMINOPHEN IV (For NPO) 1,000 MG in EMPTY BAG 1 BAG IVPB STA (00:44)
[2024-06-28 01:13] LABS: Basophils % (A) 0 %; Eosinophils % (A) 0 %; HCT 41.4 % (34.0-46.0); HGB 13.4 gm/dL (11.4-16.0); Lymphocytes # (A) 0.5 k/uL (1.0-4.8); Lymphocytes % (A) 5 %; MCH 27.1 pg (25.0-35.0); MCHC 32.4 g/dL (31.0-37.0); MCV 83.7 fL (80.0-100.0); Mean Platelet Volume 7.2; Monocytes # (A) 0.6 k/uL (0-1.0); Monocytes % (A) 7 %; Neutrophils # (A) 8.4 k/uL (1.3-7.7); Neutrophils % (A) 86 %; Platelet Count 260 k/uL (150-450); RBC 4.94 m/uL (3.80-5.40); RDW 14.8 % (11.5-15.5); WBC 9.8 k/uL (3.8-10.6)
[2024-06-28 01:25] LABS: Partial Thromboplastin Time 23.7 sec (22.0-30.0); Prothrombin Time 11.4 sec (10.0-12.5)
[2024-06-28 01:30] LABS: ALT 18 U/L (4-34); AST 20 U/L (14-36); African American GFR (CKD) 58 (>60 ml/min/1.73 sqM); Albumin 4.3 g/dL (3.5-5.0); Alkaline Phosphatase 56 U/L (38-126); Anion Gap 10 mmol/L; Blood Urea Nitrogen 21 mg/dL (7-17); Calcium 9.5 mg/dL (8.4-10.2); Carbon Dioxide 27 mmol/L (22-30); Chloride 98 mmol/L (98-107); Glucose 152 mg/dL (74-99); Magnesium 1.7 mg/dL (1.6-2.3); Non-African American GFR(CKD) 50 (>60 ml/min/1.73 sqM); Potassium 4.7 mmol/L (3.5-5.1); Sodium 135 mmol/L (137-145); Total Bilirubin 0.5 mg/dL (0.2-1.3); Total Protein 7.3 g/dL (6.3-8.2)
[2024-06-28] MEDS: SODIUM CHLORIDE 0.9% 1,000 ML IV STA (01:31)
[2024-06-28 01:46] LABS: Glucose,Whole Blood 142 mg/dL (70-110)
[2024-06-28 01:51] LABS: Influenza A Detected (Not Detectd); Influenza B Not Detected (Not Detectd); RSV Not Detected (Not Detectd)
[2024-06-28] MEDS: FLUCONAZOLE IN NACL,ISO-OSM 100 MG in SALINE 1 50ML.BAG IVPB STA (03:31)
[2024-06-28] MEDS: IPRATROPIUM-ALBUTEROL 3 ML NEB INHALATION STA (03:31)
--- NOTE | 2024-06-28 03:32 | XR ---
EXAM: XR Chest, 1 View CLINICAL HISTORY: ITS.REASON XR Reason: altered mental status TECHNIQUE: Frontal view of the chest. COMPARISON: 12/19/2023 FINDINGS: Lungs: Small amount of patchy airspace opacities scattered in both lungs, suggest pneumonia. Pleural space: Unremarkable. Mediastinum: Unremarkable. Normal mediastinal contour. Bones/joints: No acute findings. Upper abdomen: Cholecystectomy clips. Stent in central abdomen is again noted. IMPRESSION: Small amount of patchy airspace opacities scattered in both lungs, suggest pneumonia.
[2024-06-28] MEDS ORDERED: NALOXONE 0.4 MG/ML 1 ML VIAL IV PRN (03:50)
[2024-06-28] MEDS ORDERED: ONDANSETRON 4 MG/2 ML VIAL IVP PRN (03:50)
[2024-06-28] MEDS ORDERED: traMADol 50 MG TAB PO PRN (03:52)
[2024-06-28] MEDS: OSELTAMIVIR 75 MG CAP PO STA (04:00)
[2024-06-28 04:34] LABS: Appearance,Urine Cloudy (Clear); Bacteria,Urine Occasional /hpf; Bilirubin,Urine Negative (Negative); Blood,Urine Trace (Negative); Color,Urine Light Yellow; Glucose,Urine (UA) 4+ (Negative); Hyaline Casts,Urine 10 /lpf (0-2); Ketones,Urine Negative (Negative); Leukocyte Esterase,Urine Negative (Negative); Mucus,Urine Rare /hpf; Nitrite,Urine Negative (Negative); Protein,Urine Trace (Negative); RBC,Urine 4 /hpf (0-5); Squamous Epithelial Cell,Urine 4 /hpf (0-4); Urobilinogen,Urine <2.0 mg/dL (<2.0); WBC,Urine 12 /hpf (0-5)
[2024-06-28] MEDS: methylPREDNISolone SOD SUCCI 125 MG/2 ML VIAL IV STA (05:44)
[2024-06-28 06:06] LABS: Glucose,Whole Blood 122 mg/dL (70-110)
[2024-06-28] MEDS: SODIUM CHLORIDE 0.9% 500 ML 500 ML IV STA (06:38)
[2024-06-28] MEDS ORDERED: metFORMIN 500 MG TAB PO SCH (07:30)
[2024-06-28] MEDS ORDERED: ACETAMINOPHEN IV (For NPO) 1,000 MG in EMPTY BAG 1 BAG IVPB PRN (08:45)
[2024-06-28] MEDS: FLUoxetine HCL 20 MG CAP PO SCH (08:47)
[2024-06-28] MEDS: DAPAGLIFLOZIN PROPANEDIOL 10 MG TABLET PO SCH (08:47)
[2024-06-28] MEDS: CLOPIDOGREL 75 MG TAB PO SCH (08:47)
[2024-06-28] MEDS: INSULIN GLARGINE (LANTUS) 100 UNIT/ML SYR SQ SCH (08:47)
[2024-06-28] MEDS: metFORMIN 500 MG TAB PO SCH (08:47)
--- NOTE | 2024-06-28 09:11 | P.HPIM ---
History of Present Illness H&P Date: 06/28/24 Félix Perea, is a 69-year-old female currently residing at [facility] who was transferred to [facility] emergency room due to mental status changes, cough chest congestion and shortness of breath. She was evaluated in the emergency room vital examination on presentation reve aled a temperature of 101.5 pulse 112 respiration 22 blood pressure 140/75 pulse ox 95% on 2 L nasal cannula Laboratory data revealed a white blood count of 9.8 hemoglobin 13.4 platelet count 260 BUN 21 creatinine 1.112 influenza A PCR was positive, urine analysis revealed 12 white blood cells in high-power field Testing in the emergency room revealed chest x-ray revealed small amount of patchy airspace opacities scattered in both lungs suggestive of pneumonia, EKG revealed sinus rhythm with first-degree AV block and right bundle branch block and left anterior fascicular block and moderate T wave abnormality suggestive of lateral ischemia. Patient was admitted to medical floor for further evaluation and treatment Past medical history is significant for history of hypertension, history of h yperlipidemia, history of diabetes mellitus, history of COPD, previous history of lung cancer, previous history of breast cancer, and recurrent episodes of urinary tract infection in the past. Past Medical History Past Medical History: Cancer, COPD, Diabetes Mellitus, GI Bleed, Myocardial Infarction ([place]) Additional Past Medical History / Comment(s): PATIENT IS IMPAIRED CAN NOT READ OR WRITE , AORTIC aneurysm, lung CA, lung removed, Last Myocardial Infarction Date:: unknown History of Any Multi-Drug Resistant Organisms: None Reported Past Surgical History: Breast Surgery, Heart Catheterization With Stent, Hysterectomy Additional Past Surgical History / Comment(s): RIGHT lung removed, left masectomy, STENT IN LEG , BILATERAL CATARACT SURGERY, Past Anesthesia/Blood Transfusion Reactions: Previous Problems w/ Anesthesia, Postoperative Nausea & Vomiting (PONV) Additional Past Anesthesia/Blood Transfusion Reaction / Comment(s): POST OP NAUSEA FOR SISTER. SISTER STATES IT TOOK LONGER FOR FÉLIX TO WAKE UP WITH LUNG SURGERY Date of Last Stent Placement:: 10/03/2021 Past Psychological History: Anxiety, Bipolar, Depression Smoking Status: Former smoker Past Alcohol Use History: None Reported Past Drug Use History: None Reported - Past Family History Mother Family Medical History: Cancer, Diabetes Mellitus, Liver Disease Additional Family Medical History / Comment(s): liver ca Father Family Medical History: Cancer Additional Family Medical History / Comment(s): COLON CANCER Medications and Allergies Home Medications Medication Instructions Recorded Confirmed Type Albuterol Sulfate [Proair Hfa] 2 puff INHALATION RT-QID 07/10/16 12/19/23 History FLUoxetine HCL [PROzac] 20 mg PO Q12HR@0800,2100 07/10/16 12/19/23 History Mirtazapine [Remeron] 15 mg PO HS 07/10/16 12/19/23 History Pravastatin Sodium [Pravachol] 40 mg PO HS 07/10/16 12/19/23 History captopriL [Capoten] 12.5 mg PO BID@0800,1700 07/10/16 12/19/23 History Clopidogrel [Plavix] 75 mg PO DAILY@0800 02/04/19 12/19/23 History Isosorbide Mononitrate ER [Imdur] 60 mg PO DAILY@0800 02/04/19 12/19/23 History Metoprolol Tartrate 25 mg PO BID@0800,1700 02/04/19 12/19/23 History Pantoprazole [Protonix] 40 mg PO DAILY@0600 02/04/19 12/19/23 History ALPRAZolam [Xanax] 0.5 mg PO Q8HR@0600,1400,2200 10/17/21 12/19/23 History Diphenox-Atrop 2.5-0.025 mg 1 tab PO DAILY@0800 10/17/21 12/19/23 History [Lomotil] Acetaminophen Tab [Tylenol] 500 mg PO Q6H PRN 09/17/23 12/19/23 History Cholecalciferol [Vitamin D3 (25 50 mcg PO DAILY@0809/17/23 12/19/23 History Mcg = 1000 Iu)] Empagliflozin/Metformin HCl 1 tab PO DAILY@0809/17/23 12/19/23 History [Synjardy Xr 25-1,000 mg Tablet] Ferrous Sulfate [Iron (65 MG 325 mg PO DAILY@0809/17/23 12/19/23 History Elemental)] Melatonin 10 mg PO HS 09/17/23 12/19/23 History amLODIPine [Norvasc] 5 mg PO DAILY@0809/17/23 12/19/23 History traMADol HCl [Ultram] 50 mg PO Q6H PRN 09/17/23 12/19/23 History INSULIN ASPART (NovoLOG) [NovoLOG See Protocol SQ ACHS 12/19/23 12/19/23 History (formulary)] Insulin Glargine (Lantus) [Lantus 10 unit SQ DAILY@0700 12/19/23 12/19/23 History Vial] Ipratropium-Albuterol Nebulize 3 ml INHALATION RT-Q6H 12/19/23 12/19/23 History [Duoneb 0.5 mg-3 mg/3 ml Soln] Maalox Plus 035-948-30qv/5ml 30 ml PO Q6H PRN 12/19/23 12/19/23 History Magnesium Hydroxide [Milk of 7,200 mg PO DIRECTED PRN 12/19/23 12/19/23 History Magnesia Concentrate] Na Phos,M-B/Na Phos,Di-Ba [Fleet 133 ml RECTAL DAILY PRN 12/19/23 12/19/23 History Adult] Sodium Chloride 5% Ophth Soln 1 drop BOTH EYES TID@0800,1400,2100 12/19/23 12/19/23 History [Traci 128] bisacodyL [Dulcolax] 10 mg RECTAL DAILY PRN 12/19/23 12/19/23 History Allergies Allergy/AdvReac Type Severity Reaction Status Date / Time No Known Allergies Allergy Verified 12/19/23 10:03 Physical Exam Vitals: Vital Signs Temp Pulse Resp BP Pulse Ox 06/28/24 05:05 92 18 124/64 95 06/28/24 03:55 76 20 99/53 97 06/28/24 03:46 75 06/28/24 03:34 78 06/28/24 01:35 99.9 F H 81 22 100/66 96 06/27/24 23:39 101.5 F H 112 H 22 140/75 95 Intake and Output 06/27/24 06/28/24 06/28/24 22:59 06:59 14:59 Output Total 20 Balance -20 Output: Urine 20 Other: Weight 63.503 kg In general patient is somnolent responsive, answers few questions by yes or no then closes her eyes HEENT head normocephalic and atraumatic Neck is supple no JVD no goiter no lymphadenopathy no carotid bruit Chest examination reveals a scattered crackles bilaterally with wheezing Cardiac exam reveals regular heart sounds S1 and S2 no gallops no murmurs Abdomen is soft nontender no organomegaly with normal bowel sounds Extremity exam reveals no edema no cyanosis or clubbing Neurological examination reveals no gross focal deficits Results CBC & Chem 7: 06/28/24 00:35 06/28/24 00:35 Labs: Abnormal Lab Results - Last 24 Hours (Table) 06/27/24 06/28/24 06/28/24 Range/Units 23:44 00:35 00:35 Neutrophils # 8.4 H (1.3-7.7) k/uL Lymphocytes # 0.5 L (1.0-4.8) k/uL Sodium 135 L (137-145) mmol/L BUN 21 H (7-17) mg/dL Creatinine 1.12 H (0.52-1.04) mg/dL Glucose 152 H (74-99) mg/dL POC Glucose (mg/dL) 143 H (70-110) mg/dL Urine Appearance (Clear) Urine Protein (Negative) Urine Glucose (UA) (Negative) Urine Blood (Negative) Urine WBC (0-5) /hpf Urine WBC Clumps (None) /hpf Urine Bacteria (None) /hpf Hyaline Casts (0-2) /lpf Urine Mucus (None) /hpf Influenza Type A (PCR) (Not Detectd) 06/28/24 06/28/24 06/28/24 Range/Units 00:35 01:44 03:00 Neutrophils # (1.3-7.7) k/uL Lymphocytes # (1.0-4.8) k/uL Sodium (137-145) mmol/L BUN (7-17) mg/dL Creatinine (0.52-1.04) mg/dL Glucose (74-99) mg/dL POC Glucose (mg/dL) 142 H (70-110) mg/dL Urine Appearance Cloudy H (Clear) Urine Protein Trace H (Negative) Urine Glucose (UA) 4+ H (Negative) Urine Blood Trace H (Negative) Urine WBC 12 H (0-5) /hpf Urine WBC Clumps Rare H (None) /hpf Urine Bacteria Occasional H (None) /hpf Hyaline Casts 10 H (0-2) /lpf Urine Mucus Rare H (None) /hpf Influenza Type A (PCR) Detected A (Not Detectd) 06/28/24 Range/Units 06:05 Neutrophils # (1.3-7.7) k/uL Lymphocytes # (1.0-4.8) k/uL Sodium (137-145) mmol/L BUN (7-17) mg/dL Creatinine (0.52-1.04) mg/dL Glucose (74-99) mg/dL POC Glucose (mg/dL) 122 H (70-110) mg/dL Urine Appearance (Clear) Urine Protein (Negative) Urine Glucose (UA) (Negative) Urine Blood (Negative) Urine WBC (0-5) /hpf Urine WBC Clumps (None) /hpf Urine Bacteria (None) /hpf Hyaline Casts (0-2) /lpf Urine Mucus (None) /hpf Influenza Type A (PCR) (Not Detectd) Assessment and Plan Plan: Acute influenza A infection Urinary tract infection Abnormal chest x-ray revealing multiple patchy infiltrates suggestive of pneumonia Underlying history of hypertension Underlying history of hyperlipidemia Underlying history of COPD Underlying history of diabetes mellitus History of severe hearing impairment Previous history of lung cancer Previous history of breast cancer At this time patient was seen and examined Home medications reviewed and reordered Patient was started on Tamiflu and IV Solu-Medrol Will add IV ceftriaxone for urinary tract infection and possible pneumonia Check sputum culture, check procalcitonin Consult pulmonary Will follow closely
[2024-06-28] MEDS: OSELTAMIVIR 30 MG CAP PO SCH (10:34)
[2024-06-28] MEDS: METOPROLOL TARTRATE 25 MG TAB PO SCH (10:34)
[2024-06-28] MEDS: methylPREDNISolone SOD SUCCI 125 MG/2 ML VIAL IV SCH (10:34)
--- NOTE | 2024-06-28 11:56 | P.CNPUL ---
History of Present Illness Consult date: 06/28/24 Requesting physician: Alicia Tong Reason for consult: abnormal CXR/CT Chief complaint: Altered mental status History of present illness: This is a 69-year-old female patient that resides at [facility] and is usually awake and alert and able to feed herself. They noticed she was not able to perform any task and was less responsive. She was transferred here for the same. Chest x-ray revealed a small amount of patchy airspace opacities scattered in both lungs suggesting pneumonia. We are consulted for the same. She is seen today on the regular medical floor. She is currently awake. She is nonverbal. Continue good O2 saturations in the 90s on 2 L/min per nasal cannula. Temperature 99.3 axillary. Hemodynamically stable. Count 9.8. Hemoglobin 13.4. Platelets 260. INR 1.0. Sodium 135. Potassium 4.7. Bicarb 27. BUN 21. Creatinine 1.12. Glucose 152. Troponin negative x 1. Urinalysis cloudy with 4+ glucose and occasional bacteria. Viral screen is positive for influenza A. Been initiated on Tamiflu. Initiated on ceftriaxone. Review of Systems ROS unobtainable: due to mental status Past Medical History Past Medical History: Cancer, COPD, Diabetes Mellitus, GI Bleed, Myocardial Inf arction ([place]) Additional Past Medical History / Comment(s): PATIENT IS IMPAIRED CAN NOT READ OR WRITE , AORTIC aneurysm, lung CA, lung removed, Last Myocardial Infarction Date:: unknown History of Any Multi-Drug Resistant Organisms: None Reported Past Surgical History: Breast Surgery, Heart Catheterization With Stent, Hysterectomy Additional Past Surgical History / Comment(s): RIGHT lung removed, left masectomy, STENT IN LEG , BILATERAL CATARACT SURGERY, Past Anesthesia/Blood Transfusion Reactions: Previous Problems w/ Anesthesia, Postoperative Nausea & Vomiting (PONV) Additional Past Anesthesia/Blood Transfusion Reaction / Comment(s): POST OP NAUSEA FOR SISTER. SISTER STATES IT TOOK LONGER FOR FÉLIX TO WAKE UP WITH LUNG SURGERY Date of Last Stent Placement:: 10/03/2021 Past Psychological History: Anxiety, Bipolar, Depression Smoking Status: Former smoker Past Alcohol Use History: None Reported Additional Past Alcohol Use History / Comment(s): STARTED SMOKING AT AGE 11 QUIT AT AGE 64 SMOKED 2 PPD Past Drug Use History: None Reported - Past Family History Mother Family Medical History: Cancer, Diabetes Mellitus, Liver Disease Additional Family Medical History / Comment(s): liver ca Father Family Medical History: Cancer Additional Family Medical History / Comment(s): COLON CANCER Medications and Allergies Home Medications Medication Instructions Recorded Confirmed Type Albuterol Sulfate [Proair Hfa] 2 puff INHALATION RT-QID 07/10/16 06/28/24 History FLUoxetine HCL [PROzac] 20 mg PO Q12HR@0800,2100 07/10/16 06/28/24 History Mirtazapine [Remeron] 15 mg PO HS 07/10/16 06/28/24 History Pravastatin Sodium [Pravachol] 40 mg PO HS 07/10/16 06/28/24 History captopriL [Capoten] 12.5 mg PO BID@0800,1700 07/10/16 06/28/24 History Clopidogrel [Plavix] 75 mg PO DAILY@0800 02/04/19 06/28/24 History Isosorbide Mononitrate ER [Imdur] 60 mg PO DAILY@0800 02/04/19 06/28/24 History Metoprolol Tartrate 25 mg PO BID@0800,1700 02/04/19 06/28/24 History Pantoprazole [Protonix] 40 mg PO DAILY@0800 02/04/19 06/28/24 History ALPRAZolam [Xanax] 0.5 mg PO TID@0800,1400,2000 10/17/21 06/28/24 History Diphenox-Atrop 2.5-0.025 mg 1 tab PO DAILY@0800 10/17/21 06/28/24 History [Lomotil] Acetaminophen Tab [Tylenol] 500 mg PO Q6H PRN 09/17/23 06/28/24 History Cholecalciferol [Vitamin D3 (25 50 mcg PO DAILY@0800 09/17/23 06/28/24 History Mcg = 1000 Iu)] Empagliflozin/Metformin HCl 1 tab PO DAILY@0800 09/17/23 06/28/24 History [Synjardy Xr 25-1,000 mg Tablet] Ferrous Sulfate [Iron (65 MG 325 mg PO DAILY@0800 09/17/23 06/28/24 History Elemental)] Melatonin 10 mg PO HS 09/17/23 06/28/24 History amLODIPine [Norvasc] 5 mg PO DAILY@0800 09/17/23 06/28/24 History traMADol HCl [Ultram] 50 mg PO Q6H PRN 09/17/23 06/28/24 History INSULIN ASPART (NovoLOG) [NovoLOG See Protocol SQ ACHS 12/19/23 06/28/24 History (formulary)] Insulin Glargine (Lantus) [Lantus 10 unit SQ DAILY@0700 12/19/23 06/28/24 History Vial] Ipratropium-Albuterol Nebulize 3 ml INHALATION RT-Q6H 12/19/23 06/28/24 History [Duoneb 0.5 mg-3 mg/3 ml Soln] Magnesium Hydroxide [Milk of 7,200 mg PO Q48H PRN 12/19/23 06/28/24 History Magnesia Concentrate] Na Phos,M-B/Na Phos,Di-Ba [Fleet 133 ml RECTAL DAILY PRN 12/19/23 06/28/24 Hi story Adult] Sodium Chloride 5% Ophth Soln 1 drop BOTH EYES TID@0800,1400,2100 12/19/2306/28 History [Trcai 128] bisacodyL [Dulcolax] 10 mg RECTAL DAILY PRN 12/19/23 06/28/24 History Loperamide [Imodium] 2 mg PO QID PRN 06/28/24 06/28/24 History Mag Hydrox/Al Hydrox/Simeth 15 ml PO QID PRN 06/28/24 06/28/24 History [Maalox] Nystatin 100,000Unit/gm Cream 1 applic TOPICAL BID 06/28/24 06/28/24 History [Mycostatin Cream] Triamcinolone 0.5% Cream [Kenalog 1 applic TOPICAL BID 06/28/24 06/28/24 History 0.5% Cream] Allergies Allergy/AdvReac Type Severity Reaction Status Date / Time No Known Allergies Allergy Verified 06/28/24 09:19 Physical Exam Vitals: Vital Signs Temp Pulse Pulse Resp BP BP Pulse Ox 06/28/24 08:28 99.3 F 99 28 H 155/73 92 L 06/28/24 07:36 98.0 F 89 15 116/59 94 L 06/28/24 05:05 92 18 124/64 95 06/28/24 03:55 76 20 99/53 97 06/28/24 03:46 75 06/28/24 03:34 78 06/28/24 01:35 99.9 F H 81 22 100/66 96 06/27/24 23:39 101.5 F H 112 H 22 140/75 95 Intake and Output 06/27/24 06/28/24 06/28/24 22:59 06:59 14:59 Output Total 20 Balance -20 Output: Urine 20 Other: Voiding Method Indwelling Catheter Weight 63.503 kg 63.503 kg GENERAL EXAM: Alert, 69-year-old nonverbal female, on 2 L nasal cannula, comf ortable in no apparent distress. HEAD: Normocephalic. EYES: Normal reaction of pupils, equal size. NOSE: Clear with pink turbinates. THROAT: No erythema or exudates. NECK: No masses, no JVD. CHEST: No chest wall deformity. LUNGS: Equal air entry with no crackles, wheeze, rhonchi or dullness. CVS: S1 and S2 normal with no audible murmur, regular rhythm. ABDOMEN: No hepatosplenomegaly, normal bowel sounds, no guarding or rigidity. SPINE: No scoliosis or deformity SKIN: No rashes CENTRAL NERVOUS SYSTEM: No focal deficits, tone is normal in all 4 extremities. EXTREMITIES: Contractures noted. There is no peripheral edema. No clubbing, no cyanosis. Peripheral pulses are intact. Results - Laboratory Findings CBC and BMP: 06/28/24 00:35 06/28/24 00:35 PT/INR, D-dimer PT 11.4 sec (10.0-12.5) 06/28/24 00:35 INR 1.0 (<1.2) 06/28/24 00:35 Abnormal lab findings: Abnormal Labs 06/27/24 06/28/24 06/28/24 23:44 00:35 00:35 Neutrophils # 8.4 H Lymphocytes # 0.5 L Sodium 135 L BUN 21 H Creatinine 1.12 H Glucose 152 H POC Glucose (mg/dL) 143 H Urine Appearance Urine Protein Urine Glucose (UA) Urine Blood Urine WBC Urine WBC Clumps Urine Bacteria Hyaline Casts Urine Mucus Influenza Type A (PCR) 06/28/24 06/28/24 06/28/24 00:35 01:44 03:00 Neutrophils # Lymphocytes # Sodium BUN Creatinine Glucose POC Glucose (mg/dL) 142 H Urine Appearance Cloudy H Urine Protein Trace H Urine Glucose (UA) 4+ H Urine Blood Trace H Urine WBC 12 H Urine WBC Clumps Rare H Urine Bacteria Occasional H Hyaline Casts 10 H Urine Mucus Rare H Influenza Type A (PCR) Detected A 06/28/24 06:05 Neutrophils # Lymphocytes # Sodium BUN Creatinine Glucose POC Glucose (mg/dL) 122 H Urine Appearance Urine Protein Urine Glucose (UA) Urine Blood Urine WBC Urine WBC Clumps Urine Bacteria Hyaline Casts Urine Mucus Influenza Type A (PCR) - Diagnostic Findings Chest x-ray: image reviewed Assessment and Plan Assessment: Altered mental status secondary to acute influenza A infection and possible underlying urinary tract infection Acute influenza A infection Possible underlying urinary tract infection Mentally challenged and resides in a local shelter History of lung cancer with previous resection History of breast cancer status post left mastectomy Chronic obstructive pulmonary disease History of chronic tobacco dependence Diabetes mellitus, type II Plan: The patient was seen and evaluated Chest x-ray, labs and medications reviewed No acute findings on chest x-ray Continue Tamiflu Check a procalcitonin Continue antibiotics for now Continue bronchodilators Discontinue IV steroids Resume her home medications Titrate down/off the FiO2 as tolerated We will continue to follow and make further recommendations based on her clinic al status I have personally seen and examined the patient, performed the documentation and the assessment and plan as written. Number of minutes spent on the visit: 20 Dictation was produced using [employer] dictation software. Please excuse any grammatical, word or spelling errors. Time with Patient: Greater than 30
[2024-06-28 16:36] LABS: Glucose,Whole Blood 169 mg/dL (70-110)
[2024-06-28 20:13] LABS: Glucose,Whole Blood 174 mg/dL (70-110)
[2024-06-28] MEDS: MIRTAZAPINE 15 MG TAB PO SCH (21:25)
[2024-06-29] MEDS: ACETAMINOPHEN TAB 325 MG TAB PO PRN (03:34)
[2024-06-29 06:10] LABS: Glucose,Whole Blood 125 mg/dL (70-110)
--- NOTE | 2024-06-29 08:51 | P.PN ---
Subjective Progress Note Date: 06/29/24 Meredith Perea, is a 69-year-old female currently residing at [facility] who was transferred to [facility] emergency room due to mental status changes, cough chest congestion and shortness of breath. She was evaluated in the emergency room vital examination on presentation revealed a temperature of 101.5 pulse 112 respiration 22 blood pressure 140/75 pulse ox 95% on 2 L nasal cannula Laboratory data revealed a white blood count of 9.8 hemoglobin 13.4 platelet count 260 BUN 21 creatinine 1.112 influenza A PCR was positive, urine analysis revealed 12 white blood cells in high-power field Testing in the emergency room revealed chest x-ray revealed small amount of patchy airspace opacities scattered in both lungs suggestive of pneumonia, EKG revealed sinus rhythm with first-degree AV block and right bundle branch block and left anterior fascicular block and moderate T wave abnormality suggestive of lateral ischemia. Patient was admitted to medical floor for further evaluation and treatment Past medical history is significant for history of hypertension, history of hyperlipidemia, history of diabetes mellitus, history of COPD, previous history of lung cancer, previous history of breast cancer, and recurrent episodes of urinary tract infection in the past. On 06/30/2024 patient is alert and oriented x 2. Patient's mentation has improved per nursing staff. Current vital signs temp 98.8, heart rate 75, respiratory rate 20, blood pressure 146/72 with a pulse ox of 95% on room air. Patient remains on IV Rocephin and Tamiflu. Pulmonary services are following. Blood and urine cultures pending. Patient denies chest pain. Patient denies nausea vomiting or diarrhea. Patient denies any urinary burning or frequency Objective - Vital Signs Vital signs: Vital Signs Temp 98.8 F 06/29/24 07:13 Pulse 75 06/29/24 07:13 Resp 20 06/29/24 07:13 BP 174/74 06/29/24 07:13 Pulse Ox 95 06/29/24 07:13 FiO2 Intake & Output 06/28/24 06/29/24 06/29/24 18:59 06:59 18:59 Output Total 1999 Balance -1999 Weight 63.503 kg Output: Urine 1999 Other: Voiding Method Indwelling Catheter Indwelling Catheter Indwelling Catheter # Bowel Movements 0 - Exam In general patient is somnolent responsive, answers few questions by yes or no then closes her eyes HEENT head normocephalic and atraumatic Neck is supple no JVD no goiter no lymphadenopathy no carotid bruit Chest examination reveals a scattered crackles bilaterally with wheezing Cardiac exam reveals regular heart sounds S1 and S2 no gallops no murmurs Abdomen is soft nontender no organomegaly with normal bowel sounds Extremity exam reveals no edema no cyanosis or clubbing Neurological examination reveals no gross focal deficits - Labs CBC & Chem 7: 06/28/24 00:35 06/28/24 00:35 Labs: Abnormal Lab Results - Last 24 Hours (Table) 06/28/24 06/28/24 06/29/24 Range/Units 16:35 20:12 06:08 POC Glucose (mg/dL) 169 H 174 H 125 H (70-110) mg/dL Microbiology - Last 24 Hours (Table) 06/28/24 03:00 Urine Culture - Preliminary Urine,Voided Gram Neg Bacilli Assessment and Plan Plan: Acute influenza A infection Urinary tract infection Abnormal chest x-ray revealing multiple patchy infiltrates suggestive of pneumonia Underlying history of hypertension Underlying history of hyperlipidemia Underlying history of COPD Underlying history of diabetes mellitus History of severe hearing impairment Previous history of lung cancer Previous history of breast cancer At this time patient was seen and examined Home medications reviewed and reordered Patient was started on Tamiflu and IV Solu-Medrol Will add IV ceftriaxone for urinary tract infection and possible pneumonia Check sputum culture, check procalcitonin Consult pulmonary Will follow closely
[2024-06-29 09:27] LABS: Basophils # (A) 0.02 X 10*3/uL (0.00-0.10); Basophils % (A) 0.2 %; Eosinophils # (A) 0 X 10*3/uL (0.04-0.35); Eosinophils % (A) 0 %; HCT 45.3 % (37.2-46.3); HGB 14.7 g/dL (12.0-15.0); Lymphocytes # (A) 1.18 X 10*3/uL (0.90-5.00); Lymphocytes % (A) 14.5 %; MCH 28.2 pg (27.0-32.0); MCHC 32.5 g/dL (32.0-37.0); MCV 86.8 FL (80.0-97.0); Mean Platelet Volume 9.5 FL (9.5-12.2); Monocytes # (A) 1.06 X 10*3/uL (0.20-1.00); NRBC Per 100 WBC 0 X 10*3/uL (0.00-0.01); Neutrophils # (A) 5.83 X 10*3/uL (1.80-7.70); Neutrophils % (A) 71.4 %; Platelet Count 242 X 10*3/uL (140-440); RBC 5.22 X 10*6/uL (4.10-5.20); RDW 14.7 % (11.5-14.5); WBC 8.16 X 10*3/uL (4.50-10.00)
[2024-06-29 09:42] LABS: ALT 20 U/L (8-44); AST 30 U/L (13-35); Albumin 4.2 g/dL (3.8-4.9); Albumin/Globulin Ratio 1.45 Ratio (1.60-3.17); Alkaline Phosphatase 53 U/L (41-126); Blood Urea Nitrogen 23.1 mg/dL (9.0-27.0); Calcium 9.6 mg/dL (8.7-10.3); Carbon Dioxide 24.5 mmol/L (21.6-31.8); Chloride 98 mmol/L (96-109); Globulin 2.9 g/dL (1.6-3.3); Glucose 138 mg/dL (70-110); Potassium 4.5 mmol/L (3.5-5.5); Sodium 138 mmol/L (135-145); Total Bilirubin 0.3 mg/dL (0.3-1.2); Total Protein 7.1 g/dL (6.2-8.2)
[2024-06-29 11:26] LABS: Glucose,Whole Blood 115 mg/dL (70-110)
--- NOTE | 2024-06-29 12:42 | P.PN ---
Subjective Progress Note Date: 06/29/24 This is a 69-year-old female patient that resides at [facility] and is usually awake and alert and able to feed herself. They noticed she was not able to perform any task and was less responsive. She was transferred here for the same. Chest x-ray revealed a small amount of patchy airspace opacities scattered in both lungs suggesting pneumonia. We are consulted for the same. She is seen today on the regular medical floor. She is currently awake. She is nonverbal. Continue good O2 saturations in the 90s on 2 L/min per nasal cannula. Temperature 99.3 axillary. Hemodynamically stable. Count 9.8. Hemoglobin 13.4. Platelets 260. INR 1.0. Sodium 135. Potassium 4.7. Bicarb 27. BUN 21. Creatinine 1.12. Glucose 152. Troponin negative x 1. Urinalysis cloudy with 4+ glucose and occasional bacteria. Viral screen is positive for influenza A. Been initiated on Tamiflu. Initiated on ceftriaxone. The patient is seen today June 29, 2024 in follow-up on the regular medical floor. She is currently awake and alert. No acute distress. Maintaining good O2 saturations in the 90s on room air. Urine culture is showing gram-negative bacilli. She remains on Rocephin. White count 8.1. Hemoglobin 14.7. Platelets 242. Sodium 138. Potassium 4.5. Bicarb 25. BUN 23. Creatinine 1.0. Glucose 138. She is continued on Tamiflu. Objective - Vital Signs Vital signs: Vital Signs Temp 98.8 F 06/29/24 07:13 Pulse 75 06/29/24 07:13 Resp 20 06/29/24 07:13 BP 174/74 06/29/24 07:13 Pulse Ox 95 06/29/24 07:13 FiO2 Intake & Output 06/28/24 06/29/24 06/29/24 18:59 06:59 18:59 Output Total 1999 550 300 Balance -1999550 300 Weight 63.503 kg Output: Urine 1999 300 Other: Voiding Method Indwelling Catheter Indwelling Catheter Indwelling Catheter # Bowel Movements 0 - Exam GENERAL EXAM: Alert, 69-year-old female, resting in bed, on room air, comfortable in no apparent distress. HEAD: Normocephalic. EYES: Normal reaction of pupils, equal size. NOSE: Clear with pink turbinates. THROAT: No erythema or exudates. NECK: No masses, no JVD. CHEST: No chest wall deformity. LUNGS: Equal air entry with no crackles, wheeze, rhonchi or dullness. CVS: S1 and S2 normal with no audible murmur, regular rhythm. ABDOMEN: No hepatosplenomegaly, normal bowel sounds, no guarding or rigidity. SPINE: No scoliosis or deformity SKIN: No rashes CENTRAL NERVOUS SYSTEM: No focal deficits, tone is normal in all 4 extremities. EXTREMITIES: Contractures noted. There is no peripheral edema. No clubbing, no cyanosis. Peripheral pulses are intact. - Labs CBC & Chem 7: 06/29/24 02:23 06/29/24 02: Labs: Abnormal Lab Results - Last 24 Hours (Table) 06/28/24 06/28/24 06/29/24 Range/Units 16:35 20:12 02:23 RBC 5.22 H (4.10-5.20) X 10*6/uL RDW 14.7 H (11.5-14.5) % Immature Gran # 0.07 H (0.00-0.04) X 10*3/uL Monocytes # 1.06 H (0.20-1.00) X 10*3/uL Eosinophils # 0 L (0.04-0.35) X 10*3/uL Anion Gap (4.00-12.00) mmol/L BUN/Creatinine Ratio (12.00-20.00) Ratio Glucose (70-110) mg/dL POC Glucose (mg/dL) 169 H 174 H (70-110) mg/dL Albumin/Globulin Ratio (1.60-3.17) Ratio 06/29/24 06/29/24 06/29/24 Range/Units 02:23 06:08 11:24 RBC (4.10-5.20) X 10*6/uL RDW (11.5-14.5) % Immature Gran # (0.00-0.04) X 10*3/uL Monocytes # (0.20-1.00) X 10*3/uL Eosinophils # (0.04-0.35) X 10*3/uL Anion Gap 15.50 H (4.00-12.00) mmol/L BUN/Creatinine Ratio 23.10 H (12.00-20.00) Ratio Glucose 138 H (70-110) mg/dL POC Glucose (mg/dL) 125 H 115 H (70-110) mg/dL Albumin/Globulin Ratio 1.45 L (1.60-3.17) Ratio Microbiology - Last 24 Hours (Table) 06/28/24 03:00 Urine Culture - Preliminary Urine,Voided Gram Neg Bacilli Assessment and Plan Assessment: Altered mental status secondary to acute influenza A infection and underlying urinary tract infection Acute influenza A infection Urinary tract infection can Guy to gram-negative bacilli, remains on Rocephin Mentally challenged and resides in a local long term History of lung cancer with previous resection History of breast cancer status post left mastectomy Chronic obstructive pulmonary disease History of chronic tobacco dependence Diabetes mellitus, type II Plan: The patient was seen and evaluated Labs and medications reviewed Continue Tamiflu Continue ceftriaxone Stable and on room air Plan is to return to [facility] at discharge We will continue to follow I have personally seen and examined the patient, performed the documentation and the assessment and plan as written. Number of minutes spent on the visit: 10 Dictation was produced using [employer] dictation software. Please excuse any grammatical, word or spelling errors.
[2024-06-29 16:55] LABS: Glucose,Whole Blood 104 mg/dL (70-110)
[2024-06-30 06:37] LABS: Glucose,Whole Blood 113 mg/dL (70-110)
[2024-06-30 08:39] LABS: Basophils # (A) 0.02 X 10*3/uL (0.00-0.10); Basophils % (A) 0.2 %; Eosinophils # (A) 0 X 10*3/uL (0.04-0.35); Eosinophils % (A) 0 %; HCT 47.9 % (37.2-46.3); HGB 15.7 g/dL (12.0-15.0); Lymphocytes # (A) 1.41 X 10*3/uL (0.90-5.00); Lymphocytes % (A) 15.5 %; MCH 28.2 pg (27.0-32.0); MCHC 32.8 g/dL (32.0-37.0); Mean Platelet Volume 9.1 FL (9.5-12.2); Monocytes # (A) 0.99 X 10*3/uL (0.20-1.00); Monocytes % (A) 10.9 %; NRBC Per 100 WBC 0 X 10*3/uL (0.00-0.01); Neutrophils # (A) 6.61 X 10*3/uL (1.80-7.70); Platelet Count 280 X 10*3/uL (140-440); RBC 5.57 X 10*6/uL (4.10-5.20); RDW 14.6 % (11.5-14.5); WBC 9.07 X 10*3/uL (4.50-10.00)
[2024-06-30 08:44] LABS: ALT 22 U/L (8-44); AST 34 U/L (13-35); Albumin 4.2 g/dL (3.8-4.9); Albumin/Globulin Ratio 1.35 Ratio (1.60-3.17); Alkaline Phosphatase 50 U/L (41-126); Blood Urea Nitrogen 23.6 mg/dL (9.0-27.0); Calcium 9.8 mg/dL (8.7-10.3); Carbon Dioxide 25.4 mmol/L (21.6-31.8); Chloride 96 mmol/L (96-109); Globulin 3.1 g/dL (1.6-3.3); Glucose 110 mg/dL (70-110); Potassium 4.4 mmol/L (3.5-5.5); Sodium 135 mmol/L (135-145); Total Bilirubin 0.3 mg/dL (0.3-1.2); Total Protein 7.3 g/dL (6.2-8.2)
[2024-06-30 11:10] LABS: Glucose,Whole Blood 155 mg/dL (70-110)
--- NOTE | 2024-06-30 14:50 | P.PN ---
Subjective Progress Note Date: 06/30/24 This is a 69-year-old female patient that resides at [facility] and is usually awake and alert and able to feed herself. They noticed she was not able to perform any task and was less responsive. She was transferred here for the same. Chest x-ray revealed a small amount of patchy airspace opacities scattered in both lungs suggesting pneumonia. We are consulted for the same. She is seen today on the regular medical floor. She is currently awake. She is nonverbal. Continue good O2 saturations in the 90s on 2 L/min per nasal cannula. Temperature 99.3 axillary. Hemodynamically stable. Count 9.8. Hemoglobin 13.4. Platelets 260. INR 1.0. Sodium 135. Potassium 4.7. Bicarb 27. BUN 21. Creatinine 1.12. Glucose 152. Troponin negative x 1. Urinalysis cloudy with 4+ glucose and occasional bacteria. Viral screen is positive for influenza A. Been initiated on Tamiflu. Initiated on ceftriaxone. The patient is seen today June 29, 2024 in follow-up on the regular medical floor. She is currently awake and alert. No acute distress. Maintaining good O2 saturations in the 90s on room air. Urine culture is showing gram-negative bacilli. She remains on Rocephin. White count 8.1. Hemoglobin 14.7. Platelets 242. Sodium 138. Potassium 4.5. Bicarb 25. BUN 23. Creatinine 1.0. Glucose 138. She is continued on Tamiflu. The patient is seen today June 30, 2024 in follow-up on the regular medical floor. She is currently resting comfortably in bed. Awake and alert in no acute distress. Maintaining O2 saturations in the 90s on 2 L/min per nasal cannula. She is continued on Rocephin. Urine culture was positive for Klebsiella. She is continued on Tamiflu. White count 9.0. Hemoglobin 15.7. Platelets 280. Sodium 135. Potassium 4.4. Bicarb 25. BUN 24. Creatinine 0.8. Glucose 110. Objective - Vital Signs Vital signs: Vital Signs Temp 98.2 F 06/30/24 07:19 Pulse 76 06/30/24 07:19 Resp 19 06/30/24 07:19 BP 144/80 06/30/24 07:19 Pulse Ox 97 06/30/24 07:19 FiO2 Intake & Output 06/29/24 06/30/24 06/30/24 18:59 06:59 18:59 Output Total 300 Balance -300 Output: Urine 300 Other: Voiding Method Indwelling Catheter Diaper Incontinent # Voids 1 - Exam GENERAL EXAM: Alert, 69-year-old female, resting in bed, on 2 L nasal cannula, in no apparent distress. HEAD: Normocephalic. EYES: Normal reaction of pupils, equal size. NOSE: Clear with pink turbinates. THROAT: No erythema or exudates. NECK: No masses, no JVD. CHEST: No chest wall deformity. LUNGS: Equal air entry with no crackles, wheeze, rhonchi or dullness. CVS: S1 and S2 normal with no audible murmur, regular rhythm. ABDOMEN: No hepatosplenomegaly, normal bowel sounds, no guarding or rigidity. SPINE: No scoliosis or deformity SKIN: No rashes CENTRAL NERVOUS SYSTEM: No focal deficits, tone is normal in all 4 extremities. EXTREMITIES: Contractures noted. There is no peripheral edema. No clubbing, no cyanosis. Peripheral pulses are intact. - Labs CBC & Chem 7: 06/30/24 02:23 06/30/24 02:23 Labs: Abnormal Lab Results - Last 24 Hours (Table) 06/30/24 06/30/24 06/30/24 Range/Units 02:23 02:23 06:36 RBC 5.57 H (4.10-5.20) X 10*6/uL Hgb 15.7 H (12.0-15.0) g/dL Hct 47.9 H (37.2-46.3) % RDW 14.6 H (11.5-14.5) % MPV 9.1 L (9.5-12.2) FL Eosinophils # 0 L (0.04-0.35) X 10*3/uL Anion Gap 13.60 H (4.00-12.00) mmol/L BUN/Creatinine Ratio 29.50 H (12.00-20.00) Ratio POC Glucose (mg/dL) 113 H (70-110) mg/dL Albumin/Globulin Ratio 1.35 L (1.60-3.17) Ratio 06/30/24 Range/Units 11:08 RBC (4.10-5.20) X 10*6/uL Hgb (12.0-15.0) g/dL Hct (37.2-46.3) % RDW (11.5-14.5) % MPV (9.5-12.2) FL Eosinophils # (0.04-0.35) X 10*3/uL Anion Gap (4.00-12.00) mmol/L BUN/Creatinine Ratio (12.00-20.00) Ratio POC Glucose (mg/dL) 155 H (70-110) mg/dL Albumin/Globulin Ratio (1.60-3.17) Ratio Microbiology - Last 24 Hours (Table) 06/28/24 03:00 Urine Culture - Final Urine,Voided Klebsiella pneumoniae 06/28/24 09:44 Blood Culture - Preliminary Blood Assessment and Plan Assessment: Altered mental status secondary to acute influenza A infection and underlying urinary tract infection Acute influenza A infection Urinary tract infection secondary to Klebsiella pneumoniae, remains on Rocephin Mentally challenged and resides in a local [facility] History of lung cancer with previous resection History of breast cancer status post left mastectomy Chronic obstructive pulmonary disease History of chronic tobacco dependence Diabetes mellitus, type II Plan: The patient was seen and evaluated Labs and medications reviewed Continue Tamiflu Continue ceftriaxone Titrate down/off the FiO2 as tolerated Increase her activity as tolerated Plan is to return to [facility] at discharge I have personally seen and examined the patient, performed the documentation and the assessment and plan as written. Number of minutes spent on the visit: 10 Dictation was produced using [employer] dictation software. Please excuse any grammatical, word or spelling errors.
[2024-06-30 16:24] LABS: Glucose,Whole Blood 122 mg/dL (70-110)
--- NOTE | 2024-06-30 18:06 | P.PN ---
Subjective Progress Note Date: 06/30/24 Meredith Perea, is a 69-year-old female currently residing at [facility] who was transferred to [facility] emergency room due to mental status changes, cough chest congestion and shortness of breath. She was evaluated in the emergency room vital examination on presentation revealed a temperature of 101.5 pulse 112 respiration 22 blood pressure 140/75 pulse ox 95% on 2 L nasal cannula Laboratory data revealed a white blood count of 9.8 hemoglobin 13.4 platelet count 260 BUN 21 creatinine 1.112 influenza A PCR was positive, urine analysis revealed 12 white blood cells in high-power field Testing in the emergency room revealed chest x-ray revealed small amount of patchy airspace opacities scattered in both lungs suggestive of pneumonia, EKG revealed sinus rhythm with first-degree AV block and right bundle branch block and left anterior fascicular block and moderate T wave abnormality suggestive of lateral ischemia. Patient was admitted to medical floor for further evaluation and treatment Past medical history is significant for history of hypertension, history of hyperlipidemia, history of diabetes mellitus, history of COPD, previous history of lung cancer, previous history of breast cancer, and recurrent episodes of urinary tract infection in the past. On 06/29/2024 patient is alert and oriented x 2. Patient's mentation has improved per nursing staff. Current vital signs temp 98.8, heart rate 75, respiratory rate 20, blood pressure 146/72 with a pulse ox of 95% on room air. Patient remains on IV Rocephin and Tamiflu. Pulmonary services are following. Blood and urine cultures pending. Patient denies chest pain. Patient denies nausea vomiting or diarrhea. Patient denies any urinary burning or frequency On 06/30/2024 patient was seen and examined on the medical floor she is alert and oriented x 3 in no apparent distress, she is still complaining of cough and chest congestion otherwise she denies any complaints there is no fever or chills no headache or dizziness no chest pain no shortness of breath, no nausea or vomiting no abdominal pain no diarrhea and no urinary symptoms Objective - Vital Signs Vital signs: Vital Signs Temp 97.9 F 06/30/24 14:00 Pulse 99 06/30/24 14:00 Resp 20 06/30/24 14:00 BP 139/89 06/30/24 14:00 Pulse Ox 98 06/30/24 14:00 FiO2 Intake & Output 06/29/24 06/30/24 06/30/24 18:59 06:59 18:59 Output Total 300 Balance -300 Output: Urine 300 Other: Voiding Method Indwelling Catheter Diaper Incontinent # Voids 1 - Exam In general patient is somnolent responsive, answers few questions by yes or no then closes her eyes HEENT head normocephalic and atraumatic Neck is supple no JVD no goiter no lymphadenopathy no carotid bruit Chest examination reveals a scattered crackles bilaterally with wheezing Cardiac exam reveals regular heart sounds S1 and S2 no gallops no murmurs Abdomen is soft nontender no organomegaly with normal bowel sounds Extremity exam reveals no edema no cyanosis or clubbing Neurological examination reveals no gross focal deficits - Labs CBC & Chem 7: 06/30/24 02:23 06/30/24 02:23 Labs: Abnormal Lab Results - Last 24 Hours (Table) 06/30/24 06/30/24 06/30/24 Range/Units 02:23 02:23 06:36 RBC 5.57 H (4.10-5.20) X 10*6/uL Hgb 15.7 H (12.0-15.0) g/dL Hct 47.9 H (37.2-46.3) % RDW 14.6 H (11.5-14.5) % MPV 9.1 L (9.5-12.2) FL Eosinophils # 0 L (0.04-0.35) X 10*3/uL Anion Gap 13.60 H (4.00-12.00) mmol/L BUN/Creatinine Ratio 29.50 H (12.00-20.00) Ratio POC Glucose (mg/dL) 113 H (70-110) mg/dL Albumin/Globulin Ratio 1.35 L (1.60-3.17) Ratio 06/30/24 06/30/24 Range/Units 11:08 16:22 RBC (4.10-5.20) X 10*6/uL Hgb (12.0-15.0) g/dL Hct (37.2-46.3) % RDW (11.5-14.5) % MPV (9.5-12.2) FL Eosinophils # (0.04-0.35) X 10*3/uL Anion Gap (4.00-12.00) mmol/L BUN/Creatinine Ratio (12.00-20.00) Ratio POC Glucose (mg/dL) 155 H 122 H (70-110) mg/dL Albumin/Globulin Ratio (1.60-3.17) Ratio Microbiology - Last 24 Hours (Table) 06/28/24 09:44 Blood Culture - Preliminary Blood 06/28/24 03:00 Urine Culture - Final Urine,Voided Klebsiella pneumoniae Assessment and Plan Plan: Acute influenza A infection Urinary tract infection Abnormal chest x-ray revealing multiple patchy infiltrates suggestive of pneumonia Underlying history of hypertension Underlying history of hyperlipidemia Underlying history of COPD Underlying history of diabetes mellitus History of severe hearing impairment Previous history of lung cancer Previous history of breast cancer At this time patient was seen and examined Home medications reviewed and reordered Patient was started on Tamiflu and IV Solu-Medrol Will add IV ceftriaxone for urinary tract infection and possible pneumonia Check sputum culture, check procalcitonin Consult pulmonary Will follow closely
[2024-07-01 07:28] LABS: Glucose,Whole Blood 115 mg/dL (70-110)
[2024-07-01 08:45] VITALS: BP 166/84; PULSE 79; RESP 20; TEMP 98.9
[2024-07-01 11:58] LABS: Glucose,Whole Blood 127 mg/dL (70-110)
--- NOTE | 2024-07-01 12:28 | P.DS ---
Providers Date of admission: 07/01/24 07:49 Expected date of discharge: 07/01/24 Attending physician: Alicia Tong Consults: 06/28/24 09:13 Consult Physician Routine Consulting Provider: Shira Kimble Consult Reason/Comments: Pneumonia, COPD Do you want consulting provider notified?: Yes Primary care physician: Aliciashar [facility] Course: Discharge diagnosis Acute influenza A infection Urinary tract infection Abnormal chest x-ray revealing multiple patchy infiltrates suggestive of pneumonia Underlying history of hypertension Underlying history of hyperlipidemia Underlying history of COPD Underlying history of diabetes mellitus History of severe hearing impairment Previous history of lung cancer Previous history of breast cancer Hospital course Meredith Perea, is a 69-year-old female currently residing at [facility] who was transferred to [facility] emergency room due to mental status changes, cough chest congestion and shortness of breath. She was evaluated in the emergency room vital examination on presentation revealed a temperature of 101.5 pulse 112 respiration 22 blood pressure 140/75 pulse ox 95% on 2 L nasal cannula Laboratory data revealed a white blood count of 9.8 hemoglobin 13.4 platelet count 260 BUN 21 creatinine 1.112 influenza A PCR was positive, urine analysis revealed 12 white blood cells in high-power field Testing in the emergency room revealed chest x-ray revealed small amount of patchy airspace opacities scattered in both lungs suggestive of pneumonia, EKG revealed sinus rhythm with first-degree AV block and right bundle branch block and left anterior fascicular block and moderate T wave abnormality suggestive of lateral ischemia. Patient was admitted to medical floor for further evaluation and treatment Past medical history is significant for history of hypertension, history of hyperlipidemia, history of diabetes mellitus, history of COPD, previous history of lung cancer, previous history of breast cancer, and recurrent episodes of urinary tract infection in the past. On 06/29/2024 patient is alert and oriented x 2. Patient's mentation has i mproved per nursing staff. Current vital signs temp 98.8, heart rate 75, respiratory rate 20, blood pressure 146/72 with a pulse ox of 95% on room air. Patient remains on IV Rocephin and Tamiflu. Pulmonary services are following. Blood and urine cultures pending. Patient denies chest pain. Patient denies nausea vomiting or diarrhea. Patient denies any urinary burning or frequency On 06/30/2024 patient was seen and examined on the medical floor she is alert and oriented x 3 in no apparent distress, she is still complaining of cough and chest congestion otherwise she denies any complaints there is no fever or chills no headache or dizziness no chest pain no shortness of breath, no nausea or vomiting no abdominal pain no diarrhea and no urinary symptoms On 07/01/2024 patient is alert and oriented x 3. Patient will be DC'd back to [facility]. Patient will be DC'd on Ceftin and finish course of Tamiflu. Patient denies chest pain or shortness of breath. Patient denies nausea vomiting or diarrhea. Patient denies any urinary burning or frequency Patient Condition at Discharge: Stable Plan - Discharge Summary Discharge Rx Participant: No New Discharge Prescriptions: New Oseltamivir [Tamiflu] 30 mg PO Q12HR 2 Days #3 cap cefuroxime axetiL [Ceftin] 500 mg PO BID 5 Days #10 tab Continue Pravastatin Sodium [Pravachol] 40 mg PO HS captopriL [Capoten] 12.5 mg PO BID@0800,1700 Mirtazapine [Remeron] 15 mg PO HS FLUoxetine HCL [PROzac] 20 mg PO Q12HR@0800,2100 Albuterol Sulfate [Proair Hfa] 2 puff INHALATION RT-QID Metoprolol Tartrate 25 mg PO BID@0800,1700 Isosorbide Mononitrate ER [Imdur] 60 mg PO DAILY@0800 Clopidogrel [Plavix] 75 mg PO DAILY@0800 Pantoprazole [Protonix] 40 mg PO DAILY@0800 Diphenox-Atrop 2.5-0.025 mg [Lomotil] 1 tab PO DAILY@0800 Cholecalciferol [Vitamin D3 (25 Mcg = 1000 Iu)] 50 mcg PO DAILY@0800 traMADol HCl [Ultram] 50 mg PO Q6H PRN PRN Reason: Pain amLODIPine [Norvasc] 5 mg PO DAILY@0800 INSULIN ASPART (NovoLOG) [NovoLOG (formulary)] See Protocol SQ ACHS Magnesium Hydroxide [Milk of Magnesia Concentrate] 7,200 mg PO Q48H PRN PRN Reason: Constipation Sodium Chloride 5% Ophth Soln [Traci 128] 1 drop BOTH EYES TID@0800,1400,2100 Loperamide [Imodium] 2 mg PO QID PRN PRN Reason: Loose Stool Nystatin 100,000Unit/gm Cream [Mycostatin Cream] 1 applic TOPICAL BID Acetaminophen Tab [Tylenol] 500 mg PO Q6H PRN PRN Reason: General Discomfort Ferrous Sulfate [Iron (65 MG Elemental)] 325 mg PO DAILY@0800 Melatonin 10 mg PO HS Empagliflozin/Metformin HCl [Synjardy Xr 25-1,000 mg Tablet] 1 tab PO DAILY@0800 bisacodyL [Dulcolax] 10 mg RECTAL DAILY PRN PRN Reason: Constipation Insulin Glargine (Lantus) [Lantus Vial] 10 unit SQ DAILY@0700 Ipratropium-Albuterol Nebulize [Duoneb 0.5 mg-3 mg/3 ml Soln] 3 ml INHALATION RT-Q6H Na Phos,M-B/Na Phos,Di-Ba [Fleet Adult] 133 ml RECTAL DAILY PRN PRN Reason: Constipation Mag Hydrox/Al Hydrox/Simeth [Maalox] 15 ml PO QID PRN PRN Reason: Indigestion Triamcinolone 0.5% Cream [Kenalog 0.5% Cream] 1 applic TOPICAL BID No Action ALPRAZolam [Xanax] 0.5 mg PO TID@0800,1400,1999 Discharge Medication List Albuterol Sulfate [Proair Hfa] 2 puff INHALATION RT-QID 07/10/16 [History] FLUoxetine HCL [PROzac] 20 mg PO Q12HR@0800,2100 07/10/16 [History] Mirtazapine [Remeron] 15 mg PO HS 07/10/16 [History] Pravastatin Sodium [Pravachol] 40 mg PO HS 07/10/16 [History] captopriL [Capoten] 12.5 mg PO BID@0800,1700 07/10/16 [History] Clopidogrel [Plavix] 75 mg PO DAILY@0800 02/04/19 [History] Isosorbide Mononitrate ER [Imdur] 60 mg PO DAILY@0800 02/04/19 [History] Metoprolol Tartrate 25 mg PO BID@0800,1700 02/04/19 [History] Pantoprazole [Protonix] 40 mg PO DAILY@0800 02/04/19 [History] ALPRAZolam [Xanax] 0.5 mg PO TID@0800,1400,199910/17/21 [History] Diphenox-Atrop 2.5-0.025 mg [Lomotil] 1 tab PO DAILY@0800 10/17/21 [History] Acetaminophen Tab [Tylenol] 500 mg PO Q6H PRN 09/17/23 [History] Cholecalciferol [Vitamin D3 (25 Mcg = 1000 Iu)] 50 mcg PO DAILY@0800 09/17/23 [History] Empagliflozin/Metformin HCl [Synjardy Xr 25-1,000 mg Tablet] 1 tab PO DAILY@0809/17/23 [History] Ferrous Sulfate [Iron (65 MG Elemental)] 325 mg PO DAILY@0800 09/17/23 [History] Melatonin 10 mg PO HS 09/17/23 [History] amLODIPine [Norvasc] 5 mg PO DAILY@0809/17/23 [History] traMADol HCl [Ultram] 50 mg PO Q6H PRN 09/17/23 [History] INSULIN ASPART (NovoLOG) [NovoLOG (formulary)] See Protocol SQ ACHS 12/19/23 [History] Insulin Glargine (Lantus) [Lantus Vial] 10 unit SQ DAILY@0700 12/19/23 [History] Ipratropium-Albuterol Nebulize [Duoneb 0.5 mg-3 mg/3 ml Soln] 3 ml INHALATION RT-Q6H 12/19/23 [History] Magnesium Hydroxide [Milk of Magnesia Concentrate] 7,200 mg PO Q48H PRN 12/19/23 [History] Na Phos,M-B/Na Phos,Di-Ba [Fleet Adult] 133 ml RECTAL DAILY PRN 12/19/23 [History] Sodium Chloride 5% Ophth Soln [Traci 128] 1 drop BOTH EYES TID@0800,1400,2100 12/19/23 [History] bisacodyL [Dulcolax] 10 mg RECTAL DAILY PRN 12/19/23 [History] Loperamide [Imodium] 2 mg PO QID PRN 06/28/24 [History] Mag Hydrox/Al Hydrox/Simeth [Maalox] 15 ml PO QID PRN 06/28/24 [History] Nystatin 100,000Unit/gm Cream [Mycostatin Cream] 1 applic TOPICAL BID 06/28/24 [History] Triamcinolone 0.5% Cream [Kenalog 0.5% Cream] 1 applic TOPICAL BID 06/28/24 [History] Oseltamivir [Tamiflu] 30 mg PO Q12HR 2 Days #3 cap 07/01/24 [Rx] cefuroxime axetiL [Ceftin] 500 mg PO BID 5 Days #10 tab 07/01/24 [Rx] Follow up Appointment(s)/Referral(s): Alicia Tong MD [Primary Care Provider] - 1-2 days Discharge Disposition: TRANSFER TO SNF/ECF
--- NOTE | 2024-07-01 13:48 | P.PN ---
Subjective Progress Note Date: 07/01/24 This is a 69-year-old female patient that resides at [facility] and is usually awake and alert and able to feed herself. They noticed she was not able to perform any task and was less responsive. She was transferred here for the same. Chest x-ray revealed a small amount of patchy airspace opacities scattered in both lungs suggesting pneumonia. We are consulted for the same. She is seen today on the regular medical floor. She is currently awake. She is nonverbal. Continue good O2 saturations in the 90s on 2 L/min per nasal cannula. Temperature 99.3 axillary. Hemodynamically stable. Count 9.8. Hemoglobin 13.4. Platelets 260. INR 1.0. Sodium 135. Potassium 4.7. Bicarb 27. BUN 21. Creatinine 1.12. Glucose 152. Troponin negative x 1. Urinalysis cloudy with 4+ glucose and occasional bacteria. Viral screen is positive for influenza A. Been initiated on Tamiflu. Initiated on ceftriaxone. The patient is seen today June 29, 2024 in follow-up on the regular medical floor. She is currently awake and alert. No acute distress. Maintaining good O2 saturations in the 90s on room air. Urine culture is showing gram-negative bacilli. She remains on Rocephin. White count 8.1. Hemoglobin 14.7. Platelets 242. Sodium 138. Potassium 4.5. Bicarb 25. BUN 23. Creatinine 1.0. Glucose 138. She is continued on Tamiflu. The patient is seen today June 30, 2024 in follow-up on the regular medical floor. She is currently resting comfortably in bed. Awake and alert in no acute distress. Maintaining O2 saturations in the 90s on 2 L/min per nasal cannula. She is continued on Rocephin. Urine culture was positive for Klebsiella. She is continued on Tamiflu. White count 9.0. Hemoglobin 15.7. Platelets 280. Sodium 135. Potassium 4.4. Bicarb 25. BUN 24. Creatinine 0.8. Glucose 110. Patient is seen today July 01, 2024 in follow-up on the regular medical floor. She is awake and alert in no acute distress. Resting in bed. Not necessarily answering our questions today. She remains on Tamiflu. Continued on ceftriaxone. Urine culture positive for Klebsiella pneumoniae. Blood culture revealed no growth. Continued on Lantus and Glucophage. Glucose 127. Objective - Vital Signs Vital signs: Vital Signs Temp 98.9 F 07/01/24 07:28 Pulse 79 07/01/24 07:28 Resp 20 07/01/24 07:28 BP 166/84 07/01/24 07:28 Pulse Ox 93 L 07/01/24 07:28 FiO2 Intake & Output 06/30/24 07/01/24 07/01/24 18:59 06:59 18:59 Other: Voiding Method Diaper Incontinent # Voids 2 1 # Bowel Movements 1 - Exam GENERAL EXAM: Alert, 69-year-old female, on 2 L nasal cannula, in no apparent distress. HEAD: Normocephalic. EYES: Normal reaction of pupils, equal size. NOSE: Clear with pink turbinates. THROAT: No erythema or exudates. NECK: No masses, no JVD. CHEST: No chest wall deformity. LUNGS: Equal air entry with no crackles, wheeze, rhonchi or dullness. CVS: S1 and S2 normal with no audible murmur, regular rhythm. ABDOMEN: No hepatosplenomegaly, normal bowel sounds, no guarding or rigidity. SPINE: No scoliosis or deformity SKIN: No rashes CENTRAL NERVOUS SYSTEM: No focal deficits, tone is normal in all 4 extremities. EXTREMITIES: Contractures noted. There is no peripheral edema. No clubbing, no cyanosis. Peripheral pulses are intact. - Labs CBC & Chem 7: 06/30/24 02:23 06/30/24 02:23 Labs: Abnormal Lab Results - Last 24 Hours (Table) 06/30/24 07/01/24 07/01/24 Range/Units 16:22 07:26 11:55 POC Glucose (mg/dL) 122 H 115 H 127 H (70-110) mg/dL Microbiology - Last 24 Hours (Table) 06/28/24 09:44 Blood Culture - Preliminary Blood Assessment and Plan Assessment: Altered mental status secondary to acute influenza A infection and underlying urinary tract infection Acute influenza A infection Urinary tract infection secondary to Klebsiella pneumoniae, remains on Rocephin Mentally challenged and resides in a local snf History of lung cancer with previous resection History of breast cancer status post left mastectomy Chronic obstructive pulmonary disease History of chronic tobacco dependence Diabetes mellitus, type II Plan: The patient was seen and evaluated Labs and medications reviewed Continue Tamiflu Complete a course of Ceftin Continue Lantus, Glucophage Plan is to return to [facility] I have personally seen and examined the patient, performed the documentation and the assessment and plan as written. Number of minutes spent on the visit: 10 Dictation was produced using [employer] dictation software. Please excuse any grammatical, word or spelling errors.
--- NOTE | 2024-07-07 13:14 | CDI ---
Documentation Clarification Form Date: 07/07/2024 12:50:37 PM From: Vicky Del Toro RN, CCDS Email: [email or web address] Admit Date: 07/01/2024 07:49:00 AM Patient Name: Meredith Perea Visit Number: [id number] Discharge Date: 07/01/2024 02:25:00 PM ATTENTION: The Clinical Documentation Specialists (CDI) and [facility] Coding Staff appreciate your assistance in clarifying documentation. Please respond to the clarification below the line at the bottom and electronically sign. The CDI & [facility] Coding staff will review the response and follow-up if needed. Please note: Queries are made part of the Legal Health Record. If you have any questions, please contact the author of this message via ITS. Doctor Alicia Tong The patient had the documented symptom of Altered Mental Status in the progress notes. Additional clarification regarding the etiology/cause of this symptom is requested. History/Risk Factors: Per 06/28 ED note: "CVA, DM, AMI and COPD presenting from [facility] via EMS for altered level of consciousness. [facility] notes patient having wet cough, lethargy and hypoxia (86-90% on 2 L O2). Also note patient tested positive for influenza A. Clinical Indicators: ED: "Altered mental status." 06/28 Pulmonary: "Altered mental status secondary to acute influenza A infection and possible underlying urinary tract infection." 06/29 IM: "Patient's mentation has improved per nursing staff." 07/01 Pulmonary: "Altered mental status secondary to acute influenza A infection and underlying urinary tract infection." Labs: 06/28 +UA; 06/28 Influenza A detected 06/28 Chest X Ray: Small amount of patchy airspace opacities scattered in both lungs, suggest pneumonia. Treatment: IV Rocephin 1gm Q24H 06/28-07/01; IV Fluconazole 100mg x1 on 06/28; Tamiflu 75 po x1 on 06/28; Tamiflu 30mg po Q12H 06/28-07/01; 0.9 NS @130mL/hr 06/28 Please clarify the etiology of the symptom of Altered Mental Status [x ] Metabolic Encephalopathy due to acute influenza A infection and UTI [ ] No additional diagnosis [ ] Other condition (please specify) [ ] Unable to determine MTDD
== END 2024-07-01 14:25 | DRG 193 ==
LOC: EC 23:37 → 4SSUR 06-28 03:32 → OBSVTOIN 07-01 07:49
PROVIDERS: ADMIT Internal Medicine; ATTEND Internal Medicine
DX: J10.00 Influenza due to other identified influenza virus with unspecified type of pneumonia (principal); G93.41 Metabolic encephalopathy; E11.9 Type 2 diabetes mellitus without complications; F31.9 Bipolar disorder, unspecified; I10 Essential (primary) hypertension; N39.0 Urinary tract infection, site not specified; Z79.4 Long term (current) use of insulin; B96.1 Klebsiella pneumoniae [K. pneumoniae] as the cause of diseases classified elsewhere; Z11.52 Encounter for screening for COVID-19; E78.5 Hyperlipidemia, unspecified; F41.9 Anxiety disorder, unspecified; B37.31 Acute candidiasis of vulva and vagina; H91.90 Unspecified hearing loss, unspecified ear; I25.2 Old myocardial infarction; Z87.19 Personal history of other diseases of the digestive system; Z79.02 Long term (current) use of antithrombotics/antiplatelets; Z79.899 Other long term (current) drug therapy; Z85.118 Personal history of other malignant neoplasm of bronchus and lung; Z85.3 Personal history of malignant neoplasm of breast; Z86.73 Personal history of transient ischemic attack (TIA), and cerebral infarction without residual deficits; Z87.440 Personal history of urinary (tract) infections; Z87.891 Personal history of nicotine dependence; Z90.12 Acquired absence of left breast and nipple; Z90.710 Acquired absence of both cervix and uterus; Z98.42 Cataract extraction status, left eye; Z98.41 Cataract extraction status, right eye
CPT/HCPCS: 36415; 51702; 51798; 71045; 80053; 81001; 83605; 83735; 84145; 84484; 85025; 85610; 85730; 87040; 87077; 87086; 87186; 87636; 93005; 94640; 96361; 96365; 96375; 99285